=== PATIENT | male | born 1935 | race Caucasian/White ===

== ENCOUNTER 2017-03-24 07:06 | Day surgery (SDC) | payer MEDICARE, SELFPAY ==
--- NOTE | 2017-03-24 | IMM_PTH ---
PATIENT: ESAU NAJERA LOC: EN U#:[id number] AGE/SX: 81/M ROOM: RE03/24/[address]: Dr. Tal Rosario MD : 1935 BED: DIS: 03/24/2017 SPEC #: [id number] RECD: 03/25/17 13:37 STATUS: DESTINEE MARISEL #: [id number] EPI: 03/24/17 00:[address]: Tal Rosario DEPT: IMMUNOHISTOCHEMISTRY RECD BY: Anita Liao ENTERED: 03/25/17 13:37 SP TYPE: IMMUNO OTHR DR: Dr. Kiko Mojica MD Tissues: B - Stomach, NOS Procedures: H Pylori (initial) PHYSICIAN & INSTITUTION [place] [id number] SPECIMEN INFORMATION: Tissue Source: B ? Antral biopsy Clinical Info: Dysphagia, constipation Specimen Number: [id number] CPT code: 49667 METHODOLOGY: Deparaffinized sections of prefer/formalin-fixed tissue or PAP/DQ stained slides are incubated with monoclonal/polyclonal antibodies/oligonucleotide probes. Localization is made via biotin free immunoperoxidase method. Appropriate controls are performed and reacted as expected. Results on target cell population are indicated in the following table: RESULTS: ANTIBODY / CLONE RESULT Block B H Pylori (polyclonal) negative These tests were developed and their performance characteristics determined by [facility]. They may not have been cleared or approved by the U.S. Food and Drug Administration. The FDA has determined that such clearance or approval is not necessary. INTERPRETATION: B. Antral biopsy: Negative for Helicobacter pylori organisms. AM:vadim 03/26/17
[2017-03-24 07:29] VITALS: BP 153/95; PULSE 59; RESP 16; TEMP 36.9; O2SAT 100; BMI 20.7
--- NOTE | 2017-03-24 09:25 | EGD_PTH ---
PATIENT: ESAU NAJERA LOC: EN U#:[id number] AGE/SX: 81/M ROOM: RE03/24/[address]: Dr. Tal Rosario MD : 1935 BED: DIS: 03/24/2017 SPEC #: [id number] RECD: 03/24/17 14:29 STATUS: DESTINEE MARISEL #: [id number] EPI: 03/24/17 09:[address]: Tal Rosario DEPT: SURGICAL PATHOLOGY RECD BY: Tristan Avila ENTERED: 03/24/17 14:29 SP TYPE: EGD BIOPSY OT DR: Dr. Kiko Mojica MD Tissues: A - Duodenum, NOS B - Gastric mucous membrane C - Esophageal mucous membrane Sigmoid colon biopsy Procedures: Surgery Specimen Level IV HEADER OPERATION: EGD with balloon dilatation; colonoscopy PRE-OP DIAGNOSIS: Dysphagia, constipation TISSUE SUBMITTED: A ? Duodenum biopsy, B ? Antral biopsy, C ? Distal esophageal biopsy, D ? Mid sigmoid polyp MICROSCOPIC DIAGNOSIS A. Duodenum, biopsy: No significant pathologic change. No evidence of duodenitis. B. Gastric antrum, biopsy: Gastritis. C. Distal esophagus, biopsy: Fragments of benign squamous mucosa. D. Mid sigmoid colon polyp, biopsy: Tubular adenoma. Hyperplastic polyp. AM:vadim 03/25/17 COMMENT B. The results of immunohistochemistry for Helicobacter pylori will be reported separately ([id number]). MICROSCOPIC DESCRIPTION Slides are reviewed. B. Sections show small collections and groups of plasma cells in the mucosa. Active inflammation is not present. These findings are consistent with mild chronic gastritis. GROSS DESCRIPTION A - Received in fixative is one container labeled with the patient's name and designated duodenal biopsy. The specimen consists of one irregular fragment of light banda soft tissue that measures 0.2 x 0.2 x 0.1 cm. The specimen is totally submitted in one cassette. B - Received in fixative is one container labeled with the patient's name and designated antral biopsy. The specimen consists of one irregular fragment of light banda soft tissue that measures 0.3 x 0.3 x 0.1 cm. The specimen is totally submitted in one cassette. C - Received in fixative is one container labeled with the patient's name and designated distal esophagus biopsy. The specimen consists of one irregular fragment of light banda soft tissue that measures 0.2 x 0.1 x <0.1 cm. The specimen is totally submitted in one cassette. D - Received in fixative is one container labeled with the patient's name and designated mid sigmoid polyp. The specimen consists of two irregular fragments of light banda soft tissue that in aggregate measure 0.2 x 0.1 x 0.1 cm. The specimen is totally submitted in one cassette. / AM:vadim 03/24/17 TC:3 CPT: 21781 x4
--- NOTE | 2017-03-24 09:57 | PCM.OPRPT ---
Problem List (1) GERD (gastroesophageal reflux disease) Status: Acute (2) History of esophageal stricture Status: Acute (3) Constipation Status: Acute Qualifiers: Report of Operation Date of Procedure: 03/24/17 Pre-Operative Diagnosis: Intermittent food bolus esophageal obstruction. 3 of esophageal stricture with hydrostatic dilatation 2015. Severe constipation Post-Operative Diagnosis: Moderately large hiatal hernia. Relative distal esophageal narrowing. Sessile polyp of the mid sigmoid colon. Lax elongated colon Surgery/Procedure Performed:: Esophagogastroduodenoscopy with antral and distal esophageal biopsies and hydrostatic 16.5 mm distal esophageal dilatation. Colonoscopy with cold snare mid sigmoid polypectomy Description of Surgical Findings:: Amount and informed consent was obtained. 81-year-old gent was taken to the endoscopy suite. Because of age he underwent monitored anesthesia care. Oropharynx anesthetized with Cetacaine. He was placed in left lateral decubitus position. Flexible gastroscope was inserted in this outlet inlet advanced. Proximal mid distal esophagus not remarkable EG junction was noted to be somewhat snug as the upper scope of 10 mm just the hiatus. There is evidence of a moderately large hiatal hernia. Scope was advanced back down to the antral area and through the pylorus. First and second portion the duodenum were inspected this was not remarkable. Scope was withdrawn back in the stomach and antral biopsy was obtained. Scope was retroflexed and the hiatal hernia was noted. Reasonably sizable. The cardia was otherwise unremarkable. Greater and lesser curvatures were inspected not remarkable. Excess fluid and air was aspirated free. The scope was withdrawn to the distal esophagus. Distal esophageal biopsies obtained. Then because the patient was symptomatic a 16.5 mm hydrostatic balloon was inserted placed at the e.g. junction and balloon dilatation was performed this was up to 4.5 torsten. He tolerated that well. The pressure was held for a minute. The balloon was deflated. There is absolutely no blood. The scope was then further withdrawn without additional abnormality. Patient was kept in left upper skin position. Digital rectal exam. Lax anal tone. 2+ smooth prostate. Flexible, scope inserted the rectum advanced with quite lax tortuous left colon and transverse colon. The patient was placed supine and with transabdominal pressure the scope was advanced to the cecum. Bowel prep though not perfect I felt was adequate. There was still some liquidy stool mostly on the right side of the colon. I felt that I had good visualization the mucosa though. The cecum ileocecal valve was nicely achieved. The scope was carefully withdrawn from the ascending transverse and descending colon. In the mid sigmoid colon there was a sessile 7 mm polyp. A cold snare was used to resected and retrieved. Hemostasis was intact. There had been some minimal diverticulosis of the sigmoid. No evidence of acute inflammation. The procedure was completed with patient tolerating it well. The scope was retroflexed within the rectum and mild hemorrhoidal changes noted but no active bleeding. Impression Moderately large hiatal hernia. Relative distal esophageal narrowing. Antral and distal esophageal biopsies pending. Successful 60.5 mm distal esophageal dilatation. This was performed in an attempt to improve the patient's symptoms. If patient does not improve then consideration for barium swallow and esophageal manometry will be pursued. Sessile polyp in the mid sigmoid colon likely benign. Final pathology pending. Likely at age 81 will not need an additional colonoscopy as he required a 3 day bowel prep for this 1. Possibly consider a follow-up colonoscopy at 5 years pending medical status at that time. No focal mechanical means for his severe constipation identified. Will refer back to Dr. Mojica for ongoing medical management of constipation. Cc: Dr. Mojica and Dr. Rodriguez The cecum was reached at 0942. The colonoscopy was completed at 0951. Tal Rosario M.D., F.A.C.S. Type of Anesthesia:: MAC
[2017-03-24 09:59] VITALS: BP 128/66; BP 153/95; PULSE 61; RESP 15; TEMP 36; O2SAT 100
[2017-03-24 10:05] VITALS: BP 120/63; BP 153/95; PULSE 58; RESP 18; O2SAT 96
[2017-03-24 10:10] VITALS: BP 113/81; BP 153/95; PULSE 60; RESP 18; O2SAT 96
[2017-03-24 10:17] VITALS: BP 104/91; BP 153/95; PULSE 56; RESP 18; TEMP 35.9; O2SAT 100
[2017-03-24 10:49] VITALS: BP 153/95
== END 2017-03-24 10:50 | disposition home or self-care (01) ==
LOC: EN 07:06 → AC 07:07
PROVIDERS: Family Provider Family Medicine Geriatric Medicine; PCP Family Medicine Geriatric Medicine; Visit Provider Surgery
PROC: 0DJD8ZZ Inspection of Lower Intestinal Tract, Via Natural or Artificial Opening Endoscopic (ICD-10-PCS; CPT 45378; principal; 2017-03-24 08:25)
DX: K22.2 Esophageal obstruction (principal); K44.9 Diaphragmatic hernia without obstruction or gangrene; K29.70 Gastritis, unspecified, without bleeding; K63.5 Polyp of colon; D12.5 Benign neoplasm of sigmoid colon; Q43.8 Other specified congenital malformations of intestine; K57.30 Diverticulosis of large intestine without perforation or abscess without bleeding; K64.9 Unspecified hemorrhoids; K59.00 Constipation, unspecified; K21.9 Gastro-esophageal reflux disease without esophagitis; I25.2 Old myocardial infarction; M19.90 Unspecified osteoarthritis, unspecified site; I25.10 Atherosclerotic heart disease of native coronary artery without angina pectoris; I10 Essential (primary) hypertension; E78.00 Pure hypercholesterolemia, unspecified; Z95.1 Presence of aortocoronary bypass graft; Z87.891 Personal history of nicotine dependence; Z79.82 Long term (current) use of aspirin; Z79.899 Other long term (current) drug therapy
CPT/HCPCS: 43239; 43249; 45385; 88305; 88342; J7120; A4216

== ENCOUNTER → 2017-04-09 15:57 | Outpatient (CLI) | payer MEDICARE, SELFPAY ==
--- NOTE | 2017-04-09 16:00 | VDUE_ITS ---
Reason For Study: Edema Right Proximal Left Proximal Right jugular vein is spontaneous, widely Left jugular vein is spontaneous, widely patent, phasic, with no intraluminal patent, phasic, with no intraluminal echogenicity noted. echogenicity noted. Right subclavian vein is spontaneous, widely Left subclavian vein is spontaneous, widely patent, phasic, with no intraluminal patent, phasic, with no intraluminal echogenicity noted. echogenicity noted. Right Lower Arm Left Arm Right radial vein is compressible. Left axillary vein is spontaneous, patent, Right ulnar vein is compressible. phasic, competent, compressible and Right Arm demonstrates augmentation. Right axillary vein is spontaneous, patent, Left brachial vein is compressible. phasic, competent, compressible and Left cephalic vein is compressible. demonstrates augmentation. Left basilic vein is compressible. Right brachial vein is compressible. Left Lower Arm Right cephalic vein is compressible. Left radial vein is compressible. Right basilic vein is compressible. Left ulnar vein is compressible. < Interpretation Summary Deep veins of the upper extremities are bilaterally patent and compressible segmentally. There is no evidence of deep vein thrombosis on either side. The superficial veins of the upper extremities, the basilic and cephalic veins, are patent and compressible bilaterally. There is no evidence of upper extremity superficial thrombophlebitis on either side involving the veins imaged. Ordering Physician: Kiko Mojica Referring Physician: Kiko Mojica Chi Performed By: Heena Espinal RVT
--- NOTE | 2017-04-09 16:03 | VDLE_ITS ---
Reason For Study: LEG SWELLING RIGHT LEFT CFV is compressible, spontaneous, phasic, GSV is normal. competent and demonstrates normal CFV is compressible, spontaneous, phasic, augmentation. competent, and demonstrates normal FV is compressible, spontaneous, phasic, augmentation. competent and demonstrates normal FV is compressible, spontaneous, phasic, augmentation. competent and demonstrates normal POP V is compressible, spontaneous, phasic, augmentation. competent and demonstrates normal POP V is compressible, spontaneous, phasic, augmentation. competent and demonstrates normal T/P Trunk is compressible. augmentation. PTV is compressible. T/P Trunk is compressible. RT PerV is compressible. PTV is compressible. GSV harvested. LT PerV is compressible. Interpretation Summary Deep veins of the lower extremities are bilaterally patent and compressible segmentally. There is no evidence of deep vein thrombosis on either side. Valvular competence appears intact within the proximal deep venous systems bilaterally. The right greater saphenous vein is absent, having been previously harvested. The left greater saphenous vein appears patent and compressible segmentally. Ordering Physician: Kiko Mojica Referring Physician: Kiko Mojica Chi Performed By: Heena Espinal RVT
[2017-04-09 17:19] LABS: Absolute Lymphocyte Count 2.29 X10^3/ul (0.83-4.51); Absolute Neutrophil Count 2.4 X10^3/uL (2.0-7.7); Basophil# 0.03 X10^3/uL; Basophil% 0.5 % (0-1); Eosinophil# 0.27 X10^3/uL; Eosinophils% 4.7 % (0-5); Hematocrit 42.3 % (40-54); Hemoglobin 13.7 g/dl (13.0-16.5); Lymphocyte # 2.29 X10^3/ul (4.0); Lymphocyte % 40.2 % (19-41); Mean Corp Hgb Conc 32.4 g/gl (32-36); Mean Corpuscular Hgb 31.2 pg (27.0-32.0); Mean Corpuscular Volume 96.4 fL (80-94); Monocyte# 0.69 X10^3/uL; Monocyte% 12.1 % (0-10); Neutrophil # 2.42 X10^3/uL (2.7-7.7); Neutrophil % 42.5 % (47-70); Platelet Count 222 K/mm3 (150-450); RBC Distribution Width CV 14.6 % (11.6-14.6); RBC Distribution Width SD 51.9 fl (35.1-43.9); Red Blood Count 4.39 M/mm3 (4.6-6.2); White Blood Count 5.7 K/mm3 (4.4-11.0)
[2017-04-09 17:21] LABS: POSITIVE COUNT NO; POSITIVE DIFFERENTIAL NO; POSITIVE MORPHOLOGY NO
[2017-04-09 17:33] LABS: Erythrocyte Sedimentation Rate 9 mm/hr (0-20)
[2017-04-09 17:52] LABS: Anion Gap 4 (5-15); BUN 12 mg/dL (7-18); CRP, High Sensitivity Cardiac 0.39 mg/L; Calcium,Total 8.5 mg/dL (8.5-10.1); Chloride 105 mmol/L (98-107); Creatinine, Serum 1.09 mg/dL (0.70-1.30); EST Glomerular Filtration Rate 69 mL/min (>60); Est Glom Filt Rate - Afr Amer 83 mL/min (>60); Glucose 82 mg/dL (74-106); Potassium 3.9 mmol/L (3.5-5.1); Sodium Level 140 mmol/L (136-145); Uric Acid 4.6 mg/dL (3.5-7.2)
== END ==
PROVIDERS: Family Provider Family Medicine Geriatric Medicine; PCP Family Medicine Geriatric Medicine; Visit Provider Family Medicine Geriatric Medicine
DX: R60.0 Localized edema (principal); M10.9 Gout, unspecified
CPT/HCPCS: 36415; 80048; 84550; 85025; 85652; 86141; 93970

== ENCOUNTER 2017-08-16 12:26 | Emergency (ER) | payer MEDICARE, SELFPAY ==
[2017-08-16 12:27] VITALS: BP 131/76; PULSE 66; RESP 12; TEMP 36.6; BMI 21.7
--- NOTE | 2017-08-16 12:47 | ED.DCSUM_ITS ---
- ER Visit Summary Date of Service: 08/16/17 Chief Complaint: Laceration History of Present Illness: The patient is a 82 M presents to the emergency department scalp laceration. Patient was riding his lawnmower. He ended up going under a low tree. He struck his head against a branch. He suffered a large laceration. He did not lose consciousness. He denies any dizziness, lightheadedness, neck pain, other symptoms. Patient does not think he is on anticoagulants. He has had tetanus shot within the past 5 years. He states that he applied pressure and presented here for further evaluation. Physical Examination: Exam is relatively unremarkable. The patient does have a 4 cm full-thickness scalp laceration that is V-shaped. There is minimal active bleeding. GCS is 15. Head is otherwise normocephalic. Neck is nontender. Pupils are equal round reactive to light. There is no hemotympanum. Heart regular. Lungs clear. Abdomen soft. Neuro exam this was no focal lateralizing deficit. Test Results: [] Emergency Department Course and Treatment: The patient's wound was anesthetized with lidocaine with epinephrine. It was irrigated with 250 cc of normal saline. There was some slight debris that was removed. There was no evidence of galeal disruption. The laceration was repaired with 14 taras. The patient tolerated this without issue. Dressing was placed. He was counseled on wound care. He will follow-up in 10 days for staple removal. Treatment Plan: [] Disposition: Discharge Impression: 1. 4 Centimeter scalp laceration with staple closure This note was generated with [employer] dictation software. It may contain incorrect words, spelling, and punctuation that were not noted in review of the chart prior to signing ED Disposition - Plan for ED Patient: Chief Complaint: Laceration Instructions: ED Laceration Scalp Stitch Or Stap Referrals: Kiko Mojica Chi, MD [Primary Care Provider] - 10 Day for suture removal
== END 2017-08-16 13:24 | disposition home or self-care (01) ==
PROVIDERS: Emergency Provider Emergency Medicine; Family Provider Family Medicine Geriatric Medicine; PCP Family Medicine Geriatric Medicine
DX: S01.02XA Laceration with foreign body of scalp, initial encounter (principal); W22.8XXA Striking against or struck by other objects, initial encounter; Y93.H9 Activity, other involving exterior property and land maintenance, building and construction; Y92.9 Unspecified place or not applicable
CPT/HCPCS: 12002; 99282

== ENCOUNTER → 2017-09-02 14:44 | Outpatient (CLI) | payer MEDICARE, SELFPAY ==
[2017-09-02 16:10] LABS: Absolute Lymphocyte Count 1.85 X10^3/ul (0.83-4.51); Absolute Neutrophil Count 2.6 X10^3/uL (2.0-7.7); Basophil# 0.04 X10^3/uL; Basophil% 0.7 % (0-1); Eosinophil# 0.28 X10^3/uL; Eosinophils% 5.1 % (0-5); Hematocrit 42.5 % (40-54); Hemoglobin 14.4 g/dl (13.0-16.5); Lymphocyte # 1.85 X10^3/ul (4.0); Lymphocyte % 33.7 % (19-41); Mean Corp Hgb Conc 33.9 g/gl (32-36); Mean Corpuscular Volume 94.4 fL (80-94); Mean Platelet Vol. 9.9 fl (6.2-12.0); Monocyte% 12.8 % (0-10); Neutrophil # 2.61 X10^3/uL (2.7-7.7); Neutrophil % 47.5 % (47-70); Platelet Count 238 K/mm3 (150-450); RBC Distribution Width CV 13.6 % (11.6-14.6); RBC Distribution Width SD 45.3 fl (35.1-43.9); White Blood Count 5.5 K/mm3 (4.4-11.0)
[2017-09-02 16:13] LABS: POSITIVE COUNT NO; POSITIVE DIFFERENTIAL NO; POSITIVE MORPHOLOGY NO
[2017-09-02 17:31] LABS: ALB/GLOB Ratio 0.9 RATIO (0.9-2.4); AST(SGOT) 17 U/L (15-37); Alanine Aminotransfer ALT/SGPT 20 U/L (16-61); Albumin, Serum 3.7 g/dL (3.2-5.0); Alkaline Phosphatase 81 U/L (45-117); Anion Gap 9 (5-15); BUN 11 mg/dL (7-18); BUN/Creat Ratio 9.2 RATIO (10-20); Calcium,Total 8.7 mg/dL (8.5-10.1); Chloride 105 mmol/L (98-107); Creatinine, Serum 1.19 mg/dL (0.70-1.30); EST Glomerular Filtration Rate 62 mL/min (>60); Est Glom Filt Rate - Afr Amer 75 mL/min (>60); Globulin 4.1 g/dL (2.2-4.2); Glucose 89 mg/dL (74-106); Potassium 4.2 mmol/L (3.5-5.1); Protein, Total 7.8 g/dL (6.4-8.2); Sodium Level 141 mmol/L (136-145); Thyroid Stim Hormone (TSH) 1.43 uIU/mL (0.358-3.74)
== END ==
PROVIDERS: Family Provider Family Medicine Geriatric Medicine; PCP Family Medicine Geriatric Medicine; Visit Provider Family Medicine Geriatric Medicine
DX: E55.9 Vitamin D deficiency, unspecified (principal); R53.83 Other fatigue
CPT/HCPCS: 80053; 82306; 84443; 85025

== ENCOUNTER → 2017-09-02 15:47 | Outpatient (CLI) | payer MEDICARE, SELFPAY ==
--- NOTE | 2017-09-02 15:55 | CT_ITS ---
STUDY: CT ABDOMEN AND PELVIS WITH CONTRAST REASON FOR EXAM: Male, 82 years old. Diffuse abdominal pain. RADIATION DOSAGE (If Supplied By Facility): CTDIvol = ( 5.27 ) mGy, DLP = ( 454.05 ) mGycm TECHNIQUE: Transaxial images were obtained from the dome of the diaphragm to the symphysis pubis without oral contrast. 100ML ml of Isovue 300 contrast was administered. Sagittal and coronal images were reconstructed. Individualized dose optimization techniques were used for this CT. COMPARISON: November 14, 2016 FINDINGS: The visualized lung bases are unremarkable. The visualized portions of the heart are within normal limits. There is decreased attenuation of the liver consistent with steatosis. Normal gallbladder and extrahepatic biliary system. Normal spleen. Normal pancreas. Normal bilateral adrenal glands. There is a right renal cysts. Normal left kidney. There is a small hiatal hernia. Normal small intestine. There is mild circumferential wall thickening of the colon associated with air-fluid levels. There is non-visualization of the appendix. 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 There is a stable bifurcated stent in place. There are atherosclerotic calcifications of the abdominal aorta and the common iliac arteries and its branches. Normal inferior vena cava. Normal retroperitoneum. Normal urinary bladder. There is enlargement of the prostate gland. Normal abdominal wall. There are diffuse degenerative changes of the visualized lumbar spine. There are scattered stable sclerotic foci throughout the bones. CT/Abdomen/Pelvis WITH Contrast IMPRESSION: Mild circumferential wall thickening of the colon which may be partially secondary to its incompletely distended state however cannot exclude underlying colitis. Stable infrarenal abdominal aortic aneurysm. Hiatal hernia. Electronically Signed: Yanet Hernandez MD at 18:40 EDT Tel , Service support ,
== END ==
PROVIDERS: Family Provider Family Medicine Geriatric Medicine; PCP Family Medicine Geriatric Medicine; Visit Provider Family Medicine Geriatric Medicine
DX: R10.9 Unspecified abdominal pain (principal); E55.9 Vitamin D deficiency, unspecified; R53.83 Other fatigue
CPT/HCPCS: 74177; 80053; 82306; 84443; 85025; Q9967

== ENCOUNTER 2017-10-09 15:43 | Emergency (ER) | payer MEDICARE, SELFPAY ==
[2017-10-09 15:45] VITALS: BP 109/74; PULSE 76; RESP 18; TEMP 37.1; O2SAT 94; BMI 21.9
--- NOTE | 2017-10-09 16:31 | ED.VISSUMM ---
- ER Visit Summary Date of Service: 10/09/17 Chief Complaint: Dog bite History of Present Illness: The patient is a 82 M presenting with dog bite to left lower extremity. This occurred around 11 AM. He states two family pets were in a fight and he got in the middle of it. He has a dog bite to the left lower extremity. He states he tried to apply direct pressure and it continued to ooze throughout the day. He is currently on Bactrim for previous right lower leg infection. His tetanus is up-to-date. No other complaints. Physical Examination: Vitals are stable. Patient is afebrile. Alert no acute distress. HEENT exam is unremarkable. Neck is supple. Lungs are clear and equal bilaterally. Heart is regular rate and rhythm. Extremities 1.0 cm laceration to anterior left lower extremity, puncture to lateral left lower extremity. Normal distal pulses Skin is warm and dry. No focal neurologic deficit. Remainder of exam is unremarkable. Emergency Department Course and Treatment: Laceration was copiously irrigated. Anesthetized with lidocaine. 2, 5-0 simple sutures were placed. The puncture wound was irrigated. He is given prescription for clindamycin. Advised wound care instructions. Advised to follow with primary care physician. Advised to return to ED for worsening complaints. Disposition: Discharged home Impression: Dog bite left lower extremity, laceration repair This note was generated with [employer] dictation software. It may contain incorrect words, spelling, and punctuation that were not noted in review of the chart prior to signing ED Disposition - Plan for ED Patient: Chief Complaint: Laceration Referrals: Kiko Mojica Chi, MD [Primary Care Provider] -
--- NOTE | 2017-10-09 16:35 | ED.DEP ---
ED Disposition - Plan for ED Patient: Chief Complaint: Laceration Instructions: ED Laceration All Prescriptions: Clindamycin [Cleocin] 300 mg PO 4X/DAY #80 capsule Referrals: Kiko Mojica Chi, MD [Primary Care Provider] -
[2017-10-09] MEDS: Clindamycin HCl 150 MG Capsule 300 MG PO (16:55)
== END 2017-10-09 16:58 | disposition home or self-care (01) ==
LOC: ED 16:39
PROVIDERS: Emergency Provider Emergency Medicine; Family Provider Family Medicine Geriatric Medicine; PCP Family Medicine Geriatric Medicine
DX: S80.872A Other superficial bite, left lower leg, initial encounter (principal); W54.0XXA Bitten by dog, initial encounter; Y93.9 Activity, unspecified; Y92.9 Unspecified place or not applicable; I10 Essential (primary) hypertension; E78.00 Pure hypercholesterolemia, unspecified; Z79.82 Long term (current) use of aspirin; Z79.899 Other long term (current) drug therapy
CPT/HCPCS: 12001; 99283

== ENCOUNTER → 2018-03-09 15:05 | Outpatient (CLI) | payer MEDICARE, SELFPAY ==
[2018-03-09] MEDS: 0.9% Normal Saline 1,000 ML 999 ML IV (15:25)
[2018-03-09 15:40] VITALS: BP 131/68; PULSE 66; RESP 16; TEMP 36.8; O2SAT 98; BMI 21.9
[2018-03-09 16:59] LABS: Absolute Lymphocyte Count 1.74 X10^3/ul (0.83-4.51); Absolute Neutrophil Count 2.2 X10^3/uL (2.0-7.7); Basophil# 0.04 X10^3/uL; Basophil% 0.8 % (0-1); Eosinophil# 0.33 X10^3/uL; Hematocrit 47.6 % (40-54); Hemoglobin 15.4 g/dl (13.0-16.5); Lymphocyte # 1.74 X10^3/ul (4.0); Lymphocyte % 36.9 % (19-41); Mean Corp Hgb Conc 32.4 g/gl (32-36); Mean Corpuscular Hgb 31.4 pg (27.0-32.0); Mean Corpuscular Volume 97.1 fL (80-94); Mean Platelet Vol. 10.3 fl (6.2-12.0); Monocyte# 0.39 X10^3/uL; Monocyte% 8.3 % (0-10); Neutrophil % 46.8 % (47-70); POSITIVE COUNT NO; POSITIVE DIFFERENTIAL NO; POSITIVE MORPHOLOGY NO; Platelet Count 218 K/mm3 (150-450); RBC Distribution Width CV 13.6 % (11.6-14.6); RBC Distribution Width SD 48.4 fl (35.1-43.9); White Blood Count 4.7 K/mm3 (4.4-11.0)
[2018-03-09 17:14] LABS: Vitamin D,25 Hydroxy 10.6 ng/mL (29.95-100.01)
[2018-03-09 17:16] LABS: ALB/GLOB Ratio 0.9 RATIO (0.9-2.4); AST(SGOT) 15 U/L (15-37); Alanine Aminotransfer ALT/SGPT 24 U/L (16-61); Albumin, Serum 3.9 g/dL (3.2-5.0); Alkaline Phosphatase 79 U/L (45-117); Anion Gap 10 (5-15); BUN 11 mg/dL (7-18); BUN/Creat Ratio 10.3 RATIO (10-20); Calcium,Total 9.1 mg/dL (8.5-10.1); Chloride 109 mmol/L (98-107); Creatinine, Serum 1.07 mg/dL (0.70-1.30); EST Glomerular Filtration Rate 70 mL/min (>60); Est Glom Filt Rate - Afr Amer 85 mL/min (>60); Globulin 4.3 g/dL (2.2-4.2); Glucose 77 mg/dL (74-106); Potassium 4.1 mmol/L (3.5-5.1); Protein, Total 8.2 g/dL (6.4-8.2); Sodium Level 146 mmol/L (136-145); Thyroid Stim Hormone (TSH) 1.39 uIU/mL (0.358-3.74)
== END ==
PROVIDERS: Family Provider Family Medicine Geriatric Medicine; PCP Family Medicine Geriatric Medicine; Visit Provider Family Medicine Geriatric Medicine
DX: R42 Dizziness and giddiness (principal); E55.9 Vitamin D deficiency, unspecified; R53.83 Other fatigue
CPT/HCPCS: 96360; 36415; 80053; 82306; 84443; 85025; J7030; A4216

== ENCOUNTER → 2018-06-03 | Outpatient (CLI) | payer MEDICARE, SELFPAY ==
[2018-03-09 15:40] VITALS: BMI 21.9
--- NOTE | 2018-06-03 14:30 | MRI_ITS ---
STUDY: MRI CERVICAL SPINE WITHOUT CONTRAST REASON FOR EXAM: Male, 82 years old. Neck pain, shoulder and arm pain x 1 year TECHNIQUE: Standardized fat and water weighted pulse sequences were obtained in the sagittal and axial planes. COMPARISON: None FINDINGS: Normal foramen magnum and brainstem-cervical cord junction. Normal craniovertebral junction. Normal anterior atlantoaxial articulation. Normal odontoid process. Normal cervical lordosis. C2-3: There is severe disc space narrowing and endplates spondylosis. There is no significant central canal stenosis. There is uncovertebral facet arthropathy with minimal right and moderate left foraminal stenosis. There is minimal grade 1 anterolisthesis. C3-4: There is severe disc space narrowing and endplates spondylosis. There is retrolisthesis with dorsal ligament with buckling resulting in severe central canal stenosis and impingement of the spinal cord without increased cord signal. Uncovertebral and facet arthropathy with severe right and severe left foraminal stenosis. C4-5: There is mild disc space narrowing and endplates spondylosis. Mild disc osteophyte complex with mild central canal stenosis. Uncovertebral facet neuropathy with severe right and moderate left foraminal stenosis. C5-6: There is severe disc space narrowing and endplates spondylosis. There is a moderate disc osteophyte complex with moderate central stenosis. Uncovertebral and facet arthropathy severe right and moderate left foraminal stress. C6-7: There is moderate disc space narrowing and endplates spondylosis. Mild disc osteophyte complex with mild central canal stenosis. Uncovertebral facet arthropathy with mild right and mild left foraminal stenosis. C7-T1: There is minimal disc space narrowing and endplate spondylosis. There is no significant disc herniation, central canal or foraminal stenosis. Normal visualized soft tissue structures. There are 1 cm T1 hyperintense lesions at C7 and T2, likely bone islands. 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 Electronically Signed: Elina Ratliff MD at 15:21 EDT Tel , Service support ,
== END | disposition home or self-care (01) ==
LOC: MRI 13:56
PROVIDERS: Family Provider Family Medicine Geriatric Medicine; PCP Family Medicine Geriatric Medicine; Referring Provider Family Medicine Geriatric Medicine; Visit Provider Family Medicine Geriatric Medicine
DX: M48.02 Spinal stenosis, cervical region (principal)
CPT/HCPCS: 72141

== ENCOUNTER → 2018-07-06 | Outpatient (CLI) | payer MEDICARE, SELFPAY ==
[2018-03-09 15:40] VITALS: BMI 21.9
[2018-07-06 12:54] LABS: Absolute Lymphocyte Count 1.69 X10^3/ul (0.83-4.51); Absolute Neutrophil Count 3.9 X10^3/uL (2.0-7.7); Basophil# 0.02 X10^3/uL; Basophil% 0.3 % (0-1); Eosinophil# 0.14 X10^3/uL; Eosinophils% 2.2 % (0-5); Hematocrit 45.6 % (40-54); Hemoglobin 15.4 g/dl (13.0-16.5); Lymphocyte # 1.69 X10^3/ul (4.0); Lymphocyte % 26.6 % (19-41); Mean Corp Hgb Conc 33.8 g/gl (32-36); Mean Corpuscular Hgb 32.4 pg (27.0-32.0); Mean Corpuscular Volume 95.8 fL (80-94); Mean Platelet Vol. 9.4 fl (6.2-12.0); Monocyte# 0.63 X10^3/uL; Monocyte% 9.9 % (0-10); Neutrophil # 3.86 X10^3/uL (2.7-7.7); Neutrophil % 60.8 % (47-70); Platelet Count 200 K/mm3 (150-450); RBC Distribution Width CV 13.7 % (11.6-14.6); RBC Distribution Width SD 47.5 fl (35.1-43.9); Red Blood Count 4.76 M/mm3 (4.6-6.2); White Blood Count 6.4 K/mm3 (4.4-11.0)
[2018-07-06 13:00] LABS: POSITIVE COUNT NO; POSITIVE DIFFERENTIAL NO; POSITIVE MORPHOLOGY NO
[2018-07-06 13:20] LABS: ALB/GLOB Ratio 0.9 RATIO (0.9-2.4); AST(SGOT) 16 U/L (15-37); Alanine Aminotransfer ALT/SGPT 20 U/L (16-61); Albumin, Serum 3.7 g/dL (3.2-5.0); Alkaline Phosphatase 68 U/L (45-117); Anion Gap 8 (5-15); BUN 14 mg/dL (7-18); BUN/Creat Ratio 12.6 RATIO (10-20); Calcium,Total 8.9 mg/dL (8.5-10.1); Chloride 105 mmol/L (98-107); Creatinine, Serum 1.11 mg/dL (0.70-1.30); EST Glomerular Filtration Rate 67 mL/min (>60); Est Glom Filt Rate - Afr Amer 81 mL/min (>60); Glucose 84 mg/dL (74-106); Potassium 4.2 mmol/L (3.5-5.1); Protein, Total 7.7 g/dL (6.4-8.2); Sodium Level 139 mmol/L (136-145); Thyroid Stim Hormone (TSH) 1.35 uIU/mL (0.358-3.74)
--- NOTE | 2018-07-06 13:54 | RAD_ITS ---
STUDY: X-RAY - ABDOMEN/PELVIS REASON FOR EXAM: Male, 82 years old. Abdominal pain TECHNIQUE: Single AP view of the abdomen / pelvis. COMPARISON: 01/21/2017. FINDINGS: Normal visualized lung bases. There is an unremarkable bowel gas pattern. There is no demonstrated free abdominal air. The visualized liver, spleen and kidneys are grossly normal in size and morphology. Stable appearance of aortic and iliac stent grafts. Normal soft tissue structures. Normal visualized osseous structures. RAD/Abdomen Single View IMPRESSION: No acute abnormality. Electronically Signed: Ryland España MD at 14:31 EDT , Service support ,
--- NOTE | 2018-07-06 14:01 | RAD_ITS ---
STUDY: X-RAY CHEST REASON FOR EXAM: Male, 82 years old. Chest pain TECHNIQUE: Frontal and lateral views of the chest. COMPARISON: 11/14/2016. FINDINGS: There is hyperinflation of the lungs consistent with chronic obstructive lung disease (COPD). No infiltrates. No effusions. There is no demonstrated pleural abnormality. Normal size heart. Previous CABG. Normal mediastinum and tammi. Normal visualized pulmonary arteries. There is atherosclerotic calcification of the aortic arch with tortuosity. There are diffuse degenerative changes of the visualized thoracic spine. Normal visualized ribs, clavicles, and shoulders. There is no demonstrated abnormality of the visualized soft tissue structures of the upper abdomen. RAD/Chest PA and Lateral IMPRESSION: There are findings consistent with COPD. There is no evidence of acute chest disease. Electronically Signed: Ryland España MD at 14:34 EDT , Service support ,
[2018-07-07 15:51] LABS: Myoglobin, Serum 52 ng/mL (28-72)
== END | disposition home or self-care (01) ==
LOC: POLAB3 12:17 → RAD 13:51
PROVIDERS: Family Provider Family Medicine Geriatric Medicine; PCP Family Medicine Geriatric Medicine; Referring Provider Family Medicine Geriatric Medicine; Visit Provider Family Medicine Geriatric Medicine
DX: R07.9 Chest pain, unspecified (principal); R10.9 Unspecified abdominal pain; F05 Delirium due to known physiological condition
CPT/HCPCS: 36415; 71046; 74018; 80053; 83874; 84443; 84484; 85025; 87040

== ENCOUNTER → 2018-07-07 | Outpatient (CLI) | payer MEDICARE, SELFPAY ==
[2018-03-09 15:40] VITALS: BMI 21.9
[2018-07-07 13:13] LABS: CPK Total, Creatine Kinase 64 U/L (39-308)
[2018-07-08 16:54] LABS: Myoglobin, Serum 40 ng/mL (28-72)
== END | disposition home or self-care (01) ==
LOC: POLAB3 11:43
PROVIDERS: Family Provider Family Medicine Geriatric Medicine; PCP Family Medicine Geriatric Medicine; Visit Provider Family Medicine Geriatric Medicine
DX: R07.9 Chest pain, unspecified (principal)
CPT/HCPCS: 36415; 82550; 83874; 84484

== ENCOUNTER → 2018-08-17 | Outpatient (CLI) | payer MEDICARE, SELFPAY ==
[2018-08-17 12:39] VITALS: BMI 21.9
--- NOTE | 2018-08-17 12:46 | RAD_ITS ---
STUDY: X-RAY - CERVICAL SPINE REASON FOR EXAM: Male, 83 years old. Neck pain TECHNIQUE: 4 view(s) of the cervical spine were obtained. With flexion and extension views COMPARISON: None FINDINGS: Normal anterior atlantoaxial articulation. Normal odontoid process. Normal cervical lordosis. There is multi-level endplate spondylosis. There is multi-level degenerative disc disease with multilevel disc space narrowing. There is no abnormal translation with flexion or extension The soft tissue structures are unremarkable. There is no demonstrated fracture of the cervical spine. RAD/Cerv Spine 4 or 5 Views IMPRESSION: Degenerative changes without acute findings Electronically Signed: Demarcus Holbrook DO at 13:15 EDT Tel , Service support ,
== END | disposition home or self-care (01) ==
LOC: HPRAD 12:46
PROVIDERS: Family Provider Family Medicine Geriatric Medicine; PCP Family Medicine Geriatric Medicine; Referring Provider Orthopaedic Surgery; Visit Provider Orthopaedic Surgery
DX: M54.2 Cervicalgia (principal)
CPT/HCPCS: 72050

== ENCOUNTER → 2018-09-06 | Outpatient (CLI) | payer MEDICARE, SELFPAY ==
[2018-08-17 13:17] VITALS: BMI 21.9
[2018-09-06 15:25] LABS: Absolute Lymphocyte Count 2.09 X10^3/uL (0.83-4.51); Absolute Neutrophil Count 5.2 X10^3/uL (2.0-7.7); Basophil# 0.05 X10^3/uL; Basophil% 0.6 % (0-1); Eosinophils% 1.2 % (0-5); Hematocrit 46.4 % (40-54); Hemoglobin 15.4 g/dL (13.0-16.5); Lymphocyte # 2.09 X10^3/ul (4.0); Lymphocyte % 24.8 % (19-41); Mean Corp Hgb Conc 33.2 g/dL (32-36); Mean Corpuscular Hgb 32.3 pg (27.0-32.0); Mean Corpuscular Volume 97.3 fL (80-94); Mean Platelet Vol. 9.8 fl (6.2-12.0); Monocyte% 11.8 % (0-10); NRBC Flagged by Analyzer 0 % (0-5); Neutrophil # 5.17 X10^3/uL (2.7-7.7); Neutrophil % 61.2 % (47-70); Platelet Count 245 K/mm3 (150-450); RBC Distribution Width CV 13.4 % (11.6-14.6); RBC Distribution Width SD 48.4 fl (35.1-43.9); Red Blood Count 4.77 M/mm3 (4.6-6.2); White Blood Count 8.4 K/mm3 (4.4-11.0)
[2018-09-06 15:53] LABS: AST(SGOT) 11 U/L (15-37); Alanine Aminotransfer ALT/SGPT 20 U/L (16-61); Albumin, Serum 3.7 g/dL (3.2-5.0); Alkaline Phosphatase 63 U/L (45-117); Anion Gap 4 (5-15); BUN 20 mg/dL (7-18); BUN/Creat Ratio 17.9 RATIO (10-20); Chloride 103 mmol/L (98-107); Creatinine, Serum 1.12 mg/dL (0.70-1.30); EST Glomerular Filtration Rate 66 mL/min (>60); Est Glom Filt Rate - Afr Amer 80 mL/min (>60); Globulin 3.8 g/dL (2.2-4.2); Glucose 82 mg/dL (74-106); Potassium 4.5 mmol/L (3.5-5.1); Protein, Total 7.5 g/dL (6.4-8.2); Sodium Level 136 mmol/L (136-145); Thyroid Stim Hormone (TSH) 1.33 uIU/mL (0.358-3.74)
[2018-09-06 22:03] LABS: Vitamin D,25 Hydroxy 23.6 ng/mL (29.95-100.01)
== END | disposition home or self-care (01) ==
LOC: POLAB3 09:46
PROVIDERS: Family Provider Family Medicine Geriatric Medicine; PCP Family Medicine Geriatric Medicine; Visit Provider Family Medicine Geriatric Medicine
DX: E55.9 Vitamin D deficiency, unspecified (principal); R53.83 Other fatigue
CPT/HCPCS: 36415; 80053; 82306; 84443; 85025

== ENCOUNTER → 2019-03-07 13:27 | Outpatient (CLI) | payer MEDICARE, SELFPAY ==
[2019-01-04 13:15] VITALS: BMI 21.9
[2019-03-07 17:29] LABS: Absolute Lymphocyte Count 1.78 X10^3/uL (0.83-4.51); Absolute Neutrophil Count 2.6 X10^3/uL (2.0-7.7); Basophil# 0.05 X10^3/uL; Basophil% 0.9 % (0-1); Eosinophil# 0.33 X10^3/uL; Hematocrit 46.1 % (40-54); Hemoglobin 14.7 g/dL (13.0-16.5); Lymphocyte # 1.78 X10^3/ul (4.0); Lymphocyte % 32.4 % (19-41); Mean Corp Hgb Conc 31.9 g/dL (32-36); Mean Corpuscular Hgb 31.3 pg (27.0-32.0); Mean Corpuscular Volume 98.3 fL (80-94); Mean Platelet Vol. 10.3 fl (6.2-12.0); Monocyte# 0.77 X10^3/uL; NRBC Flagged by Analyzer 0 % (0-5); Neutrophil # 2.55 X10^3/uL (2.7-7.7); Neutrophil % 46.3 % (47-70); Platelet Count 222 K/mm3 (150-450); RBC Distribution Width CV 13.4 % (11.6-14.6); RBC Distribution Width SD 48.1 fl (35.1-43.9); Red Blood Count 4.69 M/mm3 (4.6-6.2); White Blood Count 5.5 K/mm3 (4.4-11.0)
[2019-03-07 17:54] LABS: Vitamin D,25 Hydroxy 18.4 ng/mL (29.95-100.01)
[2019-03-07 17:58] LABS: ALB/GLOB Ratio 0.9 RATIO (0.9-2.4); AST(SGOT) 14 U/L (15-37); Alanine Aminotransfer ALT/SGPT 19 U/L (16-61); Albumin, Serum 3.6 g/dL (3.2-5.0); Alkaline Phosphatase 63 U/L (45-117); Anion Gap 3 (5-15); BUN 16 mg/dL (7-18); Chloride 106 mmol/L (98-107); Creatinine, Serum 1.07 mg/dL (0.70-1.30); EST Glomerular Filtration Rate 70 mL/min (>60); Est Glom Filt Rate - Afr Amer 85 mL/min (>60); Globulin 3.9 g/dL (2.2-4.2); Glucose 86 mg/dL (74-106); Protein, Total 7.5 g/dL (6.4-8.2); Sodium Level 139 mmol/L (136-145); Thyroid Stim Hormone (TSH) 1.63 uIU/mL (0.358-3.74)
== END ==
PROVIDERS: PCP Family Medicine Geriatric Medicine; Visit Provider Family Medicine Geriatric Medicine
DX: E55.9 Vitamin D deficiency, unspecified (principal); R53.83 Other fatigue
CPT/HCPCS: 36415; 80053; 82306; 84443; 85025

== ENCOUNTER → 2019-03-16 15:24 | Outpatient (CLI) | payer MEDICARE, SELFPAY ==
[2019-01-04 13:15] VITALS: BMI 21.9
--- NOTE | 2019-03-16 15:30 | RAD_ITS ---
STUDY: X-RAY - ABDOMEN/PELVIS REASON FOR EXAM: Male, 83 years old. fecal impaction, patient states he has had issues with constipation off and on for a long time, left sided abdomen pain TECHNIQUE: AP supine and upright views of the abdomen and pelvis. COMPARISON: 07/06/2018 FINDINGS: Operative changes at the base of the chest. Aortobiiliac stent graft noted. No dilated loops of small bowel. There is fecal residue of the right and proximal left colon. There is no demonstrated free abdominal air. The visualized liver, spleen and kidneys are grossly normal in size and morphology. Calcification projected in the left lower abdomen is stable. Normal soft tissue structures. There are diffuse degenerative changes of the visualized lumbar spine. RAD/Abd Inc Decub and/or Erect IMPRESSION: 1. Nonobstructive bowel gas pattern. Mild colonic fecal residue. Electronically Signed: Carlos Richter MD ([place]) at 12:14 EST , Service support ,
== END ==
PROVIDERS: PCP Family Medicine Geriatric Medicine; Referring Provider Family Medicine Geriatric Medicine; Visit Provider Family Medicine Geriatric Medicine
DX: K56.41 Fecal impaction (principal)
CPT/HCPCS: 74019

== ENCOUNTER → 2019-04-29 07:04 | Outpatient (CLI) | payer MEDICARE, SELFPAY ==
[2019-04-19 13:56] VITALS: BMI 21.5
--- NOTE | 2019-04-29 08:14 | ECHOD_ITS ---
Reason For Study: S/P CABG Procedure This was a 2D Doppler, Color Flow transthoracic echocardiogram. Exam performed in department. Left Ventricle Normal LV size. Left ventricular systolic function is normal. The estimated ejection fraction is 55 %. No regional wall motion abnormalities noted. Right Ventricle Normal RV size. Normal systolic function. Atria Normal left atrium. Normal right atrium. Mitral Valve Normal mitral valve. Tricuspid Valve Normal tricuspid valve. Mild (1+) tricuspid valve insufficiency. Pulmonary artery systolic pressure is 40 mmHg. Aortic Valve Normal aortic valve. Trisinus/trileaflet aortic valve. Trivial aortic valve insufficiency. Pulmonic Valve Normal pulmonic valve. Mild (1+) pulmonic valve insufficiency. Great Vessels Normal aortic root. The pulmonary artery is normal size. Normal inferior vena cava. Pericardium/Pleural No pericardial effusion. MMode/2D Measurements & Calculations LVIDd: 4.7 cm IVSd: 0.84 cm Ao root diam: 3.5 cm LVIDs: 3.3 cm LVPWd: 0.91 cm RVDd: 3.6 cm FS: 30.2 % LAV(MOD-bp): 56.1 ml LVAd ap4: 29.1 cm2 SV(MOD-sp4): 52.7 ml LAV(MOD-bp) Indexed: 31.1 ml/m2 EDV(MOD-sp4): 91.1 ml LAV(MOD-sp2): 59.2 ml EDV(sp4-el): 95.5 ml LAV(MOD-sp4): 48.5 ml LVAs ap4: 17.5 cm2 ESV(MOD-sp4): 38.3 ml ESV(sp4-el): 39.9 ml EF(MOD-sp4): 57.9 % EF(sp4-el): 58.2 % SV(sp4-el): 55.5 ml LA A4 area: 17.8 cm2 LA dimension(2D): 3.8 cm RA A4 area: 17.6 cm2 Time Measurements MV dec time: 0.21 sec Doppler Measurements & Calculations MV E max dieudonne: 62.2 cm/sec Ao V2 max: 121.8 cm/sec AI max dieudonne: 426.3 cm/sec MV A max dieudonne: 71.8 cm/sec Ao max P.9 mmHg AI max P.7 mmHg MV E/A: 0.87 AI dec slope: 264.0 cm/sec2 AI P1/2t: 473.0 msec LV V1 max: 104.7 cm/sec PA V2 max: 101.5 cm/sec PI end-d dieudonne: 108.2 cm/sec LV V1 max P.4 mmHg TR max dieudonne: 303.2 cm/sec TR max P.8 mmHg Interpretation Summary Normal LV size. Left ventricular systolic function is normal. The estimated ejection fraction is 55 %. Mild (1+) tricuspid valve insufficiency. Trivial aortic valve insufficiency. Pulmonary artery systolic pressure is 40 mmHg. Ordering Physician: Tristen Marshall Referring Physician: YOMI MARTINEZ Performed By: Morenita Lance RDCS
--- NOTE | 2019-04-29 12:45 | STRESSREP ---
Stress Test Report Pharmacologic myocardial perfusion stress test. 83-year-old male with a history of coronary disease. Stress protocol: Resting KG demonstrates normal sinus rhythm with a rate of 60 bpm normal intervals are noted resting blood pressure is 128/72 mmHg. 0.4 mg of regadenoson was infused per usual protocol followed by rapid venous saline flush injection continuous EKG monitoring was performed. The maximum heart rate attained was 84 bpm which was 62% of maximum predicted heart rate the maximum workload was 1 metabolic equivalent. At rest there were no ST or T wave changes noted to suggest abnormal flow reserve at peak infusion nonspecific ST-T wave changes were noted to suggest abnormal flow reserve. The resting blood pressure was 120/72 with a final blood pressure 120/74. Myocardial perfusion protocol. 12.0 mCi of technetium 99m sestamibi was injected at rest. 0.4 mg of regadenoson was infused per usual protocol. At peak infusion 36.0 mCi of technetium 99m sestamibi was injected stress images were obtained stress and rest images were reconstructed and compared in the short axis vertical and horizontal long axis. Gated images were also obtained per Perfusion SPECT analysis: Review of the stress images demonstrate normal uptake of tracer noted in all areas of the myocardium the resting images demonstrate a similar pattern. No reversibility is noted to suggest ischemia no previous infarct is noted. Gated SPECT analysis: The gated ejection fraction is 63%. Conclusion: Normal pharmacologic myocardial perfusion stress test. Preserved ejection fraction.
== END ==
PROVIDERS: PCP Family Medicine Geriatric Medicine; Referring Provider Internal Medicine Cardiovascular Disease; Visit Provider Internal Medicine Cardiovascular Disease
DX: I25.2 Old myocardial infarction (principal); Z95.1 Presence of aortocoronary bypass graft
CPT/HCPCS: 78452; 93017; 93306; A9500; A4216; J2785

== ENCOUNTER → 2019-08-11 16:46 | Outpatient (CLI) | payer MEDICARE, SELFPAY ==
[2019-04-19 13:56] VITALS: BMI 21.5
--- NOTE | 2019-08-11 16:55 | RAD_ITS ---
STUDY: X-RAY - ABDOMEN/PELVIS REASON FOR EXAM: Male, 84 years old. FECAL IMPACTION TECHNIQUE: Multiple views of the abdomen COMPARISON: March 16, 2019 FINDINGS: Normal visualized lung bases. There is an unremarkable bowel gas pattern. There is no demonstrated free abdominal air. The visualized liver, spleen and kidneys are grossly normal in size and morphology. Normal soft tissue structures. Normal visualized osseous structures. There is aortobiiliac stent endograft. Sternotomy wires are present. RAD/Abd Inc Decub and/or Erect IMPRESSION: No intestinal obstruction. Electronically Signed: Sameer Isaacs, at 21:01 EDT Tel , Service support ,
--- NOTE | 2019-08-11 17:00 | RAD_ITS ---
STUDY: X-RAY - LUMBAR SPINE REASON FOR EXAM: Male, 84 years old. LOW BACK PAIN TECHNIQUE: 3 view(s) of the lumbar spine were obtained. COMPARISON: Abdominal imaging September 02, 2017 FINDINGS: Lumbar spine is intact and aligned with appropriate age-related changes. SI joints are normal. Paraspinous soft tissue shadows are unremarkable. There is aortic biiliac stent endograft and sternotomy wires. Appearance is similar to prior abdominal imaging. RAD/Lumbar Spine 2 or 3 Views IMPRESSION: Unremarkable age-appropriate lumbar spine. Electronically Signed: Sameer Isaacs, at 20:57 EDT Tel , Service support ,
[2019-08-11 17:12] LABS: Absolute Lymphocyte Count 1.68 X10^3/uL (0.83-4.51); Absolute Neutrophil Count 2.4 X10^3/uL (2.0-7.7); Basophil# 0.04 X10^3/uL; Basophil% 0.8 % (0-1); Eosinophil# 0.13 X10^3/uL; Eosinophils% 2.7 % (0-5); Hemoglobin 14.3 g/dL (13.0-16.5); Lymphocyte # 1.68 X10^3/ul (4.0); Lymphocyte % 34.6 % (19-41); Mean Corp Hgb Conc 32.5 g/dL (32-36); Mean Corpuscular Hgb 32.7 pg (27.0-32.0); Mean Corpuscular Volume 100.7 fL (80-94); Mean Platelet Vol. 9.6 fl (6.2-12.0); Monocyte# 0.61 X10^3/uL; Monocyte% 12.6 % (0-10); NRBC Flagged by Analyzer 0 % (0-5); Neutrophil # 2.39 X10^3/uL (2.7-7.7); Neutrophil % 49.1 % (47-70); Platelet Count 221 K/mm3 (150-450); RBC Distribution Width SD 48.7 fl (35.1-43.9); Red Blood Count 4.37 M/mm3 (4.6-6.2); White Blood Count 4.9 K/mm3 (4.4-11.0)
[2019-08-11 18:36] LABS: Anion Gap 5 (5-15); BUN 15 mg/dL (7-18); BUN/Creat Ratio 14.2 RATIO (10-20); CRP < 2.90 mg/L (0.0-3.0); Calcium,Total 8.6 mg/dL (8.5-10.1); Chloride 106 mmol/L (98-107); Creatinine, Serum 1.06 mg/dL (0.70-1.30); EST Glomerular Filtration Rate 71 mL/min (>60); Est Glom Filt Rate - Afr Amer 85 mL/min (>60); Glucose 89 mg/dL (74-106); Potassium 4.3 mmol/L (3.5-5.1); Sodium Level 140 mmol/L (136-145); Thyroid Stim Hormone (TSH) 1.33 uIU/mL (0.358-3.74)
[2019-08-11 18:51] LABS: Erythrocyte Sedimentation Rate 4 mm/hr (0-20)
== END ==
PROVIDERS: PCP Family Medicine Geriatric Medicine; Referring Provider Family Medicine Geriatric Medicine; Visit Provider Family Medicine Geriatric Medicine
DX: M54.5 Low back pain (principal); K56.41 Fecal impaction; R53.83 Other fatigue; N39.0 Urinary tract infection, site not specified
CPT/HCPCS: 36415; 72100; 74019; 80048; 81002; 84443; 85025; 85652; 86140

== ENCOUNTER → 2019-08-11 | Outpatient (CLI) | payer MEDICARE, SELFPAY ==
[2019-04-19 13:56] VITALS: BMI 21.5
[2019-08-11 19:12] LABS: Color, Urine Yellow (Yellow); Glucose, Dipstick Normal (Normal); Ketone-Dipstick 5 mg/dl (Negative); Leukocyte Esterase-Dipstick Negative /ul (Negative); Nitrite-Dipstick Negative (Negative); Occult Blood-Urine 10 /ul (Negative); Protein-Dipstick Negative (Negative); Specific Gravity, Urine 1.025 (1.002-1.030); Urine Bilirubin Dipstick Negative (Negative); Urine Clarity Sl. Cloudy (Clear); Urine Urobilinogen 1 mg/dl (Normal)
== END | disposition home or self-care (01) ==
LOC: LABSPEC 08-15 07:17
PROVIDERS: PCP Family Medicine Geriatric Medicine; Referring Provider Family Medicine Geriatric Medicine; Visit Provider Family Medicine Geriatric Medicine
DX: N39.0 Urinary tract infection, site not specified (principal)
CPT/HCPCS: 81002

== ENCOUNTER → 2019-09-19 13:10 | Outpatient (CLI) | payer MEDICARE, SELFPAY ==
[2019-04-19 13:56] VITALS: BMI 21.5
[2019-09-19 16:04] LABS: Absolute Lymphocyte Count 1.63 X10^3/uL (0.83-4.51); Absolute Neutrophil Count 3.1 X10^3/uL (2.0-7.7); Basophil# 0.04 X10^3/uL; Basophil% 0.7 % (0-1); Eosinophil# 0.16 X10^3/uL; Eosinophils% 2.8 % (0-5); Hematocrit 42.5 % (40-54); Lymphocyte # 1.63 X10^3/ul (4.0); Mean Corp Hgb Conc 32.9 g/dL (32-36); Mean Corpuscular Hgb 32.1 pg (27.0-32.0); Mean Corpuscular Volume 97.5 fL (80-94); Mean Platelet Vol. 9.9 fl (6.2-12.0); Monocyte# 0.72 X10^3/uL; Monocyte% 12.8 % (0-10); NRBC Flagged by Analyzer 0 % (0-5); Neutrophil # 3.06 X10^3/uL (2.7-7.7); Neutrophil % 54.3 % (47-70); Platelet Count 227 K/mm3 (150-450); RBC Distribution Width CV 12.9 % (11.6-14.6); RBC Distribution Width SD 46.4 fl (35.1-43.9); Red Blood Count 4.36 M/mm3 (4.6-6.2); White Blood Count 5.6 K/mm3 (4.4-11.0)
[2019-09-19 16:19] LABS: Vitamin D,25 Hydroxy 32.1 ng/mL
[2019-09-19 16:29] LABS: AST(SGOT) 13 U/L (15-37); Alanine Aminotransfer ALT/SGPT 19 U/L (16-61); Albumin, Serum 3.6 g/dL (3.2-5.0); Alkaline Phosphatase 60 U/L (45-117); Anion Gap 4 (5-15); BUN 14 mg/dL (7-18); BUN/Creat Ratio 12.7 RATIO (10-20); Calcium,Total 8.5 mg/dL (8.5-10.1); Chloride 107 mmol/L (98-107); EST Glomerular Filtration Rate 68 mL/min (>60); Est Glom Filt Rate - Afr Amer 82 mL/min (>60); Globulin 3.5 g/dL (2.2-4.2); Glucose 75 mg/dL (74-106); Potassium 3.9 mmol/L (3.5-5.1); Protein, Total 7.1 g/dL (6.4-8.2); Sodium Level 140 mmol/L (136-145); Thyroid Stim Hormone (TSH) 1.08 uIU/mL (0.358-3.74)
== END ==
PROVIDERS: PCP Family Medicine Geriatric Medicine; Visit Provider Family Medicine Geriatric Medicine
DX: R53.83 Other fatigue (principal); E55.9 Vitamin D deficiency, unspecified
CPT/HCPCS: 36415; 80053; 82306; 84443; 85025

== ENCOUNTER 2019-11-06 11:07 | Emergency (ER) | payer MEDICARE, SELFPAY ==
[2019-10-18 12:58] VITALS: BMI 21.5
[2019-11-06 11:09] VITALS: BP 149/81; PULSE 52; RESP 16; TEMP 36.4; O2SAT 99; BMI 21.3
--- NOTE | 2019-11-06 12:04 | ED.DCSUM_ITS ---
History of Present Illness Informant: Patient, Family Location: Right Eye Onset: Yesterday Context: Gradual Onset Timing: Continuous Current Severity: Mild Maximum Severity: Mild Worsened by: Nothing Relieved by: Nothing Visual Changes: right: Floaters History of injury: No Visual correction: Glasses Narrative: 84-year-old male with a history of spinal stenosis presents to the emergency department complains of a floater in his right eye. He has a history of floaters. However he is concerned today because the floaters in the middle of his vision of his right eye. He noticed it about 2 days ago got worse yesterday and has been constant since then. He states that he has no symptoms in his left eye. He is not having any eye pain. He has not lost any other areas of vision. He does not have a headache. He does not have any difficulties with speech or ambulation facial droop weakness or paresthesias. He was brought in today by his daughter because he is also having right shoulder pain. He has a history of spinal stenosis. She is concerned that the 2 may be related meaning his right shoulder pain and his floater in his eye. He denies trauma but he has been told that he has a chronic rotator cuff tear in the shoulder. He is not having any neck pain. He has no weakness of his right upper extremity. He has no chest pain or shortness of breath. The rest of his review of systems are negative Prior similar symptoms: Yes Recent Illness/Hospitalization: No <Darryl Carlson - Last Filed: 11/06/19 12:04> <Marc Coffey - Last Filed: 11/06/19 12:24> Chief Complaint: Eye Problem Past Medical History Prior records reviewed: Yes Past Medical History: - - Cervical spinal stenosis hypertension hyperlipidemia coronary artery disease Surgical History: angioplasty Lives: With Family Smoking Status: Never smoker Alcohol: None Drugs: None <Darryl Carlson - Last Filed: 11/06/19 12:04> <Marc Coffey - Last Filed: 11/06/19 12:24> - Allergies and Home Meds Allergies/Adverse Reactions: Allergies No Known Allergies Allergy (Verified 11/06/19 11:12) Primary Care Physician: Adolfo Rizzo MD [STAFF PHYSICIAN] - Alvin Miranda MD [STAFF PHYSICIAN] - As soon as possible Kiko Mojica Chi, MD [Primary Care Provider] - Review of Systems All systems negative except as indicated General: Denies: Chills, Fever, Sweats Eyes: Reports: - - Floater right eye visual field. Denies: Visual changes - bilaterally, Diplopia ENT: Denies: Rhinorrhea, Sore throat Cardiovascular: Denies: Chest pain, Palpitations Respiratory: Denies: Dyspnea, Cough, Dyspnea on exertion Gastrointestinal: Denies: Abdominal pain, Nausea, Vomiting, Diarrhea, Melena, Hematochezia Genitourinary: Denies: Dysuria, Hematuria, Frequency Musculoskeletal: Reports: Extremity Pain. Denies: Myalgias, Arthralgias, Neck pain, Back pain, Swelling Skin: Denies: Rash, Wounds Neurological: Denies: Headache, Weakness, Numbness <Darryl Carlson - Last Filed: 11/06/19 12:04> Physical Exam Visual Acuity: bilateral: 20/20 Visual Acuity: Corrected Eyelid: Normal inspection Right Conjunctiva/Sclera: Normal inspection, No erythema Left Conjunctiva/Sclera: Normal inspection, No erythema Right Cornea: Normal inspection Left Cornea: Normal inspection Extraocular Motion: Normal exam, No pain, No palsy, No nystagmus Pupils: Normal accomodation, PERRL Anterior chamber: Normal exam, Deep and quiet Posterior Segment: Normal fundoscopic exam, Exam limited by miosis Vital Signs/Narrative: Vital Signs Temp Pulse Resp BP Pulse Ox 11/06/19 11:09 97.5 F L 52 L 16 149/81 H 99 Inital Vital Signs reviewed: Yes General: Well nourished, Well developed Head: Normocephalic, Atraumatic ENT: Moist mucous membranes, No rhinorrhea Neck: Supple, Nontender, - - Neck is nontender with normal active range of motion Cardiovascular: Regular rate, Regular rhythm, No murmurs Respiratory: No distress, CTA bilaterally, Chest nontender Abdomen: Soft, Nontender, Nondistended, Normal bowel sounds Back: Nontender, Normal Inspection Extremities: No edema, Tenderness - Patient has tenderness over his deltoid area. He has pain with internal and external rotation as well as abduction. He has pain with supraspinatus testing. There is no weakness he has 5 out of 5 strength testing at his right shoulder elbow hand and wrist. His radial pulse is normal. He has normal sensation throughout his right upper extremity. He has normal inspection of his right upper extremity without swelling signs of trauma there is no deformity. Skin: Normal color, No rash Neurological: Alert, Oriented x3, Cranial nerves II-XII grossly intact, Normal Strength, Normal Sensation, Normal Gait, - - Patient has no visual field deficits either eye Psychological: Normal affect, Normal Mood <Darryl Carlson - Last Filed: 11/06/19 12:04> Vital Signs/Narrative: Vital Signs Temp Pulse Resp BP Pulse Ox 11/06/19 11:09 97.5 F L 52 L 16 149/81 H 99 <Marc Coffey - Last Filed: 11/06/19 12:24> Diagnostic/Tx/Re-eval - Medical Decision Making Patient has a floater in his vision. He has no loss of vision. At this time we do not feel his symptoms are consistent with a stroke. He is neuro exam is normal. His NIH stroke scale is 0. He is having no weakness of his upper extremities we do not feel this is related to his cervical spinal stenosis which is what his daughter was concerned about today. He does have symptoms that could be consistent with his previously diagnosed chronic rotator cuff tear of his right shoulder. He was advised to follow-up with his doctor regarding that. He will also follow-up with his bagger and stock handler helper. He does not have any signs of an infection in his eye or any other deficits that would require emergent work- up in the emergency department. <Darryl Carlson - Last Filed: 11/06/19 12:04> - Medical Decision Making Patient was seen with me. I did a [id number] examination with the patient. Patient presents with blurred vision out of his right eye. Patient states that it is over the lower visual field. Patient has had similar episodes in the past and was diagnosed with floaters. Patient also complains of neck and right shoulder pain. Patient is unsure if his visual changes are related to a stroke which is also causing the shoulder and neck pain. Vital signs are stable. Patient is afebrile. Patient is in no acute distress. Pupils are equal, round, and reactive to light bilaterally. Extraocular muscles are intact. Funduscopic examination was benign. Cranial nerves II through XII are intact. Strength is 5/5 bilateral in the upper and lower extremities. There are no sensory deficits noted. Musculoskeletal exam reveals tenderness over the right cervical paraspinal muscles, right shoulder, and right arm. There is no bony crepitance or step-off. Range of motion was limited in all motions of the right shoulder and cervical spine secondary to pain. There is no deformity. There is some pain with resistive abduction of the shoulder. At this time, I do not feel this is from a stroke. His visual changes are most likely from a floater. His shoulder and neck pain are most likely from arthritis. They could also be from a rotator cuff tear or muscle strain. Patient was advised to follow-up with his primary care physician in 5 to 7 days. Patient was also instructed to follow-up with his bagger and stock handler helper. Patient and family understood and was agreeable with the plan. All questions were answered. <Marc Coffey - Last Filed: 11/06/19 12:24> ED Disposition <Darryl Carlson - Last Filed: 11/06/19 12:04> <Marc Coffey - Last Filed: 11/06/19 12:24> - Plan for ED Patient: Disposition: Home or Assisted Living Diagnosis: Floaters in visual field, chronic rotator cuff tear right, Cervical stenosis of spine Instructions: ED BURSITIS Rotator Cuff, ED Vision Problems Ch Referrals: Kiko Mojica Chi, MD [Primary Care Provider] - Adolfo Rizzo MD [STAFF PHYSICIAN] - Alvin Miranda MD [STAFF PHYSICIAN] - As soon as possible
== END 2019-11-06 12:23 | disposition home or self-care (01) ==
PROVIDERS: Emergency Provider Physician Assistant Medical; PCP Family Medicine Geriatric Medicine
DX: H43.391 Other vitreous opacities, right eye (principal); M75.101 Unspecified rotator cuff tear or rupture of right shoulder, not specified as traumatic; M48.02 Spinal stenosis, cervical region; I10 Essential (primary) hypertension; E78.5 Hyperlipidemia, unspecified; I25.10 Atherosclerotic heart disease of native coronary artery without angina pectoris; Z79.82 Long term (current) use of aspirin; Z79.899 Other long term (current) drug therapy
CPT/HCPCS: 99283

== ENCOUNTER → 2019-11-08 16:48 | Outpatient (CLI) | payer MEDICARE, SELFPAY ==
[2019-11-06 11:09] VITALS: BMI 21.3
[2019-11-08 17:22] LABS: Absolute Lymphocyte Count 2.06 X10^3/uL (0.83-4.51); Absolute Neutrophil Count 4.2 X10^3/uL (2.0-7.7); Basophil# 0.04 X10^3/uL; Basophil% 0.5 % (0-1); Eosinophil# 0.36 X10^3/uL; Eosinophils% 4.8 % (0-5); Hematocrit 46.3 % (40-54); Hemoglobin 14.9 g/dL (13.0-16.5); Lymphocyte # 2.06 X10^3/ul (4.0); Lymphocyte % 27.6 % (19-41); Mean Corp Hgb Conc 32.2 g/dL (32-36); Mean Corpuscular Hgb 31.6 pg (27.0-32.0); Mean Corpuscular Volume 98.3 fL (80-94); Mean Platelet Vol. 9.6 fl (6.2-12.0); Monocyte# 0.77 X10^3/uL; Monocyte% 10.3 % (0-10); NRBC Flagged by Analyzer 0 % (0-5); Neutrophil # 4.22 X10^3/uL (2.7-7.7); Neutrophil % 56.7 % (47-70); Platelet Count 249 K/mm3 (150-450); RBC Distribution Width CV 13.2 % (11.6-14.6); RBC Distribution Width SD 48.5 fl (35.1-43.9); Red Blood Count 4.71 M/mm3 (4.6-6.2); White Blood Count 7.5 K/mm3 (4.4-11.0)
[2019-11-08 17:56] LABS: Erythrocyte Sedimentation Rate 5 mm/hr (0-20)
[2019-11-08 18:00] LABS: CRP < 2.90 mg/L (0.0-3.0)
== END ==
PROVIDERS: PCP Family Medicine Geriatric Medicine; Referring Provider Ophthalmology; Visit Provider Ophthalmology
DX: H34.231 Retinal artery branch occlusion, right eye (principal)
CPT/HCPCS: 36415; 85025; 85652; 86140

== ENCOUNTER → 2019-11-14 13:28 | Outpatient (CLI) | payer MEDICARE, SELFPAY ==
[2019-11-06 11:09] VITALS: BMI 21.3
--- NOTE | 2019-11-14 13:33 | CDU_ITS ---
Reason For Study: Retinal occlusion Rt. Velocities/BP Lt. Velocities/BP Prox CCA 70.8/12.1 cm/sec. Prox CCA 98.6/11.4 cm/sec. Mid CCA 89.1/18.6 cm/sec. Mid CCA 92.5/12.6 cm/sec. Dist CCA 79.9/14.7 cm/sec. Dist CCA 71.6/11.4 cm/sec. Prox ICA 66.9/13.4 cm/sec. Prox ICA 77.7/17.6 cm/sec. Mid ICA 82.6/14.7 cm/sec. Mid ICA 56.4/12.4 cm/sec. Dist ICA 77.3/14.7 cm/sec. Dist ICA 71.7/21.2 cm/sec. Rt. ICA/CCA = 1.0. Lt. ICA/CCA = 0.8. Prox ECA 72.1/8.2 cm/sec. Prox ECA 61.8/10.2 cm/sec. Rt. Vert. 38.1/6.9 cm/sec. Lt. Vert. 39.5/9 cm/sec. Right Extracranial There is homogeneous, smooth atherosclerotic plaque noted in the right common carotid artery. There is intimal thickening but no significant atherosclerotic plaque noted in the right internal carotid artery. There is intimal thickening but no significant atherosclerotic plaque noted in the right external carotid artery. Antegrade flow is noted in the right vertebral artery. Left Extracranial There is homogeneous, smooth atherosclerotic plaque noted in the left common carotid artery. There is intimal thickening but no significant atherosclerotic plaque noted in the left internal carotid artery. There is intimal thickening but no significant atherosclerotic plaque noted in the left external carotid artery. Antegrade flow is noted in the left vertebral artery. Procedure Carotid Duplex 12727. This is a Carotid Duplex examination using B-mode, color flow and specral Doppler. Exam performed in department. Interpretation Summary No significant atherosclerotic plaque or stenosis noted in the internal carotid arteries bilaterally. Flow within the vertebral arteries is antegrade bilaterally. Ordering Physician: Teagan Haley Referring Physician: Kiko Mojica Chi Performed By: Rolanda Capone RVT
== END ==
PROVIDERS: PCP Family Medicine Geriatric Medicine; Referring Provider Ophthalmology; Visit Provider Ophthalmology
DX: H34.231 Retinal artery branch occlusion, right eye (principal)
CPT/HCPCS: 93880

== ENCOUNTER → 2019-11-15 15:12 | Outpatient (CLI) | payer MEDICARE, SELFPAY ==
[2019-11-06 11:09] VITALS: BMI 21.3
--- NOTE | 2019-11-15 15:21 | MRI_ITS ---
HISTORY: RIGHT shoulder bursitis and pain x 6-8 months, NKI EXAMINATION: MR Shoulder W/O Contrast TECHNIQUE: Multiplanar and multisequence MR images of the right shoulder. IV Contrast dosage and agent: None. COMPARISON: October 28, 2016. 151 images. FINDINGS: BONE: Trace subcortical cystic degenerative change is present on the posterior lateral aspect of the humeral head adjacent to the greater tuberosity. Some red marrow changes present within the scapula. ACROMIOCLAVICULAR JOINT: Arthritic degenerative disease with subcortical cystic change within both the acromion and the lateral aspect of the clavicle SUBACROMIAL-SUBDELTOID SPACE: Small crescentic rim of bursal fluid under the acromioclavicular joint superficial to the rotator cuff GLENOHUMERAL JOINT: The articular cartilage within the glenohumeral joint is mildly thinned but to a uniform degree without denuding . A small shoulder effusion is present. Rotator interval edema is present ROTATOR CUFF: A rim rent tear is present at the insertion of the supraspinatus. The rim rent tear extends into a peripheral full-thickness tear extending for 13 mm, along the long axis of the supraspinatus. It is not a complete tear as there is some of the thinned tendon remaining intact. An undersurface incomplete thickness rim rent tear is present at the insertion of the infraspinatus with some tendinosis extending back into the infraspinatus.. Tendinosis is also present to the subscapularis as it courses across the anterior aspect of the humeral head. The tendon is thickened and edematous. There is tearing to the subscapularis as it crosses over the bicipital groove Atrophy is present to the supraspinatus and the superior aspect of the subscapularis. LABRUM: The glenoid labrum as best as can be discerned on this non-arthrographic study is intact BICEPS TENDON: Long head of the biceps tendon is edematous and thinned within its articular portion. It is subluxed anteriorly somewhat in the beginning to the bicipital groove perhaps out of the bicipital groove due to tearing of the subscapularis across the bicipital groove. There may be a longitudinal split tear of the long head of the biceps tendon as it extends into the origin of the isopropyl groove. The intra-articular biceps tendon is normal. OTHER SOFT TISSUES: No adenopathy. MRI/Upper Ext Joint Only(Routine) IMPRESSION: Full-thickness 13 mm peripheral tear of the supraspinatus with atrophy and tendinosis. Rim rent insertional tear to the infraspinatus. Full-thickness tear to the subscapularis is crosses over the bicipital groove with subluxation of long head of the biceps tendon out of the bicipital groove with fairly severe tendinosis to the long head of the biceps tendon at its intra-articular portion with a short segment longitudinal split tear in the origin of the bicipital groove to the long head biceps tendon. at 0614 Reported and signed by: Ric Wang MD Electronically Signed: Ric Wang MD at 6:13 EDT Tel , Service support ,
== END ==
PROVIDERS: PCP Family Medicine Geriatric Medicine; Referring Provider Family Medicine Geriatric Medicine; Visit Provider Family Medicine Geriatric Medicine
DX: M75.51 Bursitis of right shoulder (principal)
CPT/HCPCS: 73221

== ENCOUNTER → 2019-12-22 12:53 | Outpatient (CLI) | payer MEDICARE, SELFPAY ==
[2019-12-14 08:40] VITALS: BMI 21.1
== END ==
PROVIDERS: PCP Family Medicine Geriatric Medicine; Referring Provider Nurse Practitioner Family; Visit Provider Nurse Practitioner Family
DX: R00.2 Palpitations (principal); H53.9 Unspecified visual disturbance
CPT/HCPCS: 93225; 93226

== ENCOUNTER → 2020-03-19 13:38 | Outpatient (CLI) | payer MEDICARE, SELFPAY ==
[2019-12-14 08:40] VITALS: BMI 21.1
[2020-03-19 16:48] LABS: Absolute Lymphocyte Count 1.37 X10^3/uL (0.83-4.51); Absolute Neutrophil Count 3.1 X10^3/uL (2.0-7.7); Basophil# 0.05 X10^3/uL; Basophil% 0.9 % (0-1); Eosinophil# 0.29 X10^3/uL; Eosinophils% 5.2 % (0-5); Hematocrit 43.6 % (40-54); Hemoglobin 14.3 g/dL (13.0-16.5); Lymphocyte # 1.37 X10^3/ul (4.0); Lymphocyte % 24.6 % (19-41); Mean Corp Hgb Conc 32.8 g/dL (32-36); Mean Corpuscular Hgb 32.1 pg (27.0-32.0); Mean Platelet Vol. 9.8 fl (6.2-12.0); Monocyte# 0.69 X10^3/uL; Monocyte% 12.4 % (0-10); NRBC Flagged by Analyzer 0 % (0-5); Neutrophil # 3.14 X10^3/uL (2.7-7.7); Neutrophil % 56.5 % (47-70); Platelet Count 275 K/mm3 (150-450); RBC Distribution Width CV 13.1 % (11.6-14.6); RBC Distribution Width SD 47.2 fl (35.1-43.9); Red Blood Count 4.45 M/mm3 (4.6-6.2); White Blood Count 5.6 K/mm3 (4.4-11.0)
[2020-03-19 17:07] LABS: Vitamin D,25 Hydroxy 18.5 ng/mL
[2020-03-19 17:14] LABS: AST(SGOT) 14 U/L (15-37); Alanine Aminotransfer ALT/SGPT 19 U/L (16-61); Albumin, Serum 3.6 g/dL (3.2-5.0); Alkaline Phosphatase 68 U/L (45-117); Anion Gap 6 (5-15); BUN 18 mg/dL (7-18); BUN/Creat Ratio 17.5 RATIO (10-20); Calcium,Total 8.9 mg/dL (8.5-10.1); Chloride 106 mmol/L (98-107); Creatinine, Serum 1.03 mg/dL (0.70-1.30); EST Glomerular Filtration Rate 73 mL/min (>60); Est Glom Filt Rate - Afr Amer 88 mL/min (>60); Globulin 3.6 g/dL (2.2-4.2); Glucose 83 mg/dL (74-106); Protein, Total 7.2 g/dL (6.4-8.2); Sodium Level 140 mmol/L (136-145); Thyroid Stim Hormone (TSH) 1.47 uIU/mL (0.358-3.74)
== END ==
PROVIDERS: PCP Family Medicine Geriatric Medicine; Visit Provider Family Medicine Geriatric Medicine
DX: R53.83 Other fatigue (principal); E55.9 Vitamin D deficiency, unspecified
CPT/HCPCS: 36415; 80053; 82306; 84443; 85025

== ENCOUNTER → 2020-08-14 14:58 | Outpatient (CLI) | payer MEDICARE, SELFPAY ==
[2020-07-24 12:29] VITALS: BMI 21.5
[2020-08-14 16:32] LABS: Anion Gap 6 (5-15); BUN 13 mg/dL (7-18); BUN/Creat Ratio 12.3 RATIO (10-20); Chloride 102 mmol/L (98-107); Creatinine, Serum 1.06 mg/dL (0.70-1.30); EST Glomerular Filtration Rate 70 mL/min (>60); Est Glom Filt Rate - Afr Amer 85 mL/min (>60); Glucose 85 mg/dL (74-106); Sodium Level 138 mmol/L (136-145)
== END ==
PROVIDERS: PCP Family Medicine Geriatric Medicine; Visit Provider Family Medicine Geriatric Medicine
DX: R60.9 Edema, unspecified (principal)
CPT/HCPCS: 36415; 80048

== ENCOUNTER → 2020-09-26 15:30 | Outpatient (CLI) | payer MEDICARE, SELFPAY ==
[2020-09-26 17:16] LABS: Absolute Lymphocyte Count 1.38 X10^3/uL (0.83-4.51); Absolute Neutrophil Count 1.3 X10^3/uL (2.0-7.7); Basophil# 0.03 X10^3/uL; Basophil% 0.8 % (0-1); Eosinophil# 0.28 X10^3/uL; Eosinophils% 7.7 % (0-5); Hematocrit 42.6 % (40-54); Hemoglobin 14.1 g/dL (13.0-16.5); Lymphocyte # 1.38 X10^3/ul (0.83-4.51); Lymphocyte % 37.9 % (19-41); Mean Corp Hgb Conc 33.1 g/dL (32-36); Mean Corpuscular Hgb 31.7 pg (27.0-32.0); Mean Corpuscular Volume 95.7 fL (80-94); Mean Platelet Vol. 10.1 fl (6.2-12.0); Monocyte% 16.5 % (0-10); NRBC Flagged by Analyzer 0 % (0-5); Neutrophil # 1.34 X10^3/uL (2.7-7.7); Neutrophil % 36.8 % (47-70); Platelet Count 200 K/mm3 (150-450); RBC Distribution Width CV 13.1 % (11.6-14.6); RBC Distribution Width SD 46.6 fl (35.1-43.9); Red Blood Count 4.45 M/mm3 (4.6-6.2); White Blood Count 3.6 K/mm3 (4.4-11.0)
[2020-09-26 17:31] LABS: AST(SGOT) 14 U/L (15-37); Alanine Aminotransfer ALT/SGPT 19 U/L (16-61); Albumin, Serum 3.6 g/dL (3.2-5.0); Alkaline Phosphatase 64 U/L (45-117); Anion Gap 5 (5-15); BUN 13 mg/dL (7-18); BUN/Creat Ratio 13.8 RATIO (10-20); Calcium,Total 8.6 mg/dL (8.5-10.1); Chloride 103 mmol/L (98-107); Creatinine, Serum 0.94 mg/dL (0.70-1.30); EST Glomerular Filtration Rate 80 mL/min (>60); Est Glom Filt Rate - Afr Amer 97 mL/min (>60); Globulin 3.7 g/dL (2.2-4.2); Glucose 75 mg/dL (74-106); Potassium 3.5 mmol/L (3.5-5.1); Protein, Total 7.3 g/dL (6.4-8.2); Sodium Level 138 mmol/L (136-145); Thyroid Stim Hormone (TSH) 1.55 uIU/mL (0.358-3.74); Vitamin D,25 Hydroxy 42.4 ng/mL
== END ==
PROVIDERS: PCP Family Medicine Geriatric Medicine; Visit Provider Family Medicine Geriatric Medicine
DX: E55.9 Vitamin D deficiency, unspecified (principal); R53.83 Other fatigue
CPT/HCPCS: 36415; 80053; 82306; 84443; 85025

== ENCOUNTER → 2020-10-17 07:40 | Outpatient (CLI) | payer MEDICARE, SELFPAY ==
--- NOTE | 2020-10-17 07:42 | MRI_ITS ---
STUDY: MRI CERVICAL SPINE WITHOUT CONTRAST REASON FOR EXAM: Male, 85 years old. pain, shoulder pain left more than right TECHNIQUE: Standardized fat and water weighted pulse sequences were obtained in the sagittal and axial planes. COMPARISON: 06/03/2018 FINDINGS: Normal foramen magnum and brainstem-cervical cord junction. Normal craniovertebral junction. Normal anterior atlantoaxial articulation. Normal odontoid process. Normal cervical lordosis. Normal vertebral bodies and posterior osseous elements. C2-3: Normal endplates. Normal disc height, signal and morphology. Normal central canal and intervertebral neural foramina. C3-4: There is an increase in the retrolisthesis of C3 on C4 from 2 mm to 5 mm with worsening severe spinal stenosis with cord compression and mild myelomalacia. C4-5: No change in a 2 mm retrolisthesis of C4 on C5 with a mild bilobed disc osteophyte complex which produces moderate spinal stenosis with abutment of the central spinal cord and moderate bilateral neural foraminal stenosis. C5-6: No change in the 2 mm of anterolisthesis of C5 on C6 with a mild broad disc osteophyte complex which produces moderate spinal stenosis with abutment of the central spinal cord and moderate bilateral neural foraminal stenosis. C6-7: No change in the moderate broad disc osteophyte complex which produces moderate spinal stenosis with abutment of the central spinal cord and mild bilateral neural foraminal stenosis. C7-T1: Normal endplates. Normal disc height, signal and morphology. Normal central canal and intervertebral neural foramina. Normal cervical cord. Normal visualized soft tissue structures. MRI/Spine Cervical (Routine) IMPRESSION: Worsening degenerative disc disease particularly at C3/C4 with an increase in the retrolisthesis of C3 on C4 with severe spinal stenosis with cord compression and mild myelomalacia. Electronically Signed: Siva Pro MD at 18:02 EDT Tel , Service support ,
== END ==
PROVIDERS: PCP Family Medicine Geriatric Medicine; Referring Provider Orthopaedic Surgery; Visit Provider Orthopaedic Surgery
DX: M47.22 Other spondylosis with radiculopathy, cervical region (principal); M54.2 Cervicalgia
CPT/HCPCS: 72141

== ENCOUNTER → 2020-11-01 08:37 | Outpatient (CLI) | payer MEDICARE, SELFPAY ==
--- NOTE | 2020-11-01 08:50 | RAD_ITS ---
STUDY: X-RAY - ESOPHAGUS (BARIUM SWALLOW) WITH FLUOROSCOPY REASON FOR EXAM: Male, 85 years old. DYSPHAGIA,GERD TECHNIQUE: 20 view(s) of the esophagus were obtained following swallowing of barium. FLUOROSCOPY TIME (if supplied): (40 seconds) minutes/seconds COMPARISON: Comparison is made with prior study dated 09/21/2015. FINDINGS: There is no demonstrated esophageal foreign body. There is no demonstrated stricture or mucosal abnormality. Moderate sized hiatal hernia with gastroesophageal reflux. The patient ingested a 12 mm tablet at bedtime. The tablet was trapped at the gastroesophageal junction. There is atherosclerotic calcification of the aortic arch with tortuosity of the descending aorta. Normal visualized pulmonary parenchyma. There are diffuse degenerative changes of the visualized thoracic spine. RAD/Esophagus Dual Contrast IMPRESSION: Moderate sized hiatal hernia with gastroesophageal reflux. The 12 mm tablet of barium is trapped at the gastroesophageal junction. Electronically Signed: Sukhdev Larson MD at 12:25 EDT , Service support ,
== END ==
PROVIDERS: PCP Family Medicine Geriatric Medicine; Referring Provider Otolaryngology; Visit Provider Otolaryngology
DX: R13.10 Dysphagia, unspecified (principal); K21.9 Gastro-esophageal reflux disease without esophagitis
CPT/HCPCS: 74221

== ENCOUNTER → 2020-11-27 16:52 | Outpatient (CLI) | payer MEDICARE, SELFPAY ==
[2020-11-27 17:48] LABS: Absolute Lymphocyte Count 1.49 X10^3/uL (0.83-4.51); Absolute Neutrophil Count 2.5 X10^3/uL (2.0-7.7); Basophil# 0.05 X10^3/uL; Basophil% 0.9 % (0-1); Eosinophil# 0.51 X10^3/uL; Eosinophils% 9.6 % (0-5); Hematocrit 42.8 % (40-54); Hemoglobin 14.2 g/dL (13.0-16.5); Lymphocyte # 1.49 X10^3/ul (0.83-4.51); Lymphocyte % 28.1 % (19-41); Mean Corp Hgb Conc 33.2 g/dL (32-36); Mean Corpuscular Hgb 31.9 pg (27.0-32.0); Mean Corpuscular Volume 96.2 fL (80-94); Monocyte# 0.73 X10^3/uL; Monocyte% 13.7 % (0-10); NRBC Flagged by Analyzer 0 % (0-5); Neutrophil # 2.52 X10^3/uL (2.7-7.7); Neutrophil % 47.5 % (47-70); Platelet Count 250 K/mm3 (150-450); RBC Distribution Width CV 12.9 % (11.6-14.6); RBC Distribution Width SD 45.9 fl (35.1-43.9); Red Blood Count 4.45 M/mm3 (4.6-6.2); White Blood Count 5.3 K/mm3 (4.4-11.0)
[2020-11-27 18:03] LABS: International Normalized Ratio 1.1; Prothrombin Time (Protime)PT. 13.2 SECONDS (11.7-14.9)
[2020-11-27 18:27] LABS: Anion Gap 6 (5-15); BUN 17 mg/dL (7-18); BUN/Creat Ratio 13.9 RATIO (10-20); Calcium,Total 9.5 mg/dL (8.5-10.1); Chloride 102 mmol/L (98-107); Creatinine, Serum 1.22 mg/dL (0.70-1.30); EST Glomerular Filtration Rate 60 mL/min (>60); Est Glom Filt Rate - Afr Amer 72 mL/min (>60); Glucose 89 mg/dL (74-106); Potassium 4.1 mmol/L (3.5-5.1); Sodium Level 138 mmol/L (136-145)
== END ==
PROVIDERS: PCP Family Medicine Geriatric Medicine; Visit Provider Family Medicine Geriatric Medicine
DX: Z01.818 Encounter for other preprocedural examination (principal)
CPT/HCPCS: 36415; 80048; 85025; 85610

== ENCOUNTER → 2021-02-05 16:36 | Outpatient (CLI) | payer MEDICARE, SELFPAY ==
[2021-02-05 17:00] LABS: Absolute Lymphocyte Count 1.46 X10^3/uL (0.83-4.51); Absolute Neutrophil Count 3.3 X10^3/uL (2.0-7.7); Basophil# 0.03 X10^3/uL; Basophil% 0.5 % (0-1); Eosinophil# 0.21 X10^3/uL; Eosinophils% 3.6 % (0-5); Hematocrit 43.5 % (40-54); Hemoglobin 14.7 g/dL (13.0-16.5); Lymphocyte # 1.46 X10^3/ul (0.83-4.51); Lymphocyte % 25.3 % (19-41); Mean Corp Hgb Conc 33.8 g/dL (32-36); Mean Corpuscular Hgb 32.2 pg (27.0-32.0); Mean Corpuscular Volume 95.4 fL (80-94); Mean Platelet Vol. 9.4 fl (6.2-12.0); Monocyte# 0.71 X10^3/uL; Monocyte% 12.3 % (0-10); NRBC Flagged by Analyzer 0 % (0-5); Neutrophil # 3.33 X10^3/uL (2.7-7.7); Platelet Count 250 K/mm3 (150-450); RBC Distribution Width CV 13.1 % (11.6-14.6); RBC Distribution Width SD 46.3 fl (35.1-43.9); Red Blood Count 4.56 M/mm3 (4.6-6.2); White Blood Count 5.8 K/mm3 (4.4-11.0)
[2021-02-05 17:03] LABS: International Normalized Ratio 1.1; Prothrombin Time (Protime)PT. 13.3 SECONDS (11.7-14.9)
[2021-02-05 17:24] LABS: Anion Gap 7 (5-15); BUN 17 mg/dL (7-18); BUN/Creat Ratio 15.6 RATIO (10-20); Calcium,Total 9.3 mg/dL (8.5-10.1); Chloride 102 mmol/L (98-107); Creatinine, Serum 1.09 mg/dL (0.70-1.30); EST Glomerular Filtration Rate 68 mL/min (>60); Est Glom Filt Rate - Afr Amer 82 mL/min (>60); Glucose 96 mg/dL (74-106); Potassium 3.9 mmol/L (3.5-5.1); Sodium Level 140 mmol/L (136-145)
== END ==
PROVIDERS: PCP Family Medicine Geriatric Medicine; Visit Provider Family Medicine Geriatric Medicine
DX: Z01.818 Encounter for other preprocedural examination (principal)
CPT/HCPCS: 36415; 80048; 85025; 85610

== ENCOUNTER 2021-03-04 09:06 | Observation (INO) | payer MEDICARE, SELFPAY ==
[2021-03-04] VITALS (17 sets, daily range): BP systolic 103–126; BP diastolic 51–83; PULSE 108–129; RESP 15–29; TEMP 36.6–37; O2SAT 88–97; BMI 21.4; BMI 20.2
--- NOTE | 2021-03-04 10:06 | RAD_ITS ---
STUDY: X-RAY CHEST REASON FOR EXAM: Male, 85 years old. Cough TECHNIQUE: Single AP portable view of the chest. COMPARISON: Comparison is made with prior examination dated 08/11/2019. FINDINGS: EKG electrodes are seen. Hyperinflation. Stable mild increased markings at the right lung base suggestive of scarring. There is no demonstrated pleural abnormality. Sternal cerclage wires and vascular clips are present from a prior sternotomy and coronary artery bypass graft procedure (CABG). Normal mediastinum and tammi. Normal visualized pulmonary arteries. There is atherosclerotic calcification of the aortic arch with tortuosity. There are diffuse degenerative changes of the visualized thoracic spine. There is degenerative osteoarthritis of the bilateral shoulders. There is no demonstrated abnormality of the visualized soft tissue structures of the upper abdomen. RAD/Chest 1 View (Portable) IMPRESSION: Hyperinflation. Stable increased markings at the right lung base suggestive of scarring. Electronically Signed: Sukhdev Larson MD at 11:12 EST , Service support ,
--- NOTE | 2021-03-04 10:07 | EKG12_ITS ---
Test Reason : Blood Pressure : / mmHG Vent. Rate : 096 BPM Atrial Rate : 096 BPM P-R Int : 176 ms QRS Dur : 078 ms QT Int : 342 ms P-R-T Axes : 090 -24 045 degrees QTc Int : 432 ms Normal sinus rhythm Inferior infarct , age undetermined Abnormal ECG Confirmed by GIANNA LYLES, MARCOS ([id number]), script editor KIM PANG ([id number]) on 03/05/2021 9:57:13 AM Referred By: DAVIAN Confirmed By:MARCOS KATZ MD
--- NOTE | 2021-03-04 10:07 | EX.ED.DYSGE1 ---
HPI History of Present Illness Chief Complaint: General Illness Informant: patient Narrative Narrative: Patient presents with about 2 to 3 days of cough, myalgias, poor sleep, and loss of appetite. He does not have nausea vomiting diarrhea or abdominal pain. He has no chest pain. He has no sputum production. He has minimal if any dyspnea. He does have diffuse myalgias. He did have Covid vaccines and booster. However, he was in the hospital 3 weeks ago to have surgery on his neck. He is concerned that the coughing is going to bother his neck although he is not having problems with that now. He does not know if he was exposed to Covid. Patient does live alone. However, his daughter has been staying with him recently. She thought he was getting better after his surgery. At the last 3 or 4 days he is really gone downhill. He states he is very weak. He is having trouble getting around. He is not eating or drinking. He seems more short of breath. She is very concerned about him. [facility] Medical History Abdominal aortic aneurysm (AAA) Abdominal pain Arthritis Atherosclerosis of coronary artery of [place] heart without angina pectoris Branch retinal artery occlusion of right eye (11/25/19) Central retinal vein occlusion of right eye (11/25/19) Cervical myelopathy Colon polyp Constipation COPD (chronic obstructive pulmonary disease) Depression Esophageal dilatation GERD (gastroesophageal reflux disease) History of esophageal stricture History of ST elevation myocardial infarction (STEMI) (05/08/06) Hyperlipidemia Insomnia Irritable bowel syndrome with constipation Paroxysmal atrial fibrillation Postoperative atrial fibrillation (05/2006) Right temporomandibular joint disorder, unspecified Rotator cuff tear Tear of biceps tendon Home Medications aspirin 81 mg PO DAILY@0800 11/25/15 [History Last Taken 03/18/17] metoprolol tartrate 25 mg tablet 12.5 mg PO BID tab 04/07/19 [History Last Taken Unknown] bisacodyl 5 mg tablet,delayed release 5 mg PO BID PRN tab 12/14/19 [History Last Taken Unknown] hydrochlorothiazide 12.5 mg tablet 12.5 mg PO DAILY #90 tab 07/24/20 [Rx Last Taken Unknown] lactulose 10 gram/15 mL oral solution 15 ml PO DAILY PRN PRN ml 07/24/20 [History Last Taken Unknown] tramadol 50 mg tablet 50 mg PO DAILY PRN 09/17/20 [History Last Taken Unknown] meclizine 25 mg tablet 25 mg PO DAILY PRN 01/24/21 [History Last Taken Unknown] sennosides 8.6 mg-docusate sodium 50 mg tablet 1 tab-cap PO BID PRN tab 01/24/21 [History Last Taken Unknown] Allergy/AdvReac Type Severity Reaction Status Date / Time apixaban [From Eliquis] AdvReac Intermediate GI upset Verified 03/04/21 09:07 rivaroxaban [From Xarelto] AdvReac generally Verified 03/04/21 09:07 did not feel well Family History Mother Colon cancer CVA (cerebral vascular accident) Father Cancer leukemia Surgical History 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) History of appendectomy History of cataract surgery History of endovascular stent graft for abdominal aortic aneurysm (AAA) History of esophageal dilatation (~12/2020) History of esophagogastroduodenoscopy (EGD) History of herniorrhaphy History of sinus surgery Social History Smoking Status: Former smoker second hand exposure: No alcohol intake: never substance use type: does not use caffeine: Yes seatbelt use: always ROS ROS ED Constitutional Constitutional ED: Reports subjective Eyes Eyes: Denies blurry vision ENT ENT ED: Reports rhinorrhea; Denies sore throat Cardiovascular Cardiovascular: Denies chest pain or palpitations Respiratory/Chest Respiratory/Chest: Reports cough and dyspnea; Denies sputum Gastrointestinal Gastrointestinal: Denies abdominal pain, diarrhea, nausea or vomiting Genitourinary Genitourinary ED: Denies dysuria or hematuria Musculoskeletal Musculoskeletal: Reports myalgias Neurologic Neurologic: Denies headache(s) Psychiatric Psychiatric: Denies depression Endocrine Endocrinology: Denies polydipsia or polyuria Allergic/Immunologic Allergic/Immunologic ED: Denies mouth swelling or urticaria EXAM Physical Exam Const Vital Signs: 03/04/21 09:07 03/04/21 09:30 03/04/21 10:15 Temperature 98.6 F Temperature Source Oral Pulse Rate 129 H 108 H Respiratory Rate 18 21 H Respiratory Effort Normal Non-Labored Respiratory Pattern Tachypnea Blood Pressure 122/78 H Blood Pressure Mean 92 Pulse Ox 97 Oxygen Delivery Method Room Air Oxygen Flow Rate (L/min) 03/04/21 11:14 03/04/21 11:20 03/04/21 12:40 Temperature Temperature Source Pulse Rate 116 H 125 H 128 H Respiratory Rate 27 H 21 H 29 H Respiratory Effort Respiratory Pattern Blood Pressure 113/75 126/73 H Blood Pressure Mean 87 90 Pulse Ox 88 96 91 Oxygen Delivery Method Room Air Nasal Cannula Room Air Oxygen Flow Rate (L/min) 2 03/04/21 12:48 03/04/21 12:49 03/04/21 14:06 Temperature Temperature Source Pulse Rate 110 H Respiratory Rate 15 Respiratory Effort Respiratory Pattern Blood Pressure 112/83 H Blood Pressure Mean 92 Pulse Ox 91 93 Oxygen Delivery Method Room Air Nasal Cannula Oxygen Flow Rate (L/min) 2 Positive well nourished and well developed General Appearance ED: well developed and NAD; Negative for cyanotic or diaphoretic HEENT Reports moist mucous membranes Eyes General Eye ED: Negative for pale conjunctiva or scleral icterus Neck no JVD Chest Wall inspection of chest normal Resp normal respiratory effort Resp Narrative: Patient has no pain with deep breath. He does have some mild rhonchi and slight wheezes. Patient denies a history of COPD but he was a heavy smoker and does have COPD on his diagnostic list. Effort and Inspection: Negative for pain with movement Auscultation: rhonchi and wheezes; Negative for rales Cardio regular rate and regular rhythm GI normal to inspection, nondistended, normoactive bowel sounds and non-tender Palpation: soft Back/Spine Back/Spine Narrative: Cervical incision is healing quite well. There is no tenderness or erythema in the area. Cervical Spine: Negative for cervical spine tenderness Extremity normal to inspection General Extremety ED: Negative for edema or tenderness General Extremity: Negative for edema Neuro oriented x3 Sensorium / Orientation: alert Psych mental status grossly normal Skin no rashes or lesions noted Skin Narrative: Well-healing surgical wound. MDM MDM MDM Narrative Medical decision making narrative: Patient's white count is elevated slightly 11.5. Hemoglobin is okay. Electrolytes are overall unremarkable. Troponin is negative. Chest x-ray showed some changes more likely with scarring. I went back to check the patient. I found out that he is now on oxygen and he had a low oxygen level. I did not see this on the vitals on the computer. Yet due to the busy day the had not yet been placed. At this point we did pursue more comprehensive work-up. Since he has had recent surgery I did do a CT scan of his chest. Happily, this did not show pulmonary embolus but did show some changes at the base that could be scarring but also could be bronchiectasis. Since the patient has had subjective chills, slight white count, cough with some sputum, weakness and has a negative Covid test I will treat as though this is early pneumonia. There is a report on his chart of prior COPD although he and his daughter are not familiar with this ever being diagnosed and he has not been on inhalers. He quit smoking about 15 years ago. He did have a hint of an expiratory wheeze at the very end. He still has some coarse breath sounds now. I will get him another breathing treatment. I will start him on antibiotics. We tried walking him but he was very weak and his oxygen level went 88%. Even then he did not walk far. I do not think this patient is good for going home. His daughter is also very concerned about how he is done recently. Lab Data Attestation: I reviewed the patient's lab results. Labs: Laboratory Results - last 24 hr 03/04/21 03/04/21 10:26 10:26 WBC 11.5 H RBC 4.45 L Hgb 14.3 Hct 41.9 MCV 94.2 H MCH 32.1 H MCHC 34.1 RDW Std Deviation 45.2 H RDW Coeff of Sandip 13.1 Plt Count 228 MPV 9.4 Immature Gran % (Auto) 0.600 Neut % (Auto) 83.7 H Lymph % (Auto) 7.3 L [place] % (Auto) 8.1 Eos % (Auto) 0.0 Baso % (Auto) 0.3 Absolute Neuts (auto) 9.7 H Absolute Lymphs (auto) 0.84 Nucleated RBC % 0 Sodium 136 Potassium 3.9 Chloride 100 Carbon Dioxide 27.0 Anion Gap 9 BUN 17 Creatinine 1.11 Estim Creat Clear Calc 44.44 Est GFR (MDRD) Af Amer 81 Est GFR (MDRD) Non-Af 67 BUN/Creatinine Ratio 15.3 Glucose 89 Calcium 9.1 Troponin I High Sens 14 Radiography Diagnostic Testing: Clinical Impression(s) from Imaging Studies Chest X-Ray 03/04/21 10:06 IMPRESSION: Hyperinflation. Stable increased markings at the right lung base suggestive of scarring. Electronically Signed: Sukhdev Larson MD at 11:12 EST , Service support , Chest CTA 03/04/21 13:12 IMPRESSION: No evidence of pneumothorax. Findings suggestive of scarring at the lung bases with evidence of the bronchiectasis and subpleural blebs. Electronically Signed: Sukhdev Larson MD at 13:59 EST , Service support , Discharge Plan Dx/Rx/DC Orders Clinical Impression: Hypoxia, Bronchiectasis, Generalized weakness Disposition Disposition: Acute Care Hospital [facility]
[2021-03-04] MEDS: Ipratropium/Albuterol Sulfate 3 ML AMPUL.NEB INHALATION ×3 (10:15→18:58)
[2021-03-04 10:41] LABS: Absolute Lymphocyte Count 0.84 X10^3/uL (0.83-4.51); Absolute Neutrophil Count 9.7 X10^3/uL (2.0-7.7); Basophil# 0.03 X10^3/uL; Basophil% 0.3 % (0-1); Hematocrit 41.9 % (40-54); Hemoglobin 14.3 g/dL (13.0-16.5); Lymphocyte # 0.84 X10^3/ul (0.83-4.51); Lymphocyte % 7.3 % (19-41); Mean Corp Hgb Conc 34.1 g/dL (32-36); Mean Corpuscular Hgb 32.1 pg (27.0-32.0); Mean Corpuscular Volume 94.2 fL (80-94); Mean Platelet Vol. 9.4 fl (6.2-12.0); Monocyte# 0.93 X10^3/uL; Monocyte% 8.1 % (0-10); NRBC Flagged by Analyzer 0 % (0-5); Neutrophil # 9.67 X10^3/uL (2.7-7.7); Neutrophil % 83.7 % (47-70); Platelet Count 228 K/mm3 (150-450); RBC Distribution Width CV 13.1 % (11.6-14.6); RBC Distribution Width SD 45.2 fl (35.1-43.9); Red Blood Count 4.45 M/mm3 (4.6-6.2); White Blood Count 11.5 K/mm3 (4.4-11.0)
[2021-03-04 10:57] LABS: Anion Gap 9 (5-15); BUN 17 mg/dL (7-18); BUN/Creat Ratio 15.3 RATIO (10-20); Calcium,Total 9.1 mg/dL (8.5-10.1); Chloride 100 mmol/L (98-107); Creatinine, Serum 1.11 mg/dL (0.70-1.30); EST Glomerular Filtration Rate 67 mL/min (>60); Est Glom Filt Rate - Afr Amer 81 mL/min (>60); Estimated Creatinine Clearance 44.44 ml/min; Glucose 89 mg/dL (74-106); Potassium 3.9 mmol/L (3.5-5.1); Sodium Level 136 mmol/L (136-145); Troponin-I HS 14 pg/mL (3.0-78.0)
--- NOTE | 2021-03-04 13:12 | CT_ITS ---
STUDY: CTA CHEST REASON FOR EXAM: Male, 85 years old. Shortness of breath. Chest pain. Possible pulmonary embolism. RADIATION DOSAGE (If Supplied By Facility): CTDIvol = ( 6.62 ) mGy, DLP = ( 214.93 ) mGycm TECHNIQUE: The examination was performed with the intravenous administration of IV 100mL [id number]-[id number]. Post-processing of the angiographic images was performed, with multiplanar reformation and 3D reconstruction. Individualized dose optimization techniques were used for this CT. COMPARISON: Comparison is made with prior chest radiograph done earlier today. FINDINGS: Normal enhancement of the main pulmonary artery and right and left pulmonary arteries. Normal enhancement of the bilateral peripheral pulmonary arteries. There is no demonstrated pulmonary embolism. Normal thoracic aorta and visualized great vessels. There is no demonstrated aortic dissection. There are calcifications of the coronary arteries. Sternal cerclage wires and vascular clips are present from a prior sternotomy and coronary artery bypass graft procedure (CABG). There are visualized mediastinal lymph nodes, which are within normal size limits, and with normal morphology. Normal hilar regions. Normal visualized trachea and bronchi. Hyperinflation. Mild degree of emphysematous changes. There is evidence of a mild degree of increased interstitial markings at the lung bases with bronchiectasis and subpleural scarring with subpleural blebs (chronic scarring. A calcified granuloma is seen in the posterior lateral aspect of the right middle lobe. Normal pleura. Normal chest wall structures. There are degenerative changes of thoracic spine. Endoluminal stent graft is seen in the proximal abdominal aorta. CT/CTA Chest W/WO Contrast IMPRESSION: No evidence of pneumothorax. Findings suggestive of scarring at the lung bases with evidence of the bronchiectasis and subpleural blebs. Electronically Signed: Sukhdev Larson MD at 13:59 EST , Service support ,
--- NOTE | 2021-03-04 14:22 | NURSING ---
DR ASA HERNANDEZ
--- NOTE | 2021-03-04 14:29 | NURSING ---
MED SURG ASA COPD, PNEUMONIA, HYPOXIA
[2021-03-04] MEDS: Metoprolol Tartrate 25 MG Tablet 12.5 MG PO ×2 (14:47→22:04)
--- NOTE | 2021-03-04 15:21 | HP.PCM.HOS_ITS ---
[facility] - General General Date of Admission: 03/04/21 Date of Service: 03/04/21 Chief Complaint: Shortness of breath HPI Narrative ESAU NAJERA, is a 85 M who presented to the emergency department which [facility] on 03/04/2021 with a chief complaint of shortness of breath. The patient indicates that he had surgery on his cervical spine with a posterior fusion approximately 3 weeks ago at [facility] and had been doing quite well after his postoperative pain had resolved up until approximately 2 to 3 days ago when he developed cough, myalgias, poor sleep, and loss of appetite along with generalized weakness. He denied nausea, vomiting, constipation or diarrhea, abdominal pain, fever, chills, chest pain or any significant sputum production. He has been vaccinated for Covid and has had his booster as well. He indicates he had approximately a 3 to 4-day hospital stay after his cervical fusion. He lives alone at baseline however his daughter has been staying with him recently since his surgery. His daughter indicates that he is extremely weak and was having trouble getting around where is after surgery he had been doing quite well. Per her his oral intake has been poor and she indicates that he has been extremely short of breath with exertion. In the emergency department he was afebrile but was mildly tachycardic with a heart rate from 108-130. This appeared to be MAT both on his defect cutter and his EKG. He does have a known history of paroxysmal atrial fibrillation as well. His blood pressure was stable and he was normotensive he was tachypneic with respiratory rates anywhere from 15-29 at its highest. His oxygen saturation was 88% on room air and improved to 93 to 96% on 2 L nasal cannula. His CBC shows a mild leukocytosis with a white count of 11.5 and a left shift. His BMP is overall unimpressive with no significant abnormalities. High- sensitivity troponin was obtained and was 14. Given his recent surgery and shortness of breath a CTA of his chest was performed to rule out pulmonary embolism. The CTA was negative for PE or pneumothorax and showed findings suggestive of scarring at the lung bases with evidence of bronchiectasis and subpleural blebs/emphysematous changes. In the emergency department he was given a dose of metoprolol oral 12.5 mg and vancomycin and Zosyn were ordered. [facility] Medical History (Updated 03/04/21 @ 15:[address] Shona Kemp, DO) Abdominal aortic aneurysm (AAA) Abdominal pain Arthritis Atherosclerosis of coronary artery of [place] heart without angina pectoris Branch retinal artery occlusion of right eye (11/25/19) Central retinal vein occlusion of right eye (11/25/19) Cervical myelopathy Colon polyp Constipation COPD (chronic obstructive pulmonary disease) Depression Esophageal dilatation GERD (gastroesophageal reflux disease) History of esophageal stricture History of ST elevation myocardial infarction (STEMI) (05/08/06) Hyperlipidemia Insomnia Irritable bowel syndrome with constipation Paroxysmal atrial fibrillation Postoperative atrial fibrillation (05/2006) Right temporomandibular joint disorder, unspecified Rotator cuff tear Tear of biceps tendon Home Medications aspirin 81 mg PO DAILY@0800 11/25/15 [History Last Taken 03/03/21] metoprolol tartrate 25 mg tablet 12.5 mg PO BID tab 04/07/19 [History Last T aken 03/03/21] bisacodyl 5 mg tablet,delayed release 5 mg PO BID PRN tab 12/14/19 [History Last Taken 03/03/21] hydrochlorothiazide 12.5 mg tablet 12.5 mg PO DAILY #90 tab 07/24/20 [Rx Last Taken 03/03/21] lactulose 10 gram/15 mL oral solution 15 ml PO DAILY PRN PRN ml 07/24/20 [History Last Taken Unknown] tramadol 50 mg tablet 50 mg PO DAILY PRN 09/17/20 [History Last Taken Unknown] meclizine 25 mg tablet 25 mg PO DAILY PRN 01/24/21 [History Last Taken Unknown] sennosides 8.6 mg-docusate sodium 50 mg tablet 1 tab-cap PO BID PRN tab 01/24/21 [History Last Taken 03/03/21] omeprazole 40 mg PO DAILY 03/04/21 [History Last Taken 03/03/21] plecanatide [Trulance] 3 mg PO DAILY 03/04/21 [History Last Taken 03/03/21] Allergy/AdvReac Type Severity Reaction Status Date / Time apixaban [From Eliquis] AdvReac Intermediate GI upset Verified 03/04/21 09:07 rivaroxaban [From Xarelto] AdvReac generally Verified 03/04/21 09:07 did not feel well Family History Mother Colon cancer CVA (cerebral vascular accident) Father Cancer leukemia Surgical History (Updated 03/04/21 @ 15:[address] Shona Kemp DO) 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) History of appendectomy History of cataract surgery History of endovascular stent graft for abdominal aortic aneurysm (AAA) History of esophageal dilatation (~12/2020) History of esophagogastroduodenoscopy (EGD) History of herniorrhaphy History of sinus surgery S/P cervical spinal fusion Social History Smoking Status: Former smoker second hand exposure: No alcohol intake: never substance use type: does not use caffeine: Yes seatbelt use: always ROS Constitutional Constitutional: Reports anorexia, chills, fatigue, malaise and weakness; Denies change in weight, fever(s), night sweats or other Eyes Eyes: Denies blurry vision, change in eye color, change in vision, discharge from eye(s), double vision, erythema, eye pain, loss of vision or other ENT HEENT: Reports abnormal hearing; Denies dysphagia, ear pain, epistaxis, headache(s), hearing loss, nasal congestion, nasal discharge, post nasal drip, sinus pressure, sore throat or other Cardiovascular Cardiovascular: Reports dyspnea on exertion; Denies chest pain, claudication, edema, lightheadedness, orthopnea, palpitations, paroxysmal nocturnal dyspnea, rapid heart rate, syncope or other Respiratory/Chest Respiratory/Chest: Reports cough, dyspnea and shortness of breath with exertion; Denies excessive phlegm production, hemoptysis, productive cough, shortness of breath at rest, wheezing or other Gastrointestinal Gastrointestinal: Denies abdominal pain, coffee ground emesis, constipation, diarrhea, dyspepsia, hematemesis, hematochezia, loose stools, melena, nausea, vomiting or other Genitourinary Genitourinary: Reports nocturia and urinary hesitancy; Denies burning urination, difficulty urinating, dysuria, hematuria, urinary frequency, urinary incontinence, urinary urgency or other Musculoskeletal Musculoskeletal: Reports joint pain and neck pain; Denies arthralgias, back pain, joint stiffness, joint swelling, myalgias or other Neurologic Neurologic: Denies abnormal gait, abnormal speech, confusion, disequilibrium, dizziness, focal weakness, headache(s), numbness, paresthesias, seizure-like activity, seizures, syncope, tingling, tremor(s) or other Psychiatric Psychiatric: Denies anxiety, depression, homicidal ideation, suicidal ideation or other Endocrine Endocrinology: Denies change in body appearance, cold intolerance, excessive sweating, heat intolerance, polydipsia, polyuria or other Hematologic/Lymphatic Hematologic/Lymphatic: Denies anemia, easy bleeding, easy bruising, lymphadenopathy or other Allergic/Immunologic Allergic/Immunologic: Denies rhinitis, hives, eczemia, asthma or other Vital Signs Vital Signs Vital Signs: 03/04/21 09:07 03/04/21 09:30 03/04/21 10:15 Temperature 98.6 F Temperature Source Oral Pulse Rate 129 H 108 H Respiratory Rate 18 21 H Respiratory Effort Normal Non-Labored Respiratory Pattern Tachypnea Blood Pressure 122/78 H Blood Pressure Mean 92 Pulse Ox 97 Oxygen Delivery Method Room Air Oxygen Flow Rate (L/min) 03/04/21 11:14 03/04/21 11:20 03/04/21 12:40 Temperature Temperature Source Pulse Rate 116 H 125 H 128 H Respiratory Rate 27 H 21 H 29 H Respiratory Effort Respiratory Pattern Blood Pressure 113/75 126/73 H Blood Pressure Mean 87 90 Pulse Ox 88 96 91 Oxygen Delivery Method Room Air Nasal Cannula Room Air Oxygen Flow Rate (L/min) 2 03/04/21 12:48 03/04/21 12:49 03/04/21 14:06 Temperature Temperature Source Pulse Rate 110 H Respiratory Rate 15 Respiratory Effort Respiratory Pattern Blood Pressure 112/83 H Blood Pressure Mean 92 Pulse Ox 91 93 Oxygen Delivery Method Room Air Nasal Cannula Oxygen Flow Rate (L/min) 2 03/04/21 14:22 03/04/21 14:43 Temperature 98 F Temperature Source Temporal Pulse Rate 118 H 114 H Respiratory Rate 20 H 24 H Respiratory Effort Respiratory Pattern Tachypnea Blood Pressure 104/73 Blood Pressure Mean 83 Pulse Ox 92 Oxygen Delivery Method Nasal Cannula Oxygen Flow Rate (L/min) Weight Weight: 65.771 kg Body Mass Index (BMI) 21.4 Physical Exam Const alert and oriented x3 Constitutional Narrative: Elderly white male sitting up in bed, daughter bedside, patient appears ill but nontoxic, no acute distress, no signs of respiratory extremitas on 2 L nasal cannula General Appearance: cooperative HEENT normocephalic, head/scalp atraumatic and moist oral mucous membranes HEENT Narrative: Poor dentition, Mallampati 2, no thrush Eyes PERRL, EOMs intact bilaterally and conjunctivae normal Eyes Narrative: No scleral icterus Neck no lymphadenopathy, supple, no JVD and no carotid bruits Neck Narrative: Trachea midline, no thyroid enlarged Resp normal respiratory effort, no retractions, no use of accessory muscles and No clear to auscultation bilaterally Resp Narrative: Few scattered crackles and rhonchi right lung field from apex to base, left lung field is clear Auscultation: crackles and rhonchi; Negative for rales or wheezes Cardio S1 normal heart sound, S2 normal heart sound, no murmurs, no rub, no gallops, no clicks and no JVD Cardio Narrative: Mild tachycardia with an irregularly irregular rhythm GI normal to inspection, nondistended, normoactive bowel sounds, soft to palpation, non-tender and non-distended Extremity no clubbing, cyanosis or edema Peripheral Pulses: Yes pulses 2+ throughout Skin no rashes or lesions noted, no wounds, skin turgor normal, no jaundice, no petechiae and no mottling Skin Narrative: Postoperative cervical fusion incision is well-healed without any drainage or erythema Neuro oriented x3, CN's II-XII intact bilaterally, moves all extremities and no focal motor deficits Neuro Narrative: Marked generalized weakness Sensorium / Orientation: awake and alert Speech: speech normal Psych affect normal Psych Narrative: Very pleasant Results Lab / Micro Data Result Diagrams: 03/04/21 10:26 03/04/21 10:26 Labs: Laboratory Results - last 24 hr 03/04/21 10:26: WBC 11.5 H, RBC 4.45 L, Hgb 14.3, Hct 41.9, MCV 94.2 H, MCH 32.1 H, MCHC 34.1, RDW Std Deviation 45.2 H, RDW Coeff of Sandip 13.1, Plt Count 228, MPV 9.4, Immature Gran % (Auto) 0.600, Neut % (Auto) 83.7 H, Lymph % (Auto) 7.3 L, Taylor % (Auto) 8.1, Eos % (Auto) 0.0, Baso % (Auto) 0.3, Absolute Neuts (auto) 9.7 H, Absolute Lymphs (auto) 0.84, Nucleated RBC % 0 03/04/21 10:26: Sodium 136, Potassium 3.9, Chloride 100, Carbon Dioxide 27.0, Anion Gap 9, BUN 17, Creatinine 1.11, Estim Creat Clear Calc 44.44, Est GFR (MDRD) Af Amer 81, Est GFR (MDRD) Non-Af 67, BUN/Creatinine Ratio 15.3, Glucose 89, Calcium 9.1, Troponin I High Sens 14 Micro: Microbiology 03/04/21 10:26 Nasal Secretion SARS-CoV-2 Antigen (Rapid) - Final Radiology Impression Chest X-Ray 03/04/21 10:06 IMPRESSION: Hyperinflation. Stable increased markings at the right lung base suggestive of scarring. Electronically Signed: Sukhdev Larson MD at 11:12 EST , Service support , Chest CTA 03/04/21 13:12 IMPRESSION: No evidence of pneumothorax. Findings suggestive of scarring at the lung bases with evidence of the bronchiectasis and subpleural blebs. Electronically Signed: Sukhdev Larson MD at 13:59 EST , Service support , Assessment & Plan Assessment/Plan (1) Hypoxia: (2) Generalized weakness: (3) Bronchiectasis: (4) Multifocal atrial tachycardia: (5) Leukocytosis: PLAN: Hypoxia due to suspected HCAP -No focal pneumonia noted on CT of chest however right lung field auscultation abnormal and patient has cough and white count elevation -With recent hospitalization and 3 to 4-day stay will initiate Vanco and Zosyn -Check Covid PCR -Rapid Covid is negative -Check influenza/RSV PCR -Check sputum culture if able to produce -Scheduled and as needed nebulizers -With bronchiectasis patient is at risk for mucous plugging will encourage incentive spirometer and Pep therapy with Acapella has been ordered -Mucinex -Would recommend outpatient follow-up with pulmonary medicine for PFTs once he is clinically improved -We will cycle cardiac enzymes Bronchiectasis -Noted on CT of chest done 03/04/2021 -Aggressive pulmonary toilet -I-S and Pep therapy -Mucinex Leukocytosis -Suspect related to acute infection -Antibiotics as above -Cultures are pending--> blood and sputum -Lactic acid is pending Tachycardia -Patient does have history of paroxysmal atrial fibrillation however this appea rs to be multifocal atrial tachycardia -Continue home metoprolol -Monitor on telemetry -As needed metoprolol ordered for heart rate greater than 110 with hold parameters -Check TSH -Suspect will improve once his respiratory status improves Generalized weakness -Suspect due to acute infection -Consult PT/OT -Patient may need placement prior to discharge home for further rehab depending on progress -This was discussed with patient and daughter at bedside prior to admission History of PAF -Patient is on chronic metoprolol -Continue baby aspirin aspirin -Patient has had intolerances to oral anticoagulation Recent cervical fusion due to severe cervical stenosis -Patient seems to be progressing well -Incision is well-healed with no signs of infection -Monitor clinically -PT/OT -Continue Ultram for pain IBS -Hold Trulance until discharged home -Continue as needed medication for constipation -Patient's IBS as symptoms seem to be more consistent with constipation than diarrhea CAD/HTN/HPL -Patient has history of CABG x2 in 2006 -Continue baby aspirin -Continue HCTZ 12.5 mg daily -Continue metoprolol 12.5 mg daily GERD -Continue omeprazole DVT prophylaxis -Lovenox 40 mg daily -SCDs CODE STATUS -Full code as per discussion of the emergency department with the patient and the daughter Charges/Coding Visit Charges Inpatient E&M: 54146 Init Hosp L3
--- NOTE | 2021-03-04 15:26 | CASEMGMT ---
RN CM Assessment Introduced role of RN CM to patient and patient dtr Ava at bedside. Patient is alert, oriented and able to participate in RN CM Assessment. Care providers, pharmacy, and demographics verified. Admit Dx: Hypoxia with HCAP Re-Admit: No Barriers/Issues: Just had Neck surgery x3 weeks ago- Needs to be careful with his Neck but per dtr has no precautions. Just to be careful not to fall or injure neck. PCP: Kiko Mojica Specialists: Cardio- Joanna, Spine Surgeon- Crow Preferred [facility]acy: [facility] Insurance: Uriah Mane Rx Benefit: Yes LNOK: Dtr Ava Black LW/HPOA: None. Declined any information or services at this time. Aware [employer] can complete AD on this admission and to notify staff he chooses to complete at a later time. Living Arrangements: Lives alone in a 2SH, living set up on ground fl. No steps to enter through back of home. ADL?s: Independent with ambulation and ADLs/IADLs. Transportation: Patient drives, dtr Ava to transport upon DC. DME: None HHC: Past SNF: None Goal: Home and does not think will have any needs, issues or concerns at this time. Aware RNCM will continue to follow should any needs arise. DC PLAN: Home with possible Home O2. In Network DME list provided. Preference [facility]. CHASE Guardado
--- NOTE | 2021-03-04 16:44 | PCS.PANDOC ---
PANDEMIC DOCUMENTATION INITIATED: Date: 09/24/2020 Time: 190
[2021-03-04 17:22] LABS: Troponin-I HS 20 pg/mL (3.0-78.0)
[2021-03-04 17:24] LABS: Lactic Acid 3.6 mmol/L (0.4-1.9)
--- NOTE | 2021-03-04 18:39 | PCM.RX.CS ---
Consult Pharmacy has been consulted to manage selected antiobiotic: Vancomycin Type of Consult: New start Suspected Infection: Pneumonia Labs: Sodium 136 mmol/L (136-145) 03/04/21 10:26 Potassium 3.9 mmol/L (3.5-5.1) 03/04/21 10:26 Chloride 100 mmol/L (98-107) 03/04/21 10:26 Carbon Dioxide 27.0 mmol/L (21.0-32.0) 03/04/21 10:26 Anion Gap 9 (5-15) 03/04/21 10:26 BUN 17 mg/dL (7-18) 03/04/21 10:26 Creatinine 1.11 mg/dL (0.70-1.30) 03/04/21 10:26 Est GFR (MDRD) Af Amer 81 mL/min (>60) 03/04/21 10:26 Est GFR (MDRD) Non-Af 67 mL/min (>60) 03/04/21 10:26 BUN/Creatinine Ratio 15.3 RATIO (10-20) 03/04/21 10:26 Glucose 89 mg/dL (74-106) 03/04/21 10:26 Microbiology: Microbiology 03/04/21 10:26 Nasal Secretion SARS-CoV-2 Antigen (Rapid) - Final Goal Trough: 15-20 mcg/mL Pharmacy Plan for Drug Dosing: NEW START IV VANCOMYCIN Consulting Physician: Dr. Aaron Kemp Indication: Pneumonia Goal Trough: 15-20 SrCr: 1.11 CrCl: 44.44 mls/min Comments: pt was to receive a 1000mg x1 dose in the ER on 03/04/21, but it was dc'd and not administered Vancomcyin Dose: based on pts weight and renal function, pt to receive an initial dose of 1000mg x1 on 03/04/21 at 1900, then 500mg q12h starting 03/05/21 at 0700. trough before the 4th total dose. Pending Level: 03/06/21 at 0630 Pharmacy Service will continue to monitor and adjust dosing as required. Follow-Up Labs: Trough Vancomycin - 03/06/21 at 0630
[2021-03-04 18:46] LABS: M R Staph aureus DNA By PCR Negative (Negative); Probe Check PASS; Specimen Processing Control PASS
[2021-03-04 19:02] LABS: Troponin-I HS 24 pg/mL (3.0-78.0)
[2021-03-04] MEDS: Vancomycin IV 1,000 MG/200 ML BAG 200 MG IV (19:59)
[2021-03-04 20:46] LABS: Reflex Lactate? Y
[2021-03-04] MEDS: guaiFENesin 1,200 MG Tablet 1200 MG PO (22:04)
[2021-03-04 22:48] LABS: Lactic Acid 1.7 mmol/L (0.4-1.9); Troponin-I HS 27 pg/mL (3.0-78.0)
[2021-03-05] VITALS (21 sets, daily range): BP systolic 94–124; BP diastolic 58–74; PULSE 71–116; RESP 16–26; TEMP 36.1–37.3; O2SAT 93–96
[2021-03-05] MEDS: Ipratropium/Albuterol Sulfate 3 ML AMPUL.NEB INHALATION ×4 (00:13→18:59)
[2021-03-05 05:33] LABS: Absolute Lymphocyte Count 1.11 X10^3/uL (0.83-4.51); Absolute Neutrophil Count 7.8 X10^3/uL (2.0-7.7); Basophil# 0.03 X10^3/uL; Basophil% 0.3 % (0-1); Eosinophil# 0.01 X10^3/uL; Eosinophils% 0.1 % (0-5); Hematocrit 36.4 % (40-54); Hemoglobin 12.2 g/dL (13.0-16.5); Lymphocyte # 1.11 X10^3/ul (0.83-4.51); Mean Corp Hgb Conc 33.5 g/dL (32-36); Mean Corpuscular Hgb 31.4 pg (27.0-32.0); Mean Corpuscular Volume 93.6 fL (80-94); Mean Platelet Vol. 10.1 fl (6.2-12.0); Monocyte# 1.03 X10^3/uL; Monocyte% 10.2 % (0-10); NRBC Flagged by Analyzer 0 % (0-5); Neutrophil # 7.84 X10^3/uL (2.7-7.7); Neutrophil % 77.8 % (47-70); Platelet Count 185 K/mm3 (150-450); RBC Distribution Width CV 12.7 % (11.6-14.6); RBC Distribution Width SD 43.4 fl (35.1-43.9); Red Blood Count 3.89 M/mm3 (4.6-6.2); White Blood Count 10.1 K/mm3 (4.4-11.0)
[2021-03-05 06:02] LABS: ALB/GLOB Ratio 0.6 RATIO (0.9-2.4); AST(SGOT) 12 U/L (15-37); Alanine Aminotransfer ALT/SGPT 14 U/L (16-61); Albumin, Serum 2.5 g/dL (3.2-5.0); Alkaline Phosphatase 66 U/L (45-117); Anion Gap 7 (5-15); BUN 17 mg/dL (7-18); BUN/Creat Ratio 14.2 RATIO (10-20); Calcium,Total 8.3 mg/dL (8.5-10.1); Chloride 97 mmol/L (98-107); EST Glomerular Filtration Rate 61 mL/min (>60); Est Glom Filt Rate - Afr Amer 74 mL/min (>60); Estimated Creatinine Clearance 39.25 ml/min; Globulin 4.2 g/dL (2.2-4.2); Glucose 101 mg/dL (74-106); Magnesium 1.9 mg/dL (1.6-2.6); Phosphorus 2.4 mg/dL (2.5-4.9); Potassium 3.6 mmol/L (3.5-5.1); Protein, Total 6.7 g/dL (6.4-8.2); Sodium Level 132 mmol/L (136-145); Thyroid Stim Hormone (TSH) 0.94 uIU/mL (0.358-3.74)
[2021-03-05] MEDS: 0.9% Saline Lock 10 ML Syringe IV (06:17)
[2021-03-05] MEDS: Vancomycin IV 500 MG/100 ML BAG 100 MG IV ×2 (06:19→18:33)
[2021-03-05] MEDS: Metoprolol Tartrate 25 MG Tablet 12.5 MG PO ×2 (08:13→21:48)
[2021-03-05] MEDS: hydroCHLOROthiazide 6.25mg TAB 12.5 MG PO (08:13)
[2021-03-05] MEDS: Enoxaparin 40 MG/0.4 ML Syringe SC (08:13)
[2021-03-05] MEDS: Aspirin 81 MG TAB.CHEW PO (08:14)
[2021-03-05] MEDS: guaiFENesin 1,200 MG Tablet 1200 MG PO ×2 (08:14→21:49)
--- NOTE | 2021-03-05 11:18 | PN.HOSP_ITS ---
Documented by User: Jeramie MOHAN 03/05/21 11:30 Subjective Subjective Patient is an 85-year-old male comfortably resting in bed, alert and orient x3. Patient reports significant improvement in his shortness of breath although still is requiring 5 L of oxygen via nasal cannula. Patient does not use home oxygen at baseline. Denies development of any new symptoms overnight. Does not appear in acute distress. Objective Data Objective Data Vital Signs: Vital Signs Temp Pulse Resp BP Pulse Ox 96.9 F L 116 H 18 124/74 H 95 03/05/21 08:10 03/05/21 08:13 03/05/21 08:10 03/05/21 08:13 03/05/21 08:10 Oxygen Flow Rate (L/min) 5 Oxygen Delivery Method Nasal Cannula Weight: 138 lb 7.205 oz Body Mass Index (BMI) 20.2 Intake & Output: Intake and Output for Last 24 Hours 03/03/21 03/04/21 03/05/21 23:59 23:59 23:59 Intake Total 560 / 860 750 / 750 Output Total 300 / 800 750 / 750 Balance 260 / 60 0 / 0 Medical Nutrition Assessment Dietitian: Malnutrition Criteria Met Start: 03/04/21 16:46 Freq: Status: Active Protocol: Document 03/04/21 16:47 RMA (Rec: 03/04/21 16:47 RMA [id number]) Nutrition Malnutrition Evidence of Malnutrition Exists Yes Malnutrition (severe): Acute Illness/Injury Evidenced By Suboptimal Energy Intake ( Severe),Weight Loss (Severe) Clinical Problem Acute Disease or Injury Related Malnutrition Etiology Severe protein-calorie malnutrition in the context of acute illness related to inadequate oral intake/ debility/weakness Signs/Symptoms as evidenced by ~5% wt loss x less than 1 month and PO meeting less than 50% estimated nutrition needs. Status Active Problem Recommendation Dietitian Recommendations/Changes In view of signs/symptoms of malnutrition, will liberalize diet to regular and add ensure compact TID w/ meals. Adjust ONS as needed to prevent further wt loss and help optimize oral intake at meals. Lab / Micro Data Result Diagrams: 03/05/21 04:16 03/05/21 04:16 Labs: Laboratory Results - last 24 hr 03/04/21 16:00: COVID-19 (NICOLE) Not Detected 03/04/21 16:22: Lactic Acid 3.6 H* 03/04/21 16:22: Troponin I High Sens 20 03/04/21 17:00: MRSA (PCR) Negative 03/04/21 18:09: Troponin I High Sens 24 03/04/21 21:52: Troponin I High Sens 27 03/04/21 21:52: Lactic Acid 1.7 03/05/21 04:16: WBC 10.1, RBC 3.89 L, Hgb 12.2 L, Hct 36.4 L, MCV 93.6, MCH 31.4, MCHC 33.5, RDW Std Deviation 43.4, RDW Coeff of Sandip 12.7, Plt Count 185, MPV 10.1, Immature Gran % (Auto) 0.600, Neut % (Auto) 77.8 H, Lymph % (Auto) 11.0 L, Price % (Auto) 10.2 H, Eos % (Auto) 0.1, Baso % (Auto) 0.3, Absolute Neuts (auto) 7.8 H, Absolute Lymphs (auto) 1.11, Nucleated RBC % 0 03/05/21 04:16: Sodium 132 L, Potassium 3.6, Chloride 97 L, Carbon Dioxide 28.0, Anion Gap 7, BUN 17, Creatinine 1.20, Estim Creat Clear Calc 39.25, Est GFR (MDRD) Af Amer 74, Est GFR (MDRD) Non-Af 61, BUN/Creatinine Ratio 14.2, Glucose 101, Calcium 8.3 L, Phosphorus 2.4 L, Magnesium 1.9, Total Bilirubin 0.90, AST 12 L, ALT 14 L, Alkaline Phosphatase 66, Total Protein 6.7, Albumin 2.5 L, Globulin 4.2, Albumin/Globulin Ratio 0.6 L, TSH 0.94 Micro: Microbiology 03/04/21 17:30 Mucosa - Nasopharyngeal Rapid RSV (DFA) - Final RSV Antigen 03/04/21 17:30 Mucosa - Nasopharyngeal Influenza Types A,B Direct FA (PIERCE) - Final 03/04/21 16:15 Urine, Clean Catch Legionella Antigen - Final 03/04/21 16:15 Urine, Clean Catch Streptococcus pneumoniae Antigen (M - Final 03/04/21 10:26 Nasal Secretion SARS-CoV-2 Antigen (Rapid) - Final Radiography Diagnostic Testing: Radiology Impression Chest CTA 03/04/21 13:12 IMPRESSION: No evidence of pneumothorax. Findings suggestive of scarring at the lung bases with evidence of the bronchiectasis and subpleural blebs. Electronically Signed: Sukhdev Larson MD at 13:59 EST , Service support , Physical Exam Const alert, oriented x3 and no apparent distress HEENT head/scalp atraumatic and moist oral mucous membranes Head and Scalp: normocephalic Eyes PERRL, EOMs intact bilaterally and conjunctivae normal Neck no lymphadenopathy, supple and no JVD Resp Effort and Inspection: tachypneic and labored Auscultation: diminished lung sounds Cardio no murmurs and no JVD Rate: tachycardic Rhythm: regular rhythm GI normal to inspection, nondistended, normoactive bowel sounds, soft to palpation and non-tender Extremity normal to inspection, full ROM and no clubbing, cyanosis or edema Skin no rashes or lesions noted, no wounds and skin turgor normal Neuro CN's II-XII intact bilaterally Psych affect normal Assessment & Plan Assessment/Plan (1) Leukocytosis: (2) Multifocal atrial tachycardia: (3) Hypoxia: (4) Generalized weakness: (5) Viral pneumonia: PLAN: Day 1 Discharge planning: Current plan is for patient to discharge home when medically ready. 1) acute hypoxia secondary to viral pneumonia RSV and influenza B antigen are positive. White count and shortness of breath have improved from admission. Blood cultures ordered/pending, Legionella and strep pneumo urinary antigens are negative. Rapid Covid and PCR are negative. Sputum culture ordered. Will initiate Tamiflu for seasonal influenza and continue to administer vancomycin and Zosyn to cover for possible HCAP due to recent hospital admission at [facility]. 2) leukocytosis Likely reactive in the #1, improved from yesterday currently WBCs are 10.1. 3) tachycardia Currently in normal sinus rhythm on cardiac monitoring, still with periods of intermittent tachycardia. TSH within normal limits. Likely related to #1, suspect will improve as days go on. Patient does have a history of PAF, currently on metoprolol 12.5. 4) bronchiectasis Noted on CT on 03/04/2021. Will order pulmonary toileting, incentive spirometry and Pep therapy, Mucinex ordered. 5) history of paroxysmal atrial fibrillation Patient is rate controlled on metoprolol, not currently on oral anticoagulation as has had previous intolerances, however is on aspirin. Continue aspirin and metoprolol. 6) history of irritable bowel syndrome Stable, continue to hold Trulance, as needed medications ordered for constipation. Continue all chronic medications for CAD, HLD, HTN and GERD. DVT prophylaxis - Lovenox Patient seen by Jeramie Packer PA-C, under the supervision of Dr. Olivarez. Documented by User: Dr. Rudy Olivarez MD 03/05/21 12:56 Objective Data Lab / Micro Data Result Diagrams: 03/05/21 04:16 03/05/21 04:16 Assessment & Plan Addt'l Comments This patient was seen in conjunction with Jeramie Packer PA-C. I have independently interviewed and examined the patient and reviewed pertinent historical, laboratory, and other data. Please refer to Jeramie Packer PA-C's note for details of this patient's presentation, findings, and recommendations. I have reviewed Jeramie Packer PA-C's note and concur with documented findings. In brief, patient is an 85-year-old male with multiple comorbidities admitted with shortness of breath and generalized aches. CT of the chest obtained demons trated scarring at the lung bases with evidence of bronchiectasis and subpleural blebs. Admitted to a monitored bed placed on supplemental oxygen. Subsequent evaluation with a viral panel revealed presence of influenza B as well as RSV Physical Examination: GENERAL: cooperative but appears ill looking HEENT: Atraumatic; EYES; Anicteric, Normal Conjunctiva NECK; supple, normal thyroid, RESPIRATORY: Diminished to auscultation CARDIOVASCULAR: Regular S1 S2, GI: soft, normoactive bowel sounds, : No Renal angle tenderness; EXTREMITIES: No edema, no clubbing, MUSCULOSKELETAL: no muscle waisting NEURO: Awake; no lateralizing signs. SKIN: No Rash PSYCH; Flat affect Assessment: 1. Acute hypoxic respiratory failure 2. Acute viral pneumonia with influenza B and RSV 3. Bronchiectasis 4. History of AAA 5. Paroxysmal A. fib 6. GERD 7. Coronary artery disease with previous history of STEMI 8. GERD 9. History of esophageal stricture 10. Essential hypertension 11. Irritable bowel syndrome 12. DVT prophylaxis Recommendations: 1. I have discussed the results of my overview and impressions with the patient 2. Options for management were reviewed Total time spent by myself and the advanced practice practitioner evaluating patient, reviewing labs, subsequent management decisions, discussion with patient as well as other providers 40 minutes ( 25 of which was spent by myself) Charges/Coding Visit Charges Inpatient E&M: 33743 [facility] Hosp L3
[2021-03-05] MEDS: Oseltamivir Phosphate 30 MG Capsule PO ×2 (13:46→21:49)
[2021-03-06] VITALS (8 sets, daily range): BP systolic 111–119; BP diastolic 64–73; PULSE 57–149; RESP 16–20; TEMP 36.5–36.6; O2SAT 93–96
[2021-03-06] MEDS: Ipratropium/Albuterol Sulfate 3 ML AMPUL.NEB INHALATION ×2 (01:05→06:55)
[2021-03-06] MEDS: Acetaminophen 325 MG Tablet 650 MG PO (01:40)
[2021-03-06] MEDS: Benzonatate 100 MG Capsule PO (04:04)
[2021-03-06 05:59] LABS: Absolute Lymphocyte Count 1.12 X10^3/uL (0.83-4.51); Absolute Neutrophil Count 4.8 X10^3/uL (2.0-7.7); Basophil# 0.02 X10^3/uL; Basophil% 0.3 % (0-1); Eosinophil# 0.03 X10^3/uL; Eosinophils% 0.4 % (0-5); Hematocrit 33.6 % (40-54); Hemoglobin 11.3 g/dL (13.0-16.5); Lymphocyte # 1.12 X10^3/ul (0.83-4.51); Lymphocyte % 16.7 % (19-41); Mean Corp Hgb Conc 33.6 g/dL (32-36); Mean Corpuscular Hgb 31.4 pg (27.0-32.0); Mean Corpuscular Volume 93.3 fL (80-94); Mean Platelet Vol. 9.7 fl (6.2-12.0); Monocyte% 10.4 % (0-10); NRBC Flagged by Analyzer 0 % (0-5); Neutrophil # 4.82 X10^3/uL (2.7-7.7); Neutrophil % 71.8 % (47-70); Platelet Count 186 K/mm3 (150-450); RBC Distribution Width CV 12.7 % (11.6-14.6); RBC Distribution Width SD 43.8 fl (35.1-43.9); White Blood Count 6.7 K/mm3 (4.4-11.0)
[2021-03-06] MEDS: Vancomycin IV 500 MG/100 ML BAG 100 MG IV (06:40)
[2021-03-06] MEDS: 0.9% Saline Lock 10 ML Syringe IV (06:41)
[2021-03-06 07:44] LABS: Anion Gap 6 (5-15); BUN 15 mg/dL (7-18); BUN/Creat Ratio 15.6 RATIO (10-20); Calcium,Total 8.3 mg/dL (8.5-10.1); Chloride 98 mmol/L (98-107); Creatinine, Serum 0.96 mg/dL (0.70-1.30); EST Glomerular Filtration Rate 78 mL/min (>60); Est Glom Filt Rate - Afr Amer 95 mL/min (>60); Glucose 97 mg/dL (74-106); Potassium 3.1 mmol/L (3.5-5.1); Sodium Level 133 mmol/L (136-145)
[2021-03-06 07:52] LABS: Vancomycin, Trough Level 6.9 ug/mL (5.0-15.0)
--- NOTE | 2021-03-06 09:29 | PCM.DC ---
Discharge Instructions Diet Discharge Diet: No restrictions Activity Discharge Activity: Return to Normal Activity Weight Bearing Status: Weight bearing as tolerated Dressing / Incision Call your doctor if you observe: Fever of 101 or Higher, Numbness or Tingling, Shortness of breath, Dizziness, Chest pain, Increased palpitations (irregular heartbeat) and Calf discomfort Follow Up Care Please Follow Up With: Primary care provider When: Within the next two weeks. Test Results: Test results from this visit will be discussed in further detail at your follow-up appointment, if applicable. Discharge Plan Admission Admit Date/Time: 03/04/21 14:23 Primary Reason for Your Visit: Shortness of breath Attending Provider: Rudy Olivarez Primary Care Provider: Kiko Mojica Chi Discharge Orders/Prescriptions Prescriptions: New oseltamivir [Tamiflu] 75 mg capsule 75 mg PO BID 4 Days Qty: 8 RF: 0 Continued lactulose 10 gram/15 mL solution 15 ml PO DAILY PRN PRN (Reason: high potassium) RF: 0 hydrochlorothiazide 12.5 mg tablet 12.5 mg PO DAILY Qty: 90 RF: 3 meclizine 25 mg tablet 25 mg PO DAILY PRN (Reason: Dizziness) RF: 0 sennosides-docusate sodium 8.6-50 mg tablet 1 tab-cap PO BID PRN (Reason: Constipation) RF: 0 tramadol 50 mg tablet 50 mg PO DAILY PRN (Reason: Pain) RF: 0 aspirin 81 MG tablet,chewable 81 mg PO DAILY@0800 RF: 0 metoprolol tartrate 25 mg tablet 12.5 mg PO BID RF: 0 bisacodyl 5 mg tablet,delayed release (DR/EC) 5 mg PO BID PRN (Reason: Constipation) RF: 0 omeprazole 40 mg capsule,delayed release(DR/EC) 40 mg PO DAILY RF: 0 Trulance 3 mg tablet 3 mg PO DAILY RF: 0 Referrals / Follow Up: Kiko Mojica Chi, MD [Primary Care Provider] - Within 2 Weeks Disposition Disposition (needs filled in before D/C Order can be placed): Home, Self Care
[2021-03-06] MEDS: guaiFENesin 1,200 MG Tablet 1200 MG PO (09:40)
[2021-03-06] MEDS: hydroCHLOROthiazide 6.25mg TAB 12.5 MG PO (09:40)
[2021-03-06] MEDS: Enoxaparin 40 MG/0.4 ML Syringe SC (09:40)
[2021-03-06] MEDS: Aspirin 81 MG TAB.CHEW PO (09:40)
[2021-03-06] MEDS: Metoprolol Tartrate 25 MG Tablet 12.5 MG PO (09:41)
[2021-03-06] MEDS: Oseltamivir Phosphate 30 MG Capsule PO (09:41)
--- NOTE | 2021-03-06 10:11 | CASEMGMT ---
Per Sharmila RN, pt does not qualify for home oxygen at discharge. This RN CM to room and pt declines need for any further therapy at discharge. Pt voices no further questions/concerns/needs. SStrufino RN CM
--- NOTE | 2021-03-06 12:42 | DS.PCM_ITS ---
Documented by User: Jeramie MOHAN 03/06/21 12:47 Providers Date of Admission: 03/04/21 Primary Care Physician: Dr. Kiko Mojica MD Reason For Visit: HYPOXIA WITH HCAP Diagnosis Discharge Diagnosis (1) Leukocytosis: Status: Acute Code(s): D72.829 - Elevated white blood cell count, unspecified (2) Multifocal atrial tachycardia: Status: Acute Code(s): I47.1 - Supraventricular tachycardia (3) Hypoxia: Status: Acute Code(s): R09.02 - Hypoxemia (4) Generalized weakness: Status: Acute Code(s): R53.1 - Weakness (5) Viral pneumonia: Status: Acute Code(s): J12.9 - Viral pneumonia, unspecified Medications at Discharge Home Medications aspirin 81 mg PO DAILY@0800 11/25/15 metoprolol tartrate 25 mg tablet 12.5 mg PO BID tab 04/07/19 bisacodyl 5 mg tablet,delayed release 5 mg PO BID PRN tab 12/14/19 hydrochlorothiazide 12.5 mg tablet 12.5 mg PO DAILY #90 tab 07/24/20 lactulose 10 gram/15 mL oral solution 15 ml PO DAILY PRN PRN ml 07/24/20 tramadol 50 mg tablet 50 mg PO DAILY PRN 09/17/20 meclizine 25 mg tablet 25 mg PO DAILY PRN 01/24/21 sennosides 8.6 mg-docusate sodium 50 mg tablet 1 tab-cap PO BID PRN tab 01/24/21 Trulance 3 mg PO DAILY 03/04/21 omeprazole 40 mg PO DAILY 03/04/21 oseltamivir [Tamiflu] 75 mg PO BID 4 Days #8 cap 03/06/21 Hospital Course Summary of Care Provided Minutes Spent on Discharge: 20 Hospital Course: Patient is a 85-year-old male who was admitted to the hospital on 03/04/2021 for evaluation and management of acute hypoxia secondary to viral pneumonia. Course and management as below. 1) acute hypoxia secondary to viral pneumonia RSV and influenza B antigen are positive. White count and shortness of breath have improved from admission. Blood cultures show no growth after 48 hours, Legionella and strep pneumo urinary antigens are negative. Rapid Covid and PCR are negative. Sputum culture unable to be collected. Patient was given vancomycin and Zosyn throughout admission given concern for possible HCAP due to patient's recent admission at [facility]. Antibiotics were discontinued on discharge and patient was continued on Tamiflu for 4 days to c omplete 5-day course. Patient to follow-up with primary care provider in the next 2 weeks. 2) leukocytosis Resolved, currently 6.1. Likely reactionary on admission. 3) tachycardia Resolved, likely reactionary on admission. TSH within normal limits. 4) bronchiectasis Noted on CT on 03/04/2021. 5) history of paroxysmal atrial fibrillation Patient is rate controlled on metoprolol, not currently on oral anticoagulation as has had previous intolerances, however is on aspirin. Continue aspirin and metoprolol. 6) history of irritable bowel syndrome Stable, continue Trulance on discharge. Continue all chronic medications for CAD, HLD, HTN and GERD. Patient seen by Jeramie Packer PA-C, under the supervision of Dr. Olivarez. Physical Exam Narrative Patient is an 85-year-old male comfortably resting in bed, alert and orient x3. Patient reports significant improvement in his shortness of breath from admission. Denies development of any new symptoms overnight. Does not appear in acute distress. Const alert, oriented x3 and no apparent distress HEENT normocephalic, head/scalp atraumatic and hearing grossly normal bilaterally Eyes PERRL, EOMs intact bilaterally and conjunctivae normal Neck no lymphadenopathy, supple and no JVD Resp normal respiratory effort, no retractions and no use of accessory muscles Auscultation: diminished lung sounds Cardio regular rate, regular rhythm, no murmurs and no JVD GI normal to inspection, nondistended, normoactive bowel sounds, soft to palpation and non-tender Extremity normal to inspection, full ROM and no clubbing, cyanosis or edema Skin no rashes or lesions noted, no wounds and skin turgor normal Neuro CN's II-XII intact bilaterally Psych affect normal Weight / BMI Weight Weight: 136 lb 0.403 oz Body Mass Index (BMI) 20.2 ABG / Lab / Microbiology Data Result Diagrams: 03/06/21 05:32 03/06/21 05:32 Laboratory: Laboratory Results - last 24 hr 03/06/21 05:32: WBC 6.7, RBC 3.60 L, Hgb 11.3 L, Hct 33.6 L, MCV 93.3, MCH 31.4, MCHC 33.6, RDW Std Deviation 43.8, RDW Coeff of Sandip 12.7, Plt Count 186, MPV 9.7, Immature Gran % (Auto) 0.400, Neut % (Auto) 71.8 H, Lymph % (Auto) 16.7 L, [place] % (Auto) 10.4 H, Eos % (Auto) 0.4, Baso % (Auto) 0.3, Absolute Neuts (auto) 4.8, Absolute Lymphs (auto) 1.12, Nucleated RBC % 0 03/06/21 05:32: Sodium 133 L, Potassium 3.1 L, Chloride 98, Carbon Dioxide 29.0, Anion Gap 6, BUN 15, Creatinine 0.96, Estim Creat Clear Calc 48.20, Est GFR (MDRD) Af Amer 95, Est GFR (MDRD) Non-Af 78, BUN/Creatinine Ratio 15.6, Glucose 97, Calcium 8.3 L 03/06/21 06:33: Vancomycin Trough 6.9 Microbiology: Microbiology 03/04/21 17:30 Mucosa - Nasopharyngeal Rapid RSV (DFA) - Final RSV Antigen 03/04/21 17:30 Mucosa - Nasopharyngeal Influenza Types A,B Direct FA (PIERCE) - Final 03/04/21 16:15 Urine, Clean Catch Legionella Antigen - Final 03/04/21 16:15 Urine, Clean Catch Streptococcus pneumoniae Antigen (M - Final 03/04/21 10:26 Nasal Secretion SARS-CoV-2 Antigen (Rapid) - Final D/C Instructions Discharge Diet: No restrictions Weight Bearing Status: Weight bearing as tolerated Call your doctor if you observe: Fever of 101 or Higher, Numbness or Tingling, Shortness of breath, Dizziness, Chest pain, Increased palpitations (irregular heartbeat) and Calf discomfort Please Follow Up With: Primary care provider When: Within the next two weeks. Meaningful Use Info Meaningful Use Diagnoses (Choose all that apply): None applicable Discharge Plan Admission Admit Date/Time: 03/04/21 14:23 Primary Reason for Your Visit: Shortness of breath Attending Provider: Rudy Olivarez Primary Care Provider: Kiko Mojica Chi Discharge Orders/Prescriptions Prescriptions: New oseltamivir [Tamiflu] 75 mg capsule 75 mg PO BID 4 Days Qty: 8 RF: 0 Continued lactulose 10 gram/15 mL solution 15 ml PO DAILY PRN PRN (Reason: high potassium) RF: 0 hydrochlorothiazide 12.5 mg tablet 12.5 mg PO DAILY Qty: 90 RF: 3 meclizine 25 mg tablet 25 mg PO DAILY PRN (Reason: Dizziness) RF: 0 sennosides-docusate sodium 8.6-50 mg tablet 1 tab-cap PO BID PRN (Reason: Constipation) RF: 0 tramadol 50 mg tablet 50 mg PO DAILY PRN (Reason: Pain) RF: 0 aspirin 81 MG tablet,chewable 81 mg PO DAILY@0800 RF: 0 metoprolol tartrate 25 mg tablet 12.5 mg PO BID RF: 0 bisacodyl 5 mg tablet,delayed release (DR/EC) 5 mg PO BID PRN (Reason: Constipation) RF: 0 omeprazole 40 mg capsule,delayed release(DR/EC) 40 mg PO DAILY RF: 0 Trulance 3 mg tablet 3 mg PO DAILY RF: 0 Referrals / Follow Up: Kiko Mojica Chi, MD [Primary Care Provider] - Within 2 Weeks (Please call to setup an appointment. ) Disposition Disposition (needs filled in before D/C Order can be placed): Home, Self Care Documented by User: Dr. Rudy Olivarez MD 03/06/21 13:11 Providers Date of Admission: 03/04/21 Reason For Visit: HYPOXIA WITH HCAP Medications at Discharge Home Medications aspirin 81 mg PO DAILY@0800 11/25/15 metoprolol tartrate 25 mg tablet 12.5 mg PO BID tab 04/07/19 bisacodyl 5 mg tablet,delayed release 5 mg PO BID PRN tab 12/14/19 hydrochlorothiazide 12.5 mg tablet 12.5 mg PO DAILY #90 tab 07/24/20 lactulose 10 gram/15 mL oral solution 15 ml PO DAILY PRN PRN ml 07/24/20 tramadol 50 mg tablet 50 mg PO DAILY PRN 08/09/21 meclizine 25 mg tablet 25 mg PO DAILY PRN 01/24/21 sennosides 8.6 mg-docusate sodium 50 mg tablet 1 tab-cap PO BID PRN tab 01/24/21 Trulance 3 mg PO DAILY 03/04/21 omeprazole 40 mg PO DAILY 03/04/21 oseltamivir [Tamiflu] 75 mg PO BID 4 Days #8 cap 03/06/21 Hospital Course Summary of Care Provided Minutes Spent on Discharge: 40 Hospital Course: This patient was seen in conjunction with Jeramie Packer PA-C. I have independently interviewed and examined the patient and reviewed pertinent historical, laboratory, and other data. Please refer to Jeramie Packer PA-C's note for details of this patient's presentation, findings, and recommendations. I have reviewed Jeramie Packer PA-C's note and concur with documented findings. In brief, patient is an 85-year-old male with multiple comorbidities admitted with shortness of breath and generalized aches. CT of the chest obtained demonstrated scarring at the lung bases with evidence of bronchiectasis and subpleural blebs. Admitted to a monitored bed placed on supplemental oxygen. Subsequent evaluation with a viral panel revealed presence of influenza B as well as RSV -Antibiotics discontinued after patient cultures came back negative. Patient was discharged back to [facility] Physical Examination: GENERAL: cooperative but appears ill looking HEENT: Atraumatic; EYES; Anicteric, Normal Conjunctiva NECK; supple, normal thyroid, RESPIRATORY: Diminished to auscultation CARDIOVASCULAR: Regular S1 S2, GI: soft, normoactive bowel sounds, : No Renal angle tenderness; EXTREMITIES: No edema, no clubbing, MUSCULOSKELETAL: no muscle waisting NEURO: Awake; no lateralizing signs. SKIN: No Rash PSYCH; Flat affect Assessment: 1. Acute hypoxic respiratory failure 2. Acute viral pneumonia with influenza B and RSV 3. Bronchiectasis 4. History of AAA 5. Paroxysmal A. fib 6. GERD 7. Coronary artery disease with previous history of STEMI 8. GERD 9. History of esophageal stricture 10. Essential hypertension 11. Irritable bowel syndrome 12. DVT prophylaxis Hospital course; as documented above Total time spent by myself and the advanced practice practitioner evaluating patient, reviewing labs, subsequent management decisions, discussion with patient as well as other providers 40 minutes ( 25 of which was spent by myself) ABG / Lab / Microbiology Data Result Diagrams: 03/06/21 05:32 03/06/21 05:32 Discharge Plan Admission Admit Date/Time: 03/04/21 14:23 Primary Reason for Your Visit: Shortness of breath Attending Provider: Rudy Olivarez Primary Care Provider: Kiko Mojica Chi Discharge Orders/Prescriptions Prescriptions: New oseltamivir [Tamiflu] 75 mg capsule 75 mg PO BID 4 Days Qty: 8 RF: 0 Continued lactulose 10 gram/15 mL solution 15 ml PO DAILY PRN PRN (Reason: high potassium) RF: 0 hydrochlorothiazide 12.5 mg tablet 12.5 mg PO DAILY Qty: 90 RF: 3 meclizine 25 mg tablet 25 mg PO DAILY PRN (Reason: Dizziness) RF: 0 sennosides-docusate sodium 8.6-50 mg tablet 1 tab-cap PO BID PRN (Reason: Constipation) RF: 0 tramadol 50 mg tablet 50 mg PO DAILY PRN (Reason: Pain) RF: 0 aspirin 81 MG tablet,chewable 81 mg PO DAILY@0800 RF: 0 metoprolol tartrate 25 mg tablet 12.5 mg PO BID RF: 0 bisacodyl 5 mg tablet,delayed release (DR/EC) 5 mg PO BID PRN (Reason: Constipation) RF: 0 omeprazole 40 mg capsule,delayed release(DR/EC) 40 mg PO DAILY RF: 0 Trulance 3 mg tablet 3 mg PO DAILY RF: 0 Referrals / Follow Up: Kiko Mojica Chi, MD [Primary Care Provider] - Within 2 Weeks (Please call to setup an appointment. ) Disposition Disposition (needs filled in before D/C Order can be placed): Home, Self Care Charges/Coding Visit Charges Inpatient E&M: 59776 [facility] Hosp
== END 2021-03-06 11:11 | disposition home or self-care (01) | DRG 193 ==
LOC: ED 14:16 → PCU 03-05 07:17
PROVIDERS: Physician Assistant; Admitting Provider Internal Medicine; Emergency Provider Emergency Medicine; PCP Family Medicine Geriatric Medicine; Visit Provider Internal Medicine
DX: J10.08 Influenza due to other identified influenza virus with other specified pneumonia (principal); E43 Unspecified severe protein-calorie malnutrition; J96.01 Acute respiratory failure with hypoxia; I47.1 Supraventricular tachycardia; I48.0 Paroxysmal atrial fibrillation; J47.0 Bronchiectasis with acute lower respiratory infection; B97.4 Respiratory syncytial virus as the cause of diseases classified elsewhere; J12.9 Viral pneumonia, unspecified; I25.10 Atherosclerotic heart disease of native coronary artery without angina pectoris; K58.9 Irritable bowel syndrome, unspecified; M79.10 Myalgia, unspecified site; I10 Essential (primary) hypertension; M48.02 Spinal stenosis, cervical region; E78.5 Hyperlipidemia, unspecified; K21.9 Gastro-esophageal reflux disease without esophagitis; D72.829 Elevated white blood cell count, unspecified; I25.2 Old myocardial infarction; Z79.82 Long term (current) use of aspirin; Z79.01 Long term (current) use of anticoagulants; Z80.0 Family history of malignant neoplasm of digestive organs; Z87.891 Personal history of nicotine dependence; Z98.1 Arthrodesis status; Z68.20 Body mass index [BMI] 20.0-20.9, adult; Y95 Nosocomial condition; Z20.822 Contact with and (suspected) exposure to COVID-19; Z79.899 Other long term (current) drug therapy
CPT/HCPCS: 36415; 71045; 71275; 80048; 80053; 80202; 83605; 83735; 84100; 84443; 84484; 85025; 87040; 87426; 87449; 87635; 87641; 87804; 87807; 93005; 94640; 94667; 94668; 96365; 96366; 96367; 96372; 97110; 97116; 97162; 97166; 97802; 99218; 99251; 99284; Q9967; A4216; G0378; G0463; U0003; U0005

== ENCOUNTER 2021-03-25 16:03 | Outpatient (CLI) | payer MEDICARE, SELFPAY ==
[2021-03-25 17:27] LABS: Absolute Lymphocyte Count 1.82 X10^3/uL (0.83-4.51); Absolute Neutrophil Count 3.5 X10^3/uL (2.0-7.7); Basophil# 0.05 X10^3/uL; Basophil% 0.8 % (0-1); Eosinophils% 3.2 % (0-5); Hematocrit 41.7 % (40-54); Hemoglobin 13.8 g/dL (13.0-16.5); Lymphocyte # 1.82 X10^3/ul (0.83-4.51); Lymphocyte % 29.1 % (19-41); Mean Corp Hgb Conc 33.1 g/dL (32-36); Mean Corpuscular Hgb 31.7 pg (27.0-32.0); Mean Corpuscular Volume 95.9 fL (80-94); Mean Platelet Vol. 9.4 fl (6.2-12.0); Monocyte# 0.72 X10^3/uL; Monocyte% 11.5 % (0-10); NRBC Flagged by Analyzer 0 % (0-5); Neutrophil # 3.45 X10^3/uL (2.7-7.7); Neutrophil % 55.1 % (47-70); Platelet Count 275 K/mm3 (150-450); RBC Distribution Width CV 13.7 % (11.6-14.6); Red Blood Count 4.35 M/mm3 (4.6-6.2); White Blood Count 6.3 K/mm3 (4.4-11.0)
[2021-03-25 17:42] LABS: Vitamin D,25 Hydroxy 21.5 ng/mL
[2021-03-25 17:49] LABS: ALB/GLOB Ratio 0.8 RATIO (0.9-2.4); AST(SGOT) 14 U/L (15-37); Alanine Aminotransfer ALT/SGPT 18 U/L (16-61); Albumin, Serum 3.2 g/dL (3.2-5.0); Alkaline Phosphatase 89 U/L (45-117); Anion Gap 3 (5-15); BUN 14 mg/dL (7-18); Calcium,Total 8.6 mg/dL (8.5-10.1); Chloride 106 mmol/L (98-107); Creatinine, Serum 1.17 mg/dL (0.70-1.30); EST Glomerular Filtration Rate 63 mL/min (>60); Est Glom Filt Rate - Afr Amer 76 mL/min (>60); Glucose 91 mg/dL (74-106); Potassium 3.8 mmol/L (3.5-5.1); Protein, Total 7.2 g/dL (6.4-8.2); Sodium Level 139 mmol/L (136-145); Thyroid Stim Hormone (TSH) 1.63 uIU/mL (0.358-3.74)
== END 2021-03-25 23:59 | disposition home or self-care (01) ==
LOC: POLAB3 16:08
PROVIDERS: PCP Family Medicine Geriatric Medicine; Visit Provider Family Medicine Geriatric Medicine
DX: E55.9 Vitamin D deficiency, unspecified (principal); R53.83 Other fatigue
CPT/HCPCS: 36415; 80053; 82306; 84443; 85025

== ENCOUNTER 2021-07-13 18:46 | Observation (INO) | payer MEDICARE, SELFPAY ==
[2021-07-13] VITALS (9 sets, daily range): BP systolic 100–118; BP diastolic 58–92; PULSE 70–112; RESP 18–27; TEMP 36.9–39.2; O2SAT 92–97; BMI 20.7
--- NOTE | 2021-07-13 18:58 | EKG12_ITS ---
Test Reason : WEAKNESS Blood Pressure : / mmHG Vent. Rate : 130 BPM Atrial Rate : 122 BPM P-R Int : 000 ms QRS Dur : 076 ms QT Int : 370 ms P-R-T Axes : 000 -40 012 degrees QTc Int : 544 ms Atrial fibrillation with premature ventricular or aberrantly conducted complexes Left axis deviation Septal infarct , age undetermined Inferior infarct , age undetermined Abnormal ECG Confirmed by GIANNA LYLES, MARCOS ([id number]), editor & co founder KIM PANG ([id number]) on 07/15/2021 12:44:28 PM Referred By: KESHAWN Confirmed By:MARCOS KATZ MD
--- NOTE | 2021-07-13 19:00 | EX.ED.DYSGE1 ---
HPI History of Present Illness Chief Complaint: Weakness Detail of Chief Complaint: Fever, body aches, cough Informant: patient and family Onset/Context/Timing Onset: Days Context: Gradual Onset Current Severity: Moderate Maximum Severity: Moderate Narrative Narrative: Patient presents secondary to generalized weakness along with fever, body aches, cough. He states he has not felt well for the past 5 to 7 days but really got worse today. Today is the first time his daughter had noticed a fever. He has not had Tylenol since this morning. He denies chest pain. He has had cough and is bringing up clear sputum. He has had very poor appetite but denies nausea, vomiting, or diarrhea. He does have urinary frequency but no dysuria. Patient was admitted to the hospital in February with mild hypoxia and similar presentation and was found to have RSV and influenza B. 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 Paroxysmal atrial fibrillation Postoperative atrial fibrillation (05/2006) Right temporomandibular joint disorder, unspecified Rotator cuff tear Tear of biceps tendon Home Medications aspirin 81 mg PO DAILY@0800 11/25/15 [History Last Taken 03/03/21] metoprolol tartrate 25 mg tablet 12.5 mg PO BID tab 04/07/19 [History Last Taken 03/03/21] bisacodyl 5 mg tablet,delayed release 5 mg PO BID PRN tab 12/14/19 [History Last Taken 03/03/21] hydrochlorothiazide 12.5 mg tablet 12.5 mg PO DAILY #90 tab 07/24/20 [Rx Last Taken 03/03/21] lactulose 10 gram/15 mL oral solution 15 ml PO DAILY PRN PRN ml 07/24/20 [History Last Taken Unknown] tramadol 50 mg tablet 50 mg PO DAILY PRN 09/17/20 [History Last Taken Unknown] meclizine 25 mg tablet 25 mg PO DAILY PRN 01/24/21 [History Last Taken Unknown] sennosides 8.6 mg-docusate sodium 50 mg tablet 1 tab-cap PO BID PRN tab 01/24/21 [History Last Taken 03/03/21] Trulance 3 mg PO DAILY 03/04/21 [History Last Taken 03/03/21] omeprazole 40 mg PO DAILY 03/04/21 [History Last Taken 03/03/21] oseltamivir [Tamiflu] 75 mg PO BID 4 Days #8 cap 03/06/21 [Rx Last Taken Unknown] Allergy/AdvReac Type Severity Reaction Status Date / Time apixaban [From Eliquis] AdvReac Intermediate GI upset Verified 07/13/21 18:48 rivaroxaban [From Xarelto] AdvReac generally Verified 07/13/21 18:48 did not feel well Family History Mother Colon cancer CVA (cerebral vascular accident) Father Cancer leukemia Surgical History 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) History of appendectomy History of cataract surgery History of endovascular stent graft for abdominal aortic aneurysm (AAA) History of esophageal dilatation (~12/2020) History of esophagogastroduodenoscopy (EGD) History of herniorrhaphy History of sinus surgery S/P cervical spinal fusion Social History Smoking Status: Former smoker second hand exposure: No alcohol intake: never substance use type: does not use caffeine: Yes seatbelt use: always ROS ROS ED Constitutional Constitutional ED: Reports fever(s) Eyes Eyes: Denies blurry vision or change in vision ENT ENT ED: Denies sore throat Cardiovascular Cardiovascular: Denies chest pain or palpitations Respiratory/Chest Respiratory/Chest: Reports cough, dyspnea and sputum Gastrointestinal Gastrointestinal: Denies abdominal pain, diarrhea, nausea or vomiting Musculoskeletal Musculoskeletal: Reports myalgias Integumentary Denies rash Neurologic Neurologic: Reports weakness Psychiatric Psychiatric: Denies anxiety or depression Endocrine Endocrinology: Denies polydipsia or polyuria Allergic/Immunologic Allergic/Immunologic ED: Denies urticaria EXAM Physical Exam Const Vital Signs: 07/13/21 18:47 07/13/21 19:20 07/13/21 19:22 Temperature 102.6 F H 98.4 F Temperature Source Temporal Oral Pulse Rate 90 109 H Respiratory Rate 20 H 22 H Respiratory Effort Normal Respiratory Pattern Normal Blood Pressure 116/66 101/58 L Blood Pressure Mean 82 72 Pulse Ox 92 92 Oxygen Delivery Method Room Air Room Air 07/13/21 20:00 Temperature 98.4 F Temperature Source Oral Pulse Rate 112 H Respiratory Rate 27 H Respiratory Effort Respiratory Pattern Blood Pressure 118/92 H Blood Pressure Mean 100 Pulse Ox 93 Oxygen Delivery Method Room Air Positive well nourished and well developed General Appearance ED: well developed HEENT Reports moist mucous membranes Eyes PERRL and EOMs intact bilaterally Neck supple Chest Wall inspection of chest normal and palpation of chest normal Resp normal respiratory effort and clear to auscultation bilaterally Cardio regular rate and regular rhythm GI non-tender Auscultation: hypoactive bowel sounds Palpation: soft Extremity normal to inspection Neuro oriented x3 and no sensory deficits noted Sensorium / Orientation: alert Motor Exam: general weakness Psych mental status grossly normal Skin no rashes or lesions noted MDM MDM MDM Narrative Medical decision making narrative: Patient placed on cardiac rehab nurse. Tylenol and IV fluids ordered. EKG, chest x-ray, lab work, urinalysis obtained. Blood and urine cultures ordered. Swabs for COVID and influenza obtained. Lab Data Attestation: I reviewed the patient's lab results. Labs: Laboratory Results - last 24 hr 07/13/21 07/13/21 07/13/21 19:10 19:10 19:10 WBC 14.4 H RBC 4.39 L Hgb 13.9 Hct 41.0 MCV 93.4 MCH 31.7 MCHC 33.9 RDW Std Deviation 45.0 H RDW Coeff of Sandip 13.2 Plt Count 194 MPV 9.1 Immature Gran % (Auto) 0.500 Neut % (Auto) 87.3 H Lymph % (Auto) 5.4 L [place] % (Auto) 6.3 Eos % (Auto) 0.2 Baso % (Auto) 0.3 Absolute Neuts (auto) 12.6 H Absolute Lymphs (auto) 0.77 L Nucleated RBC % 0 PT 13.8 INR 1.1 APTT 30.3 Sodium 136 Potassium 3.4 L Chloride 103 Carbon Dioxide 28.0 Anion Gap 5 BUN 17 Creatinine 1.10 Estim Creat Clear Calc 42.50 Est GFR (MDRD) Af Amer 81 Est GFR (MDRD) Non-Af 67 BUN/Creatinine Ratio 15.5 Glucose 100 Lactic Acid Calcium 8.5 Total Bilirubin 0.50 AST 15 ALT 23 Alkaline Phosphatase 69 Total Protein 7.2 Albumin 3.3 Globulin 3.9 Albumin/Globulin Ratio 0.8 L Urine Color Urine Clarity Urine pH Ur Specific [place] Urine Protein Urine Glucose (UA) Urine Ketones Urine Occult Blood Urine Nitrite Urine Bilirubin Urine Urobilinogen Ur Leukocyte Esterase Urine RBC Urine WBC Ur Squamous Epith Cells Urine Bacteria Urine Mucus 07/13/21 07/13/21 19:10 19:29 WBC RBC Hgb Hct MCV MCH MCHC RDW Std Deviation RDW Coeff of Sandip Plt Count MPV Immature Gran % (Auto) Neut % (Auto) Lymph % (Auto) [place] % (Auto) Eos % (Auto) Baso % (Auto) Absolute Neuts (auto) Absolute Lymphs (auto) Nucleated RBC % PT INR APTT Sodium Potassium Chloride Carbon Dioxide Anion Gap BUN Creatinine Estim Creat Clear Calc Est GFR (MDRD) Af Amer Est GFR (MDRD) Non-Af BUN/Creatinine Ratio Glucose Lactic Acid 1.3 Calcium Total Bilirubin AST ALT Alkaline Phosphatase Total Protein Albumin Globulin Albumin/Globulin Ratio Urine Color Yellow Urine Clarity Clear Urine pH 6.0 Ur Specific [place] 1.015 Urine Protein 15 H Urine Glucose (UA) Normal Urine Ketones Negative Urine Occult Blood Negative Urine Nitrite Negative Urine Bilirubin Negative Urine Urobilinogen 1 H Ur Leukocyte Esterase Negative Urine RBC 0 SEEN Urine WBC 0 SEEN Ur Squamous Epith Cells 0 SEEN Urine Bacteria 0 SEEN Urine Mucus 0 SEEN Radiography Chest X-Ray - ED: 1 View, Read by ED Physician, Chronic Changes and No Infiltrates EKG Initial EKG: Attestation: I personally reviewed and interpreted this EKG as follows: Interpretation: Atrial Fibrillation (A. fib RVR at 130. No significant ST change appreciated.) Treatment and Re-Evaluation Narrative: Lab work is reviewed. White count is elevated at 14.4 with a left shift. Chemistry studies significant for mildly low potassium at 3.4. LFTs normal. Lactic acid normal. Urinalysis reveals no acute infection. Swabs for COVID and influenza are negative. Chest x-ray per my interpretation reveals no focal infiltrate. Respiratory viral panel has been ordered. I do feel patient will require observation for monitoring of symptoms and further treatment. I will speak with the hospitalist. Discharge Plan Triage Chief Complaint: Weakness ED Provider: Susan Franco Dx/Rx/DC Orders Clinical Impression: Fever, Bronchitis, Weakness generalized Prescriptions: No Action lactulose 10 gram/15 mL solution 15 ml PO DAILY PRN PRN (Reason: high potassium) RF: 0 hydrochlorothiazide 12.5 mg tablet 12.5 mg PO DAILY Qty: 90 RF: 3 meclizine 25 mg tablet 25 mg PO DAILY PRN (Reason: Dizziness) RF: 0 sennosides-docusate sodium 8.6-50 mg tablet 1 tab-cap PO BID PRN (Reason: Constipation) RF: 0 tramadol 50 mg tablet 50 mg PO DAILY PRN (Reason: Pain) RF: 0 aspirin 81 MG tablet,chewable 81 mg PO DAILY@0800 RF: 0 metoprolol tartrate 25 mg tablet 12.5 mg PO BID RF: 0 bisacodyl 5 mg tablet,delayed release (DR/EC) 5 mg PO BID PRN (Reason: Constipation) RF: 0 omeprazole 40 mg capsule,delayed release(DR/EC) 40 mg PO DAILY RF: 0 Trulance 3 mg tablet 3 mg PO DAILY RF: 0 oseltamivir [Tamiflu] 75 mg capsule 75 mg PO BID 4 Days Qty: 8 RF: 0 Primary Care Provider: Kiko Mojica Chi Referrals: Kiko Mojica Chi, MD [Primary Care Provider] - Disposition Disposition: Acute Care Hospital [facility]
[2021-07-13] MEDS: Acetaminophen 500 MG Tablet 1000 MG PO (19:18)
[2021-07-13] MEDS: 0.9% Normal Saline 1,000 ML 150 ML IV (19:18)
--- NOTE | 2021-07-13 19:32 | RAD_ITS ---
STUDY: X-RAY CHEST REASON FOR EXAM: Male, 86 years old. fever, cough TECHNIQUE: Single AP portable view of the chest. COMPARISON: March 04, 2021 FINDINGS: Chronic hyperinflation/cystic emphysematous changes. There are interstitial fibrotic changes of the lungs. Tiny calcified granuloma in the lateral inferior aspect of the right upper lobe. No visualized pneumonic infiltrates. There is no demonstrated pleural abnormality. Normal heart size. Sternal cerclage wires and vascular clips are present from a prior sternotomy and coronary artery bypass graft procedure (CABG). Normal mediastinum and tammi. Normal visualized pulmonary arteries. There is atherosclerotic calcification of the aortic arch with tortuosity. Normal visualized thoracic spine. Normal visualized ribs, clavicles, and shoulders. There is no demonstrated abnormality of the visualized soft tissue structures of the upper abdomen. Surgical clips reidentified in the left upper quadrant. RAD/Chest 1 View (Portable) IMPRESSION: Degenerative changes, as described above. No demonstrated acute cardiopulmonary process. Electronically Signed: Kael Hall MD at 20:22 EDT ,
[2021-07-13 19:34] LABS: Absolute Lymphocyte Count 0.77 X10^3/uL (0.83-4.51); Absolute Neutrophil Count 12.6 X10^3/uL (2.0-7.7); Basophil# 0.04 X10^3/uL; Basophil% 0.3 % (0-1); Eosinophil# 0.03 X10^3/uL; Eosinophils% 0.2 % (0-5); Hemoglobin 13.9 g/dL (13.0-16.5); Lymphocyte # 0.77 X10^3/ul (0.83-4.51); Lymphocyte % 5.4 % (19-41); Mean Corp Hgb Conc 33.9 g/dL (32-36); Mean Corpuscular Hgb 31.7 pg (27.0-32.0); Mean Corpuscular Volume 93.4 fL (80-94); Mean Platelet Vol. 9.1 fl (6.2-12.0); Monocyte% 6.3 % (0-10); NRBC Flagged by Analyzer 0 % (0-5); Neutrophil # 12.58 X10^3/uL (2.7-7.7); Neutrophil % 87.3 % (47-70); Platelet Count 194 K/mm3 (150-450); RBC Distribution Width CV 13.2 % (11.6-14.6); Red Blood Count 4.39 M/mm3 (4.6-6.2); White Blood Count 14.4 K/mm3 (4.4-11.0)
[2021-07-13 19:37] LABS: Bacteria 0 SEEN /hpf (None Seen); Mucous, Urine 0 SEEN /hpf (<or=2+); Red Blood Cells-Urine 0 SEEN /hpf (0-5); Squamous Epithelial Cells - UA 0 SEEN /hpf (0-5); White Blood Cells 0 SEEN /hpf (0-5)
[2021-07-13 19:39] LABS: Glucose, Dipstick Normal (Normal); Ketone-Dipstick Negative (Negative); Leukocyte Esterase-Dipstick Negative /ul (Negative); Nitrite-Dipstick Negative (Negative); Occult Blood-Urine Negative /ul (Negative); Protein-Dipstick 15 mg/dl (Negative); Specific Gravity, Urine 1.015 (1.002-1.030); Urine Bilirubin Dipstick Negative (Negative); Urine Urobilinogen 1 mg/dl (Normal)
[2021-07-13 19:49] LABS: Color, Urine Yellow (Yellow); Urine Clarity Clear (Clear)
[2021-07-13 19:49] LABS: International Normalized Ratio 1.1; Prothrombin Time (Protime)PT. 13.8 SECONDS (11.7-14.9)
[2021-07-13 19:50] LABS: ALB/GLOB Ratio 0.8 RATIO (0.9-2.4); AST(SGOT) 15 U/L (15-37); Alanine Aminotransfer ALT/SGPT 23 U/L (16-61); Albumin, Serum 3.3 g/dL (3.2-5.0); Alkaline Phosphatase 69 U/L (45-117); Anion Gap 5 (5-15); BUN 17 mg/dL (7-18); BUN/Creat Ratio 15.5 RATIO (10-20); Calcium,Total 8.5 mg/dL (8.5-10.1); Chloride 103 mmol/L (98-107); EST Glomerular Filtration Rate 67 mL/min (>60); Est Glom Filt Rate - Afr Amer 81 mL/min (>60); Globulin 3.9 g/dL (2.2-4.2); Glucose 100 mg/dL (74-106); Partial Thromboplast Time 30.3 Seconds (24.1-36.2); Potassium 3.4 mmol/L (3.5-5.1); Protein, Total 7.2 g/dL (6.4-8.2); Sodium Level 136 mmol/L (136-145)
[2021-07-13 20:05] LABS: Lactic Acid 1.3 mmol/L (0.4-1.9)
--- NOTE | 2021-07-13 20:29 | PCM.HP.STD ---
HPI - General General Date of Admission: 07/13/21 Date of Service: 07/13/21 Chief Complaint: URI type symptoms, weakness. HPI Narrative The patient is an 86 y/o M w/ PMHx: Chronic back pain, AAA s/p endovascular stenting, CAD s/p CABG, COPD w/ Former tobacco use, HTN, HLD, PAF, GERD, Hx esophageal strictures requiring dilation, IBS w/ predominant Chronic constipation who presents to the [facility] ED on 07/13/21 with history of 5 to 7 days of increased fatigue, malaise, weakness with significantly worsened status on day of presentation with fevers, cough, headache, sore throat and body aches as well as poor appetite with last Tylenol noted to be in the a.m. with cough only notable for clear sputum production with decreased appetite with no nausea, emesis or diarrhea with frequent urination although no specific dysuria associated prompting family to bring patient in for ED evaluation. Patient has been vaccinated against COVID-19 and notes having all available boosters also. Per records patient was admitted in February with mild hypoxia at that time was noted to have RSV and influenza B. Work-up in the ED included T102.6 with repeat temperature following Tylenol 98.4, heart rate 90, BP 116/66, respiratory rate 20, 92% on room air, blood culture x2 pending per ED, urine culture pending per ED, CBC with WC 14.4, hemoglobin 13.9, platelet 194 with left shift and lymphopenia, unremarkable coags, CMP unremarkable aside potassium 3.4, urinalysis with no evidence of UTI, specific gravity mildly elevated 1.015, lactic acid 1.3, CXR with no acute cardiopulmonary findings, rapid COVID antigen and influenza antigens negative however full respiratory panel and COVID PCR is pending. In the ED patient ministered normal saline as well as Tylenol. [facility] Medical History Abdominal aortic aneurysm (AAA) Abdominal pain Arthritis Atherosclerosis of coronary artery of [place] heart without angina pectoris Branch retinal artery occlusion of right eye (11/25/19) Central retinal vein occlusion of right eye (11/25/19) Cervical myelopathy Colon polyp Constipation COPD (chronic obstructive pulmonary disease) Depression Esophageal dilatation GERD (gastroesophageal reflux disease) History of esophageal stricture History of ST elevation myocardial infarction (STEMI) (05/08/06) Hyperlipidemia Insomnia Irritable bowel syndrome with constipation Multifocal atrial tachycardia Paroxysmal atrial fibrillation Postoperative atrial fibrillation (05/2006) Right temporomandibular joint disorder, unspecified Rotator cuff tear Tear of biceps tendon Home Medications aspirin 81 mg PO DAILY@0800 11/25/15 [History Last Taken 03/03/21] metoprolol tartrate 25 mg tablet 12.5 mg PO BID tab 04/07/19 [History Last Taken 03/03/21] bisacodyl 5 mg tablet,delayed release 5 mg PO BID PRN tab 12/14/19 [History Last Taken 03/03/21] hydrochlorothiazide 12.5 mg tablet 12.5 mg PO DAILY #90 tab 07/24/20 [Rx Last Taken 03/03/21] lactulose 10 gram/15 mL oral solution 15 ml PO DAILY PRN PRN ml 07/24/20 [History Last Taken Unknown] meclizine 25 mg tablet 25 mg PO DAILY PRN 01/24/21 [History Last Taken Unknown] omeprazole 40 mg PO DAILY 03/04/21 [History Last Taken 03/03/21] plecanatide [Trulance] 3 mg PO PRN PRN 07/13/21 [History Last Taken Unknown] Allergy/AdvReac Type Severity Reaction Status Date / Time apixaban [From Eliquis] AdvReac Intermediate GI upset Verified 07/13/21 18:48 rivaroxaban [From Xarelto] AdvReac generally Verified 07/13/21 18:48 did not feel well Family History Mother Colon cancer CVA (cerebral vascular accident) Father Cancer leukemia Surgical History 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) History of appendectomy History of cataract surgery History of endovascular stent graft for abdominal aortic aneurysm (AAA) History of esophageal dilatation (~12/2020) History of esophagogastroduodenoscopy (EGD) History of herniorrhaphy History of sinus surgery S/P cervical spinal fusion Social History (Updated 07/13/21 @ 21:[address] Mervat Stoner MD) household members: none Smoking Status: Former smoker second hand exposure: No alcohol intake: never substance use type: does not use caffeine: Yes seatbelt use: always ROS ROS Narrative Admission Review of Systems: CONSTITUTIONAL: No weight loss, + fever, chills, weakness or fatigue. HEENT: + Headache, sore throat, congestion. Eyes: No visual loss, blurred vision, double vision or yellow sclerae. Ears, Nose, Throat: No hearing loss, sneezing, alteration to sense of taste or smell. SKIN: No rash or itching, lesions, wounds. CARDIOVASCULAR: No chest pain, chest pressure or chest discomfort, palpitations, edema, orthopnea, syncopal events. RESPIRATORY: + shortness of breath, cough without marked sputum, No wheezing, hemoptysis. GASTROINTESTINAL: No anorexia, nausea, vomiting or diarrhea, abdominal pain, melena, BRBPR. GENITOURINARY: No dysuria, frequency, urgency or retention. NEUROLOGICAL: No headache, dizziness, syncope, paralysis, ataxia, numbness or tingling in the extremities, focal weakness, change in bowel or bladder control, seizure. MUSCULOSKELETAL: + muscle, back pain, joint pain or stiffness. HEMATOLOGIC: + anemia, bleeding or bruising. LYMPHATICS: No enlarged nodes. No history of splenectomy. PSYCHIATRIC: No history of depression or anxiety. ENDOCRINOLOGIC: No reports of sweating, cold or heat intolerance. No polyuria or polydipsia. ALLERGIES: No history of asthma, hives, eczema or rhinitis. Vital Signs Vital Signs Vital Signs: 07/13/21 18:47 07/13/21 19:20 07/13/21 19:22 Temperature 102.6 F H 98.4 F Temperature Source Temporal Oral Pulse Rate 90 109 H Respiratory Rate 20 H 22 H Respiratory Effort Normal Respiratory Pattern Normal Blood Pressure 116/66 101/58 L Blood Pressure Mean 82 72 Pulse Ox 92 92 Oxygen Delivery Method Room Air Room Air 07/13/21 20:00 Temperature 98.4 F Temperature Source Oral Pulse Rate 112 H Respiratory Rate 27 H Respiratory Effort Respiratory Pattern Blood Pressure 118/92 H Blood Pressure Mean 100 Pulse Ox 93 Oxygen Delivery Method Room Air Weight Weight: 140 lb Body Mass Index (BMI) 20.7 Physical Exam Narrative Physical Examination: General: Awake, alert, oriented x 3 and cooperative, seated upright in the ED bed, fatigued and ill-appearing, mildly increased respiratory rate. Skin: Normal color, normal turgor, no icterus, no cyanosis. HEENT: AT/NC, EOMI, PERRLA, moderately dry MM, no carotid bruits or JVD noted. Lungs: Diffusely diminished, greater bases, mildly increased respiratory rate, no rales, ronchi or wheezing. Heart: Mildly tachycardic with irregular rhythm; no gallop, rub audible. Abdomen: Soft, no obvious TTP, ND, distant hyperactive bowel sounds, no obvious HSM Extremities: No cyanosis, clubbing, or edema. Neurological: Patient awake, alert, oriented as noted, cognitive function appears intact although patient is fatigued as noted; pupils equally reactive to light and accommodation, cranial nerves II-XII grossly normal, moving all 4 extremities, no focal deficits, strength severely global decrease secondary to acute presentation. Psychiatric: Affect appears fatigued, ill-appearing, no evidence of any respiratory distress, no acute evidence of depressive or anxiety feelings. Results Lab / Micro Data Result Diagrams: 07/13/21 19:10 07/13/21 19:10 Labs: Laboratory Results - last 24 hr 07/13/21 19:10: WBC 14.4 H, RBC 4.39 L, Hgb 13.9, Hct 41.0, MCV 93.4, MCH 31.7, MCHC 33.9, RDW Std Deviation 45.0 H, RDW Coeff of Sandip 13.2, Plt Count 194, MPV 9.1, Immature Gran % (Auto) 0.500, Neut % (Auto) 87.3 H, Lymph % (Auto) 5.4 L, [place] % (Auto) 6.3, Eos % (Auto) 0.2, Baso % (Auto) 0.3, Absolute Neuts (auto) 12.6 H, Absolute Lymphs (auto) 0.77 L, Nucleated RBC % 0 07/13/21 19:10: PT 13.8, INR 1.1, APTT 30.3 07/13/21 19:10: Sodium 136, Potassium 3.4 L, Chloride 103, Carbon Dioxide 28.0, Anion Gap 5, BUN 17, Creatinine 1.10, Estim Creat Clear Calc 42.50, Est GFR (MDRD) Af Amer 81, Est GFR (MDRD) Non-Af 67, BUN/Creatinine Ratio 15.5, Glucose 100, Calcium 8.5, Total Bilirubin 0.50, AST 15, ALT 23, Alkaline Phosphatase 69, Total Protein 7.2, Albumin 3.3, Globulin 3.9, Albumin/Globulin Ratio 0.8 L 07/13/21 19:10: Lactic Acid 1.3 07/13/21 19:29: Urine Color Yellow, Urine Clarity Clear, Urine pH 6.0, Ur Specific [place] 1.015, Urine Protein 15 H, Urine Glucose (UA) Normal, Urine Ketones Negative, Urine Occult Blood Negative, Urine Nitrite Negative, Urine Bilirubin Negative, Urine Urobilinogen 1 H, Ur Leukocyte Esterase Negative, Urine RBC 0 SEEN, Urine WBC 0 SEEN, Ur Squamous Epith Cells 0 SEEN, Urine Bacteria 0 SEEN, Urine Mucus 0 SEEN Micro: Microbiology 07/13/21 19:15 Nasal Secretion SARS-CoV-2 & FLU Antigen (Rapid) - Final Radiology Impression Chest X-Ray 07/13/21 19:32 IMPRESSION: Degenerative changes, as described above. No demonstrated acute cardiopulmonary process. Electronically Signed: Kael Hall MD at 20:22 EDT Reading Location ID and State: [address] [place] [address] , Service support , Assessment & Plan Assessment/Plan (1) Acute viral syndrome: (2) Hypoxia: (3) FTT (failure to thrive) in adult: PLAN: The patient is an 86 y/o M w/ PMHx: Chronic back pain, AAA s/p endovascular stenting, CAD s/p CABG, COPD w/ Former tobacco use, HTN, HLD, PAF, GERD, Hx esophageal strictures requiring dilation, IBS w/ predominant Chronic constipation who presents to the [facility] ED on 07/13/21 with history of 5 to 7 days of increased fatigue, malaise, weakness with significantly worsened status on day of presentation with fevers, cough and body aches with last Tylenol noted to be in the a.m. with cough only notable for clear sputum production with decreased appetite with no nausea, emesis or diarrhea with frequent urination although no specific dysuria associated prompting family to bring patient in for ED evaluation. #1. Acute Hypoxia, Fatigue, Malaise, FTT Adult secondary to Posible Acute Viral Syndrome, COVID-19 versus Alternate Acute Viral Syndrome: Will admit to the [facility] telemetry, maintain on COVID precautions pending COVID PCR as antigen negative; however, his symptoms are 5-7 out thus PCR better modality, will maintain on oxygen with wean as tolerated to room air, PRN albuterol, HOB, IS parameters w/ pending sputum cultures, respiratory viral panel pending per ED, obtain urine antigens, will obtain D-dimer, procalcitonin, CRP, CPK, Ferritin, LDH, trop and BNP, continue supportive care including q 2 hour turning including prone given no prone bed availability and judicious hydration, closely monitor for worsening status for ARDS and multiorgan failure, will initiate and continue IV decadron x 10 doses given oxygenation < 94% however if PCR negative will de-escalate off, also given patient high risk status IF COVID PCR positive would plan to initiate IV remdesivir but defer to discretion of Infectious disease. If respiratory status worsens and patient requires airvo or BIPAP transition will request Pulmonary and ID involvement. Additionally, given history of bronchiectasis we will encourage aggressive pulmonary toileting, I-S and Pep therapy in addition to Mucinex. Will obtain repeat AM CXR following overnight hydration. PT/OT/CM consultations for discharge planning. #2. Hypokalemia: Admission K+ 3.4, magnesium level requested, supplementation given, repeat level in AM. #3. CAD: Status post prior CABG x2, will continue aspirin, metoprolol, not on statin therapy likely secondary to age, not on FOSTER inhibitor/ARB, defer to outpatient. #4. AAA: Status post endovascular stenting, 03/04/2021 CTPA with no acute findings with evidence of prior sternotomy, vascular clips and CABG, continued on aspirin, hypertensive regimen, not on statin likely secondary to age. #5. Chronic COPD with former tobacco use: Not on any routine inhalers, encourage head of bed, I-S, as needed albuterol, encourage continued tobacco cessation. #6. Hypertension: Continue home regimen including metoprolol, hydrochlorothiazide with hold parameters as needed, PRN hydralazine. #7. Hyperlipidemia: On statin therapy, defer given age. #8. PAF: We will continue patient home metoprolol regimen, not anticoagulated potentially related with falls given advanced age and records note intolerance of both Eliquis and Xarelto secondary to GI upset/general malaise in addition to the fact that records note likely postop, continue aspirin therapy. #9. IBS with constipation: We will hold patient Trulance until discharge, as noted continue as needed lactulose for constipation. #10. Chronic back pain: Status post prior posterior cervical spine fusion in February at [facility], encourage frequent positional changes, therapies and case management consulted as noted. #11. GERD with history of esophageal stricture: We will continue patient home PPI, status post prior esophageal dilation. #12. DVT prophylaxis: SCDs, Lovenox. #13. CODE status: Patient does not have healthcare power of regulatory attorney set up but notes that his daughter would be the decision maker in his stead, no living will is set up either. Daughter is present for these discussions. Following discussions about the differences in these status, requested DNR-CCA, no intubation status. If COVID positive amenable to antiviral treatments, airvo and BIPAP if needed. Advanced Care Planning Face to Face Time: 16 minutes. Charges/Coding Visit Charges OBSV E&M: 38404 Initial observation care L3 Procedures Hospitalists Procedures: 96328 Advncd Care Plan 30 Min
[2021-07-13 21:15] LABS: Ferritin 88 ng/mL (26-388); LDH 205 U/L (87-241); Magnesium 1.8 mg/dL (1.6-2.6); Troponin-I HS 11 pg/mL (3.0-78.0)
[2021-07-13 21:16] LABS: BNP,B-Type NATRIURETIC PEPTIDE 68.6 pg/mL (0-100)
[2021-07-13 21:25] LABS: Procalcitonin 0.15 ng/mL (0.00-0.09)
[2021-07-13 21:34] LABS: D-Dimer Quantitative (DVT/PE) 1.95 FEU/ug/m (0.27-0.49)
--- NOTE | 2021-07-13 22:09 | CT_ITS ---
STUDY: CTA CHEST REASON FOR EXAM: Male, 86 years old. elevated d-dimer suspect PE RADIATION DOSAGE (If Supplied By Facility): CTDIvol = ( 5.82 ) mGy, DLP = ( 192.20 ) mGycm TECHNIQUE: The examination was performed with the intravenous administration of IV 100mL Isovue-370. Post-processing of the angiographic images was performed, with multiplanar reformation and 3D reconstruction. Individualized dose optimization techniques were used for this CT. COMPARISON: CTA chest dated 03/04/2021 FINDINGS: Normal enhancement of the main pulmonary artery and right and left pulmonary arteries. Normal enhancement of the bilateral peripheral pulmonary arteries. There is no demonstrated pulmonary embolism. Normal thoracic aorta and visualized great vessels. There is no demonstrated aortic dissection. There is cardiomegaly. Normal mediastinum. Normal hilar regions. Normal visualized trachea and bronchi. The lungs are well expanded. Stable bibasilar airspace disease. Likely atelectasis and less likely infection. Normal pleura. Normal chest wall structures. Normal osseous structures. Normal visualized upper abdomen. CT/CTA Chest W/WO Contrast IMPRESSION: Normal CTA chest examination, without a demonstrated pulmonary embolism or arterial dissection. Adequately inflated lungs with suspected bibasilar atelectasis, stable from prior exam. Electronically Signed: Demarcus Holbrook DO at 0:33 EDT ,
[2021-07-13] MEDS: dexAMETHasone 4 MG/ML Vial 6 MG IV (22:34)
[2021-07-13] MEDS: guaiFENesin 600 MG Tablet PO (22:34)
[2021-07-13] MEDS: 0.9% Saline Lock 10 ML Syringe IV (22:34)
[2021-07-13] MEDS: Pantoprazole Sodium 40 MG Tablet PO (22:34)
[2021-07-13] MEDS: Potassium Chloride Oral Tablet 20 MEQ 40 MEQ PO (22:34)
[2021-07-13] MEDS: Metoprolol Tartrate 25 MG Tablet 12.5 MG PO (22:35)
[2021-07-13] MEDS: 0.9% Normal Saline 1,000 ML 100 ML IV (22:35)
[2021-07-13] MEDS: Ondansetron 4 MG/2 ML Vial IV (22:48)
[2021-07-14 02:01] VITALS: BP 109/68; PULSE 61; RESP 16; TEMP 36.3; O2SAT 97
[2021-07-14 05:40] VITALS: PULSE 66
[2021-07-14 07:01] LABS: Absolute Lymphocyte Count 0.58 X10^3/uL (0.83-4.51); Absolute Neutrophil Count 15.9 X10^3/uL (2.0-7.7); Basophil# 0.02 X10^3/uL; Basophil% 0.1 % (0-1); Hemoglobin 13.2 g/dL (13.0-16.5); Lymphocyte # 0.58 X10^3/ul (0.83-4.51); Lymphocyte % 3.4 % (19-41); Mean Corpuscular Hgb 31.5 pg (27.0-32.0); Mean Corpuscular Volume 95.5 fL (80-94); Mean Platelet Vol. 9.7 fl (6.2-12.0); Monocyte# 0.44 X10^3/uL; Monocyte% 2.6 % (0-10); NRBC Flagged by Analyzer 0 % (0-5); Neutrophil # 15.88 X10^3/uL (2.7-7.7); Neutrophil % 93.3 % (47-70); POSITIVE DIFFERENTIAL YES; Platelet Count 179 K/mm3 (150-450); RBC Distribution Width CV 13.3 % (11.6-14.6); RBC Distribution Width SD 46.7 fl (35.1-43.9); Red Blood Count 4.19 M/mm3 (4.6-6.2)
[2021-07-14 07:17] LABS: Differential Indicated SCAN CRITERIA MET
[2021-07-14 07:23] LABS: Differential Comment SCANNED
[2021-07-14 07:31] VITALS: BP 110/70; PULSE 64; RESP 16; TEMP 36.5; O2SAT 96
--- NOTE | 2021-07-14 07:37 | PN.HOSP_ITS ---
Objective Data Objective Data Vital Signs: Vital Signs Temp Pulse Resp BP Pulse Ox 97.7 F L 64 16 110/70 96 07/14/21 07:31 07/14/21 07:31 07/14/21 07:31 07/14/21 07:31 07/14/21 07:31 Oxygen Flow Rate (L/min) 2 Oxygen Delivery Method Nasal Cannula Weight: 135 lb Body Mass Index (BMI) 20.0 Intake & Output: Intake and Output for Last 24 Hours 07/12/21 07/13/21 07/14/21 23:59 23:59 23:59 Intake Total 944.17 / 944.17 Output Total 600 / 600 Balance 944.17 / 944.17 -600 / -600 Lab / Micro Data Result Diagrams: 07/14/21 05:50 07/13/21 19:10 Labs: Laboratory Results - last 24 hr 07/13/21 19:10: WBC 14.4 H, RBC 4.39 L, Hgb 13.9, Hct 41.0, MCV 93.4, MCH 31.7, MCHC 33.9, RDW Std Deviation 45.0 H, RDW Coeff of Sandip 13.2, Plt Count 194, MPV 9.1, Immature Gran % (Auto) 0.500, Neut % (Auto) 87.3 H, Lymph % (Auto) 5.4 L, [place] % (Auto) 6.3, Eos % (Auto) 0.2, Baso % (Auto) 0.3, Absolute Neuts (auto) 12.6 H, Absolute Lymphs (auto) 0.77 L, Nucleated RBC % 0 07/13/21 19:10: PT 13.8, INR 1.1, APTT 30.3 07/13/21 19:10: Sodium 136, Potassium 3.4 L, Chloride 103, Carbon Dioxide 28.0, Anion Gap 5, BUN 17, Creatinine 1.10, Estim Creat Clear Calc 42.50, Est GFR (MDRD) Af Amer 81, Est GFR (MDRD) Non-Af 67, BUN/Creatinine Ratio 15.5, Glucose 100, Calcium 8.5, Total Bilirubin 0.50, AST 15, ALT 23, Alkaline Phosphatase 69, Total Protein 7.2, Albumin 3.3, Globulin 3.9, Albumin/Globulin Ratio 0.8 L 07/13/21 19:10: Lactic Acid 1.3 07/13/21 19:10: D-Dimer Quant (PE/DVT) 1.95 H* 07/13/21 19:10: Magnesium 1.8, Ferritin 88, Lactate Dehydrogenase 205, Troponin I High Sens 11, C-React Prot Ext Range 51.80 H 07/13/21 19:10: B-Natriuretic Peptide 68.6 07/13/21 19:29: Urine Color Yellow, Urine Clarity Clear, Urine pH 6.0, Ur Specific [place] 1.015, Urine Protein 15 H, Urine Glucose (UA) Normal, Urine Ketones Negative, Urine Occult Blood Negative, Urine Nitrite Negative, Urine Bilirubin Negative, Urine Urobilinogen 1 H, Ur Leukocyte Esterase Negative, Urine RBC 0 SEEN, Urine WBC 0 SEEN, Ur Squamous Epith Cells 0 SEEN, Urine Ba cteria 0 SEEN, Urine Mucus 0 SEEN 07/13/21 20:35: COVID-19 (NICOLE) Not Detected 07/13/21 20:47: Procalcitonin 0.15 H 07/14/21 05:50: WBC 17.0 H, RBC 4.19 L, Hgb 13.2, Hct 40.0, MCV 95.5 H, MCH 31.5, MCHC 33.0, RDW Std Deviation 46.7 H, RDW Coeff of Sandip 13.3, Plt Count 179, MPV 9.7, Immature Gran % (Auto) 0.600, Neut % (Auto) 93.3 H, Lymph % (Auto) 3.4 L, [place] % (Auto) 2.6, Eos % (Auto) 0.0, Baso % (Auto) 0.1, Absolute Neuts (auto) 15.9 H, Absolute Lymphs (auto) 0.58 L, Nucleated RBC % 0, Differential Comment SCANNED Micro: Microbiology 07/13/21 20:20 Mucosa - Nose Respiratory Panel (PCR) - Final 07/13/21 19:29 Urine, Clean Catch Legionella Antigen - Final 07/13/21 19:29 Urine, Clean Catch Streptococcus pneumoniae Antigen (M - Final 07/13/21 19:15 Nasal Secretion SARS-CoV-2 & FLU Antigen (Rapid) - Final Radiography Diagnostic Testing: Radiology Impression Chest X-Ray 07/13/21 19:32 IMPRESSION: Degenerative changes, as described above. No demonstrated acute cardiopulmonary process. Electronically Signed: Kael Hall MD at 20:22 EDT , Chest CTA 07/13/21 22:09 IMPRESSION: Normal CTA chest examination, without a demonstrated pulmonary embolism or arterial dissection. Adequately inflated lungs with suspected bibasilar atelectasis, stable from prior exam. Electronically Signed: Demarcus ShaikhdakotaDO at 0:33 EDT , Assessment & Plan Assessment/Plan (1) Acute viral syndrome: (2) Hypoxia: (3) FTT (failure to thrive) in adult: PLAN: The patient is an 86 y/o M with multiple comorbidities admitted with 5 to 7 days symptoms of flulike symptoms including generalized weakness, malaise, body ache, decreased appetite, clear productive cough and fever on the day of admission. No dysuria but increased urinary frequency. Patient was admitted in the hospital in February for mild hypoxia, flulike symptoms found to be RSV and influenza B. 1. Flulike symptoms possible acute viral infection: Patient is being admitted MedSurg floor. COVID-19 rapid antigen and PCR negative. Respiratory panel negative. Flu antigen negative. Inflammatory markers CRP and D-dimer elevated. Troponin and BNP negative. #2. Hypokalemia: Potassium repeat. Magnesium level normal. Monitor hypokalemia #3. CAD: Status post prior CABG x2, continue aspirin, metoprolol, not on FOSTER or statin from home, reason unclear. No active chest pain. Follow to PCP #4. AAA: Status post endovascular stenting, 03/04/2021 CTPA with no acute findings with evidence of prior sternotomy, vascular clips and CABG, continued on aspirin, hypertensive regimen #5. COPD with former tobacco use: Incentive spirometry. Patient not on exacerbation #6. Hypertension: Continue home regimen including metoprolol, hydrochlorothiazide with hold parameters as needed, PRN hydralazine. #7. Hyperlipidemia: On statin therapy, defer given age. #8. PAF: continue patient home metoprolol regimen, not anticoagulated potentially related with falls given advanced age and records note intolerance of both Eliquis and Xarelto secondary to GI upset/general malaise. On BBS #9. IBS with predominant constipation: hold patient Trulance. Patient on laxatives as needed. #10. Chronic back pain: Status post prior posterior cervical spine fusion in February at [facility], encourage frequent positional changes, therapies and case management consulted as noted. #11. GERD with history of esophageal stricture: We will continue patient home PPI, status post prior esophageal dilation. #12. DVT prophylaxis: SCDs, Lovenox. #13. CODE status: DNR CC arrest with no intubation
[2021-07-14 07:52] LABS: ALB/GLOB Ratio 0.8 RATIO (0.9-2.4); AST(SGOT) 14 U/L (15-37); Alanine Aminotransfer ALT/SGPT 19 U/L (16-61); Albumin, Serum 2.7 g/dL (3.2-5.0); Alkaline Phosphatase 55 U/L (45-117); Anion Gap 4 (5-15); BUN 15 mg/dL (7-18); BUN/Creat Ratio 17.5 RATIO (10-20); Calcium,Total 8.1 mg/dL (8.5-10.1); Chloride 108 mmol/L (98-107); Creatinine, Serum 0.86 mg/dL (0.70-1.30); EST Glomerular Filtration Rate 90 mL/min (>60); Est Glom Filt Rate - Afr Amer 109 mL/min (>60); Estimated Creatinine Clearance 52.41 ml/min; Globulin 3.3 g/dL (2.2-4.2); Glucose 125 mg/dL (74-106); Potassium 4.1 mmol/L (3.5-5.1); Sodium Level 139 mmol/L (136-145)
[2021-07-14 08:43] VITALS: PULSE 63
--- NOTE | 2021-07-14 08:55 | PCM.DC ---
Discharge Instructions Diet Discharge Diet: 2000 mg Sodium Diet Activity Discharge Activity: Return to Normal Activity and May Not Drive Dressing / Incision Call your doctor if you observe: Fever of 101 or Higher, Coldness, Increased Pain, Numbness or Tingling, Change in Color, Inability to urinate, Inability to have a bowel movement, Shortness of breath, Dizziness, Fainting spells, Swelling in the ankles, Chest pain, Prolonged hiccupping, Increased palpitations (irregular heartbeat), Calf discomfort and Uncontrolled pain Follow Up Care Test Results: Test results from this visit will be discussed in further detail at your follow-up appointment, if applicable. Discharge Plan Admission Admit Date/Time: 07/13/21 20:24 Primary Reason for Your Visit: Acute viral syndrome Attending Provider: Hugh Chang Primary Care Provider: Kiko Mojica Chi Consulting Providers: Mervat Stoner Instructions Additional Instructions / Restrictions: Advised incentive spirometry chest physiotherapy for 1 week at home Discharge Orders/Prescriptions Prescriptions: New Mucinex DM 30-600 mg Tablet Extended Release 12 Hr 1 tab PO BID Qty: 14 RF: 0 Continued lactulose 10 gram/15 mL solution 15 ml PO DAILY PRN PRN (Reason: Constipation) RF: 0 hydrochlorothiazide 12.5 mg tablet 12.5 mg PO DAILY Qty: 90 RF: 3 meclizine 25 mg tablet 25 mg PO DAILY PRN (Reason: Dizziness) RF: 0 aspirin 81 MG tablet,chewable 81 mg PO DAILY@0800 RF: 0 metoprolol tartrate 25 mg tablet 12.5 mg PO BID RF: 0 bisacodyl 5 mg tablet,delayed release (DR/EC) 5 mg PO BID PRN (Reason: Constipation) RF: 0 omeprazole 40 mg capsule,delayed release(DR/EC) 40 mg PO DAILY RF: 0 Trulance 3 mg Tablet 3 mg PO PRN PRN (Reason: IBS) RF: 0 Referrals / Follow Up: Kiko Mojica Chi, MD [Primary Care Provider] - Disposition Disposition (needs filled in before D/C Order can be placed): Home, Self Care
[2021-07-14] MEDS: Pantoprazole Sodium 40 MG Tablet PO (10:22)
[2021-07-14 10:23] VITALS: PULSE 63
[2021-07-14] MEDS: hydroCHLOROthiazide 12.5mg 12.5 MG PO (10:23)
[2021-07-14] MEDS: Metoprolol Tartrate 25 MG Tablet 12.5 MG PO (10:23)
[2021-07-14] MEDS: Enoxaparin 40 MG/0.4 ML Syringe SC (10:23)
[2021-07-14] MEDS: Aspirin 81 MG TAB.CHEW PO (10:23)
[2021-07-14] MEDS: guaiFENesin/D-Methorphan TAB.SR.12H 1 TABLET PO (10:32)
--- NOTE | 2021-07-14 11:08 | PCM.DC.SUM ---
Providers Date of Admission: 07/13/21 Date of Discharge: 07/14/21 Primary Care Physician: Dr. Kiko Mojica MD Reason For Visit: SUSPECTED COVID / VIRAL SYNDROME Diagnosis Discharge Diagnosis (1) Acute viral syndrome: Status: Acute Code(s): B34.9 - Viral infection, unspecified (2) Hypoxia: Status: Acute Code(s): R09.02 - Hypoxemia (3) FTT (failure to thrive) in adult: Status: Acute Code(s): R62.7 - Adult failure to thrive Medications at Discharge Home Medications aspirin 81 mg PO DAILY@0800 11/25/15 metoprolol tartrate 25 mg tablet 12.5 mg PO BID tab 04/07/19 bisacodyl 5 mg tablet,delayed release 5 mg PO BID PRN tab 12/14/19 hydrochlorothiazide 12.5 mg tablet 12.5 mg PO DAILY #90 tab 07/24/20 lactulose 10 gram/15 mL oral solution 15 ml PO DAILY PRN PRN ml 07/24/20 meclizine 25 mg tablet 25 mg PO DAILY PRN 01/24/21 omeprazole 40 mg PO DAILY 03/04/21 Trulance 3 mg PO PRN PRN 07/13/21 dextromethorphan-guaifenesin [Mucinex DM] 1 tab PO BID #14 tab 07/14/21 Hospital Course Summary of Care Provided Hospital Course: The patient is an 86 y/o M with multiple comorbidities admitted with 5 to 7 days symptoms of flulike symptoms including generalized weakness, malaise, body ache, decreased appetite, clear productive cough and fever on the day of admission. No dysuria but increased urinary frequency. Patient was admitted in the hospital in February for mild hypoxia, flulike symptoms found to be RSV and influenza B. 1. Flulike symptoms possible acute viral infection: Patient is being admitted MedSurg floor. COVID-19 rapid antigen and PCR negative. Respiratory panel negative. Flu antigen negative. Inflammatory markers CRP and D-dimer elevated. Troponin and BNP negative. Patient improved with symptomatic management. Discharged on Mucinex D. Advised incentive spirometry and Pep for 1 week. Follow-up in pulmonary clinic within a month as patient was found bronchiectasis CT chest in February 2021 and recurrent viral bronchitis. #2. Hypokalemia: Potassium replaced magnesium level normal. Potassium corrected 4.1. #3. CAD: Status post prior CABG x2, continue aspirin, metoprolol, not on FOSTER or statin from home, reason unclear. No active chest pain. Follow to PCP #4. AAA: Status post endovascular stenting, 03/04/2021 CTPA with no acute findings with evidence of prior sternotomy, vascular clips and CABG, continued on aspirin, hypertensive regimen #5. COPD/bronchiectasis with former tobacco use: Incentive spirometry. Patient not on exacerbation #6. Hypertension: Continue home regimen including metoprolol, hydrochlorothiazide with hold parameters as needed, PRN hydralazine. #7. Hyperlipidemia: On statin therapy, defer given age. #8. PAF: continue patient home metoprolol regimen, not anticoagulated potentially related with falls given advanced age and records note intolerance of both Eliquis and Xarelto secondary to GI upset/general malaise. On BBS #9. IBS with predominant constipation: Continue home medication Trulance. #10. Chronic back pain: Status post prior posterior cervical spine fusion in February at [facility], encourage frequent positional changes, therapies and case management consulted as noted. #11. GERD with history of esophageal stricture: We will continue patient home PPI, status post prior esophageal dilation. #12. DVT prophylaxis: SCDs, Lovenox. #13. CODE status: DNR CC arrest with no intubation Discharge medication reconciliation done. Discharge follow-up instructions completed. Discharge process discussed with the patient and all questions were answered to patient's satisfaction. Discharge instruction and plan discussed with the patient, hard discs son and daughter present to the Total time spent, exact 35 minutes on discharge meds reconciliation, examination, coordination of care with nurses and ancillary staff, review of imaging and blood test and discussion with the patient on follow-up instructions. Physical Exam Narrative History taken from the patient, patient's son and daughter present in the room. Patient admitted with 5 to 7 days of flulike symptoms including generalized body ache, malaise, headache, clear productive sputum and fever on the day of admission. Patient admitted in the hospital in February for mild hypoxia and flulike symptoms was found to be RSV and influenza B. 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 Physical exam General: Alert, Oriented x3, Cooperative HEENT: Atraumatic, PERRLA, EOMI, Normocephalic Oral: No Gingival or Mucosal Lesions/ Ulcerations Neck: Supple, No JVD, Negative Carotid Bruits Lungs: Air entry diminished in bilateral lung bases. Mild expiratory rhonchi. No hypoxia or tachypnea. Cardiovascular: Regular rate, Regular Rhythm, Normal S1, Normal S2, No murmurs Abdomen: Bowel Sounds Present, Soft, Non Tender, Non-Distended : No renal angle tenderness. No suprapubic tenderness. Extremities: No edema, Capillary Refill Less than 3 Seconds Skin: No rashes, No breakdown Musculoskeletal: No Tenderness to Palpation of Joints or Extremities Neurological: Cranial nerves II-XII grossly intact, DTR 2+/4 and Symmetrical, Neuro grossly intact Psych/Mental Status: Flat affect. Medical Records Data Medical Nutrition Assessment Dietitian: Malnutrition Criteria Met Start: 07/14/21 10:18 Freq: Status: Active Protocol: Document 07/14/21 10:20 [facility] (Rec: 07/14/21 10:20 [facility] [id number]) Nutrition Malnutrition Evidence of Malnutrition Exists Yes Malnutrition (severe): Acute Illness/Injury Evidenced By Suboptimal Energy Intake ( Severe),Weight Loss (Severe), Physical Changes (Mild) Clinical Problem Acute Disease or Injury Related Malnutrition Etiology related to acute illness and inability to consume adequate nutrition to meet estimated nutritional needs Signs/Symptoms as evidenced by <50% po intake x > 5 days, 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 Status Active Problem Recommendation Dietitian Recommendations/Changes Will change ensure enlive to ensure clear w/ medpass per pt preference Will provide fortified foods at meals for increased nutrition if consumed Weight / BMI Weight Weight: 135 lb Body Mass Index (BMI) 20.0 ABG / Lab / Microbiology Data Result Diagrams: 07/14/21 05:50 07/14/21 05:50 Laboratory: Laboratory Results - last 24 hr 07/13/21 19:10: WBC 14.4 H, RBC 4.39 L, Hgb 13.9, Hct 41.0, MCV 93.4, MCH 31.7, MCHC 33.9, RDW Std Deviation 45.0 H, RDW Coeff of Sandip 13.2, Plt Count 194, MPV 9.1, Immature Gran % (Auto) 0.500, Neut % (Auto) 87.3 H, Lymph % (Auto) 5.4 L, [place] % (Auto) 6.3, Eos % (Auto) 0.2, Baso % (Auto) 0.3, Absolute Neuts (auto) 12.6 H, Absolute Lymphs (auto) 0.77 L, Nucleated RBC % 0 07/13/21 19:10: PT 13.8, INR 1.1, APTT 30.3 07/13/21 19:10: Sodium 136, Potassium 3.4 L, Chloride 103, Carbon Dioxide 28.0, Anion Gap 5, BUN 17, Creatinine 1.10, Estim Creat Clear Calc 42.50, Est GFR (MDRD) Af Amer 81, Est GFR (MDRD) Non-Af 67, BUN/Creatinine Ratio 15.5, Glucose 100, Calcium 8.5, Total Bilirubin 0.50, AST 15, ALT 23, Alkaline Phosphatase 69, Total Protein 7.2, Albumin 3.3, Globulin 3.9, Albumin/Globulin Ratio 0.8 L 07/13/21 19:10: Lactic Acid 1.3 07/13/21 19:10: D-Dimer Quant (PE/DVT) 1.95 H* 07/13/21 19:10: Magnesium 1.8, Ferritin 88, Lactate Dehydrogenase 205, Troponin I High Sens 11, C-React Prot Ext Range 51.80 H 07/13/21 19:10: B-Natriuretic Peptide 68.6 07/13/21 19:29: Urine Color Yellow, Urine Clarity Clear, Urine pH 6.0, Ur Specific [place] 1.015, Urine Protein 15 H, Urine Glucose (UA) Normal, Urine Ketones Negative, Urine Occult Blood Negative, Urine Nitrite Negative, Urine Bilirubin Negative, Urine Urobilinogen 1 H, Ur Leukocyte Esterase Negative, Urine RBC 0 SEEN, Urine WBC 0 SEEN, Ur Squamous Epith Cells 0 SEEN, Urine Bacteria 0 SEEN, Urine Mucus 0 SEEN 07/13/21 20:35: COVID-19 (NICOLE) Not Detected 07/13/21 20:47: Procalcitonin 0.15 H 07/14/21 05:50: WBC 17.0 H, RBC 4.19 L, Hgb 13.2, Hct 40.0, MCV 95.5 H, MCH 31.5, MCHC 33.0, RDW Std Deviation 46.7 H, RDW Coeff of Sandip 13.3, Plt Count 179, MPV 9.7, Immature Gran % (Auto) 0.600, Neut % (Auto) 93.3 H, Lymph % (Auto) 3.4 L, [place] % (Auto) 2.6, Eos % (Auto) 0.0, Baso % (Auto) 0.1, Absolute Neuts (auto) 15.9 H, Absolute Lymphs (auto) 0.58 L, Nucleated RBC % 0, Differential Comment SCANNED 07/14/21 05:50: Sodium 139, Potassium 4.1, Chloride 108 H, Carbon Dioxide 27.0, Anion Gap 4 L, BUN 15, Creatinine 0.86, Estim Creat Clear Calc 52.41, Est GFR (MDRD) Af Amer 109, Est GFR (MDRD) Non-Af 90, BUN/Creatinine Ratio 17.5, Glucose 125 H, Calcium 8.1 L, Total Bilirubin 0.60, AST 14 L, ALT 19, Alkaline Phosphatase 55, Total Protein 6.0 L, Albumin 2.7 L, Globulin 3.3, Albumin/Globulin Ratio 0.8 L Microbiology: Microbiology 07/13/21 20:20 Mucosa - Nose Respiratory Panel (PCR) - Final 07/13/21 19:29 Urine, Clean Catch Legionella Antigen - Final 07/13/21 19:29 Urine, Clean Catch Streptococcus pneumoniae Antigen (M - Final 07/13/21 19:15 Nasal Secretion SARS-CoV-2 & FLU Antigen (Rapid) - Final Radiography Diagnostic Testing: Radiology Impression Chest X-Ray 07/13/21 19:32 IMPRESSION: Degenerative changes, as described above. No demonstrated acute cardiopulmonary process. Electronically Signed: Kael Hall MD at 20:22 EDT , Chest CTA 07/13/21 22:09 IMPRESSION: Normal CTA chest examination, without a demonstrated pulmonary embolism or arterial dissection. Adequately inflated lungs with suspected bibasilar atelectasis, stable from prior exam. Electronically Signed: Demarcus Holbrook DO at 0:33 EDT , D/C Instructions Discharge Diet: 2000 mg Sodium Diet Call your doctor if you observe: Fever of 101 or Higher, Coldness, Increased Pain, Numbness or Tingling, Change in Color, Inability to urinate, Inability to have a bowel movement, Shortness of breath, Dizziness, Fainting spells, Swelling in the ankles, Chest pain, Prolonged hiccupping, Increased palpitations (irregular heartbeat), Calf discomfort and Uncontrolled pain Meaningful Use Info Meaningful Use Diagnoses (Choose all that apply): None applicable Discharge Plan Admission Admit Date/Time: 07/13/21 20:24 Primary Reason for Your Visit: Acute viral syndrome Attending Provider: Hugh Chang Primary Care Provider: Kiko Mojica Chi Consulting Providers: Mervat Stoner Instructions Additional Instructions / Restrictions: Advised incentive spirometry chest physiotherapy for 1 week at home Discharge Orders/Prescriptions Prescriptions: New Mucinex DM 30-600 mg Tablet Extended Release 12 Hr 1 tab PO BID Qty: 14 RF: 0 Continued lactulose 10 gram/15 mL solution 15 ml PO DAILY PRN PRN (Reason: Constipation) RF: 0 hydrochlorothiazide 12.5 mg tablet 12.5 mg PO DAILY Qty: 90 RF: 3 meclizine 25 mg tablet 25 mg PO DAILY PRN (Reason: Dizziness) RF: 0 aspirin 81 MG tablet,chewable 81 mg PO DAILY@0800 RF: 0 metoprolol tartrate 25 mg tablet 12.5 mg PO BID RF: 0 bisacodyl 5 mg tablet,delayed release (DR/EC) 5 mg PO BID PRN (Reason: Constipation) RF: 0 omeprazole 40 mg capsule,delayed release(DR/EC) 40 mg PO DAILY RF: 0 Trulance 3 mg Tablet 3 mg PO PRN PRN (Reason: IBS) RF: 0 Referrals / Follow Up: Jose G Nichols DO [STAFF PHYSICIAN] - Within 1 Month (For bronchiectasis noted on CT of chest 03/04/2021. Recurrent viral bronchitis flu and RSV in February 2021 and again admitted to 07/13/21) Kiko Mojica Chi, MD [Primary Care Provider] - Disposition Disposition (needs filled in before D/C Order can be placed): Home, Self Care Charges/Coding Visit Charges OBSV E&M: 81391 Observation care discharge
[2021-07-14 12:45] VITALS: BP 105/65; PULSE 65; RESP 16; TEMP 36.7; O2SAT 94
== END 2021-07-14 12:59 | disposition home or self-care (01) ==
LOC: ED 20:16 → MS3 21:15
PROVIDERS: Admitting Provider Family Medicine; Emergency Provider Emergency Medicine; PCP Family Medicine Geriatric Medicine; Visit Provider Internal Medicine
DX: J06.9 Acute upper respiratory infection, unspecified (principal); I71.4 Abdominal aortic aneurysm, without rupture; I48.0 Paroxysmal atrial fibrillation; J47.9 Bronchiectasis, uncomplicated; Z20.822 Contact with and (suspected) exposure to COVID-19; R35.0 Frequency of micturition; Z87.891 Personal history of nicotine dependence; G89.29 Other chronic pain; R09.02 Hypoxemia; E78.5 Hyperlipidemia, unspecified; M54.9 Dorsalgia, unspecified; K21.9 Gastro-esophageal reflux disease without esophagitis; Z79.82 Long term (current) use of aspirin; R62.7 Adult failure to thrive; E87.6 Hypokalemia; I10 Essential (primary) hypertension; I25.10 Atherosclerotic heart disease of native coronary artery without angina pectoris; K58.9 Irritable bowel syndrome, unspecified; Z79.01 Long term (current) use of anticoagulants; R06.00 Dyspnea, unspecified
CPT/HCPCS: 36415; 71045; 71275; 80053; 81001; 82728; 83605; 83615; 83735; 83880; 84145; 84484; 85025; 85379; 85610; 85730; 86140; 87040; 87077; 87086; 87088; 87186; 87428; 87449; 87633; 87635; 93005; 96361; 96372; 96374; 96375; 97161; 97166; 97802; 99218; 99285; J7030; Q9967; A4216; G0378; J2405; U0003; U0005

== ENCOUNTER 2021-07-23 18:25 | Emergency (ER) | payer MEDICARE, SELFPAY ==
[2021-07-23 18:26] VITALS: BP 137/74; PULSE 88; RESP 14; TEMP 36.6; O2SAT 93; BMI 20.1
--- NOTE | 2021-07-23 19:11 | EDS_ITS ---
HPI History of Present Illness Chief Complaint: Back Narrative Narrative: 86-year-old male presenting with left lumbar paraspinal musculature pain. This started about noon today. He states that it does not radiate. He has no nausea, vomiting. He does complain that he is lightheaded however this is somewhat chronic. He describes as nonvertiginous. No chest pain or shortness of breath. Patient denies any urinary complaints however his family member states that he urinates frequently at night. This is also a chronic issue. He denies any injury. He is taken nothing for pain prior to arrival over the last 7 hours. He is not tried ice or heat. He is not tried stretching. [facility] Medical History Abdominal aortic aneurysm (AAA) Abdominal pain Acute viral syndrome Arthritis Atherosclerosis of coronary artery of [place] heart without angina pectoris Atrial fibrillation Branch retinal artery occlusion of right eye (11/25/19) Central retinal vein occlusion of right eye (11/25/19) Cervical myelopathy Colon polyp Constipation COPD (chronic obstructive pulmonary disease) Depression Esophageal dilatation Former smoker FTT (failure to thrive) in adult GERD (gastroesophageal reflux disease) History of esophageal stricture History of ST elevation myocardial infarction (STEMI) (05/08/06) Hyperlipidemia Hypertension Insomnia Irritable bowel syndrome with constipation Kidney stones Multifocal atrial tachycardia Paroxysmal atrial fibrillation Postoperative atrial fibrillation (05/2006) Right temporomandibular joint disorder, unspecified Rotator cuff tear Tear of biceps tendon Vision loss of right eye Weakness generalized Home Medications aspirin 81 mg PO DAILY@0800 11/25/15 [History Last Taken 03/03/21] metoprolol tartrate 25 mg tablet 12.5 mg PO BID tab 04/07/19 [History Last Taken 03/03/21] bisacodyl 5 mg tablet,delayed release 5 mg PO BID PRN tab 12/14/19 [History Last Taken 03/03/21] hydrochlorothiazide 12.5 mg tablet 12.5 mg PO DAILY #90 tab 07/24/20 [Rx Last Taken 03/03/21] lactulose 10 gram/15 mL oral solution 15 ml PO DAILY PRN PRN ml 07/24/20 [History Last Taken Unknown] meclizine 25 mg tablet 25 mg PO DAILY PRN 01/24/21 [History Last Taken Unknown] omeprazole 40 mg PO DAILY 03/04/21 [History Last Taken 03/03/21] Trulance 3 mg PO PRN PRN 07/13/21 [History Last Taken Unknown] dextromethorphan-guaifenesin [Mucinex DM] 1 tab PO BID #14 tab 07/14/21 [Rx Last Taken Unknown] amoxicillin 500 mg PO 4X/DAY 07/23/21 [History Last Taken Unknown] Allergy/AdvReac Type Severity Reaction Status Date / Time apixaban [From Eliquis] AdvReac Intermediate GI upset Verified 07/23/21 18:26 rivaroxaban [From Xarelto] AdvReac generally Verified 07/23/21 18:26 did not feel well Family History Mother Colon cancer CVA (cerebral vascular accident) Father Cancer leukemia Surgical History 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) History of appendectomy History of cataract surgery History of endovascular stent graft for abdominal aortic aneurysm (AAA) History of esophageal dilatation (~12/2020) History of esophagogastroduodenoscopy (EGD) History of herniorrhaphy History of sinus surgery S/P cervical spinal fusion Social History household members: none Smoking Status: Former smoker second hand exposure: No alcohol intake: never substance use type: does not use caffeine: Yes seatbelt use: always ROS ROS ED Constitutional Constitutional ED: Denies chills or fever(s) Eyes Eyes: Denies blurry vision or diplopia ENT ENT ED: Denies rhinorrhea or sore throat Cardiovascular Cardiovascular: Denies chest pain or palpitations Respiratory/Chest Respiratory/Chest: Denies dyspnea or sputum Gastrointestinal Gastrointestinal: Denies abdominal pain, nausea or vomiting Genitourinary Genitourinary ED: Denies dysuria or hematuria Musculoskeletal Musculoskeletal: Reports back pain Integumentary Denies abscess or rash Neurologic Neurologic: Denies headache(s) or weakness Psychiatric Psychiatric: Denies anxiety or depression EXAM Physical Exam Const Vital Signs: 07/23/21 18:26 07/23/21 19:47 Temperature 98 F Temperature Source Temporal Pulse Rate 88 Pulse Rate [Lying] 68 Pulse Rate [Sitting (for 1 minute prior to obtaining)] 66 Pulse Rate [Standing (for 1 minute prior to obtaining)] 80 Respiratory Rate 14 Blood Pressure 137/74 H Blood Pressure [Lying] 124/69 H Blood Pressure [Sitting (for 1 minute prior to obtaining)] 136/59 H Blood Pressure [Standing (for 1 minute prior to obtaining)] 135/80 H Blood Pressure Mean 95 Blood Pressure Mean [Lying] 87 Blood Pressure Mean [Sitting (for 1 minute prior to obtaining)] 84 Blood Pressure Mean [Standing (for 1 minute prior to obtaining)] 98 Pulse Ox 93 Oxygen Delivery Method Room Air Positive well nourished General Appearance ED: NAD HEENT Reports moist mucous membranes Negative for trauma Eyes PERRL and EOMs intact bilaterally Resp normal respiratory effort and clear to auscultation bilaterally Cardio regular rate and regular rhythm Back/Spine Back/Spine Narrative: Mild tenderness to palpation left lumbar paraspinal musculature tenderness. No midline spinal deformity or step-off along the lumbar spine. No CVA tenderness is noted. Neuro oriented x3 Sensorium / Orientation: alert Psych mental status grossly normal Skin no rashes or lesions noted MDM MDM MDM Narrative Medical decision making narrative: Patient presenting with lumbar back pain. This appears to be musculoskeletal in nature. Patient and family requested x- ray of the lumbar spine. This does show degenerative changes on my interpretation. There are no acute fractures. Patient given Toradol for his pain. He was able to be orthostatic vital signs and these are negative. He requested his urine to be tested because he urinates at night frequently. His urinalysis is negative for infection. No occult blood. Ultimately the patient's work-up is negative. I reevaluated the patient is able to get up out of bed briskly and walk around the room. I feel he will need to alternate Tylenol and ibuprofen, ice, heat, stretching. I counseled him of this. He is to follow-up with his primary care doctor tomorrow. Patient discharged home in stable condition. Impression: 1. Lightheadedness 2. Urinary frequency 3. Lumbar strain Lab Data Attestation: I reviewed the patient's lab results. Labs: Laboratory Results - last 24 hr 07/23/21 19:45 Urine Color Yellow Urine Clarity Clear Urine pH 6.0 Ur Specific [place] 1.020 Urine Protein Negative Urine Glucose (UA) Normal Urine Ketones Negative Urine Occult Blood Negative Urine Nitrite Negative Urine Bilirubin Negative Urine Urobilinogen 8 H Ur Leukocyte Esterase Negative Urine RBC 0 SEEN Urine WBC 0-5 SEEN Ur Squamous Epith Cells 0-5 SEEN Urine Bacteria 1+ Urine Mucus 1+ Radiography Diagnostic Testing: Clinical Impression(s) from Imaging Studies Lumbar Spine X-Ray 07/23/21 19:28 IMPRESSION: Degenerative changes of the spine, as detailed above. Electronically Signed: Choco Stevens MD at 19:47 EDT , Discharge Plan Triage Chief Complaint: Back ED Provider: Taqueria Rodriguez Dx/Rx/DC Orders Instructions: ED Back Sprain/Strain, ED Dizziness, Uncertain Cause Prescriptions: No Action lactulose 10 gram/15 mL solution 15 ml PO DAILY PRN PRN (Reason: Constipation) RF: 0 hydrochlorothiazide 12.5 mg tablet 12.5 mg PO DAILY Qty: 90 RF: 3 meclizine 25 mg tablet 25 mg PO DAILY PRN (Reason: Dizziness) RF: 0 aspirin 81 MG tablet,chewable 81 mg PO DAILY@0800 RF: 0 metoprolol tartrate 25 mg tablet 12.5 mg PO BID RF: 0 bisacodyl 5 mg tablet,delayed release (DR/EC) 5 mg PO BID PRN (Reason: Constipation) RF: 0 omeprazole 40 mg capsule,delayed release(DR/EC) 40 mg PO DAILY RF: 0 Trulance 3 mg Tablet 3 mg PO PRN PRN (Reason: IBS) RF: 0 Mucinex DM 30-600 mg Tablet Extended Release 12 Hr 1 tab PO BID Qty: 14 RF: 0 amoxicillin 500 mg capsule 500 mg PO 4X/DAY RF: 0 Primary Care Provider: Kiko Mojica Chi Referrals: Kiko Mojica Chi, MD [Primary Care Provider] - Disposition Disposition: Home, Self Care
[2021-07-23] MEDS: Ketorolac 15 MG/ML Vial IM (19:15)
[2021-07-23] MEDS: Lidocaine 5% Patch 1 PATCH TOPICAL (19:15)
--- NOTE | 2021-07-23 19:28 | RAD_ITS ---
STUDY: X-RAY - LUMBAR SPINE REASON FOR EXAM: Male, 86 years old. Technologist Notes LOWER BACK PAIN STARTED AROUND NOON. DENIES INJURY. back pain TECHNIQUE: XR Spine Lumbar 2 or 3 Views COMPARISON: None FINDINGS: Normal lumbar lordosis. There is no substantial scoliosis. There is a normal alignment of the vertebrae. There is multilevel endplate spondylosis of the lumbar vertebrae. There is multi-level degenerative disc disease with multi-level disc space narrowing. Aortic stent graft. There is atherosclerotic calcification of the abdominal aorta without a demonstrated aneurysm. RAD/Lumbar Spine 2 or 3 Views IMPRESSION: Degenerative changes of the spine, as detailed above. Electronically Signed: Choco Stevens MD at 19:47 EDT ,
[2021-07-23 19:47] VITALS: BP 124/69; BP 135/80; BP 136/59; PULSE 66; PULSE 68; PULSE 80
[2021-07-23 19:59] LABS: Color, Urine Yellow (Yellow); Glucose, Dipstick Normal (Normal); Ketone-Dipstick Negative (Negative); Leukocyte Esterase-Dipstick Negative /ul (Negative); Nitrite-Dipstick Negative (Negative); Occult Blood-Urine Negative /ul (Negative); Protein-Dipstick Negative (Negative); Urine Bilirubin Dipstick Negative (Negative); Urine Clarity Clear (Clear); Urine Urobilinogen 8 mg/dl (Normal)
[2021-07-23 20:08] LABS: Bacteria 1+ /hpf (None Seen); Red Blood Cells-Urine 0 SEEN /hpf (0-5); Squamous Epithelial Cells - UA 0-5 SEEN /hpf (0-5); White Blood Cells 0-5 SEEN /hpf (0-5)
[2021-07-23 20:09] LABS: Mucous, Urine 1+ /hpf (<or=2+)
== END 2021-07-23 21:15 | disposition home or self-care (01) ==
PROVIDERS: Emergency Provider Student in an Organized Health Care Education/Training Program; PCP Family Medicine Geriatric Medicine; Visit Provider Student in an Organized Health Care Education/Training Program
DX: S39.012A Strain of muscle, fascia and tendon of lower back, initial encounter (principal); J44.9 Chronic obstructive pulmonary disease, unspecified; I71.4 Abdominal aortic aneurysm, without rupture; I48.0 Paroxysmal atrial fibrillation; E78.5 Hyperlipidemia, unspecified; I25.10 Atherosclerotic heart disease of native coronary artery without angina pectoris; Z87.891 Personal history of nicotine dependence; R42 Dizziness and giddiness; I10 Essential (primary) hypertension; F32.A Depression, unspecified; K21.9 Gastro-esophageal reflux disease without esophagitis; I25.2 Old myocardial infarction; K58.1 Irritable bowel syndrome with constipation; Z87.442 Personal history of urinary calculi; M19.90 Unspecified osteoarthritis, unspecified site; H34.8112 Central retinal vein occlusion, right eye, stable; Z79.82 Long term (current) use of aspirin; Z79.899 Other long term (current) drug therapy; R35.0 Frequency of micturition; X58.XXXA Exposure to other specified factors, initial encounter
CPT/HCPCS: 72100; 81001; 96372; 99284

== ENCOUNTER → 2021-08-06 | Outpatient (CLI) | payer MEDICARE, SELFPAY ==
[2021-08-06 11:59] LABS: Absolute Lymphocyte Count 1.01 X10^3/uL (0.83-4.51); Absolute Neutrophil Count 6.1 X10^3/uL (2.0-7.7); Basophil# 0.02 X10^3/uL; Basophil% 0.3 % (0-1); Eosinophil# 0.01 X10^3/uL; Eosinophils% 0.1 % (0-5); Hematocrit 39.1 % (40-54); Hemoglobin 12.8 g/dL (13.0-16.5); Lymphocyte # 1.01 X10^3/ul (0.83-4.51); Mean Corp Hgb Conc 32.7 g/dL (32-36); Mean Corpuscular Hgb 31.8 pg (27.0-32.0); Mean Corpuscular Volume 97.3 fL (80-94); Mean Platelet Vol. 9.5 fl (6.2-12.0); Monocyte# 0.62 X10^3/uL; NRBC Flagged by Analyzer 0 % (0-5); Neutrophil # 6.08 X10^3/uL (2.7-7.7); Neutrophil % 78.1 % (47-70); Platelet Count 207 K/mm3 (150-450); RBC Distribution Width CV 13.8 % (11.6-14.6); RBC Distribution Width SD 49.1 fl (35.1-43.9); Red Blood Count 4.02 M/mm3 (4.6-6.2); White Blood Count 7.8 K/mm3 (4.4-11.0)
[2021-08-06 12:08] LABS: Anion Gap 5 (5-15); BUN 13 mg/dL (7-18); BUN/Creat Ratio 15.9 RATIO (10-20); Calcium,Total 8.2 mg/dL (8.5-10.1); Chloride 106 mmol/L (98-107); Creatinine, Serum 0.82 mg/dL (0.70-1.30); EST Glomerular Filtration Rate 94 mL/min (>60); Est Glom Filt Rate - Afr Amer 114 mL/min (>60); Glucose 97 mg/dL (74-106); Potassium 3.7 mmol/L (3.5-5.1); Sodium Level 140 mmol/L (136-145)
== END | disposition home or self-care (01) ==
PROVIDERS: PCP Family Medicine Geriatric Medicine; Visit Provider Family Medicine Geriatric Medicine
DX: G93.40 Encephalopathy, unspecified (principal)
CPT/HCPCS: 36415; 80048; 85025

== ENCOUNTER → 2021-08-21 | Outpatient (CLI) | payer MEDICARE, SELFPAY ==
--- NOTE | 2021-08-21 16:10 | MRI_ITS ---
EXAM: MR HEAD WITHOUT INTRAVENOUS CONTRAST CLINICAL INDICATION: CEREBRAL INFARCTION TECHNIQUE: Multiplanar and multisequence MR images of the brain were obtained without intravenous contrast. Magnetic field strength 1.5 T. This report was created using [employer] report [employer] technology. COMPARISON: None. FINDINGS: BRAIN AND EXTRA-AXIAL SPACES: Abnormal T2 signal in the deep cerebral white matter is consistent with small vessel ischemic/degenerative changes. The cerebral and cerebellar sulci are prominent consistent with brain atrophy. No intra- or extra-axial hemorrhage. No intracranial mass or mass effect. Basal cisterns are patent. SELLA: Unremarkable. Normal sella turcica, pituitary gland, infundibular stalk, optic chiasm and hypothalamus. AUDITORY SYSTEM: Unremarkable. The internal auditory canals are patent. BONES/JOINTS: Unremarkable. No discrete lytic or blastic abnormalities. SINUSES: Unremarkable as visualized. Clear. MASTOID AIR CELLS: Unremarkable as visualized. Clear. ORBITS: Unremarkable as visualized. Both globes, extraocular muscles, optic nerves and retrobulbar fat appear unremarkable. VASCULATURE: Unremarkable as visualized. Normal flow voids in the major intracranial circulation. MRI/Brain without Contrast IMPRESSION: 1. Small vessel ischemic/degenerative changes. 2. Cerebral and cerebellar atrophy. Electronically Signed: Smeaj Gambino MD at 2:23 EDT ,
--- NOTE | 2021-08-21 16:11 | MRI_ITS ---
EXAM: MR ANGIOGRAPHY HEAD WITHOUT INTRAVENOUS CONTRAST CLINICAL INDICATION: CEREBRAL INFARCTION TECHNIQUE: Routine [place] of [place]/brain 3D time of flight MR angiogram protocol was performed without intravenous contrast. Magnetic field strength 1.5 T. This report was created using [employer] report [employer] technology. COMPARISON: None. FINDINGS: RIGHT INTERNAL CAROTID ARTERY: No acute findings. No significant stenosis at the intracranial/visualized segments. No aneurysm. RIGHT ANTERIOR CEREBRAL ARTERY: Unremarkable. No significant stenosis at the visualized segments. Anterior communicating artery is present. No aneurysm. RIGHT MIDDLE CEREBRAL ARTERY: Unremarkable. No significant stenosis at the visualized segments. No aneurysm. RIGHT POSTERIOR CEREBRAL ARTERY: Unremarkable. No significant stenosis at the visualized segments. No aneurysm. RIGHT VERTEBRAL ARTERY: Unremarkable as visualized. No significant stenosis at the intradural/visualized segments. No aneurysm. LEFT INTERNAL CAROTID ARTERY: No acute findings. No significant stenosis at the intracranial/visualized segments. No aneurysm. LEFT ANTERIOR CEREBRAL ARTERY: Unremarkable. No significant stenosis at the visualized segments. Anterior communicating artery is present. No aneurysm. LEFT MIDDLE CEREBRAL ARTERY: Unremarkable. No significant stenosis at the visualized segments. No aneurysm. LEFT POSTERIOR CEREBRAL ARTERY: Unremarkable. No significant stenosis at the visualized segments. No aneurysm. LEFT VERTEBRAL ARTERY: Unremarkable as visualized. No significant stenosis at the intradural/visualized segments. No aneurysm. BASILAR ARTERY: Unremarkable. No significant stenosis. No aneurysm. OTHER VASCULATURE: No vascular malformation. MRI/MRA Head ONLY without Contrast IMPRESSION: Unremarkable MRA head. Electronically Signed: Semaj Gambino MD at 2:10 EDT ,
--- NOTE | 2021-08-21 16:12 | MRI_ITS ---
STUDY: MRA NECK WITH AND WITHOUT CONTRAST REASON FOR EXAM: Male, 86 years old. CEREBRAL INFARCTION TECHNIQUE: 3-D asas-be-xtsvpi (TOF) imaging was performed in an 1.5 T MRI scanner. dotarem 14ml iv was administered for the contrast enhanced images. COMPARISON: None. FINDINGS: RIGHT CAROTID ARTERIES: Normal right common carotid artery (CCA). Normal right common carotid bulb. Normal origin of the right internal carotid (ICA) artery without a hemodynamically significant stenosis. Normal visualized cervical portion of the right internal carotid artery. Normal origin of the right external carotid artery (ECA). LEFT CAROTID ARTERIES: Normal left common carotid artery (CCA). Normal left common carotid bulb. Normal origin of the left internal carotid (ICA) artery without a hemodynamically significant stenosis. Normal visualized cervical portion of the left internal carotid artery. Normal origin of the left external carotid artery (ECA). VERTEBRAL ARTERIES: Normal antegrade flow within the bilateral vertebral artery. There is mild diffuse narrowing of the distal vertebrals bilaterally. There is also more proximal focal subsegmental narrowing of the mid right vertebral. 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 No significant carotid disease Electronically Signed: Yoandy Shields MD at 19:14 EDT ,
== END | disposition home or self-care (01) ==
PROVIDERS: PCP Family Medicine Geriatric Medicine; Visit Provider Family Medicine Geriatric Medicine
DX: Z86.73 Personal history of transient ischemic attack (TIA), and cerebral infarction without residual deficits (principal)
CPT/HCPCS: 70544; 70549; 70551; A9575; A4216

== ENCOUNTER → 2021-09-18 | Outpatient (CLI) | payer MEDICARE, SELFPAY ==
--- NOTE | 2021-09-18 12:46 | VDLE_ITS ---
Reason For Study: Edema RIGHT LEFT GSV is normal. GSV is normal. CFV is compressible, spontaneous, phasic, CFV is compressible, spontaneous, phasic, competent and demonstrates normal competent, and demonstrates normal augmentation. augmentation. FV is compressible, spontaneous, phasic, FV is compressible, spontaneous, phasic, competent and demonstrates normal competent and demonstrates normal augmentation. augmentation. POP V is compressible, spontaneous, phasic, POP V is compressible, spontaneous, phasic, competent and demonstrates normal competent and demonstrates normal augmentation. augmentation. T/P Trunk is compressible. T/P Trunk is compressible. PTV is compressible. PTV is compressible. RT PerV is compressible. LT PerV is compressible. Nonvascularized structure noted in the right Nonvascularized structure noted in the left popliteal fossa that measures 0.77 x 2.44 x popliteal fossa that measures 0.61 x 1.60 x 3.79 cm. 2.82 cm. Procedure This is a venous duplex using B-mode, color flow and spectral Doppler. Exam performed in department. A preliminary report was called and/or faxed to [facility]. VL/Venous Duplex US - Jhon Extrem Interpretation Summary Deep veins of the lower extremities are bilaterally patent and compressible seg mentally. There is no evidence of deep vein thrombosis on either side. Valvular competence appears in tact within the proximal deep venous systems bilaterally. The great saphenous veins appear bila terally patent and compressible segmentally. A non-vascular, hypoechoic structure is noted in the popliteal space bilaterally, with dimensions as documented above. These probably represent popl iteal cysts. Clinical correlation is advised. Ordering Physician: Kiko Mojica Referring Physician: Kiko Mojica Chi Performed By: Rolanda Capone RVT
[2021-09-18 13:24] LABS: Erythrocyte Sedimentation Rate 3 mm/hr (0-20)
[2021-09-18 13:26] LABS: Absolute Lymphocyte Count 1.13 X10^3/uL (0.83-4.51); Absolute Neutrophil Count 6.9 X10^3/uL (2.0-7.7); Basophil# 0.03 X10^3/uL; Basophil% 0.3 % (0-1); Eosinophil# 0.03 X10^3/uL; Eosinophils% 0.3 % (0-5); Hematocrit 44.6 % (40-54); Hemoglobin 15.3 g/dL (13.0-16.5); Lymphocyte # 1.13 X10^3/ul (0.83-4.51); Lymphocyte % 12.6 % (19-41); Mean Corp Hgb Conc 34.3 g/dL (32-36); Mean Corpuscular Hgb 33.4 pg (27.0-32.0); Mean Corpuscular Volume 97.4 fL (80-94); Mean Platelet Vol. 9.1 fl (6.2-12.0); Monocyte# 0.82 X10^3/uL; Monocyte% 9.1 % (0-10); NRBC Flagged by Analyzer 0 % (0-5); Neutrophil # 6.91 X10^3/uL (2.7-7.7); Platelet Count 249 K/mm3 (150-450); RBC Distribution Width CV 14.6 % (11.6-14.6); RBC Distribution Width SD 52.7 fl (35.1-43.9); Red Blood Count 4.58 M/mm3 (4.6-6.2)
[2021-09-18 13:40] LABS: BNP,B-Type NATRIURETIC PEPTIDE 74.4 pg/mL (0-100)
[2021-09-18 13:55] LABS: ALB/GLOB Ratio 0.9 RATIO (0.9-2.4); AST(SGOT) 16 U/L (15-37); Alanine Aminotransfer ALT/SGPT 27 U/L (16-61); Albumin, Serum 3.3 g/dL (3.2-5.0); Alkaline Phosphatase 61 U/L (45-117); Anion Gap 4 (5-15); BUN 16 mg/dL (7-18); CRP < 2.90 mg/L (0.0-3.0); Calcium,Total 8.5 mg/dL (8.5-10.1); Chloride 104 mmol/L (98-107); EST Glomerular Filtration Rate 75 mL/min (>60); Est Glom Filt Rate - Afr Amer 91 mL/min (>60); Globulin 3.5 g/dL (2.2-4.2); Glucose 84 mg/dL (74-106); Potassium 3.4 mmol/L (3.5-5.1); Protein, Total 6.8 g/dL (6.4-8.2); Sodium Level 138 mmol/L (136-145); Thyroid Stim Hormone (TSH) 0.79 uIU/mL (0.358-3.74)
== END | disposition home or self-care (01) ==
LOC: CVS 12:35
PROVIDERS: PCP Family Medicine Geriatric Medicine; Referring Provider Family Medicine Geriatric Medicine; Visit Provider Family Medicine Geriatric Medicine
DX: M79.604 Pain in right leg (principal); R60.1 Generalized edema; R06.00 Dyspnea, unspecified
CPT/HCPCS: 36415; 80053; 83880; 84443; 85025; 85652; 86140; 93970

== ENCOUNTER → 2021-09-27 | Outpatient (CLI) | payer MEDICARE, SELFPAY ==
[2021-09-27 12:10] LABS: Absolute Lymphocyte Count 2.13 X10^3/uL (0.83-4.51); Absolute Neutrophil Count 5.9 X10^3/uL (2.0-7.7); Basophil# 0.04 X10^3/uL; Basophil% 0.4 % (0-1); Eosinophil# 0.05 X10^3/uL; Eosinophils% 0.5 % (0-5); Hemoglobin 15.4 g/dL (13.0-16.5); Lymphocyte # 2.13 X10^3/ul (0.83-4.51); Lymphocyte % 23.3 % (19-41); Mean Corp Hgb Conc 33.5 g/dL (32-36); Mean Corpuscular Hgb 32.8 pg (27.0-32.0); Mean Corpuscular Volume 98.1 fL (80-94); Mean Platelet Vol. 9.7 fl (6.2-12.0); Monocyte# 0.97 X10^3/uL; Monocyte% 10.6 % (0-10); NRBC Flagged by Analyzer 0 % (0-5); Neutrophil % 64.7 % (47-70); Platelet Count 254 K/mm3 (150-450); RBC Distribution Width CV 14.8 % (11.6-14.6); RBC Distribution Width SD 53.1 fl (35.1-43.9); Red Blood Count 4.69 M/mm3 (4.6-6.2); White Blood Count 9.1 K/mm3 (4.4-11.0)
[2021-09-27 12:23] LABS: ALB/GLOB Ratio 0.9 RATIO (0.9-2.4); AST(SGOT) 13 U/L (15-37); Alanine Aminotransfer ALT/SGPT 32 U/L (16-61); Albumin, Serum 3.5 g/dL (3.2-5.0); Alkaline Phosphatase 66 U/L (45-117); Anion Gap 5 (5-15); BUN 17 mg/dL (7-18); BUN/Creat Ratio 15.3 RATIO (10-20); Calcium,Total 8.9 mg/dL (8.5-10.1); Chloride 100 mmol/L (98-107); Creatinine, Serum 1.11 mg/dL (0.70-1.30); EST Glomerular Filtration Rate 67 mL/min (>60); Est Glom Filt Rate - Afr Amer 81 mL/min (>60); Globulin 3.8 g/dL (2.2-4.2); Glucose 79 mg/dL (74-106); Potassium 3.6 mmol/L (3.5-5.1); Protein, Total 7.3 g/dL (6.4-8.2); Sodium Level 137 mmol/L (136-145); Thyroid Stim Hormone (TSH) 1.26 uIU/mL (0.358-3.74)
== END | disposition home or self-care (01) ==
LOC: POLAB3 08:57
PROVIDERS: PCP Family Medicine Geriatric Medicine; Visit Provider Family Medicine Geriatric Medicine
DX: R53.83 Other fatigue (principal); E55.9 Vitamin D deficiency, unspecified
CPT/HCPCS: 36415; 80053; 82306; 84443; 85025

== ENCOUNTER → 2021-10-02 | Outpatient (CLI) | payer MEDICARE, SELFPAY ==
--- NOTE | 2021-10-02 17:10 | US_ITS ---
STUDY: THYROID ULTRASOUND REASON FOR EXAM: Male, 86 years old. GOITER TECHNIQUE: Ultrasound evaluation of the thyroid was performed with real-time and static rouse-scale imaging. COMPARISON: MRI neck dated 08/21/2021 FINDINGS: RIGHT LOBE: The right lobe of the thyroid gland measures 4.7 x 1.7 x 1.7 cm. There is a homogeneous echotexture. There are no demonstrated solid, cystic or complex lesions. LEFT LOBE: The left lobe of the thyroid gland measures 4.2 x 1.1 x 1.3 cm. There is a homogeneous echotexture. Midpole cystic nodule measuring 7 x 6 x 5 mm. ISTHMUS: The isthmus measures 5 mm. Small lymph node measuring 1.2 x 0.9 x 0.2 cm in the central/midline neck anterior to the thyroid. US/Thyroid IMPRESSION: Small left midpole thyroid cyst. Small lymph node in the subcutaneous tissues as above. Otherwise, unremarkable exam. Electronically Signed: Demarcus Holbrook DO at 6:46 EDT ,
== END | disposition home or self-care (01) ==
PROVIDERS: PCP Family Medicine Geriatric Medicine; Visit Provider Family Medicine Geriatric Medicine
DX: E04.9 Nontoxic goiter, unspecified (principal)
CPT/HCPCS: 76536

== ENCOUNTER → 2021-11-28 | Outpatient (CLI) | payer MEDICARE, SELFPAY ==
[2021-11-28 18:17] LABS: Anion Gap 5 (5-15); BUN 18 mg/dL (7-18); BUN/Creat Ratio 18.3 RATIO (10-20); Calcium,Total 9.2 mg/dL (8.5-10.1); Chloride 110 mmol/L (98-107); Creatinine, Serum 0.98 mg/dL (0.70-1.30); EST Glomerular Filtration Rate 76 mL/min (>60); Est Glom Filt Rate - Afr Amer 92 mL/min (>60); Glucose 104 mg/dL (74-106); Potassium 4.5 mmol/L (3.5-5.1); Sodium Level 142 mmol/L (136-145)
== END | disposition home or self-care (01) ==
LOC: POLAB3 14:49
PROVIDERS: PCP Family Medicine Geriatric Medicine; Visit Provider Family Medicine Geriatric Medicine
DX: R60.9 Edema, unspecified (principal)
CPT/HCPCS: 36415; 80048

== ENCOUNTER → 2021-12-02 | Outpatient (CLI) | payer MEDICARE, SELFPAY ==
--- NOTE | 2021-12-02 16:34 | STRESSREP_ITS ---
Stress Test Report Pharmacologic myocardial perfusion stress test. 86-year-old male with a history of coronary disease for preoperative evaluation. Stress protocol: Resting EKG demonstrates sinus rhythm with a rate of 75 bpm and frequent premature atrial complexes noted. Resting blood pressure is 122/84 mmHg. 0.4 mg of regadenoson was infused per usual protocol followed by rapid intravenous saline flush injection continuous EKG monitoring was performed. The maximum heart rate attained was 98 bpm which was 73% of max impacted heart rate the maximum workload was 1 metabolic equivalent. At rest there were no ST or T wave changes noted to suggest abnormal flow reserve and at peak infusion nonspecific ST changes were noted with did not meet the criteria for ischemia. No clinical angina was noted. The final blood pressure was 132/70 mmHg. Myocardial perfusion protocol. 11.4 mCi of technetium 99m sestamibi was injected at rest. 0.4 mg of regadeno son was infused per usual protocol. At peak infusion 36.0 mCi of technetium 99m sestamibi was injected stress images were obtained stress and rest images were reconstructed and compared in the short axis vertical long and horizontal long axis. Gated images were also obtained to Perfusion SPECT analysis: Review of the stress images demonstrate normal uptake of tracer noted in all areas of the myocardium. The resting images similar demonstrate normal uptake of tracer noted in all areas of the myocardium. No areas of reversibility are noted to suggest ischemia and no previous infarct is noted. Gated SPECT analysis: The gated ejection fraction is noted to be 70%. Conclusion: Normal pharmacologic myocardial perfusion stress test. Preserved ejection fraction.
== END | disposition home or self-care (01) ==
PROVIDERS: PCP Family Medicine Geriatric Medicine; Referring Provider Internal Medicine Cardiovascular Disease; Visit Provider Internal Medicine Cardiovascular Disease
DX: I25.10 Atherosclerotic heart disease of native coronary artery without angina pectoris (principal); Z95.1 Presence of aortocoronary bypass graft
CPT/HCPCS: 78452; 93017; A9500; A4216; J2785

== ENCOUNTER 2022-01-06 14:40 | Outpatient (CLI) | payer MEDICARE, SELFPAY ==
[2022-01-06 16:52] LABS: Absolute Lymphocyte Count 1.97 X10^3/uL (0.83-4.51); Absolute Neutrophil Count 4.1 X10^3/uL (2.0-7.7); Basophil# 0.06 X10^3/uL; Basophil% 0.8 % (0-1); Eosinophils% 2.8 % (0-5); Hemoglobin 14.7 g/dL (13.0-16.5); Lymphocyte # 1.97 X10^3/ul (0.83-4.51); Lymphocyte % 27.2 % (19-41); Mean Corp Hgb Conc 32.7 g/dL (32-36); Mean Corpuscular Hgb 32.3 pg (27.0-32.0); Mean Corpuscular Volume 98.9 fL (80-94); Monocyte# 0.88 X10^3/uL; Monocyte% 12.2 % (0-10); NRBC Flagged by Analyzer 0 % (0-5); Neutrophil # 4.09 X10^3/uL (2.7-7.7); Neutrophil % 56.6 % (47-70); Platelet Count 312 K/mm3 (150-450); RBC Distribution Width CV 12.9 % (11.6-14.6); Red Blood Count 4.55 M/mm3 (4.6-6.2); White Blood Count 7.2 K/mm3 (4.4-11.0)
[2022-01-06 17:16] LABS: Vitamin D,25 Hydroxy 24.2 ng/mL
[2022-01-06 17:22] LABS: AST(SGOT) 14 U/L (15-37); Alanine Aminotransfer ALT/SGPT 19 U/L (16-61); Albumin, Serum 3.8 g/dL (3.2-5.0); Alkaline Phosphatase 85 U/L (45-117); Anion Gap 8 (5-15); BUN 19 mg/dL (7-18); BUN/Creat Ratio 14.3 RATIO (10-20); Calcium,Total 9.1 mg/dL (8.5-10.1); Chloride 101 mmol/L (98-107); Creatinine, Serum 1.33 mg/dL (0.70-1.30); EST Glomerular Filtration Rate 54 mL/min (>60); Est Glom Filt Rate - Afr Amer 65 mL/min (>60); Globulin 3.9 g/dL (2.2-4.2); Glucose 99 mg/dL (74-106); Potassium 3.2 mmol/L (3.5-5.1); Protein, Total 7.7 g/dL (6.4-8.2); Sodium Level 140 mmol/L (136-145); Thyroid Stim Hormone (TSH) 1.38 uIU/mL (0.358-3.74)
== END 2022-01-06 23:59 | disposition home or self-care (01) ==
LOC: POLAB3 14:41
PROVIDERS: PCP Family Medicine Geriatric Medicine; Visit Provider Family Medicine Geriatric Medicine
DX: E55.9 Vitamin D deficiency, unspecified (principal); R53.83 Other fatigue
CPT/HCPCS: 36415; 80053; 82306; 84443; 85025

== ENCOUNTER → 2022-01-16 | Outpatient (CLI) | payer MEDICARE, SELFPAY ==
[2022-01-16 17:53] LABS: Anion Gap 6 (5-15); BUN 18 mg/dL (7-18); BUN/Creat Ratio 16.8 RATIO (10-20); Calcium,Total 9.2 mg/dL (8.5-10.1); Chloride 104 mmol/L (98-107); Creatinine, Serum 1.07 mg/dL (0.70-1.30); EST Glomerular Filtration Rate 69 mL/min (>60); Est Glom Filt Rate - Afr Amer 84 mL/min (>60); Glucose 91 mg/dL (74-106); Potassium 3.5 mmol/L (3.5-5.1); Sodium Level 140 mmol/L (136-145)
== END | disposition home or self-care (01) ==
LOC: LAB.FUTURE 14:53 → POLAB3 14:58
PROVIDERS: PCP Family Medicine Geriatric Medicine; Visit Provider Family Medicine Geriatric Medicine
DX: E87.6 Hypokalemia (principal)
CPT/HCPCS: 36415; 80048

== ENCOUNTER → 2022-04-07 | Outpatient (CLI) | payer MEDICARE, SELFPAY ==
[2022-04-07 17:37] LABS: Absolute Lymphocyte Count 1.62 X10^3/uL (0.83-4.51); Absolute Neutrophil Count 3.2 X10^3/uL (2.0-7.7); Basophil# 0.06 X10^3/uL; Eosinophil# 0.24 X10^3/uL; Eosinophils% 4.1 % (0-5); Hematocrit 42.7 % (40-54); Hemoglobin 14.8 g/dL (13.0-16.5); Lymphocyte # 1.62 X10^3/ul (0.83-4.51); Lymphocyte % 27.7 % (19-41); Mean Corp Hgb Conc 34.7 g/dL (32-36); Mean Corpuscular Hgb 32.7 pg (27.0-32.0); Mean Corpuscular Volume 94.5 fL (80-94); Monocyte# 0.69 X10^3/uL; Monocyte% 11.8 % (0-10); NRBC Flagged by Analyzer 0 % (0-5); Neutrophil # 3.22 X10^3/uL (2.7-7.7); Neutrophil % 55.2 % (47-70); Platelet Count 240 K/mm3 (150-450); RBC Distribution Width CV 13.5 % (11.6-14.6); RBC Distribution Width SD 47.3 fl (35.1-43.9); Red Blood Count 4.52 M/mm3 (4.6-6.2); White Blood Count 5.8 K/mm3 (4.4-11.0)
--- NOTE | 2022-04-07 17:52 | CT_ITS ---
EXAM: CT RIGHT UPPER EXTREMITY WITHOUT INTRAVENOUS CONTRAST CLINICAL INDICATION: OSTEOARTHITIS TECHNIQUE: Helically acquired images were obtained of the right upper extremity without intravenous contrast. 2-D reformats were performed by the technologist. CTDIvol = ( 22.11 ) mGy, DLP = ( 585.44 ) mGycm This CT exam was performed using one or more of the following dose reduction techniques: automated exposure control, adjustment of the mA and/or kV according to patient size, and/or use of iterative reconstruction technique. This report was created using [employer] technology. COMPARISON: None. FINDINGS: BONES/JOINTS: At least moderate hypertrophic degenerative changes of the acromioclavicular joint. Moderate glenohumeral joint degenerative change with anterior subluxation of the humeral head relative to glenoid suggesting glenohumeral instability. Correlate clinically. Degenerative changes of the spine are incompletely imaged. Cervical spine fusion hardware is also incompletely imaged. No acute or healing fracture. No other malalignment. No unusual lytic or sclerotic lesions of bone. No os acromiale. SOFT TISSUES: Unremarkable. No soft tissue swelling or gas. No radiopaque foreign body. No soft tissue masses. LUNGS AND PLEURAL SPACES: Scattered calcified pulmonary nodules are compatible with old granulomas disease. Visualized right lung shows pleural parenchymal scarring at the right apex but no acute pulmonary disease. OTHER FINDINGS: Scattered noncalcified micronodules are likely also due to old granulomatous disease. CT/Extremity Upper without Contra IMPRESSION: At least moderate hypertrophic degenerative changes of the acromioclavicular joint. Moderate glenohumeral joint degenerative change with anterior subluxation of the humeral head relative to glenoid suggesting glenohumeral instability. Correlate clinically. Ancillary findings as above. Electronically Signed: Douglas Squires MD at 23:38 EST ,
[2022-04-07 18:12] LABS: ALB/GLOB Ratio 0.9 RATIO (0.9-2.4); AST(SGOT) 19 U/L (15-37); Alanine Aminotransfer ALT/SGPT 22 U/L (16-61); Albumin, Serum 3.6 g/dL (3.2-5.0); Alkaline Phosphatase 97 U/L (45-117); Anion Gap 7 (5-15); BUN 20 mg/dL (7-18); BUN/Creat Ratio 16.8 RATIO (10-20); Calcium,Total 9.1 mg/dL (8.5-10.1); Chloride 104 mmol/L (98-107); Creatinine, Serum 1.19 mg/dL (0.70-1.30); EST Glomerular Filtration Rate 61 mL/min (>60); Est Glom Filt Rate - Afr Amer 74 mL/min (>60); Globulin 3.9 g/dL (2.2-4.2); Glucose 83 mg/dL (74-106); Potassium 3.5 mmol/L (3.5-5.1); Protein, Total 7.5 g/dL (6.4-8.2); Sodium Level 139 mmol/L (136-145); Thyroid Stim Hormone (TSH) 1.22 uIU/mL (0.358-3.74)
[2022-04-11 10:19] LABS: Magnesium 2.2 mg/dL (1.6-2.6)
== END | disposition home or self-care (01) ==
PROVIDERS: Anesthesiology; PCP Family Medicine Geriatric Medicine; Visit Provider Specialist
DX: Z01.818 Encounter for other preprocedural examination (principal); M19.011 Primary osteoarthritis, right shoulder; E55.9 Vitamin D deficiency, unspecified; R53.83 Other fatigue
CPT/HCPCS: 36415; 73200; 80053; 82306; 83735; 84443; 85025

== ENCOUNTER 2022-04-23 07:36 | Observation (INO) | payer MEDICARE, SELFPAY ==
--- NOTE | 2022-04-09 14:19 | HP.PCM_ITS ---
History and Physical History and Physical? Patient Name: Jeramie Hunter : 1935 From:? [place] RECINOS PA-C? DATE OF SURGERY:? 04/23/2022 SCHEDULED PROCEDURE:? Right reverse total shoulder arthroplasty HISTORY OF PRESENT ILLNESS: Preoperative history and physical exam was performed on April 07, 2022.? This is a 86-year-old male who has been having ongoing pain for several years in his right shoulder.? Pain is located over the lateral and anterior aspect of the shoulder.? He is right-hand dominant.? Patient has difficulty with activities of daily living that require any overhead activity or reaching behind him.? He has difficulty getting dressed due to the pain.? Patient has had previous cervical spine surgery in which she has had decreased function since then from February 2021.? Patient states the pain does awaken him at nighttime.? He has tried formal physical therapy, previous corticosteroid injection with no relief.? He has tried oral steroids without relief.? After failing conservative measures and discussing treatment options with Dr. Stephane Huang, the patient does wish to proceed with a right reverse total shoulder arthroplasty.? Patient has medical history pertinent for hypertension, previous heart attack and bypass in 2006, cervical fusion, gastroesophageal reflux disease, atrial fibrillation, and hypercholesterolemia.? He currently denies any chest pain, shortness of breath, fevers chills or recent infections.? We are obtaining surgical clearance from the primary care physician Dr. Mojica and manual qa tester Dr. Marshall.? Patient is currently on Eliquis due to the atrial fibrillation.? We are asking for perioperative management from the manual qa tester for the Eliquis.? He will resume this postoperatively.? Patient denies past history of DVT or pulmonary embolism. REVIEW OF SYSTEMS: Review Of Systems: Constitutional: Denies change in appetite, fever and weight change. Cardiovasular: Reports irregular heartbeat, but denies chest pain and heart murmur. Respiratory: Denies cough, pneumonia, shortness of breath, tuberculosis and wheezing. Gastrointestinal: Reports constipation, dysphagia and heartburn, but denies diarrhea, nausea, rectal itching, bloody stools and vomiting. Musculoskeletal: Reports limitations of movement, pain and weakness, but denies leg swelling and trouble walking. Skin: Denies Raynaud's, history of shingles and tattoo. Neurological: Reports ambulatory dysfunction and dizziness but denies numbness/tingling and tremor. Psychiatric: Denies anxiety, insomnia and stress. Hematologic/Lymphatic: Reports bleeding/bruising tendency and past transfusion, but denies anemia. Reviewed and updated. 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 MASSEY-WASOLA Heart Bypass (CABG) - (2006) [facility] Aneurysm Cervical Fusion - (02/2021) [facility]? Anesthesia Complications: None Assistive Devices: Glasses Reviewed and updated. SOCIAL HISTORY: Social History: Marital: .Occupation: Retired.Work Status: Retired.Hand Dominance: Right- handed. Personal Habits:? Cigarette Use: Former.Smokeless Tobacco: Never Used Smokeless Tobacco.E-Cigarette Use: Never used.Alcohol: Denies use.Drug Use: Denies Use.Enjoy Exercising: Never Exercises. Reviewed, no changes. VITALS: Ht: 68 Wt: 140lb Wt k.504 BMI: 21.3 BP: 122/70 Pulse: 67 Resp: 12 T: 97.5 T: 36.4C Pain Level: 1 O2SatR: 98 ALLERGIES: No Known Drug Allergy? MEDICATIONS: Hydrochlorothiazide 12.5 mg 1 by mouth every day, Constulose 10 gm/15ml prn, Dulcolax 5 mg prn, Metoprolol Succinate ER 25 mg takes half of 1 tablet in the morning and the other half of the tablet once AT night, Omeprazole 40 mg 1 by mouth every day, Prednisone 5 mg 1po qday, Furosemide 40 mg 1 by mouth every day, Atorvastatin Calcium 40 mg 1 by mouth every day, Eliquis 5 mg 1 by mouth every day, Potassium Chloride ER 20 Meq take 1 tablet by mouth every day PRE-OP EXAM:? General appearance:NORMAL? ? ? Other: Eyes: Conjunctivae and lids: NORMAL? Pupils: ERR Ears, Nose, Mouth, and Throat: NORMAL? Other: Inspection of lips, teeth and gums: NORMAL? ?Other: Neck: Examination of neck: no masses noted. Respiratory: Assessment of respiratory effort: NORMAL? ?Other: ?Auscultation of lungs: clear to auscultation no wheezes, rhonchi or rales. Cardiovascular:? Auscultation of heart: Irregular irregular rhythm consistent with atrial fibrillation PHYSICAL EXAMINATION: On exam of the right shoulder there is no erythema or signs of infection.? He has atrophy of the right shoulder.? Forward elevation actively 40 and passively 140 on the right.? Resisted range of motion: 3/5 supraspinatus on the right.? Full range of motion of elbow with full composite fist and full extension of fingers.? Sensation grossly intact bilateral upper extremity. IMAGING STUDIES: Previous x-rays of the right shoulder reveals significant rotator cuff dysfun ction with superior migration of the humeral head IMPRESSION: 1.? 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 Hypertension 3.? Atrial fibrillation currently on Eliquis 4.? Previous heart attack and heart bypass 2007 5.? Gastroesophageal reflux disease 6.? Hypercholesterolemia 7.? History of cervical spinal fusion PLAN: Dr. Stephane Huang did discuss and review with the patient all treatment options including surgical versus nonsurgical options.? Patient does wish to proceed with the above-stated procedure.? Potential risks, benefits, and complications of the procedure were discussed in detail including but not limited to , infection, nerve and blood vessel damage, persistent pain, numbness, tingling, paresthesias, blood clot, pulmonary embolism, and requirement for possible further surgery.? The patient expressed full understanding and has no further questions for the doctor.? Patient does agree to proceed with the above-stated procedure and has signed the surgery consent form. This dictation was created using voice recognition software. Phonetic and/or grammatical errors may exist. ___? I have re-examined the patient.? There are no clinical changes since date of exam. ___? See progress notes for changes. ___? Dictated on admission Date: ? ? ?Time: Signature:
[2022-04-23] VITALS (15 sets, daily range): BP systolic 90–116; BP diastolic 47–82; PULSE 66–88; RESP 14–18; TEMP 35.8–36.7; O2SAT 93–100; BMI 21.4
[2022-04-23] MEDS: Magnesium 1 GM over 15 mins IV (06:00)
[2022-04-23] MEDS: Lactated Ringers 1,000 ML 999 ML IV ×2 (06:09→10:05)
[2022-04-23] MEDS: Acetaminophen 500 MG Tablet 1000 MG PO ×3 (06:10→21:15)
[2022-04-23] MEDS: Gabapentin 600 MG Tablet PO (06:10)
[2022-04-23] MEDS: Vancomycin IV 1,000 MG/200 ML BAG 200 MG IV (06:20)
[2022-04-23 06:45] LABS: Bedside Glucose 168 mg/dL (74-106)
[2022-04-23] MEDS: Lactated Ringers 1,000 ML 75 ML IV (07:11)
--- NOTE | 2022-04-23 07:11 | PCM.OPRPT ---
Report of Operation Date of Procedure: 04/23/22 Pre-Operative Diagnosis: Right shoulder osteoarthritis, rotator cuff dysfunction Post-Operative Diagnosis: Right shoulder osteoarthritis, rotator cuff dysfunction Surgery/Procedure Performed:: Right reverse total shoulder replacement Description of Surgical Findings:: Stable shoulder Surgeon: Stephane Huang storage management consultant: Karel Messer Type of Anesthesia: General Anesthesiologist: Marc Juan Special Medications: 2 g Ancef, 1 g TXA at incision, 1 g TXA closure, 10 mg Decadron, joint cocktail (5 mg Duramorph, 30 mL of 0.5% Ropivicaine, 1000 units of epinephrine, 30 mg of Toradol) Specimen's removed: Bony cuts Estimated Blood Loss (mL): 200 Fluids Replaced: 1200 mL crystalloid Description of Procedure: Components used 1. Tournier 29 mm +6 mm glenoid baseplate 2. Tournier 39 mm glenosphere 3. Tournier 39 mm, 0 mm humeral liner 4. Tournier performed size 4 humeral stem primary press-fit Brief history/Operative indications: 86 yo m with history of R shoulder pain and cuff tear arthropathy. Patient failed conservative measures as mentioned in the H&P. After discussion of risk and benefits of reverse total shoulder replacement including but not limited to blood loss, DVTs, PEs, nerve vessel damage, infection, general risk of anesthesia including loss of life, instability and stiffness patient demonstrating understanding wish to proceed was able to sign informed consent. Medical clearance was obtained. Procedure: On the date of the procedure, patient's R upper extremity was marked in the preoperative area. Patient was taken back to the operating room where they were placed on the table in the supine position. Anesthesia assumed control of the C-spine and airway, then administered anesthetic. All bony prominences were identified well-padded, the head was secured and the patient was placed in the beachchair position at about 35? inclination. Anesthesia remained in control of the C-spine airway throughout the remainder of the procedure. Patient was then appropriately fastened to the table and the R upper extremity was prepped in a sterile fashion. The surgeons then scrubbed. Upon reentering the room, the R upper extremity was draped in a sterile fashion and the incision was marked out. Timeout was called, everyone agreed upon the side, the site, the procedure to be performed, patient identity and antibiotics given. Incision was taken down through skin and subcutaneous tissue, fat down to fascia. The stripe of the deltopectoral interval and cephalic vein were identified and blunt dissection was used to retract the deltoid. The cephalic vein was retracted laterally. Clavipectoral fascia was then incised and a cobra retractor was placed in the wound. The proximal one third of the pectoralis major insertion was released. Pectoralis tendon insertion was used to tenodesed the biceps tendon which was identified in the bicipital groove. Tenodesis was done with #1 Vicryl. Proximally we followed the biceps tendon after transecting it into the rotator interval. The rotator interval was split and the arm was externally rotated. The split was 1 cm medial to the bicipital groove. Subscapularis tendon was released. We released down the anterior portion of the humeral head and a riddle elevator was used to release the inferior portion of the humeral head. The arm was externally rotated and the shoulder was dislocated. The humeral head was then cut at its natural retroversion. Once his humeral head cut was made humerus was retracted out of the way and the glenoid was exposed. After exposing the glenoid, the labrum and the remaining proximal biceps were debrided. At this time we are able to view the entire outer edge of the glenoid. A central pin was placed we sequentially reamed over this central pin to 39 mm mm. Once this was completed the central screw was measured and found to be. The glenoid baseplate was screwed into place. Wound was closely irrigated out with normal saline we then drilled sequentially for 2 screws. Screws were placed superiorly and inferiorly and tightened down the screws. Once the screws were appropriately tightened into place the glenoid baseplate was compressed against the exposed subchondral bone. A 39 mm glenosphere was impacted into place engaging the Jimenez taper. Attention was then turned towards the humerus. The humerus was again externally rotated exposing the proximal portion of the humerus. Central canal finder was then used to open up the canal. We reamed to a size 4 reamer. We then broached to a size 4 stem. We trialed the 0 mm liner. We obtained an adequate reduction at this time with a nice stable shoulder. Good internal rotation to the gluteus, forward elevation to 140?, external rotation to 20?. Final components were then assembled on the back table, trials were removed and the wound was copiously irrigated with normal saline after dislocating the shoulder. Once the final components were assembled they were impacted into place. Shoulder was then reduced and found to be stable with good range of motion. Subscapularis tendon was not repairable due to insufficient tissue on approach. The wound was with chlorhexidine solution then copiously irrigated out with a 1 L normal saline lavage. The deltopectoral fascia was then closed using #1 Vicryl skin was closed using 2-0 Vicryl interrupted sutures and final skin closure was done with 3-0 Monocryl. Steri-Strips are placed for final skin closure. Sterile dressing was placed patient was then placed in a sling and awakened by anesthesia. Patient was then transferred to the PACU for recovery. Postoperative plan: Patient will be admitted to the hospital overnight. They will get physical therapy starting in 2 weeks with normal postoperative regimen. Patient will resume his Eliquis tomorrow for DVT prophylaxis. The first postoperative appointment will be in 2 weeks for wound check and initiation of phase 1 physical therapy. During the course of the procedure the physician event sales assistant played a vital role. His intimate knowledge of my steps in the procedure aided in safe and expedient completion of the procedure. The PA played a vital rolls in positioning particularly in obtaining the appropriate beach chair position and securing the patient's body and head to the table. The PA was also vital in the retraction of soft tissues during the exposure and especially the glenoid work as this is a vital part of the procedure to prevent neurovascular damage. the PA was also vital and protecting soft tissues during times of bony cuts and reaming. He also played a vital role in closure with my direct supervision. The PA was also important during reduction and dislocation of the joint and trials intraoperatively. Complications No intraoperative complications Admit VTE Documentation VTE Present on Admission: No VTE Mechan Device Prophylaxis: SCD's VTE Pharm Prophylaxis ordered?: Yes
--- NOTE | 2022-04-23 07:30 | SHO_PTH ---
PATIENT: ESAU NAJERA LOC: [facility] U#:[id number] AGE/SX: 86/M ROOM: ME312 RE04/23/[address]: Dr. Stephane Huang MD : 1935 BED: 1 DIS: 04/25/2022 SPEC #: [id number] RECD: 04/23/22 12:59 STATUS: DESTINEE JOINER #: [id number] EPI: 04/23/22 07:[address]: Stephane Huang DEPT: SURGICAL PATHOLOGY RECD BY: Lee Ann Kennedy ENTERED: 04/23/22 13:06 SP TYPE: HUMERUS OTHR DR: MD Dr. Kiko Ventura Chi, MD Tissues: Humerus, NOS Procedures: Decalcification bone/plaque Surgery Specimen Level IV HEADER OPERATION: ERAS, total shoulder replacement, reverse PRE-OP DIAGNOSIS: Right shoulder osteoarthritis, rotator cuff dysfunction TISSUE SUBMITTED: Bone and soft tissue right shoulder MICROSCOPIC DIAGNOSIS Bone and soft tissue right shoulder, total shoulder replacement/resection: Humeral head with mild degenerative osteoarthritic changes. A fragment of dense fibroconnective tissue with reactive changes. MARITZA:vadim 04/28/2022 MICROSCOPIC DESCRIPTION Slides are reviewed. GROSS DESCRIPTION Received is one container labeled with the patient's name and designated bone and tissue right shoulder. The specimen consists of a humeral head measuring 4.5 x 4.5 x 2.3 cm. The articular surface shows areas of erosion and osteophyte formation. Also present in the container are multiple detached pieces of bone measuring in aggregate 4.5 x 2.5 x 0.5 cm. Also present in the container is a detached piece of tendinous tissue measuring 4.5 x 1.0 x 0.5 cm. [employer] sections are submitted in two cassettes as follows: 1 - tendinous tissue, 2 - humeral head after decalcification. / MARITZA:vadim 04/23/2022 TC:5 CPT: 23247, 04007
[2022-04-23] MEDS: Cefazolin 2 GM in 0.9% Normal Saline 100 ML IV ×3 (07:38→23:49)
[2022-04-23] MEDS: dexAMETHasone 10 MG/ML Vial IV (07:44)
--- NOTE | 2022-04-23 10:15 | RAD_ITS ---
STUDY: X-RAY - RIGHT SHOULDER REASON FOR EXAM: Male, 86 years old. Postop from glenohumeral replacement surgery TECHNIQUE: 2 view(s) of the shoulder. COMPARISON: None. FINDINGS: Patient is postop from replacement of the right glenohumeral joint. Alignment is anatomic, no plain film evidence of postoperative complication. Normal postoperative soft tissue swelling and subcutaneous emphysema. Arthritic narrowing of the AC joint. No upper rib fracture or pneumothorax RAD/Shoulder min 2 Views IMPRESSION: No postoperative complications after glenohumeral replacement surgery Electronically Signed: Enrique Davis MD at 10:41 EDT ,
--- NOTE | 2022-04-23 13:01 | PN.HOSP_ITS ---
Reason for Visit Reason for Visit: Diagnoses Encounter for other preprocedural examination (04/23/22) Subjective Subjective Seen postoperatively. Is complaining of feeling of his index finger being larger than the the rest. Objective Data Objective Data Vital Signs: Vital Signs Temp Pulse Resp BP Pulse Ox O2 Del Method O2 Flow Rate 36.6 C 80 18 91/51 L 98 Nasal Cannula 4 04/23/22 11:24 04/23/22 11:32 04/23/22 11:24 04/23/22 11:24 04/23/22 11:43 04/23/22 11:43 04/23/22 11:43 Oxygen Flow Rate (L/min) 4 Oxygen Delivery Method Nasal Cannula Weight: 64 kg Body Mass Index (BMI) 21.4 Intake & Output: Intake and Output for Last 24 Hours 04/21/22 04/22/22 04/23/22 23:59 23:59 23:59 Intake Total 2672 / 2672 Output Total 0 / 0 Balance 2672 / 2672 Lab / Micro Data Labs: Laboratory Results - last 24 hr 04/23/22 06:24: POC Glucose 168 H Micro: Microbiology 04/15/22 16:37 Swab (Method) Nasal Screen MRSA/MSSA - Final Radiography Diagnostic Testing: Radiology Impression Shoulder X-Ray 04/23/22 10:15 IMPRESSION: No postoperative complications after glenohumeral replacement surgery Electronically Signed: Enrique Davis MD at 10:41 EDT Reading Location ID and State: [address] [place] [address] , Service support , Physical Exam Const alert and no apparent distress HEENT head/scalp atraumatic and moist oral mucous membranes Neck no lymphadenopathy Resp normal respiratory effort, no retractions, no use of accessory muscles and clear to auscultation bilaterally Cardio regular rate, regular rhythm, S1 normal heart sound and S2 normal heart sound GI normal to inspection, nondistended, normoactive bowel sounds, soft to palpation, non-tender and non-distended Extremity normal to inspection Extremity Narrative: Right hand visualized and shows chronic arthritic changes. No swelling of the right index finger. Assessment & Plan Assessment/Plan (1) Hypotension: PLAN: Postoperatively Agree with IV fluids and continue to monitor. PLAN: Plan Other chronic medical conditions * Paroxysmal atrial fibrillation: Continue with apixaban and metoprolol tartrate * Coronary artery disease: Currently stable. Status post CABG. * Hyperlipidemia: Continue with statin * Hypertension: We will hold off on the hydrochlorothiazide for now with hold parameters from the metoprolol. Status post right reverse total shoulder replacement: Per orthopedics VTE prophylaxis: Not indicated as patient is already anticoagulated. Thank you the consult. Will follow along while the patient is here. If patient blood pressure improves and barring other acute medical issues, patient would be medically ready for discharge Charges/Coding Visit Charges Office Visits / Consults: 76731 OP Consult L3
[2022-04-23] MEDS: Senna/Docusate Sodium 1 Tablet 2 TABLET PO ×2 (13:18→21:15)
[2022-04-23] MEDS: Ensure Surgery 237 ML LIQUID PO ×2 (13:19→16:25)
--- NOTE | 2022-04-23 14:48 | CHAPLAIN ---
Type of Pastoral Visit _x__ Initial Visit ___ Follow-up Visit ___ On-call Visit ___ General Patient Visit ___ Spiritual Assessment ___ Family Conference ___ Bereavement ___ Rapid Response ___ Code Blue ___ Other (describe below) Pastoral Care Referral From _x__ Patient ___ Family ___ Nurse ___ Physician ___ School Lunch Manager ___ Power Generation Engineer ___ Other (describe below) Sacrament/Intervention _x__ Active listening ___ Anointing ___ Shinto ___ Bereavement ___ Communion ___ Swathi exploration ___ ___ Life review ___ Prayer ___ Reconciliation ___ Sacrament of Sick _x__ Supportive presence ___ Wedding ___ Other (describe below) Pastoral Comments patient is eating lunch with the help of his daughter; pt states that he is doing well but admits that eating and physical activities will be difficult since he had shoulder surgery; pt has large family for assistance; pt says he has no concerns and does not need extra support at this time; prayer however is welcomed by daughter and patient
[2022-04-23] MEDS: 0.9% Saline Lock 10 ML Syringe IV ×2 (16:27→18:04)
[2022-04-23] MEDS: Atorvastatin Calcium 40 MG Tablet PO (21:14)
[2022-04-23] MEDS: Metoprolol Tartrate 25 MG Tablet 6.25 MG PO (21:14)
[2022-04-23] MEDS: predniSONE 5 MG Tablet PO (21:14)
[2022-04-24] VITALS (7 sets, daily range): BP systolic 93–118; BP diastolic 52–68; PULSE 70–75; RESP 16–18; TEMP 36.6–37.2; O2SAT 90–94
[2022-04-24] MEDS: oxyCODONE 5 MG Tablet 2.5 MG PO ×3 (01:08→20:13)
[2022-04-24] MEDS: Acetaminophen 500 MG Tablet 1000 MG PO ×3 (05:54→20:07)
[2022-04-24 07:08] LABS: Hematocrit 34.5 % (40-54); Hemoglobin 11.5 g/dL (13.0-16.5); Mean Corp Hgb Conc 33.3 g/dL (32-36); Mean Corpuscular Hgb 32.4 pg (27.0-32.0); Mean Corpuscular Volume 97.2 fL (80-94); Mean Platelet Vol. 9.7 fl (6.2-12.0); Platelet Count 206 K/mm3 (150-450); RBC Distribution Width CV 13.8 % (11.6-14.6); RBC Distribution Width SD 49.6 fl (35.1-43.9); Red Blood Count 3.55 M/mm3 (4.6-6.2); White Blood Count 9.9 K/mm3 (4.4-11.0)
[2022-04-24 07:49] LABS: Anion Gap 6 (5-15); BUN 15 mg/dL (7-18); BUN/Creat Ratio 16.7 RATIO (10-20); Calcium,Total 8.2 mg/dL (8.5-10.1); Chloride 103 mmol/L (98-107); EST Glomerular Filtration Rate 85 mL/min (>60); Est Glom Filt Rate - Afr Amer 103 mL/min (>60); Estimated Creatinine Clearance 52.35 ml/min; Glucose 105 mg/dL (74-106); Potassium 3.4 mmol/L (3.5-5.1); Sodium Level 140 mmol/L (136-145)
[2022-04-24] MEDS: Potassium Chloride Oral Tablet 20 MEQ PO (08:07)
[2022-04-24] MEDS: APIXABAN 5 MG TABLET PO ×2 (08:07→20:06)
[2022-04-24] MEDS: Senna/Docusate Sodium 1 Tablet 2 TABLET PO ×2 (08:07→20:07)
[2022-04-24] MEDS: Pantoprazole Sodium 40 MG Tablet PO (08:07)
[2022-04-24] MEDS: Famotidine 20 MG Tablet PO (08:08)
--- NOTE | 2022-04-24 09:58 | CASEMGMT ---
RIKI VALENZUELA Assessment: Face to Face with pt for initial transition planning/care coordination assessment. RN BIANCA introduced self and role at [facility], pt voices understanding and consents to assessment. Pt is A/O x4 and answers all questions appropriately at this time. Pt lying in bed, just finished with therapy. Care providers, pharmacy, and demographics verified/updated. Admitting Dx: R total shoulder reverse PCP:Yunior Specialists: Sal, ortho; Joanna, cardio; eye doctor-Chemo Raymundo Preferred Pharmacy: [facility] Insurance: [employer] [facility] [place] Prescription Benefit: yes LNOK: Ava Black, dtjewel Living Arrangements: Pt lives alone in a two story home (pt uses main level only) with no steps to enter. Pt reports he was I in ADL's and his dtr assists him. Pt denies concerns at home. Transportation: Pt drives self and denies concerns with transportation. Dtr will transport until pt is able to drive again. DME/HHC/SNF: Pt has a cane, grab bars in the bathroom and shower chair. Pt has had HHC in the past but is unsure of the name of the agency. Pt denies SNF stays. Therapist leaving room and states SNF is recommended. Pt states he would like to go to [facility] T[facility]. Updated SW. Pt states no further concerns/needs. CM to follow. Advised pt to ask CM if any further question/concerns/needs arise, voices understanding. Pt Goal: SNF Plan: SNF, pt will need precert.
--- NOTE | 2022-04-24 10:19 | PCM.PN.ORT ---
Subjective Subjective The patient was sitting in bedside chair eating breakfast upon examination. Patient's daughter is present today. Patient denies any chest pain, shortness of breath, dizziness, lightheadedness, nausea or vomiting, or calf pain. Pain is controlled on medications. Patient has had postoperative urinary retention. He has required a Llamas. Patient does report having symptoms prior to surgery but has never been treated. Upon discussion he did state the possibility of benign prostatic hyperplasia. Patient has also struggled with occupational therapy and physical therapy and they are recommending possible rehab versus transitional care unit. Objective Data Objective Data Vital Signs: Vital Signs Temp Pulse Resp BP Pulse Ox O2 Del Method O2 Flow Rate 98.9 F 70 16 97/52 L 93 Room Air 2 04/24/22 08:00 04/24/22 08:00 04/24/22 08:00 04/24/22 08:00 04/24/22 08:00 04/24/22 08:00 04/23/22 19:39 Oxygen Flow Rate (L/min) 2 Oxygen Delivery Method Room Air Weight: 64 kg Body Mass Index (BMI) 21.4 Intake & Output: Intake and Output for Last 24 Hours 04/22/22 04/23/22 04/24/22 23:59 23:59 23:59 Intake Total 3782 / 3782 254.75 / 254.75 Output Total 800 / 800 1450 / 1450 Balance 2982 / 2982 -1195.25 / -1195.25 Lab / Micro Data Result Diagrams: 04/24/22 06:43 04/24/22 06:43 Labs: Laboratory Results - last 24 hr 04/24/22 06:43: WBC 9.9, RBC 3.55 L, Hgb 11.5 L, Hct 34.5 L, MCV 97.2 H, MCH 32.4 H, MCHC 33.3, RDW Std Deviation 49.6 H, RDW Coeff of Sandip 13.8, Plt Count 206, MPV 9.7 04/24/22 06:43: Sodium 140, Potassium 3.4 L, Chloride 103, Carbon Dioxide 31.0, Anion Gap 6, BUN 15, Creatinine 0.90, Estim Creat Clear Calc 52.35, Est GFR (MDRD) Af Amer 103, Est GFR (MDRD) Non-Af 85, BUN/Creatinine Ratio 16.7, Glucose 105, Calcium 8.2 L Micro: Microbiology 04/15/22 16:37 Swab (Method) Nasal Screen MRSA/MSSA - Final Radiography Diagnostic Testing: Radiology Impression Shoulder X-Ray 04/23/22 10:15 IMPRESSION: No postoperative complications after glenohumeral replacement surgery Electronically Signed: Enrique Davis MD at 10:41 EDT Reading Location ID and State: [address] [place] [address] , Service support , Physical Exam Narrative Vital signs stable, afebrile Dressing is clean, dry, intact. Patient also had a skin tear over the sternum from surgical dressing with OpSite in place. Ultra-sling fitting appropriately Sensation intact to axillary, radial, median, and ulnar distribution Motor intact to AIN, PIN, and ulnar nerve Const alert, oriented x3 and no apparent distress Assessment & Plan Assessment/Plan (1) Status post reverse total arthroplasty of right shoulder: PLAN: 1. S/P right reverse total shoulder arthroplasty POD #1 2. Continue Pain Medications: Tylenol and oxycodone 3. DVT Prophylaxis: Patient has resumed his Eliquis postoperatively for his atrial fibrillation. This will cover him for DVT prophylaxis. 4. PT/OT: Continue with UltraSling at all times except to come out for range of motion exercises of the elbow and pendulum exercise 3 times daily. No range of motion of the postoperative shoulder until outpatient physical therapy begins. Outpatient physical therapy will begin 2 weeks postoperatively after follow-up with [facility] with x-rays and incision check. Both Occupational Therapy and physical therapy do recommend patient for transitional care unit. 5. H & H: 11.5/34.5, asymptomatic. Postoperative anemia secondary to acute blood loss from surgery without any intra operative complications. 6. Encouraged Incentive Spirometry 7. Continue postoperative medical management per medicine: Case was discussed with medicine and patient will be started on Flomax 0.4 mg daily. 8. Urinary retention: Dr. Stephane Huang did discuss case with Dr. Dobson in which consult will be placed. I do feel patient has underlying benign prostatic hyperplasia which is resulting in the urinary retention. He will be started on Flomax 0.4 mg daily. Appreciate other recommendations from urology. He is currently with a Llamas cath at this time. 9. Disposition: Due to patient's difficulty with balance and recommendations from physical therapy and Occupational Therapy, patient will require possible discharge to transitional care unit. Case management is currently involved for pre-CERT. Urology consult was also placed and we appreciate further recommendations for the urinary retention. Patient will continue with therapy while in the hospital and continue with above medications. I have reviewed the [place] Automated Rx Reporting System (OARRS) report for this patient for refill pattern and other prescriber involvement as part of the appropriate surveillance for the provision of acute and chronic controlled medications. The report was requested and reviewed on the date of this entry and was considered in the prescribing process. This dictation was created using voice recognition software. Phonetic and/or grammatical errors may exist. (2) Urinary retention:
--- NOTE | 2022-04-24 10:24 | CASEMGMT ---
RIKI VALENZUELA in to discuss CLOUD form with patient. RN BIANCA explained CLOUD form, patient voiced understanding. Pt asked dtr to sign form, signed and filed in chart. Pt provided with a copy of signed CLOUD form. Patient had no further questions or concerns at this time.
[2022-04-24] MEDS: Ensure Surgery 237 ML LIQUID PO (11:41)
--- NOTE | 2022-04-24 12:00 | PCM.CONS.U ---
Assessment & Plan Assessment/Plan (1) Urinary retention: PLAN: 86-year-old male with retention of urine and recommend we start him on Flomax 0.4 mg twice a day and he can have the catheter removed between 3 to 5 days if he goes to transitional care unit they can remove the catheter there after 5 days for a voiding trial if he goes home he can call my office for an appointment to have the catheter removed next week. HPI Consult Data Date of Consult: 04/24/22 HPI Narrative Reason for Consultation: Urinary retention HPI Narrative: ESAU NAJERA, is a 86 M who presents to the hospital he had a repair of the shoulder by orthopedic surgery afterwards he was not able to urinate and required a Llamas catheter he does report that he was having difficulty going to the bathroom prior to the surgery. He had never seen a urologist before he does not know if he has prostate cancer denies any other prostate procedures in the past. [facility] Medical History Abdominal aortic aneurysm (AAA) Abdominal pain Arthritis Atherosclerosis of coronary artery of [place] heart without angina pectoris Back pain Cardiology follow-up encounter Central retinal vein occlusion of right eye (11/25/19) Cervical myelopathy Colon polyp Complete edentulism, class III Constipation Esophageal dilatation Essential hypertension Former smoker FTT (failure to thrive) in adult GERD (gastroesophageal reflux disease) History of atrial fibrillation History of echocardiogram History of edema History of esophageal stricture History of hiatal hernia History of pain when walking History of ST elevation myocardial infarction (STEMI) (05/08/06) History of steroid therapy History of stress test Hyperlipidemia Insomnia Irritable bowel syndrome with constipation Leg cramps Multifocal atrial tachycardia Paroxysmal atrial fibrillation Postoperative atrial fibrillation (05/2006) Restless legs Right temporomandibular joint disorder, unspecified Rotator cuff tear Spinal stenosis in cervical region Spondylosis of cervical spine with radiculopathy Stroke/cerebrovascular accident Syncope Tear of biceps tendon Weakness generalized Wears glasses Home Medications bisacodyl 5 mg tablet,delayed release 5 mg PO BID PRN Constipation 12/14/19 [History Last Taken 03/03/21] lactulose 10 gram/15 mL oral solution 15 ml PO DAILY PRN PRN Constipation 07/24/20 [History Last Taken Unknown] meclizine 25 mg tablet 25 mg PO DAILY PRN Dizziness 01/24/21 [History Last Taken Unknown] omeprazole 40 mg capsule,delayed release 40 mg PO DAILY GERD 03/04/21 [History Last Taken 04/23/22] plecanatide 3 mg tablet (Trulance) 3 mg PO PRN PRN IBS 07/13/21 [History Last Taken Unknown] hydrochlorothiazide 12.5 mg tablet 12.5 mg PO DAILY #90 tabs 07/30/21 [Rx Last Taken Unknown] atorvastatin 40 mg tablet 40 mg PO QHS 11/11/21 [History Last Taken Unknown] furosemide 40 mg tablet 40 mg PO DAILY 11/11/21 [History Last Taken Unknown] metoprolol tartrate 25 mg tablet 6.25 mg PO BID blood pressure 11/11/21 [History Last Taken 04/23/22] potassium chloride 20 mEq tablet,extended release 20 meq PO DAILY 11/11/21 [History Last Taken Unknown] prednisone 10 mg tablet 5 mg PO QHS LEG PAIN 04/11/22 [History Last Taken Unknown] apixaban 5 mg tablet (Eliquis) See Rx Instructions .Route .COMPLEX #60 TABLETS 04/14/22 [Rx Last Taken 04/19/22] Allergy/AdvReac Type Severity Reaction Status Date / Time rivaroxaban [From Xarelto] AdvReac generally Verified 04/23/22 06:07 did not feel well Family History Mother Colon cancer CVA (cerebral vascular accident) Father Cancer leukemia Surgical History 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) History of appendectomy History of cataract surgery History of endovascular stent graft for abdominal aortic aneurysm (AAA) History of esophageal dilatation (~12/2020) History of esophagogastroduodenoscopy (EGD) History of herniorrhaphy History of sinus surgery S/P cervical spinal fusion Social History household members: none Smoking Status: Former smoker second hand exposure: No alcohol intake: never substance use type: does not use caffeine: Yes seatbelt use: always ROS ROS Narrative Retention of urine Constitutional Constitutional: Denies chills, fever(s) or malaise Eyes Eyes: Denies blurry vision or change in vision ENT HEENT: Reports none Cardiovascular Cardiovascular: Denies chest pain or palpitations Respiratory/Chest Respiratory/Chest: Denies cough or shortness of breath with exertion Gastrointestinal Gastrointestinal: Denies abdominal pain, constipation or diarrhea Musculoskeletal Musculoskeletal: Denies back pain, joint stiffness or joint swelling Integumentary Integumentary: Denies dry skin, jaundice, lesions or rash Neurologic Neurologic: Denies confusion, syncope or weakness Psychiatric Psychiatric: Reports none; Denies anxiety or depression Endocrine Endocrinology: Denies excessive sweating, fatigue or flushing Hematologic/Lymphatic Hematologic/Lymphatic: Denies anemia, easy bleeding or easy bruising Physical Exam Const alert and oriented x3 General Appearance: cooperative HEENT normocephalic and head/scalp atraumatic Eyes PERRL and EOMs intact bilaterally Neck supple, no JVD and no carotid bruits Resp normal respiratory effort, normal air movement and clear to auscultation bilaterally Cardio regular rate and no murmurs GI normal to inspection, nondistended, normoactive bowel sounds and soft to palpation Extremity normal capillary refill General Extremity: no tenderness to palpation of joints or extremities; Negative for edema Skin no rashes or lesions noted and no wounds General Skin Exam: no breakdown Neuro CN's II-XII intact bilaterally Psych affect normal Appearance: appropriate Medical Records Data Attestation: I reviewed the patient's medical records Lab / Micro Data Result Diagrams: 04/24/22 06:43 04/24/22 06:43 Labs: Laboratory Results - last 24 hr 04/24/22 06:43: WBC 9.9, RBC 3.55 L, Hgb 11.5 L, Hct 34.5 L, MCV 97.2 H, MCH 32.4 H, MCHC 33.3, RDW Std Deviation 49.6 H, RDW Coeff of Sandip 13.8, Plt Count 206, MPV 9.7 04/24/22 06:43: Sodium 140, Potassium 3.4 L, Chloride 103, Carbon Dioxide 31.0, Anion Gap 6, BUN 15, Creatinine 0.90, Estim Creat Clear Calc 52.35, Est GFR (MDRD) Af Amer 103, Est GFR (MDRD) Non-Af 85, BUN/Creatinine Ratio 16.7, Glucose 105, Calcium 8.2 L
--- NOTE | 2022-04-24 12:03 | DCINST_ITS ---
Discharge Instructions Diet Discharge Diet: No restrictions Follow Up Care Please Follow Up With: Louie Dobson MD Test Results: Test results from this visit will be discussed in further detail at your follow- up appointment, if applicable. Discharge Plan Admission Admit Date/Time: 04/23/22 07:36 Attending Provider: Stephane Huang Primary Care Provider: Kiko Mojica Chi Consulting Providers: Gigi Ruffin Juan Miguel Discharge Orders/Prescriptions Prescriptions: No Action lactulose 10 gram/15 mL solution 15 ml PO DAILY PRN PRN (Reason: Constipation) meclizine 25 mg tablet 25 mg PO DAILY PRN (Reason: Dizziness) atorvastatin 40 mg tablet 40 mg PO QHS furosemide 40 mg tablet 40 mg PO DAILY potassium chloride 20 mEq tablet extended release 20 meq PO DAILY Label Comments: TAKE 1 TABLET BY MOUTH ONCE DAILY bisacodyl 5 mg tablet,delayed release (DR/EC) 5 mg PO BID PRN (Reason: Constipation) metoprolol tartrate 25 mg tablet 6.25 mg PO BID omeprazole 40 mg capsule,delayed release(DR/EC) 40 mg PO DAILY Label Comments: Take 1 capsule oral once a day Trulance 3 mg Tablet 3 mg PO PRN PRN (Reason: IBS) prednisone 10 mg Tablet 5 mg PO QHS hydrochlorothiazide 12.5 mg tablet 12.5 mg PO DAILY Qty: 90 3RF Eliquis 5 mg tablet See Rx Instructions .ROUTE .COMPLEX Qty: 60 11RF Dose Instruction: TAKE 1 TABLET BY MOUTH TWICE DAILY Rx Instructions: TAKE 1 TABLET BY MOUTH TWICE DAILY Referrals / Follow Up: Physical,Therapy [Other] - 05/08/22 4:00 pm Kiko Mojica Chi, MD [Primary Care Provider] - Karel Messer PA-C [Med Staff - [facility] Practice Prof] - 05/08/22 2:15 pm
[2022-04-24] MEDS: Tamsulosin HCl 0.4 MG Capsule PO ×2 (12:21→20:07)
--- NOTE | 2022-04-24 13:24 | PN.HOSP_ITS ---
Reason for Visit Reason for Visit: Diagnoses Hypotension, unspecified (04/23/22) Retention of urine, unspecified (04/23/22) Encounter for other preprocedural examination (04/23/22) Presence of right artificial shoulder joint (04/23/22) Subjective Subjective Having urinary retention. Has had issues with urinary retention previous to this hospitalization. Objective Data Objective Data Vital Signs: Vital Signs Temp Pulse Resp BP Pulse Ox O2 Del Method O2 Flow Rate 37.2 C 70 16 97/52 L 90 Room Air 2 04/24/22 08:00 04/24/22 08:00 04/24/22 08:00 04/24/22 08:00 04/24/22 11:30 04/24/22 11:30 04/23/22 19:39 Oxygen Flow Rate (L/min) 2 Oxygen Delivery Method Room Air Weight: 64 kg Body Mass Index (BMI) 21.4 Intake & Output: Intake and Output for Last 24 Hours 04/22/22 04/23/22 04/24/22 23:59 23:59 23:59 Intake Total 3782 / 3782 854.75 / 854.75 Output Total 800 / 800 1650 / 1650 Balance 2982 / 2982 -795.25 / -795.25 Lab / Micro Data Result Diagrams: 04/24/22 06:43 04/24/22 06:43 Labs: Laboratory Results - last 24 hr 04/24/22 06:43: WBC 9.9, RBC 3.55 L, Hgb 11.5 L, Hct 34.5 L, MCV 97.2 H, MCH 3 2.4 H, MCHC 33.3, RDW Std Deviation 49.6 H, RDW Coeff of Sandip 13.8, Plt Count 206, MPV 9.7 04/24/22 06:43: Sodium 140, Potassium 3.4 L, Chloride 103, Carbon Dioxide 31.0, Anion Gap 6, BUN 15, Creatinine 0.90, Estim Creat Clear Calc 52.35, Est GFR (MDRD) Af Amer 103, Est GFR (MDRD) Non-Af 85, BUN/Creatinine Ratio 16.7, Glucose 105, Calcium 8.2 L Micro: Microbiology 04/15/22 16:37 Swab (Method) Nasal Screen MRSA/MSSA - Final Physical Exam HEENT head/scalp atraumatic and moist oral mucous membranes Resp normal respiratory effort and no retractions Cardio regular rate, regular rhythm, S1 normal heart sound and S2 normal heart sound GI normal to inspection, nondistended, normoactive bowel sounds, soft to palpation, non-tender and non-distended Extremity normal to inspection Extremity Narrative: right arm in immobilzer. Non-pitting of fingers. Assessment & Plan Assessment/Plan (1) Hypotension: PLAN: Postoperatively Agree with IV fluids and continue to monitor. Ongoing, continue to hold furosemide and HCTZ. (2) Urinary retention: PLAN: Likely due to previously undiagnosed BPH. Agree with tamsulosin on consult. PLAN: Plan Other chronic medical conditions * Paroxysmal atrial fibrillation: Continue with apixaban and metoprolol tartrate * Coronary artery disease: Currently stable. Status post CABG. * Hyperlipidemia: Continue with statin * Hypertension: We will hold off on the hydrochlorothiazide for now with hold parameters from the metoprolol. Status post right reverse total shoulder replacement: Per orthopedics VTE prophylaxis: Not indicated as patient is already anticoagulated. Charges/Coding Visit Charges Inpatient E&M: 89544 Subs Hosp L2
--- NOTE | 2022-04-24 15:11 | CASEMGMT ---
Social Work SW received referral that pt may be interested in TCU at discharge. SW met with pt and daughter and discussed discharge plan. Pt lives at home alone but dgt states she will be staying with pt until he regains independence. FESTUS spoke to pt about options including returning home and SNF. Pt and dgt stating they are on the fence about what they should do. A list of SNF providers including quality and resource use data and consistent with the patient?s preferred geographic region, medical needs, and insurance network were provided from the [facility] Guide. Pt preferred provider is TCU. FESTUS spoke with Hayley in TCU and a bed is available. A precert will be needed prior to pt admission. Pt to be seen by therapy tomorrow and FESTUS will follow up with pt and family regarding discharge plan. TCU can accept if this is warrented. TIMOTHY White
[2022-04-24] MEDS: PLECANATIDE 3 MG TABLET PO (18:03)
[2022-04-24] MEDS: predniSONE 5 MG Tablet PO (20:07)
[2022-04-24] MEDS: Atorvastatin Calcium 40 MG Tablet PO (20:07)
[2022-04-24] MEDS: Metoprolol Tartrate 25 MG Tablet 6.25 MG PO (20:08)
[2022-04-25] MEDS: oxyCODONE 5 MG Tablet 2.5 MG PO (06:02)
[2022-04-25] MEDS: Acetaminophen 500 MG Tablet 1000 MG PO (06:03)
[2022-04-25 06:09] VITALS: BP 105/54; PULSE 84; RESP 16; TEMP 36.6; O2SAT 96
--- NOTE | 2022-04-25 07:10 | PN.HOSP_ITS ---
Reason for Visit Reason for Visit: Diagnoses Hypotension, unspecified (04/23/22) Retention of urine, unspecified (04/23/22) Encounter for other preprocedural examination (04/23/22) Presence of right artificial shoulder joint (04/23/22) Subjective Subjective Feeling better Objective Data Objective Data Vital Signs: Vital Signs Temp Pulse Resp BP Pulse Ox O2 Del Method O2 Flow Rate 36.6 C 84 16 105/54 L 96 Nasal Cannula 2 04/25/22 06:09 04/25/22 06:09 04/25/22 06:09 04/25/22 06:09 04/25/22 06:09 04/25/22 06:09 04/25/22 06:09 Oxygen Flow Rate (L/min) 2 Oxygen Delivery Method Nasal Cannula Weight: 64 kg Body Mass Index (BMI) 21.4 Intake & Output: Intake and Output for Last 24 Hours 04/23/22 04/24/22 04/25/22 23:59 23:59 23:59 Intake Total 3782 / 3782 1274.75 / 1274.75 Output Total 800 / 800 2350 / 2350 200 / 200 Balance 2982 / 2982 -1075.25 / -1075.25 -200 / -200 Lab / Micro Data Result Diagrams: 04/25/22 10:00 04/24/22 06:43 Labs: Laboratory Results - last 24 hr 04/24/22 06:43: WBC 9.9, RBC 3.55 L, Hgb 11.5 L, Hct 34.5 L, MCV 97.2 H, MCH 32.4 H, MCHC 33.3, RDW Std Deviation 49.6 H, RDW Coeff of Sandip 13.8, Plt Count 206, MPV 9.7 04/24/22 06:43: Sodium 140, Potassium 3.4 L, Chloride 103, Carbon Dioxide 31.0, Anion Gap 6, BUN 15, Creatinine 0.90, Estim Creat Clear Calc 52.35, Est GFR (MDRD) Af Amer 103, Est GFR (MDRD) Non-Af 85, BUN/Creatinine Ratio 16.7, Glucose 105, Calcium 8.2 L Micro: Microbiology 04/15/22 16:37 Swab (Method) Nasal Screen MRSA/MSSA - Final Physical Exam Const alert and no apparent distress HEENT head/scalp atraumatic and moist oral mucous membranes Resp normal respiratory effort, no retractions, no use of accessory muscles and clear to auscultation bilaterally Cardio regular rate, regular rhythm, S1 normal heart sound and S2 normal heart sound GI normal to inspection, nondistended, normoactive bowel sounds and soft to palp ation Extremity Extremity Narrative: Right arm in immobilizer sling Assessment & Plan Assessment/Plan (1) Hypotension: PLAN: Postoperatively Improved Continue furosemide and HCTZ but with hold parameters Anticipate continued improvement with time. (2) Urinary retention: PLAN: Likely due to previously undiagnosed BPH. Agree with tamsulosin on consult. Patient follow-up with urology as outpatient. Patient will be discharged with a catheter and will follow with urology to have the removed PLAN: Plan Other chronic medical conditions * Paroxysmal atrial fibrillation: Continue with apixaban and metoprolol tartrate * Coronary artery disease: Currently stable. Status post CABG. * Hyperlipidemia: Continue with statin * Hypertension: We will hold off on the hydrochlorothiazide for now with hold parameters from the metoprolol. Status post right reverse total shoulder replacement: Per orthopedics VTE prophylaxis: Not indicated as patient is already anticoagulated. Medically stable for discharge. Charges/Coding Visit Charges Inpatient E&M: 08965 Subs Hosp L2
[2022-04-25 07:35] VITALS: BP 105/55; PULSE 92; RESP 18; TEMP 36.6; O2SAT 94
[2022-04-25] MEDS: Potassium Chloride Oral Tablet 20 MEQ PO (07:47)
[2022-04-25] MEDS: Senna/Docusate Sodium 1 Tablet 2 TABLET PO (07:47)
[2022-04-25] MEDS: Ensure Surgery 237 ML LIQUID PO ×2 (07:51→11:43)
[2022-04-25 09:17] VITALS: BP 121/60; PULSE 86; RESP 18; TEMP 36.5; O2SAT 94; O2SAT 99
[2022-04-25 09:21] VITALS: PULSE 86
[2022-04-25] MEDS: APIXABAN 5 MG TABLET PO (09:21)
[2022-04-25] MEDS: Metoprolol Tartrate 25 MG Tablet 6.25 MG PO (09:21)
[2022-04-25] MEDS: Pantoprazole Sodium 40 MG Tablet PO (09:21)
[2022-04-25] MEDS: Tamsulosin HCl 0.4 MG Capsule PO (09:21)
[2022-04-25] MEDS: Famotidine 20 MG Tablet PO (09:23)
[2022-04-25] MEDS: Furosemide 40 MG Tablet PO (09:26)
[2022-04-25] MEDS: hydroCHLOROthiazide 12.5mg 12.5 MG PO (09:26)
[2022-04-25 10:16] LABS: Hematocrit 36.2 % (40-54); Hemoglobin 11.8 g/dL (13.0-16.5); Mean Corp Hgb Conc 32.6 g/dL (32-36); Mean Corpuscular Hgb 31.8 pg (27.0-32.0); Mean Corpuscular Volume 97.6 fL (80-94); Mean Platelet Vol. 9.5 fl (6.2-12.0); Platelet Count 202 K/mm3 (150-450); RBC Distribution Width CV 14.2 % (11.6-14.6); RBC Distribution Width SD 50.5 fl (35.1-43.9); Red Blood Count 3.71 M/mm3 (4.6-6.2); White Blood Count 10.2 K/mm3 (4.4-11.0)
--- NOTE | 2022-04-25 11:21 | PCM.PN.ORT ---
Subjective Subjective The patient was sitting in bed with his daughter present upon examination. I assisted patient putting on gown and UltraSling. Patient denies any chest pain, shortness of breath, dizziness, lightheadedness, nausea or vomiting, or calf pain. Pain is controlled on medications. No adverse overnight events. Patient is doing very well with therapy today. Physical therapy states patient was able to walk with 4-prong cane and also walking without the cane. Therapy does feel patient could go home if medically appropriate. Urology also saw patient and at this time will follow-up outpatient in 5 days for removal of Llamas catheter. He will continue with the Flomax. Patient states he has already had bowel movement. Patient is requesting to go home. He will have help with family members at home. Objective Data Objective Data Vital Signs: Vital Signs Temp Pulse Resp BP Pulse Ox O2 Del Method O2 Flow Rate 97.7 F L 86 18 121/60 H 99 Room Air 2 04/25/22 09:17 04/25/22 09:21 04/25/22 09:17 04/25/22 09:17 04/25/22 09:17 04/25/22 09:17 04/25/22 09:17 Oxygen Flow Rate (L/min) 2 Oxygen Delivery Method Room Air Weight: 64 kg Body Mass Index (BMI) 21.4 Intake & Output: Intake and Output for Last 24 Hours 04/23/22 04/24/22 04/25/22 23:59 23:59 23:59 Intake Total 3782 / 3782 1274.75 / 1274.75 Output Total 800 / 800 2350 / 2350 200 / 200 Balance 2982 / 2982 -1075.25 / -1075.25 -200 / -200 Lab / Micro Data Result Diagrams: 04/25/22 10:00 04/24/22 06:43 Labs: Laboratory Results - last 24 hr 04/25/22 10:00: WBC 10.2, RBC 3.71 L, Hgb 11.8 L, Hct 36.2 L, MCV 97.6 H, MCH 31.8, MCHC 32.6, RDW Std Deviation 50.5 H, RDW Coeff of Sandip 14.2, Plt Count 202, MPV 9.5 Micro: Microbiology 04/15/22 16:37 Swab (Method) Nasal Screen MRSA/MSSA - Final Physical Exam Narrative Vital signs stable, afebrile SCDs and GABRIEL hose are in place bilaterally Patient does have diffuse ecchymosis with the shoulder and chest wall Dressing is clean, dry, intact Ultra-sling fitting appropriately Sensation intact to axillary, radial, median, and ulnar distribution Motor intact to AIN, PIN, and ulnar nerve Const alert, oriented x3 and no apparent distress Assessment & Plan Assessment/Plan (1) Status post reverse total arthroplasty of right shoulder: PLAN: 1. S/P right reverse total shoulder arthroplasty POD #2 2. Continue Pain Medications: Tylenol and oxycodone 3. DVT Prophylaxis: Patient has resumed his Eliquis postoperatively for his atrial fibrillation. This will cover him for DVT prophylaxis. 4. PT/OT: Continue with UltraSling at all times except to come out for range of motion exercises of the elbow and pendulum exercise 3 times daily. No range of motion of the postoperative shoulder until outpatient physical therapy begins. Outpatient physical therapy will begin 2 weeks postoperatively after follow-up with [facility] with x-rays and incision check. Discussed case with physical therapy and they feel it is safe for patient to go home with assistance from family members 5. H & H: 11.8/36.2, asymptomatic. Postoperative anemia secondary to acute blood loss from surgery without any intra operative complications. 6. Encouraged Incentive Spirometry 7. Continue postoperative medical management per medicine: Case was discussed with medicine and patient will be started on Flomax 0.4 mg daily. 8. Urinary retention: Patient was seen by Dr. Dobson and we will continue with his recommendations with tamsulosin twice daily for the urinary retention. Patient will follow-up outpatient with urology in 5 days for removal of the Llamas catheter. Continue recommendations from urology and appreciate consultation. This was discussed with the patient and case management will assist with making appointment. I will send prescription for the Flomax initially but any further prescriptions will need to be addressed by urology. 9. Disposition: Patient is doing very well today and has tolerated physical therapy and his pain is well controlled. There was possible discharge planning for the transitional care unit initially. Patient proceeded to progress very well with therapy and they feel it is safe for patient to go home with assistance from family. Patient also is requesting that he go home. His daughter is also in agreements with discharge planning. We will assist patient in setting up appointment with urology for the removal of the catheter. I will continue recommendations per urology for medications. Patient does have outpatient physical therapy and 2-week postoperative visit already scheduled. He will go home only working on elbow flexion and pendulum exercises over the next 2 weeks. He will continue with the UltraSling. I also recommend that he continue to use the 4-prong cane at all times for ambulatory assistance. Recommend sleeping in the recliner at home. They will contact her office upon discharge with any concerns or questions. Prescriptions will be E scribed to drug [facility] in [facility]. I have reviewed the [place] Automated Rx Reporting System (OARRS) report for this patient for refill pattern and other prescriber involvement as part of the appropriate surveillance for the provision of acute and chronic controlled medications. The report was requested and reviewed on the date of this entry and was considered in the prescribing process. This dictation was created using voice recognition software. Phonetic and/or grammatical errors may exist. (2) Urinary retention:
--- NOTE | 2022-04-25 11:28 | PCM.DC ---
Discharge Instructions Diet Discharge Diet: No restrictions Activity Discharge Activity: May Not Drive (While wearing the UltraSling for 6 weeks postoperatively) May shower in (days): 1 (Dressing must be intact to skin. Turn dressing away from water.) Ice area for (Minutes): 20 (Every 1-2 hours while awake[address] Please place barrier between skin and ice pack.) Weight Bearing Status: No weight bearing (Postoperative upper extremity) Additional Activity Instructions:: Continue with UltraSling at all times. Please come out of UltraSling 3 times daily working on elbow range of motion and pendulum exercises. No range of motion of postoperative shoulder. Will begin outpatient physical therapy after 2-week scheduled follow-up. Dressing / Incision Call your doctor if your incision/area has: Continuous Slow Oozing, Sudden Increased Bleeding, Increased Pain/ Swelling, Increased Redness and Foul Smelling Discharge Call your doctor if you observe: Fever of 101 or Higher, Shortness of breath, Chest pain and Uncontrolled pain Remove Dressing in: 3 days (Okay to remove dressing on April 28, 2022) Additional Dressing/Incision Instructions:: Follow [facility] Post-op Instructions. Once postoperative dressing has been removed only use gentle soap and water over the incision. Do not use any ointments, Neosporin, salves, alcohol pads over the incision for 6 weeks postoperatively. Do not submerge underwater for 6 weeks postoperatively. Do NOT use alcohol with narcotic pain medication. Do NOT make important decisions while taking narcotic medication. If you have problems with taking your medication (rash, itching, nausea, etc.) call the office at once. Follow Up Care Please Follow Up With: Louie Dobson MD Test Results: Test results from this visit will be discussed in further detail at your follow-up appointment, if applicable. Discharge Plan Admission Admit Date/Time: 04/23/22 07:36 Attending Provider: Stephane Huang Primary Care Provider: Kiko Mojica [employer] Providers: Gigi Ruffin Juan Miguel Discharge Orders/Prescriptions Prescriptions: New tamsulosin 0.4 mg capsule 0.4 mg PO BID Qty: 60 0RF acetaminophen 500 mg Tablet 1,000 mg PO TID Qty: 0 0RF Rx Instructions: Do not take more than 3000 mg Tylenol in a 24-hour period. oxycodone 5 mg Tablet 2.5 mg PO Q6H PRN PRN (Reason: Pain Score 4-10) 5 Days Qty: 14 0RF Rx Instructions: Take half tablet 2.5 mg every 6 hours as needed for pain tamsulosin 0.4 mg Capsule 0.4 mg PO BID Qty: 0 0RF Continued lactulose 10 gram/15 mL solution 15 ml PO DAILY PRN PRN (Reason: Constipation) meclizine 25 mg tablet 25 mg PO DAILY PRN (Reason: Dizziness) atorvastatin 40 mg tablet 40 mg PO QHS furosemide 40 mg tablet 40 mg PO DAILY potassium chloride 20 mEq tablet extended release 20 meq PO DAILY Label Comments: TAKE 1 TABLET BY MOUTH ONCE DAILY bisacodyl 5 mg tablet,delayed release (DR/EC) 5 mg PO BID PRN (Reason: Constipation) metoprolol tartrate 25 mg tablet 6.25 mg PO BID omeprazole 40 mg capsule,delayed release(DR/EC) 40 mg PO DAILY Label Comments: Take 1 capsule oral once a day Trulance 3 mg Tablet 3 mg PO PRN PRN (Reason: IBS) prednisone 10 mg Tablet 5 mg PO QHS hydrochlorothiazide 12.5 mg tablet 12.5 mg PO DAILY Qty: 90 3RF Eliquis 5 mg tablet See Rx Instructions .ROUTE .COMPLEX Qty: 60 11RF Dose Instruction: TAKE 1 TABLET BY MOUTH TWICE DAILY Rx Instructions: TAKE 1 TABLET BY MOUTH TWICE DAILY Referrals / Follow Up: Physical,Therapy [Other] - 05/08/22 4:00 pm Louie Dobson MD [Med Staff - Active Staff] - Kiko Mojica Chi, MD [Primary Care Provider] - Karel Messer PA-C [Med Staff - Adv Practice Prof] - 05/08/22 2:15 pm Disposition Disposition (needs filled in before D/C Order can be placed): Home, Self Care
--- NOTE | 2022-04-25 11:36 | CASEMGMT ---
Social Work SW spoke with KIMBERLEE Vinson who states after talking to therapy this morning pt is much improved and can return home. FESTUS met with pt and dgt and both agree that pt is well enough to return home today. Pt dgt will be staying with pt to provide assistance as needed. Pt has outpatient therapy appointments already made. Dgt to provide transportation. Hayley in TCU updated and referral cancelled. Plan: Home with outpatient therapy. Dgt to assist TIMOTHY White
--- NOTE | 2022-04-25 11:46 | CASEMGMT ---
RIKI VALENZUELA into pt room, pt dtr and other family present. Pt dtr states she feels comfortable with the care of the catheter. She is aware that a follow up appt needs to be made with but the office is closed. RIKI VALENZUELA will make the appt Thursday and call pt dtr with the date and time. She and pt verbalized understanding.
[2022-04-25 12:22] VITALS: BP 113/70; PULSE 92; RESP 18; TEMP 36.6; O2SAT 93
--- NOTE | 2022-04-29 08:56 | CASEMGMT ---
TC to 's office, pt has an appt on 05/01 at 8am. TC to pt dtr, she is aware.
== END 2022-04-25 13:00 | disposition home or self-care (01) ==
LOC: SDC 09:38 → MS3 09:38
PROVIDERS: Physician Assistant Surgical; Admitting Provider Specialist; PCP Family Medicine Geriatric Medicine; Referring Provider Specialist; Visit Provider Specialist
PROC: (CPT 23472; principal; 2022-04-23 07:00)
DX: M19.011 Primary osteoarthritis, right shoulder (principal); I48.0 Paroxysmal atrial fibrillation; K21.9 Gastro-esophageal reflux disease without esophagitis; Z79.52 Long term (current) use of systemic steroids; K58.9 Irritable bowel syndrome, unspecified; I10 Essential (primary) hypertension; Z87.891 Personal history of nicotine dependence; I25.10 Atherosclerotic heart disease of native coronary artery without angina pectoris; E78.00 Pure hypercholesterolemia, unspecified; Z79.01 Long term (current) use of anticoagulants; I95.9 Hypotension, unspecified; R33.9 Retention of urine, unspecified; I25.2 Old myocardial infarction; Z95.1 Presence of aortocoronary bypass graft; Z79.899 Other long term (current) drug therapy
CPT/HCPCS: 23472; 01638; 64415; 36415; 73030; 80048; 82962; 85027; 87081; 88305; 88311; 94668; 96365; 96366; 97110; 97162; 97166; 97530; 97535; 99221; 99252; C1776; J7050; J7120; A4216; G0378; G0463; J2405; J3475

== ENCOUNTER 2022-05-22 06:59 | Emergency (ER) | payer OTHER, SELFPAY ==
[2022-05-22 06:59] VITALS: BP 119/73; PULSE 75; RESP 16; TEMP 36.2; O2SAT 96; BMI 21.4
--- NOTE | 2022-05-22 07:24 | RAD_ITS ---
STUDY: X-RAY CHEST REASON FOR EXAM: Male, 86 years old. cough TECHNIQUE: PA and lateral views of the chest. COMPARISON: 07/13/2021 FINDINGS: The lungs are clear and expanded. There is no demonstrated pleural abnormality. Sternal cerclage wires and vascular clips are present from a prior sternotomy and coronary artery bypass graft procedure (CABG). Normal mediastinum and tammi. Normal visualized pulmonary arteries. There is atherosclerotic calcification of the aortic arch with tortuosity. There are diffuse degenerative changes of the visualized thoracic spine. Replaced right glenohumeral joint free of complication There is no demonstrated abnormality of the visualized soft tissue structures of the upper abdomen. RAD/Chest PA and Lateral IMPRESSION: No acute pulmonary process Electronically Signed: Enrique Davis MD at 8:39 EDT ,
--- NOTE | 2022-05-22 07:25 | CT_ITS ---
STUDY: CT ABDOMEN AND PELVIS WITH CONTRAST REASON FOR EXAM: Male, 86 years old. Left sided abd pain RADIATION DOSAGE (If Supplied By Facility): CTDIvol = ( 8.34 ) mGy, DLP = ( 329.34 ) mGy TECHNIQUE: Transaxial images were obtained from the dome of the diaphragm to the symphysis pubis without oral contrast. IV 100mL [id number]-300 was administered. Sagittal and coronal images were reconstructed. Individualized dose optimization techniques were used for this CT. COMPARISON: None. FINDINGS: The visualized lung bases are unremarkable. There is been a remote CABG Normal liver. Normal gallbladder and extrahepatic biliary system. Normal spleen. Normal pancreas. Normal bilateral adrenal glands. No obstructive uropathy, or suspicious solid renal lesion. 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 There are punctate nonobstructing right renal stones. There is a small hiatal hernia. Normal small intestine. Retained stool noted throughout the colon There is non-visualization of the appendix. 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 This aneurysm has been stabilized with placement of an aortic stent graft. Stent graft is patent without evidence of endoleak or exoleak. Normal inferior vena cava. Normal retroperitoneum. Normal urinary bladder. Prostate is mildly enlarged and contains calcification suggesting chronic prostatitis. Normal abdominal wall. There are diffuse degenerative changes of the visualized lumbar spine, and pelvis. CT/Abdomen/Pelvis W IV Cont ONLY IMPRESSION: Aortic stent graft shows patency without evidence of endoleak or exoleak. No suspicious solid organ abnormality, punctate nonobstructing right renal stones. Retained stool noted throughout the colon Degenerative bony changes Electronically Signed: Enrique Davis MD at 8:43 EDT ,
--- NOTE | 2022-05-22 07:27 | ED.VIS.GI ---
HPI HPI - GI History of Present Illness Chief Complaint: Abd Pain Informant: patient Narrative Narrative: Patient had an episode of abdominal pain for several hours this morning in the left lower quadrant. He states it is gone now. Daughter states if he called me it must have been bad. He also states for the past 4 days he has had runny nose, congestion, cough. No fevers or chills. No dyspnea. No orthopnea. He has had trouble sleeping, states that happen before his surgery, he had a right shoulder replacement 05/24/2022 1 month ago, states he did not wake up with the pain because he did not sleep well this morning. He did not have any nausea, vomiting, diarrhea, bleeding from his rectum, or urinary symptoms. He states he urinated this morning and it was fine. States he is feeling pretty good right now. Remote appendectomy no other abdominal surgeries. He is on apixaban. No bleeding from anywhere. [facility] Medical History Abdominal aortic aneurysm (AAA) Abdominal pain Arthritis Atherosclerosis of coronary artery of [place] heart without angina pectoris Back pain Cardiology follow-up encounter Central retinal vein occlusion of right eye (11/25/19) Cervical myelopathy Colon polyp Complete edentulism, class III Constipation Esophageal dilatation Essential hypertension Former smoker FTT (failure to thrive) in adult GERD (gastroesophageal reflux disease) History of atrial fibrillation History of echocardiogram History of edema History of esophageal stricture History of hiatal hernia History of pain when walking History of ST elevation myocardial infarction (STEMI) (05/08/06) History of steroid therapy History of stress test Hyperlipidemia Insomnia Irritable bowel syndrome with constipation Leg cramps Multifocal atrial tachycardia Paroxysmal atrial fibrillation Postoperative atrial fibrillation (05/2006) Restless legs Right temporomandibular joint disorder, unspecified Rotator cuff tear Spinal stenosis in cervical region Spondylosis of cervical spine with radiculopathy Stroke/cerebrovascular accident Syncope Tear of biceps tendon Weakness generalized Wears glasses Home Medications lactulose 10 gram/15 mL oral solution 15 ml PO DAILY PRN PRN Constipation 07/24/20 [History Last Taken Unknown] omeprazole 40 mg capsule,delayed release 40 mg PO DAILY GERD 03/04/21 [History Last Taken 04/23/22] plecanatide 3 mg tablet (Trulance) 3 mg PO PRN PRN IBS 07/13/21 [History Last Taken Unknown] hydrochlorothiazide 12.5 mg tablet 12.5 mg PO DAILY #90 tabs 07/30/21 [Rx Last Taken Unknown] atorvastatin 40 mg tablet 40 mg PO QHS 11/11/21 [History Last Taken Unknown] apixaban 5 mg tablet (Eliquis) See Rx Instructions .Route .COMPLEX #60 TABLETS 04/14/22 [Rx Last Taken 04/19/22] tamsulosin 0.4 mg capsule 0.4 mg PO BID #0 caps 04/25/22 [Rx Last Taken Unknown] furosemide 40 mg tablet 40 mg PO DAILY 05/16/22 [History Last Taken Unknown] metoprolol tartrate 25 mg tablet 25 mg PO BID blood pressure 05/16/22 [History Last Taken Unknown] potassium chloride 20 mEq tablet,extended release 20 meq PO DAILY 05/16/22 [History Last Taken Unknown] prednisone 10 mg tablet 5 mg PO BID LEG PAIN 05/16/22 [History Last Taken Unknown] dicyclomine 10 mg capsule 20 mg PO Q6H PRN PRN abdominal discomfort #16 CAPSULES 05/22/22 [Rx Last Taken Unknown] Allergy/AdvReac Type Severity Reaction Status Date / Time rivaroxaban [From Xarelto] AdvReac generally Verified 05/22/22 07:01 did not feel well Family History Mother Colon cancer CVA (cerebral vascular accident) Father Cancer leukemia Surgical History 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) History of appendectomy History of cataract surgery History of endovascular stent graft for abdominal aortic aneurysm (AAA) History of esophageal dilatation (~12/2020) History of esophagogastroduodenoscopy (EGD) History of herniorrhaphy History of sinus surgery S/P cervical spinal fusion Social History household members: none Smoking Status: Former smoker second hand exposure: No alcohol intake: never substance use type: does not use caffeine: Yes seatbelt use: always ROS ROS ED Constitutional Constitutional ED: Denies chills or fever(s) Eyes Eyes: Denies change in vision or diplopia ENT ENT ED: Reports nasal congestion, rhinorrhea and sore throat; Denies headache(s) Cardiovascular Cardiovascular: Denies chest pain or palpitations Respiratory/Chest Respiratory/Chest: Reports cough; Denies dyspnea or sputum Gastrointestinal Gastrointestinal: Reports abdominal pain and constipation; Denies diarrhea, nausea or vomiting Genitourinary Genitourinary ED: Denies dysuria or hematuria Musculoskeletal Musculoskeletal: Denies back pain or neck pain Integumentary Denies abscess or rash Neurologic Neurologic: Denies headache(s), paresthesias or weakness Psychiatric Psychiatric: Denies anxiety or suicidal thoughts EXAM Physical Exam Const Vital Signs: 05/22/22 06:59 Temperature 97.2 F L Temperature Source Temporal Pulse Rate 75 Respiratory Rate 16 Blood Pressure 119/73 Blood Pressure Mean 88 Pulse Ox 96 Oxygen Delivery Method Room Air Positive well nourished and well developed General Appearance ED: well developed and NAD HEENT Reports moist mucous membranes HEENT Narrative: Posterior oropharynx normal. No trismus. Normal tongue no elevation. No sinus tenderness. No purulent nasal discharge. normocephalic and atraumatic Eyes PERRL and EOMs intact bilaterally Neck full ROM, no lymphadenopathy and supple Resp normal respiratory effort and clear to auscultation bilaterally Cardio regular rate, regular rhythm and no murmurs GI non-distended GI Narrative: Mildly tender left mid abdomen, nontender distal left lower quadrant and left upper quadrant. No CVA tenderness. Rest of his abdomen benign. Auscultation: normoactive bowel sounds Palpation: soft Back/Spine no CVA tenderness General Back: other FROM Extremity normal to inspection Extremity Narrative: Right upper extremity in an orthopedic sling, limited range of motion due to that but neurovascular intact distally. General Extremety ED: Negative for edema, pulses abnormal or tenderness General Extremity: Negative for edema or pulses abnormal Neuro oriented x3, CN's II-XII intact bilaterally and no sensory deficits noted Sensorium / Orientation: awake and alert Motor Exam: strength 5/5 throughout Skin no rashes or lesions noted and no wounds MDM MDM MDM Narrative Medical decision making narrative: Patient has a very benign abdomen, mild tenderness in the left side. CT was obtained, I reviewed the images, I see no signs of inflammatory changes, radiology was in agreement there is nothing acute going on, and I agree with their interpretation. There is a significant amount of colonic stool. Patient and daughter state he has chronic constipation, but usually does not get pain like this. Still could be intestinal etiology of his pain since there is no evidence of a problem with his stented AAA or any other acute abnormalities on the CT and his exam is benign. The rest of his work-up was unremarkable, except for a positive swab for influenza B. His COVID is negative. He has had symptoms for longer than 72 hours, so not a candidate for Tamiflu. Chest x-ray 2 view shows no infiltrates on my interpretation, radiology in agreement. Stable for discharge home, will prescribe him Bentyl as needed for any continued pains. Lab Data Attestation: I reviewed the patient's lab results. Labs: Laboratory Results - last 24 hr 05/22/22 05/22/22 07:32 07:32 WBC 3.2 L RBC 3.89 L Hgb 12.3 L Hct 38.3 L MCV 98.5 H MCH 31.6 MCHC 32.1 RDW Std Deviation 53.9 H RDW Coeff of Sandip 14.8 H Plt Count 162 MPV 9.4 Immature Gran % (Auto) 0.300 Neut % (Auto) 40.9 L Lymph % (Auto) 38.0 [place] % (Auto) 17.7 H Eos % (Auto) 2.5 Baso % (Auto) 0.6 Absolute Neuts (auto) 1.3 L Absolute Lymphs (auto) 1.20 Nucleated RBC % 0 Sodium 136 Potassium 4.1 Chloride 107 Carbon Dioxide 27.0 Anion Gap 2 L BUN 11 Creatinine 0.94 Estim Creat Clear Calc 51.51 Est GFR (MDRD) Af Amer 98 Est GFR (MDRD) Non-Af 81 BUN/Creatinine Ratio 11.7 Glucose 92 Calcium 8.5 Radiography Diagnostic Testing: Clinical Impression(s) from Imaging Studies Chest X-Ray 05/22/22 07:24 IMPRESSION: No acute pulmonary process Electronically Signed: Enrique Davis MD at 8:39 EDT , Abdomen/Pelvis CT 05/22/22 07:25 IMPRESSION: Aortic stent graft shows patency without evidence of endoleak or exoleak. No suspicious solid organ abnormality, punctate nonobstructing right renal stones. Retained stool noted throughout the colon Degenerative bony changes Electronically Signed: Enrique Davis MD at 8:43 EDT , Discharge Plan Triage Chief Complaint: Abd Pain ED Provider: Desmond Domínguez Dx/Rx/DC Orders Clinical Impression: Influenza B, Left sided abdominal pain Instructions: Abdominal Pain, ED Influenza (Adult) Prescriptions: New dicyclomine 10 mg capsule 20 mg PO Q6H PRN PRN (Reason: abdominal discomfort) Qty: 16 0RF No Action lactulose 10 gram/15 mL solution 15 ml PO DAILY PRN PRN (Reason: Constipation) atorvastatin 40 mg tablet 40 mg PO QHS furosemide 40 mg tablet 40 mg PO DAILY Label Comments: 40mg PO BID x 3 days then Lasix 40mg PO Daily 05/16/2022 potassium chloride 20 mEq tablet extended release 20 meq PO DAILY Label Comments: TAKE 1 TABLET BY MOUTH ONCE DAILY; Take 20 mEq PO BID x 3 days and then 20 mEq Daily 05/16/2022 metoprolol tartrate 25 mg tablet 25 mg PO BID omeprazole 40 mg capsule,delayed release(DR/EC) 40 mg PO DAILY Label Comments: Take 1 capsule oral once a day Trulance 3 mg Tablet 3 mg PO PRN PRN (Reason: IBS) tamsulosin 0.4 mg Capsule 0.4 mg PO BID Qty: 0 0RF prednisone 10 mg tablet 5 mg PO BID hydrochlorothiazide 12.5 mg tablet 12.5 mg PO DAILY Qty: 90 3RF Eliquis 5 mg tablet See Rx Instructions .ROUTE .COMPLEX Qty: 60 11RF Dose Instruction: TAKE 1 TABLET BY MOUTH TWICE DAILY Rx Instructions: TAKE 1 TABLET BY MOUTH TWICE DAILY Primary Care Provider: Kiko Mojica Chi Referrals: Kiko Mojica Chi, MD [Primary Care Provider] - 3-5 Days if not improving Activity Restrictions/Additional Instructions: Take the new medication because of abdominal discomfort, hold your potassium for that day. Disposition Disposition: Home, Self Care
[2022-05-22 07:45] LABS: Absolute Neutrophil Count 1.3 X10^3/uL (2.0-7.7); Basophil# 0.02 X10^3/uL; Basophil% 0.6 % (0-1); Eosinophil# 0.08 X10^3/uL; Eosinophils% 2.5 % (0-5); Hematocrit 38.3 % (40-54); Hemoglobin 12.3 g/dL (13.0-16.5); Mean Corp Hgb Conc 32.1 g/dL (32-36); Mean Corpuscular Hgb 31.6 pg (27.0-32.0); Mean Corpuscular Volume 98.5 fL (80-94); Mean Platelet Vol. 9.4 fl (6.2-12.0); Monocyte# 0.56 X10^3/uL; Monocyte% 17.7 % (0-10); NRBC Flagged by Analyzer 0 % (0-5); Neutrophil # 1.29 X10^3/uL (2.7-7.7); Neutrophil % 40.9 % (47-70); POSITIVE MORPHOLOGY YES; Platelet Count 162 K/mm3 (150-450); RBC Distribution Width CV 14.8 % (11.6-14.6); RBC Distribution Width SD 53.9 fl (35.1-43.9); Red Blood Count 3.89 M/mm3 (4.6-6.2); White Blood Count 3.2 K/mm3 (4.4-11.0)
[2022-05-22 07:49] LABS: Differential Indicated SCAN CRITERIA MET
[2022-05-22 08:00] LABS: Anion Gap 2 (5-15); BUN 11 mg/dL (7-18); BUN/Creat Ratio 11.7 RATIO (10-20); Calcium,Total 8.5 mg/dL (8.5-10.1); Chloride 107 mmol/L (98-107); Creatinine, Serum 0.94 mg/dL (0.70-1.30); EST Glomerular Filtration Rate 81 mL/min (>60); Est Glom Filt Rate - Afr Amer 98 mL/min (>60); Estimated Creatinine Clearance 51.51 ml/min; Glucose 92 mg/dL (74-106); Potassium 4.1 mmol/L (3.5-5.1); Sodium Level 136 mmol/L (136-145)
[2022-05-22 09:13] VITALS: BP 117/75; PULSE 72; RESP 16; O2SAT 96
== END 2022-05-22 09:15 | disposition home or self-care (01) ==
PROVIDERS: Emergency Provider Emergency Medicine; PCP Family Medicine Geriatric Medicine; Visit Provider Emergency Medicine
DX: J10.1 Influenza due to other identified influenza virus with other respiratory manifestations (principal); E78.5 Hyperlipidemia, unspecified; I25.10 Atherosclerotic heart disease of native coronary artery without angina pectoris; R10.9 Unspecified abdominal pain; R10.819 Abdominal tenderness, unspecified site; I10 Essential (primary) hypertension; Z87.891 Personal history of nicotine dependence; I25.2 Old myocardial infarction
CPT/HCPCS: 71046; 74177; 80048; 85025; 87428; 96360; 99284; J7040; Q9967; A4216

== ENCOUNTER → 2022-05-28 | Outpatient (CLI) | payer MEDICARE, SELFPAY ==
--- NOTE | 2022-05-28 15:34 | RAD_ITS ---
STUDY: X-RAY - ABDOMEN/PELVIS REASON FOR EXAM: Male, 86 years old. Unspecified abdominal pain predominantly in the left abdomen. Constipation and intermittent nausea. History of multiple abdominal and chest surgeries including hernia repair open heart surgery and appendectomy. TECHNIQUE: AP supine and upright views of the abdomen and pelvis. COMPARISON: CT of the abdomen and pelvis, May 22, 2022. FINDINGS: Normal visualized lung bases. There is an unremarkable bowel gas pattern. There is no demonstrated free abdominal air. The visualized liver, spleen and kidneys are grossly normal in size and morphology. Aorto biiliac stent graft. Stable degenerative changes of the lumbar spine. RAD/Abd Inc Decub and/or Erect IMPRESSION: No evidence of acute intra-abdominal or pelvic process. Stable aortobiiliac stent graft. Electronically Signed: Miguel Domínguez DO at 22:46 EDT ,
--- NOTE | 2022-05-28 15:34 | RAD_ITS ---
STUDY: X-RAY CHEST REASON FOR EXAM: Male, 86 years old. Wheezing. Left-sided abdominal pain. History of open heart surgery. TECHNIQUE: PA and lateral views of the chest. COMPARISON: May 22, 2021. FINDINGS: The lungs are clear and expanded. There is no demonstrated pleural abnormality. 3 the heart is normal in size. Normal mediastinum and tammi. Normal visualized pulmonary arteries. There is atherosclerotic calcification of the aortic arch with tortuosity. No osseous changes. Stable right shoulder replacement. There is no demonstrated abnormality of the visualized soft tissue structures of the upper abdomen. RAD/Chest PA and Lateral IMPRESSION: No acute cardiopulmonary disease or major interval change. Electronically Signed: Miguel Domínguez DO at 22:47 EDT ,
[2022-05-28 17:15] LABS: Absolute Lymphocyte Count 1.37 X10^3/uL (0.83-4.51); Absolute Neutrophil Count 3.5 X10^3/uL (2.0-7.7); Basophil# 0.03 X10^3/uL; Basophil% 0.5 % (0-1); Eosinophil# 0.19 X10^3/uL; Eosinophils% 3.3 % (0-5); Hematocrit 39.3 % (40-54); Hemoglobin 12.7 g/dL (13.0-16.5); Lymphocyte # 1.37 X10^3/ul (0.83-4.51); Lymphocyte % 23.7 % (19-41); Mean Corp Hgb Conc 32.3 g/dL (32-36); Mean Corpuscular Hgb 31.7 pg (27.0-32.0); Mean Platelet Vol. 10.3 fl (6.2-12.0); Monocyte# 0.68 X10^3/uL; Monocyte% 11.8 % (0-10); NRBC Flagged by Analyzer 0 % (0-5); Neutrophil # 3.49 X10^3/uL (2.7-7.7); Neutrophil % 60.4 % (47-70); Platelet Count 212 K/mm3 (150-450); RBC Distribution Width CV 14.2 % (11.6-14.6); RBC Distribution Width SD 51.3 fl (35.1-43.9); Red Blood Count 4.01 M/mm3 (4.6-6.2); White Blood Count 5.8 K/mm3 (4.4-11.0)
[2022-05-28 18:04] LABS: ALB/GLOB Ratio 0.8 RATIO (0.9-2.4); AST(SGOT) 15 U/L (15-37); Alanine Aminotransfer ALT/SGPT 17 U/L (16-61); Alkaline Phosphatase 81 U/L (45-117); Anion Gap 4 (5-15); BUN 14 mg/dL (7-18); BUN/Creat Ratio 16.5 RATIO (10-20); Calcium,Total 8.5 mg/dL (8.5-10.1); Chloride 104 mmol/L (98-107); Creatinine, Serum 0.85 mg/dL (0.70-1.30); EST Glomerular Filtration Rate 91 mL/min (>60); Est Glom Filt Rate - Afr Amer 110 mL/min (>60); Globulin 3.7 g/dL (2.2-4.2); Glucose 85 mg/dL (74-106); Potassium 3.2 mmol/L (3.5-5.1); Protein, Total 6.7 g/dL (6.4-8.2); Sodium Level 136 mmol/L (136-145)
== END | disposition home or self-care (01) ==
PROVIDERS: PCP Family Medicine Geriatric Medicine; Referring Provider Family Medicine Geriatric Medicine; Visit Provider Family Medicine Geriatric Medicine
DX: R53.1 Weakness (principal); R06.2 Wheezing; R10.9 Unspecified abdominal pain
CPT/HCPCS: 36415; 71046; 74019; 80053; 85025

== ENCOUNTER → 2022-05-29 | Outpatient (CLI) | payer MEDICARE, SELFPAY ==
[2022-05-29 14:35] LABS: Probe Check PASS; Specimen Processing Control PASS
== END | disposition home or self-care (01) ==
LOC: PSN 09:18
PROVIDERS: PCP Family Medicine Geriatric Medicine; Referring Provider Family Medicine Geriatric Medicine; Visit Provider Family Medicine Geriatric Medicine
DX: R68.83 Chills (without fever) (principal)
CPT/HCPCS: 87635; 87804; 87807; C9803; U0003; U0005

== ENCOUNTER 2022-06-04 11:28 | Observation (INO) | payer OTHER, SELFPAY ==
[2022-06-04] VITALS (32 sets, daily range): BP systolic 95–121; BP diastolic 61–97; PULSE 68–110; RESP 15–48; TEMP 36.2–36.7; O2SAT 94–98; BMI 19.9; BMI 19.6
--- NOTE | 2022-06-04 11:44 | EX.ED.DYSGE1 ---
HPI History of Present Illness Chief Complaint: Dizziness Informant: patient and family Onset/Context/Timing Onset: Yesterday Context: Sudden Onset Timing: Continuous Quality: Lightheaded Location: Generalized Worsened by: Standing Relieved by: Laying down Narrative Narrative: Presents with dizziness that began yesterday. Patient describes it as a lightheaded feeling. Patient states it is worse with standing and better with lying down. Patient also complains of pain in his left leg. Patient states it is mainly in his lower leg at but occasionally radiates up into his left thigh. Patient denies any trauma or injury. Patient states he has a history of chronic tinnitus but denies any hearing changes. Patient does admit to some rhinorrhea recently. Patient states he was also diagnosed with influenza approximately 2 to 3 weeks ago. Patient admits to a generalized headache. [facility] Medical History Abdominal aortic aneurysm (AAA) Abdominal pain Arthritis Atherosclerosis of coronary artery of [place] without angina pectoris Back pain Cardiology follow-up encounter Central retinal vein occlusion of right eye (11/25/19) Cervical myelopathy Colon polyp Complete edentulism, class III Constipation Esophageal dilatation Essential hypertension Former smoker FTT (failure to thrive) in adult GERD (gastroesophageal reflux disease) History of atrial fibrillation History of echocardiogram History of edema History of esophageal stricture History of hiatal hernia History of pain when walking History of ST elevation myocardial infarction (STEMI) (05/08/06) History of steroid therapy History of stress test Hyperlipidemia Insomnia Irritable bowel syndrome with constipation Leg cramps Multifocal atrial tachycardia Paroxysmal atrial fibrillation Postoperative atrial fibrillation (05/2006) Restless legs Right temporomandibular joint disorder, unspecified Rotator cuff tear Spinal stenosis in cervical region Spondylosis of cervical spine with radiculopathy Stroke/cerebrovascular accident Syncope Tear of biceps tendon Weakness generalized Wears glasses Home Medications lactulose 10 gram/15 mL oral solution 15 ml PO DAILY PRN PRN Constipation 07/24/20 [History Last Taken Unknown] omeprazole 40 mg capsule,delayed release 40 mg PO DAILY GERD 03/04/21 [History Last Taken 04/23/22] plecanatide 3 mg tablet (Trulance) 3 mg PO PRN PRN IBS 07/13/21 [History Last Taken Unknown] hydrochlorothiazide 12.5 mg tablet 12.5 mg PO DAILY #90 tabs 07/30/21 [Rx Last Taken Unknown] atorvastatin 40 mg tablet 40 mg PO QHS 11/11/21 [History Last Taken Unknown] apixaban 5 mg tablet (Eliquis) See Rx Instructions .Route .COMPLEX #60 TABLETS 04/14/22 [Rx Last Taken 04/19/22] tamsulosin 0.4 mg capsule 0.4 mg PO BID #0 caps 04/25/22 [Rx Last Taken Unknown] furosemide 40 mg tablet 40 mg PO DAILY 05/16/22 [History Last Taken Unknown] metoprolol tartrate 25 mg tablet 25 mg PO BID blood pressure 05/16/22 [History Last Taken Unknown] potassium chloride 20 mEq tablet,extended release 20 meq PO DAILY 05/16/22 [History Last Taken Unknown] prednisone 10 mg tablet 5 mg PO BID LEG PAIN 05/16/22 [History Last Taken Unknown] dicyclomine 10 mg capsule 20 mg PO Q6H PRN PRN abdominal discomfort #16 CAPSULES 05/22/22 [Rx Last Taken Unknown] Allergy/AdvReac Type Severity Reaction Status Date / Time rivaroxaban [From Xarelto] AdvReac generally Verified 06/04/22 11:29 did not feel well Family History Mother Colon cancer CVA (cerebral vascular accident) Father Cancer leukemia Surgical History 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) History of appendectomy History of cataract surgery History of endovascular stent graft for abdominal aortic aneurysm (AAA) History of esophageal dilatation (~12/2020) History of esophagogastroduodenoscopy (EGD) History of herniorrhaphy History of sinus surgery S/P cervical spinal fusion Social History household members: none Smoking Status: Former smoker second hand exposure: No alcohol intake: never substance use type: does not use caffeine: Yes seatbelt use: always ROS ROS ED Constitutional Constitutional ED: Denies chills or fever(s) Eyes Eyes: Denies blurry vision or change in vision ENT ENT ED: Reports rhinorrhea; Denies sore throat Cardiovascular Cardiovascular: Denies chest pain or palpitations Respiratory/Chest Respiratory/Chest: Denies cough or dyspnea Gastrointestinal Gastrointestinal: Reports nausea and vomiting Genitourinary Genitourinary ED: Reports dysuria; Denies hematuria Musculoskeletal Musculoskeletal: Denies back pain or neck pain Integumentary Denies abscess or rash Neurologic Neurologic: Reports headache(s); Denies weakness Allergic/Immunologic Allergic/Immunologic ED: Denies mouth swelling or urticaria EXAM Physical Exam Const Vital Signs: 06/04/22 11:29 06/04/22 12:21 06/04/22 11:48 Temperature 97.2 F L Temperature Source Temporal Pulse Rate 81 83 Pulse Rate [Lying] 78 Pulse Rate [Sitting (for 1 minute prior to obtaining)] 76 Pulse Rate [Standing (for 1 minute prior to obtaining)] 80 Respiratory Rate 18 15 Blood Pressure 109/97 H Blood Pressure [Lying] 113/71 Blood Pressure [Sitting (for 1 minute prior to obtaining)] 121/62 H Blood Pressure [Standing (for 1 minute prior to obtaining)] 95/63 Blood Pressure Mean 101 Blood Pressure Mean [Lying] 85 Blood Pressure Mean [Sitting (for 1 minute prior to obtaining)] 81 Blood Pressure Mean [Standing (for 1 minute prior to obtaining)] 73 Pulse Ox 96 96 Oxygen Delivery Method Room Air 06/04/22 11:50 06/04/22 12:00 06/04/22 12:00 Temperature Temperature Source Pulse Rate 87 81 Pulse Rate [Lying] Pulse Rate [Sitting (for 1 minute prior to obtaining)] Pulse Rate [Standing (for 1 minute prior to obtaining)] Respiratory Rate 22 H 19 H Blood Pressure 111/84 H Blood Pressure [Lying] Blood Pressure [Sitting (for 1 minute prior to obtaining)] Blood Pressure [Standing (for 1 minute prior to obtaining)] Blood Pressure Mean 93 Blood Pressure Mean [Lying] Blood Pressure Mean [Sitting (for 1 minute prior to obtaining)] Blood Pressure Mean [Standing (for 1 minute prior to obtaining)] Pulse Ox 97 97 Oxygen Delivery Method 06/04/22 12:10 06/04/22 12:20 06/04/22 12:30 Temperature Temperature Source Pulse Rate 83 77 82 Pulse Rate [Lying] Pulse Rate [Sitting (for 1 minute prior to obtaining)] Pulse Rate [Standing (for 1 minute prior to obtaining)] Respiratory Rate 25 H 20 H 24 H Blood Pressure Blood Pressure [Lying] Blood Pressure [Sitting (for 1 minute prior to obtaining)] Blood Pressure [Standing (for 1 minute prior to obtaining)] Blood Pressure Mean Blood Pressure Mean [Lying] Blood Pressure Mean [Sitting (for 1 minute prior to obtaining)] Blood Pressure Mean [Standing (for 1 minute prior to obtaining)] Pulse Ox 97 96 98 Oxygen Delivery Method 06/04/22 12:40 06/04/22 12:54 06/04/22 13:00 Temperature Temperature Source Pulse Rate 68 86 81 Pulse Rate [Lying] Pulse Rate [Sitting (for 1 minute prior to obtaining)] Pulse Rate [Standing (for 1 minute prior to obtaining)] Respiratory Rate 27 H 36 H 22 H Blood Pressure 106/89 H Blood Pressure [Lying] Blood Pressure [Sitting (for 1 minute prior to obtaining)] Blood Pressure [Standing (for 1 minute prior to obtaining)] Blood Pressure Mean 94 Blood Pressure Mean [Lying] Blood Pressure Mean [Sitting (for 1 minute prior to obtaining)] Blood Pressure Mean [Standing (for 1 minute prior to obtaining)] Pulse Ox 96 96 Oxygen Delivery Method 06/04/22 13:00 06/04/22 13:10 06/04/22 13:11 Temperature Temperature Source Pulse Rate 81 85 Pulse Rate [Lying] Pulse Rate [Sitting (for 1 minute prior to obtaining)] Pulse Rate [Standing (for 1 minute prior to obtaining)] Respiratory Rate 22 H 23 H Blood Pressure 113/71 Blood Pressure [Lying] Blood Pressure [Sitting (for 1 minute prior to obtaining)] Blood Pressure [Standing (for 1 minute prior to obtaining)] Blood Pressure Mean 82 Blood Pressure Mean [Lying] Blood Pressure Mean [Sitting (for 1 minute prior to obtaining)] Blood Pressure Mean [Standing (for 1 minute prior to obtaining)] Pulse Ox 96 94 97 Oxygen Delivery Method 06/04/22 13:13 06/04/22 13:14 06/04/22 13:20 Temperature Temperature Source Pulse Rate 82 92 Pulse Rate [Lying] Pulse Rate [Sitting (for 1 minute prior to obtaining)] Pulse Rate [Standing (for 1 minute prior to obtaining)] Respiratory Rate 48 H 42 H 24 H Blood Pressure 121/62 H 95/63 Blood Pressure [Lying] Blood Pressure [Sitting (for 1 minute prior to obtaining)] Blood Pressure [Standing (for 1 minute prior to obtaining)] Blood Pressure Mean 73 74 Blood Pressure Mean [Lying] Blood Pressure Mean [Sitting (for 1 minute prior to obtaining)] Blood Pressure Mean [Standing (for 1 minute prior to obtaining)] Pulse Ox 97 97 Oxygen Delivery Method 06/04/22 13:30 06/04/22 13:40 06/04/22 13:50 Temperature Temperature Source Pulse Rate 82 92 92 Pulse Rate [Lying] Pulse Rate [Sitting (for 1 minute prior to obtaining)] Pulse Rate [Standing (for 1 minute prior to obtaining)] Respiratory Rate 18 17 22 H Blood Pressure Blood Pressure [Lying] Blood Pressure [Sitting (for 1 minute prior to obtaining)] Blood Pressure [Standing (for 1 minute prior to obtaining)] Blood Pressure Mean Blood Pressure Mean [Lying] Blood Pressure Mean [Sitting (for 1 minute prior to obtaining)] Blood Pressure Mean [Standing (for 1 minute prior to obtaining)] Pulse Ox 95 96 94 Oxygen Delivery Method 06/04/22 14:00 06/04/22 14:00 06/04/22 14:10 Temperature Temperature Source Pulse Rate 78 78 91 Pulse Rate [Lying] Pulse Rate [Sitting (for 1 minute prior to obtaining)] Pulse Rate [Standing (for 1 minute prior to obtaining)] Respiratory Rate 23 H 23 H 23 H Blood Pressure 103/69 Blood Pressure [Lying] Blood Pressure [Sitting (for 1 minute prior to obtaining)] Blood Pressure [Standing (for 1 minute prior to obtaining)] Blood Pressure Mean 81 Blood Pressure Mean [Lying] Blood Pressure Mean [Sitting (for 1 minute prior to obtaining)] Blood Pressure Mean [Standing (for 1 minute prior to obtaining)] Pulse Ox 96 96 97 Oxygen Delivery Method 06/04/22 14:20 Temperature Temperature Source Pulse Rate 90 Pulse Rate [Lying] Pulse Rate [Sitting (for 1 minute prior to obtaining)] Pulse Rate [Standing (for 1 minute prior to obtaining)] Respiratory Rate 28 H Blood Pressure Blood Pressure [Lying] Blood Pressure [Sitting (for 1 minute prior to obtaining)] Blood Pressure [Standing (for 1 minute prior to obtaining)] Blood Pressure Mean Blood Pressure Mean [Lying] Blood Pressure Mean [Sitting (for 1 minute prior to obtaining)] Blood Pressure Mean [Standing (for 1 minute prior to obtaining)] Pulse Ox 96 Oxygen Delivery Method Positive well nourished and well developed General Appearance ED: well developed and NAD HEENT Reports moist mucous membranes Eyes PERRL and EOMs intact bilaterally Eyes Narrative: There is some mild nystagmus with left lateral gaze. This did reproduce the patient's symptoms of dizziness. Neck supple and no JVD Resp normal respiratory effort and clear to auscultation bilaterally Cardio regular rate and regular rhythm GI normal to inspection, nondistended, normoactive bowel sounds and non-tender Palpation: soft Extremity normal to inspection Extremity Narrative: There is mild tenderness of the left lower leg. There is no tenderness over the medial thigh. There is no edema noted. Pedal pulses are equal bilaterally. General Extremety ED: Yes tenderness; Negative for edema General Extremity: Negative for edema Neuro oriented x3, CN's II-XII intact bilaterally and no sensory deficits noted Sensorium / Orientation: alert Motor Exam: strength 5/5 throughout Psych mental status grossly normal Skin no rashes or lesions noted MDM MDM MDM Narrative Medical decision making narrative: Differential diagnosis includes vertigo, labyrinthitis, dehydration, stroke, urinary tract infection, viral illness, cardiac dysrhythmia, cardiac ischemia, and electrolyte abnormality. CBC will be obtained to assess for leukocytosis and anemia. Basic metabolic profile will be obtained to assess for electrolyte abnormality and renal function. CT scan of the brain will be obtained to assess for stroke. Urinalysis will be obtained to assess for urinary tract infection. High-sensitivity troponin will be obtained to assess for cardiac ischemia. History & Record Review Additional record(s) reviewed:: Prior outpatient record, Prior ED visit and Prior labs Lab Data Attestation: I reviewed the patient's lab results. Lab results narrative: CBC was reviewed and was within normal limits. Basic metabolic profile was reviewed and was essentially within normal limits. PT with INR and PTT were reviewed and were essentially within normal limits. Urinalysis was reviewed. There is no evidence of urinary tract infection or hematuria. Labs: Laboratory Results - last 24 hr 06/04/22 06/04/22 06/04/22 12:15 12:15 12:15 WBC 5.7 RBC 4.35 L Hgb 13.7 Hct 41.4 MCV 95.2 H MCH 31.5 MCHC 33.1 RDW Std Deviation 48.7 H RDW Coeff of Sandip 13.9 Plt Count 325 MPV 9.2 Immature Gran % (Auto) 0.300 Neut % (Auto) 66.8 Lymph % (Auto) 19.1 Wilcox % (Auto) 12.1 H Eos % (Auto) 1.2 Baso % (Auto) 0.5 Absolute Neuts (auto) 3.8 Absolute Lymphs (auto) 1.09 Nucleated RBC % 0 PT 14.9 INR 1.2 APTT 28.8 Sodium 136 Potassium 3.4 L Chloride 102 Carbon Dioxide 31.0 Anion Gap 3 L BUN 19 H Creatinine 0.99 Estim Creat Clear Calc 45.43 Est GFR (MDRD) Af Amer 92 Est GFR (MDRD) Non-Af 76 BUN/Creatinine Ratio 19.2 Glucose 116 H Calcium 8.9 Troponin I High Sens 13 Urine Color Urine Clarity Urine pH Ur Specific [place] Urine Protein Urine Glucose (UA) Urine Ketones Urine Occult Blood Urine Nitrite Urine Bilirubin Urine Urobilinogen Ur Leukocyte Esterase Urine RBC Urine WBC Ur Squamous Epith Cells Urine Bacteria Urine Mucus 06/04/22 12:50 WBC RBC Hgb Hct MCV MCH MCHC RDW Std Deviation RDW Coeff of Sandip Plt Count MPV Immature Gran % (Auto) Neut % (Auto) Lymph % (Auto) Wilcox % (Auto) Eos % (Auto) Baso % (Auto) Absolute Neuts (auto) Absolute Lymphs (auto) Nucleated RBC % PT INR APTT Sodium Potassium Chloride Carbon Dioxide Anion Gap BUN Creatinine Estim Creat Clear Calc Est GFR (MDRD) Af Amer Est GFR (MDRD) Non-Af BUN/Creatinine Ratio Glucose Calcium Troponin I High Sens Urine Color Yellow Urine Clarity Clear Urine pH 7.0 Ur Specific [place] 1.010 Urine Protein 15 H Urine Glucose (UA) Normal Urine Ketones Negative Urine Occult Blood Negative Urine Nitrite Negative Urine Bilirubin Negative Urine Urobilinogen 1 H Ur Leukocyte Esterase 25 H Urine RBC 0 SEEN Urine WBC 0 SEEN Ur Squamous Epith Cells 0 SEEN Urine Bacteria 0 SEEN Urine Mucus 0 SEEN Radiography Diagnostic Testing: Clinical Impression(s) from Imaging Studies Brain CT 06/04/22 12:21 IMPRESSION: Normal unenhanced CT scan of the brain. Electronically Signed: Sukhdev Larson MD at 13:28 EDT , CT scan of the brain was obtained. There is no acute intracranial abnormality. This was interpreted by the radiologist and was also independently reviewed by myself. EKG Initial EKG: Attestation: I personally reviewed and interpreted this EKG as follows: Interpretation: Sinus Rhythm (93) and Non-Specific ST Changes Comments: EKG was obtained. On my independent interpretation, it showed a normal sinus rhythm with a rate of 93. MT interval, QRS interval, and QTc intervals were all normal. [place] was normal. There are nonspecific ST-T wave changes. Prior EKG tracings: available for review Prior: Unchanged (12/02/2021) Management Discussion w/another healthcare provider: Hospitalist Treatment and Re-Evaluation :: Patient was given a dose of meclizine initially. Patient had minimal relief of his dizziness with this. Patient was given a dose of Valium. Patient states he felt better subjectively while lying in bed after this. We attempted to ambulate the patient. He was unable to ambulate due to the dizziness. Patient also has been complaining of pain in his left leg, mainly over the anterior aspect of his thigh. There is no swelling or redness consistent with infection or DVT. This may be radicular pain from his low back. Because of his difficulty with ambulation, case was discussed with the hospitalist for admission. Discharge Plan Dx/Rx/DC Orders Clinical Impression: Vertigo, Unable to ambulate Disposition Disposition: Acute Care Hospital [facility]
--- NOTE | 2022-06-04 12:21 | CT_ITS ---
STUDY: CT BRAIN WITHOUT CONTRAST REASON FOR EXAM: Male, 86 years old. Headache. Vertigo and dizziness. RADIATION DOSAGE (If Supplied By Facility): CTDIvol = ( 44.99 ) mGy, DLP = ( 829.85 ) mGycm TECHNIQUE: Transaxial CT imaging of the brain was performed without administration of intravenous contrast material. Individualized dose optimization techniques were used for this CT. COMPARISON: Comparison is made with prior study September 11, 2017. FINDINGS: Normal soft tissue structures. Normal calvarium. There is mild cerebral atrophy with widening of the extra-axial spaces and ventricular dilatation. Normal white matter tracts of the cerebral hemispheres. Normal basal ganglia and thalami. Normal brainstem. Normal cerebellum. There is no intracranial hemorrhage. There are no findings of an acute ischemic infarction. Atherosclerotic plaque formation of the cavernous portions of the internal carotid arteries. Normal visualized paranasal sinuses. CT/Brain/Head without Contrast IMPRESSION: Normal unenhanced CT scan of the brain. Electronically Signed: Sukhdev Larson MD at 13:28 EDT ,
--- NOTE | 2022-06-04 12:21 | EKG12_ITS ---
Test Reason : DIZZINESS Blood Pressure : / mmHG Vent. Rate : 093 BPM Atrial Rate : 093 BPM P-R Int : 000 ms QRS Dur : 080 ms QT Int : 378 ms P-R-T Axes : 069 -03 050 degrees QTc Int : 469 ms Sinus rhythm with occasional Premature ventricular complexes and Premature atrial complexes Nonspecific ST abnormality Abnormal ECG Confirmed by GIANNA LYLES, MARCOS ([id number]), editor continuity and script KIM PANG ([id number]) on 06/05/2022 9:02:08 AM Referred By: TEREZA Confirmed By:MARCOS KATZ MD
[2022-06-04] MEDS: Meclizine HCl 25 MG Tablet PO (12:30)
[2022-06-04] MEDS: 0.9% Normal Saline 1,000 ML 1000 ML IV (12:30)
[2022-06-04] MEDS: Ondansetron 4 MG/2 ML Vial IV (12:31)
[2022-06-04 12:33] LABS: Absolute Lymphocyte Count 1.09 X10^3/uL (0.83-4.51); Absolute Neutrophil Count 3.8 X10^3/uL (2.0-7.7); Basophil# 0.03 X10^3/uL; Basophil% 0.5 % (0-1); Eosinophil# 0.07 X10^3/uL; Eosinophils% 1.2 % (0-5); Hematocrit 41.4 % (40-54); Hemoglobin 13.7 g/dL (13.0-16.5); Lymphocyte # 1.09 X10^3/ul (0.83-4.51); Lymphocyte % 19.1 % (19-41); Mean Corp Hgb Conc 33.1 g/dL (32-36); Mean Corpuscular Hgb 31.5 pg (27.0-32.0); Mean Corpuscular Volume 95.2 fL (80-94); Mean Platelet Vol. 9.2 fl (6.2-12.0); Monocyte# 0.69 X10^3/uL; Monocyte% 12.1 % (0-10); NRBC Flagged by Analyzer 0 % (0-5); Neutrophil # 3.82 X10^3/uL (2.7-7.7); Neutrophil % 66.8 % (47-70); Platelet Count 325 K/mm3 (150-450); RBC Distribution Width CV 13.9 % (11.6-14.6); RBC Distribution Width SD 48.7 fl (35.1-43.9); Red Blood Count 4.35 M/mm3 (4.6-6.2); White Blood Count 5.7 K/mm3 (4.4-11.0)
[2022-06-04 12:52] LABS: Anion Gap 3 (5-15); BUN 19 mg/dL (7-18); BUN/Creat Ratio 19.2 RATIO (10-20); Calcium,Total 8.9 mg/dL (8.5-10.1); Chloride 102 mmol/L (98-107); Creatinine, Serum 0.99 mg/dL (0.70-1.30); EST Glomerular Filtration Rate 76 mL/min (>60); Est Glom Filt Rate - Afr Amer 92 mL/min (>60); Estimated Creatinine Clearance 45.43 ml/min; Glucose 116 mg/dL (74-106); Potassium 3.4 mmol/L (3.5-5.1); Sodium Level 136 mmol/L (136-145); Troponin-I HS 13 pg/mL (3.0-78.0)
[2022-06-04 12:57] LABS: Bacteria 0 SEEN /hpf (None Seen); Mucous, Urine 0 SEEN /hpf (<or=2+); Red Blood Cells-Urine 0 SEEN /hpf (0-5); Squamous Epithelial Cells - UA 0 SEEN /hpf (0-5); White Blood Cells 0 SEEN /hpf (0-5)
[2022-06-04 13:03] LABS: Color, Urine Yellow (Yellow); Glucose, Dipstick Normal (Normal); Ketone-Dipstick Negative (Negative); Leukocyte Esterase-Dipstick 25 /ul (Negative); Nitrite-Dipstick Negative (Negative); Occult Blood-Urine Negative /ul (Negative); Protein-Dipstick 15 mg/dl (Negative); Urine Bilirubin Dipstick Negative (Negative); Urine Clarity Clear (Clear); Urine Urobilinogen 1 mg/dl (Normal)
[2022-06-04 13:28] LABS: International Normalized Ratio 1.2; Prothrombin Time (Protime)PT. 14.9 SECONDS (11.7-14.9)
[2022-06-04 13:29] LABS: Partial Thromboplast Time 28.8 Seconds (24.1-36.2)
[2022-06-04] MEDS: diazePAM 5 MG Tablet 2.5 MG PO (14:09)
--- NOTE | 2022-06-04 15:58 | PCM.HP.STD ---
HPI - General General Date of Admission: 06/04/22 Date of Service: 06/04/22 Chief Complaint: Vertigo/left leg pain HPI Narrative ESAU NAJERA, is a 86 M who presented to the emergency department at [facility] on 06/04/2022 complaining of vertigo and left leg pain both of which started earlier today. Patient states he has had vertigo previously and its gone away by itself. He states this episode is lasted significantly longer than previous. He reports it was there when he went to get out of bed this morning and has been fairly ongoing. He feels like he is spinning. At the time of my evaluation his vertigo had ceased however he had been given a low-dose Valium and meclizine by the emergency department. He did have significant nausea and vomiting associated which has since resolved as well. The emergency department nurse tried to get him out of bed and ambulate him for discharge however the patient was very unsteady and he does live alone. His daughter reports that she does check on him frequently however. He denies any chest pain or shortness of breath. He has had no presyncopal or syncopal type episodes. He denies any tingling or weakness. He does report that his left leg feels weak due to the pain but has been able to hold him up without any difficulty. Vital signs on presentation demonstrated temperature of 97.2, heart rate 81, blood pressure 109/97, respiratory rate was 18 and oxygen saturation was 96% on room air. CBC was overall unremarkable. Coags are normal. Chemistry panel showed only shows mild hypokalemia with a potassium of 3.4 but was otherwise fairly unremarkable. Initial troponin was 13. His UA was unremarkable. CT of the brain was a normal unenhanced CT. Orthostatic vitals were obtained in the emergency department and were positive from a systolic blood pressure standpoint from sitting to standing and he was given 1 L of IV fluids in the emergency department for this. Given his inability to ambulate independently and him living alone, request for admission was made. [facility] Medical History Abdominal aortic aneurysm (AAA) Abdominal pain Arthritis Atherosclerosis of coronary artery of [place] heart without angina pectoris Back pain Cardiology follow-up encounter Central retinal vein occlusion of right eye (11/25/19) Cervical myelopathy Colon polyp Complete edentulism, class III Constipation Esophageal dilatation Essential hypertension Former smoker FTT (failure to thrive) in adult GERD (gastroesophageal reflux disease) History of atrial fibrillation History of echocardiogram History of edema History of esophageal stricture History of hiatal hernia History of pain when walking History of ST elevation myocardial infarction (STEMI) (05/08/06) History of steroid therapy History of stress test Hyperlipidemia Insomnia Irritable bowel syndrome with constipation Leg cramps Multifocal atrial tachycardia Paroxysmal atrial fibrillation Postoperative atrial fibrillation (05/2006) Restless legs Right temporomandibular joint disorder, unspecified Rotator cuff tear Spinal stenosis in cervical region Spondylosis of cervical spine with radiculopathy Stroke/cerebrovascular accident Syncope Tear of biceps tendon Weakness generalized Wears glasses Home Medications lactulose 10 gram/15 mL oral solution 15 ml PO DAILY PRN PRN Constipation 07/24/20 [History Last Taken Unknown] omeprazole 40 mg capsule,delayed release 40 mg PO DAILY GERD 03/04/21 [History Last Taken 04/23/22] plecanatide 3 mg tablet (Trulance) 3 mg PO PRN PRN IBS 07/13/21 [History Last Taken Unknown] hydrochlorothiazide 12.5 mg tablet 12.5 mg PO DAILY #90 tabs 07/30/21 [Rx Last Taken Unknown] atorvastatin 40 mg tablet 40 mg PO QHS cholesterol 11/11/21 [History Last Taken Unknown] apixaban 5 mg tablet (Eliquis) See Rx Instructions .Route .COMPLEX #60 TABLETS 04/14/22 [Rx Last Taken 04/19/22] tamsulosin 0.4 mg capsule 0.4 mg PO BID #0 caps 04/25/22 [Rx Last Taken Unknown] furosemide 40 mg tablet 40 mg PO DAILY water pill 05/16/22 [History Last Taken Unknown] metoprolol tartrate 25 mg tablet 25 mg PO BID blood pressure 05/16/22 [History Last Taken Unknown] potassium chloride 20 mEq tablet,extended release 20 meq PO DAILY supplement 05/16/22 [History Last Taken Unknown] prednisone 10 mg tablet 5 mg PO BID LEG PAIN 05/16/22 [History Last Taken Unknown] Allergy/AdvReac Type Severity Reaction Status Date / Time rivaroxaban [From Xarelto] AdvReac generally Verified 06/04/22 11:29 did not feel well Family History Mother Colon cancer CVA (cerebral vascular accident) Father Cancer leukemia Surgical History 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) History of appendectomy History of cataract surgery History of endovascular stent graft for abdominal aortic aneurysm (AAA) History of esophageal dilatation (~12/2020) History of esophagogastroduodenoscopy (EGD) History of herniorrhaphy History of sinus surgery S/P cervical spinal fusion Social History household members: none Smoking Status: Former smoker second hand exposure: No alcohol intake: never substance use type: does not use caffeine: Yes seatbelt use: always ROS Constitutional Constitutional: Denies anorexia, change in weight, chills, fatigue, fever(s), malaise, night sweats, weakness or other Eyes Eyes: Denies blurry vision, change in eye color, change in vision, discharge from eye(s), double vision, erythema, eye pain, loss of vision or other ENT HEENT: Denies abnormal hearing, dysphagia, ear pain, epistaxis, headache(s), hearing loss, nasal congestion, nasal discharge, post nasal drip, sinus pressure, sore throat or other Cardiovascular Cardiovascular: Denies chest pain, claudication, dyspnea on exertion, edema, lightheadedness, orthopnea, palpitations, paroxysmal nocturnal dyspnea, rapid heart rate, syncope or other Respiratory/Chest Respiratory/Chest: Denies cough, dyspnea, excessive phlegm production, hemoptysis, productive cough, shortness of breath at rest, shortness of breath with exertion, wheezing or other Gastrointestinal Gastrointestinal: Denies abdominal pain, coffee ground emesis, constipation, diarrhea, dyspepsia, hematemesis, hematochezia, loose stools, melena, nausea, vomiting or other Genitourinary Genitourinary: Denies burning urination, difficulty urinating, dysuria, hematuria, nocturia, urinary frequency, urinary hesitancy, urinary incontinence, urinary urgency or other Musculoskeletal Musculoskeletal: Reports other Details: L Leg Pain Neurologic Neurologic: Reports abnormal gait and dizziness Psychiatric Psychiatric: Denies anxiety, depression, homicidal ideation, suicidal ideation or other Endocrine Endocrinology: Denies change in body appearance, cold intolerance, excessive sweating, heat intolerance, polydipsia, polyuria or other Hematologic/Lymphatic Hematologic/Lymphatic: Denies anemia, easy bleeding, easy bruising, lymphadenopathy or other Allergic/Immunologic Allergic/Immunologic: Denies rhinitis, hives, eczemia, asthma or other Vital Signs Vital Signs Vital Signs: 06/04/22 11:29 06/04/22 12:21 06/04/22 11:48 Temperature 97.2 F L Temperature Source Temporal Pulse Rate 81 83 Pulse Rate [Lying] 78 Pulse Rate [Sitting (for 1 minute prior to obtaining)] 76 Pulse Rate [Standing (for 1 minute prior to obtaining)] 80 Respiratory Rate 18 15 Blood Pressure 109/97 H Blood Pressure [Lying] 113/71 Blood Pressure [Sitting (for 1 minute prior to obtaining)] 121/62 H Blood Pressure [Standing (for 1 minute prior to obtaining)] 95/63 Blood Pressure Mean 101 Blood Pressure Mean [Lying] 85 Blood Pressure Mean [Sitting (for 1 minute prior to obtaining)] 81 Blood Pressure Mean [Standing (for 1 minute prior to obtaining)] 73 Pulse Ox 96 96 Oxygen Delivery Method Room Air 06/04/22 11:50 06/04/22 12:00 06/04/22 12:00 Temperature Temperature Source Pulse Rate 87 81 Pulse Rate [Lying] Pulse Rate [Sitting (for 1 minute prior to obtaining)] Pulse Rate [Standing (for 1 minute prior to obtaining)] Respiratory Rate 22 H 19 H Blood Pressure 111/84 H Blood Pressure [Lying] Blood Pressure [Sitting (for 1 minute prior to obtaining)] Blood Pressure [Standing (for 1 minute prior to obtaining)] Blood Pressure Mean 93 Blood Pressure Mean [Lying] Blood Pressure Mean [Sitting (for 1 minute prior to obtaining)] Blood Pressure Mean [Standing (for 1 minute prior to obtaining)] Pulse Ox 97 97 Oxygen Delivery Method 06/04/22 12:10 06/04/22 12:20 06/04/22 12:30 Temperature Temperature Source Pulse Rate 83 77 82 Pulse Rate [Lying] Pulse Rate [Sitting (for 1 minute prior to obtaining)] Pulse Rate [Standing (for 1 minute prior to obtaining)] Respiratory Rate 25 H 20 H 24 H Blood Pressure Blood Pressure [Lying] Blood Pressure [Sitting (for 1 minute prior to obtaining)] Blood Pressure [Standing (for 1 minute prior to obtaining)] Blood Pressure Mean Blood Pressure Mean [Lying] Blood Pressure Mean [Sitting (for 1 minute prior to obtaining)] Blood Pressure Mean [Standing (for 1 minute prior to obtaining)] Pulse Ox 97 96 98 Oxygen Delivery Method 06/04/22 12:40 06/04/22 12:54 06/04/22 13:00 Temperature Temperature Source Pulse Rate 68 86 81 Pulse Rate [Lying] Pulse Rate [Sitting (for 1 minute prior to obtaining)] Pulse Rate [Standing (for 1 minute prior to obtaining)] Respiratory Rate 27 H 36 H 22 H Blood Pressure 106/89 H Blood Pressure [Lying] Blood Pressure [Sitting (for 1 minute prior to obtaining)] Blood Pressure [Standing (for 1 minute prior to obtaining)] Blood Pressure Mean 94 Blood Pressure Mean [Lying] Blood Pressure Mean [Sitting (for 1 minute prior to obtaining)] Blood Pressure Mean [Standing (for 1 minute prior to obtaining)] Pulse Ox 96 96 Oxygen Delivery Method 06/04/22 13:00 06/04/22 13:10 06/04/22 13:11 Temperature Temperature Source Pulse Rate 81 85 Pulse Rate [Lying] Pulse Rate [Sitting (for 1 minute prior to obtaining)] Pulse Rate [Standing (for 1 minute prior to obtaining)] Respiratory Rate 22 H 23 H Blood Pressure 113/71 Blood Pressure [Lying] Blood Pressure [Sitting (for 1 minute prior to obtaining)] Blood Pressure [Standing (for 1 minute prior to obtaining)] Blood Pressure Mean 82 Blood Pressure Mean [Lying] Blood Pressure Mean [Sitting (for 1 minute prior to obtaining)] Blood Pressure Mean [Standing (for 1 minute prior to obtaining)] Pulse Ox 96 94 97 Oxygen Delivery Method 06/04/22 13:13 06/04/22 13:14 06/04/22 13:20 Temperature Temperature Source Pulse Rate 82 92 Pulse Rate [Lying] Pulse Rate [Sitting (for 1 minute prior to obtaining)] Pulse Rate [Standing (for 1 minute prior to obtaining)] Respiratory Rate 48 H 42 H 24 H Blood Pressure 121/62 H 95/63 Blood Pressure [Lying] Blood Pressure [Sitting (for 1 minute prior to obtaining)] Blood Pressure [Standing (for 1 minute prior to obtaining)] Blood Pressure Mean 73 74 Blood Pressure Mean [Lying] Blood Pressure Mean [Sitting (for 1 minute prior to obtaining)] Blood Pressure Mean [Standing (for 1 minute prior to obtaining)] Pulse Ox 97 97 Oxygen Delivery Method 06/04/22 13:30 06/04/22 13:40 06/04/22 13:50 Temperature Temperature Source Pulse Rate 82 92 92 Pulse Rate [Lying] Pulse Rate [Sitting (for 1 minute prior to obtaining)] Pulse Rate [Standing (for 1 minute prior to obtaining)] Respiratory Rate 18 17 22 H Blood Pressure Blood Pressure [Lying] Blood Pressure [Sitting (for 1 minute prior to obtaining)] Blood Pressure [Standing (for 1 minute prior to obtaining)] Blood Pressure Mean Blood Pressure Mean [Lying] Blood Pressure Mean [Sitting (for 1 minute prior to obtaining)] Blood Pressure Mean [Standing (for 1 minute prior to obtaining)] Pulse Ox 95 96 94 Oxygen Delivery Method 06/04/22 14:00 06/04/22 14:00 06/04/22 14:10 Temperature Temperature Source Pulse Rate 78 78 91 Pulse Rate [Lying] Pulse Rate [Sitting (for 1 minute prior to obtaining)] Pulse Rate [Standing (for 1 minute prior to obtaining)] Respiratory Rate 23 H 23 H 23 H Blood Pressure 103/69 Blood Pressure [Lying] Blood Pressure [Sitting (for 1 minute prior to obtaining)] Blood Pressure [Standing (for 1 minute prior to obtaining)] Blood Pressure Mean 81 Blood Pressure Mean [Lying] Blood Pressure Mean [Sitting (for 1 minute prior to obtaining)] Blood Pressure Mean [Standing (for 1 minute prior to obtaining)] Pulse Ox 96 96 97 Oxygen Delivery Method 06/04/22 14:20 Temperature Temperature Source Pulse Rate 90 Pulse Rate [Lying] Pulse Rate [Sitting (for 1 minute prior to obtaining)] Pulse Rate [Standing (for 1 minute prior to obtaining)] Respiratory Rate 28 H Blood Pressure Blood Pressure [Lying] Blood Pressure [Sitting (for 1 minute prior to obtaining)] Blood Pressure [Standing (for 1 minute prior to obtaining)] Blood Pressure Mean Blood Pressure Mean [Lying] Blood Pressure Mean [Sitting (for 1 minute prior to obtaining)] Blood Pressure Mean [Standing (for 1 minute prior to obtaining)] Pulse Ox 96 Oxygen Delivery Method Weight Weight: 61.1 kg Body Mass Index (BMI) 19.9 Physical Exam Const alert, oriented x3 and no apparent distress Constitutional Narrative: Thin, elderly, White male sitting up in bed, daughter at bedside, appears comfortable, nontoxic General Appearance: cooperative HEENT normocephalic, head/scalp atraumatic, hearing grossly normal bilaterally and moist oral mucous membranes HEENT Narrative: poor dentition, Mallampati 2, no thrush Eyes PERRL, EOMs intact bilaterally and conjunctivae normal Eyes Narrative: No icterus Neck no lymphadenopathy, supple, no JVD and no carotid bruits Neck Narrative: Trachea midline, no thyroid enlargement Resp normal respiratory effort, no retractions, no use of accessory muscles and clear to auscultation bilaterally Auscultation: Negative for rales, rhonchi or wheezes Cardio regular rate, regular rhythm, S1 normal heart sound, S2 normal heart sound, no murmurs, no rub, no gallops and no clicks GI normal to inspection, nondistended, normoactive bowel sounds, soft to palpation and non-tender Extremity no clubbing, cyanosis or edema Extremity Narrative: Normal ROM B LE, no pain with hip compression or IR/ER with 90 degrees of flexion, decreased lean mm mass Skin no rashes or lesions noted, no wounds, skin turgor normal and no jaundice Neuro oriented x3, CN's II-XII intact bilaterally, moves all extremities and no focal motor deficits Neuro Narrative: generalized weakness proximal> distal Sensorium / Orientation: awake, alert, oriented to person, oriented to place and oriented to time Speech: speech normal Psych affect normal Psych Narrative: very pleasant and appropriate Results Lab / Micro Data Attestation: I reviewed the patient's lab results. Result Diagrams: 06/04/22 12:15 06/04/22 12:15 Labs: Laboratory Results - last 24 hr 06/04/22 12:15: WBC 5.7, RBC 4.35 L, Hgb 13.7, Hct 41.4, MCV 95.2 H, MCH 31.5, MCHC 33.1, RDW Std Deviation 48.7 H, RDW Coeff of Sandip 13.9, Plt Count 325, MPV 9.2, Immature Gran % (Auto) 0.300, Neut % (Auto) 66.8, Lymph % (Auto) 19.1, [place] % (Auto) 12.1 H, Eos % (Auto) 1.2, Baso % (Auto) 0.5, Absolute Neuts (auto) 3.8, Absolute Lymphs (auto) 1.09, Nucleated RBC % 0 06/04/22 12:15: PT 14.9, INR 1.2, APTT 28.8 06/04/22 12:15: Sodium 136, Potassium 3.4 L, Chloride 102, Carbon Dioxide 31.0, Anion Gap 3 L, BUN 19 H, Creatinine 0.99, Estim Creat Clear Calc 45.43, Est GFR (MDRD) Af Amer 92, Est GFR (MDRD) Non-Af 76, BUN/Creatinine Ratio 19.2, Glucose 116 H, Calcium 8.9, Troponin I High Sens 13 06/04/22 12:50: Urine Color Yellow, Urine Clarity Clear, Urine pH 7.0, Ur Specific [place] 1.010, Urine Protein 15 H, Urine Glucose (UA) Normal, Urine Ketones Negative, Urine Occult Blood Negative, Urine Nitrite Negative, Urine Bilirubin Negative, Urine Urobilinogen 1 H, Ur Leukocyte Esterase 25 H, Urine RBC 0 SEEN, Urine WBC 0 SEEN, Ur Squamous Epith Cells 0 SEEN, Urine Bacteria 0 SEEN, Urine Mucus 0 SEEN Radiology Impression Brain CT 06/04/22 12:21 IMPRESSION: Normal unenhanced CT scan of the brain. Electronically Signed: Sukhdev Larson MD at 13:28 EDT , Assessment & Plan Assessment/Plan (1) Vertigo: (2) Unable to ambulate: (3) Left leg pain: (4) Hypokalemia: PLAN: Plan Vertigo/Gait instablity -Seems like BPPV but need to R/O other etiologies as well including posterior stroke/TIA/NPH -Patient without any vertigo at the time of my evaluation however was very unstable with ambulation per ER nurse -Check MRI -PT/OT -Check TSH -Orthostatic mildly positive in the emergency department and did receive 1 L with repeat orthostatics negative on the medical floor -Patient does live alone -Consult case management/social work for help with resources if needed Left leg pain -Per description sounds like radiculopathy -Check hip and pelvis films -Check lumbar spine x-rays -Schedule Tylenol -As needed oxy -Patient is on as needed prednisone for his leg pain we will continue for now as I do not want him to have any adrenal issues I am unclear how long he has been on this Hypokalemia -Patient was given 20 mill equivalents of p.o. potassium on top of his scheduled 20 mill equivalent dose -Repeat lab in a.m. -Check a.m. magnesium level CAD/HTN/HPL -CABG x 2 LINDO-LAD, SVG-D1 05/08/2006 -Continue statin -Continue Lasix -Continue hydrochlorothiazide-continue with approval -Continue supplemental potassium IBS-constipation predominant -Continue home Trulance -Continue home lactulose GERD/esophageal stricture -Continue home PPI -Has had previous esophageal dilation PAF -Continue metoprolol -Continue apixaban History of tobacco abuse -Remote -Encourage ongoing cessation DVT prophylaxis -Apixaban CODE STATUS -Full code verified on admission Charges/Coding Visit Charges Inpatient E&M: 20173 Init Hosp L3
[2022-06-04] MEDS: predniSONE 5 MG Tablet PO (17:26)
[2022-06-04] MEDS: Potassium Chloride Oral Tablet 20 MEQ PO (17:26)
--- NOTE | 2022-06-04 17:40 | RAD_ITS ---
EXAM: XR LEFT HIP WITH PELVIS WHEN PERFORMED, 2 OR 3 VIEWS CLINICAL INDICATION: Leg pain TECHNIQUE: Two or three views of the left hip with pelvis when performed. This report was created using [employer] report generation technology. COMPARISON: None. FINDINGS: BONES/JOINTS: Unremarkable. No displaced fracture. No destructive or sclerotic lesions. Note that overlapping bowel shadows may however obscure fine detail. Sacroiliac joint is unremarkable. No widening of the pubic symphysis. The articular structures are unremarkable. SOFT TISSUES: Unremarkable. No soft tissue swelling or gas. VASCULATURE: There are atherosclerotic vascular calcifications. RAD/HIP, UNI W/ Pelvis 2-3 Views IMPRESSION: No acute findings in the pelvis or left hip. Electronically Signed: Choco Stevens MD at 18:01 EDT Reading Location ID and State: [facility] / [place] , Service support ,
--- NOTE | 2022-06-04 17:40 | RAD_ITS ---
STUDY: X-RAY - LUMBAR SPINE REASON FOR EXAM: Male, 86 years old. radiculopathy TECHNIQUE: XR Spine Lumbar 2 or 3 Views COMPARISON: July 23, 2021 FINDINGS: Normal lumbar lordosis. There is no substantial scoliosis. There is a normal alignment of the vertebrae. There is multilevel endplate spondylosis of the lumbar vertebrae. There is multi-level degenerative disc disease with multi-level disc space narrowing. There are atherosclerotic vascular calcifications. Aortobiiliac stent graft. Degenerative findings of the hips. Vacuum disc phenomenon. RAD/Lumbar Spine 2 or 3 Views IMPRESSION: Degenerative changes of the spine, as detailed above. Electronically Signed: Choco Stevens MD at 18:01 EDT ,
--- NOTE | 2022-06-04 19:28 | MRI_ITS ---
STUDY: MR Brain W/O Contrast 06/04/2022 8:35 PM REASON FOR EXAM: Male, 86 years old. Vertigo VETIGO AND LEFT LEG PAIN/DIFFICULTY WALKING SINCE THIS MORNING. CT BRAIN ALSO TODAY. MR BRAIN 08/2021 COMPARISON: 06.04.22 ct TECHNIQUE: Standardized multiplanar fat and water weighted pulse sequences were obtained. MR Brain W/O Contrast FINDINGS: There is disproportionate ventricular enlargement with prominence of the anterior horns and temporal tips of the bilateral lateral ventricles. There is confluent periventricular hyperintensity cloaking the lateral ventricles. There is thinning with bowing of the corpus callosum. There is moderate enlargement of the third ventricle. 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 Normal white matter tracts of the supratentorial brain. There is mild prominence of the vermian folia, consistent with atrophy of the vermis. The cerebellar hemispheres are normal. Normal bilateral basal ganglia. Normal thalami. There is no extra-axial fluid accumulation. Normal flow voids within the major intracranial circulation suggesting patency by spin echo criteria. Normal sella turcica, pituitary gland, infundibular stalk, optic chiasm and hypothalamus. Normal tectal plate and pineal gland. Normal midbrain, octavio and medulla. Normal basal cisterns. Normal bilateral temporal bones. Normal bilateral internal auditory canals. No demonstrated orbital abnormality, within the constraints of a routine brain study. Normal visualized paranasal sinuses. Normal calvarium and skull base. Normal visualized soft tissue structures. Normal visualized upper cervical spine. Aspect score 10 MRI/Brain without Contrast IMPRESSION: (NOT LISTED IN ORDER OF SIGNIFICANCE) There is disproportionate ventricular enlargement with prominence of the anterior horns and temporal tips of the bilateral lateral ventricles. There is confluent periventricular hyperintensity cloaking the lateral ventricles. There is thinning with bowing of the corpus callosum. There is moderate enlargement of the third ventricle. 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 Electronically Signed: Choco Stevens MD at 20:38 EDT ,
[2022-06-04] MEDS: Atorvastatin Calcium 40 MG Tablet PO (20:58)
[2022-06-04] MEDS: Acetaminophen 500 MG Tablet 1000 MG PO (20:58)
[2022-06-04] MEDS: Tamsulosin HCl 0.4 MG Capsule PO (20:58)
[2022-06-04] MEDS: APIXABAN 5 MG TABLET PO (20:58)
[2022-06-04] MEDS: Metoprolol Tartrate 25 MG Tablet PO (20:59)
[2022-06-05 03:00] VITALS: BP 101/61; PULSE 62; RESP 18; TEMP 36.9; O2SAT 95
[2022-06-05] MEDS: Acetaminophen 500 MG Tablet 1000 MG PO ×2 (05:47→13:13)
[2022-06-05 06:47] LABS: Anion Gap 1 (5-15); BUN 18 mg/dL (7-18); BUN/Creat Ratio 20.3 RATIO (10-20); Calcium,Total 8.6 mg/dL (8.5-10.1); Chloride 106 mmol/L (98-107); Creatinine, Serum 0.89 mg/dL (0.70-1.30); EST Glomerular Filtration Rate 86 mL/min (>60); Est Glom Filt Rate - Afr Amer 104 mL/min (>60); Estimated Creatinine Clearance 49.96 ml/min; Glucose 86 mg/dL (74-106); Magnesium 2.1 mg/dL (1.6-2.6); Phosphorus 2.3 mg/dL (2.5-4.9); Potassium 4.4 mmol/L (3.5-5.1); Sodium Level 135 mmol/L (136-145)
[2022-06-05] MEDS: predniSONE 5 MG Tablet PO (07:33)
[2022-06-05] MEDS: Potassium Chloride Oral Tablet 20 MEQ PO (07:34)
[2022-06-05] MEDS: oxyCODONE 5 MG Tablet PO (08:41)
[2022-06-05] MEDS: APIXABAN 5 MG TABLET PO (08:41)
[2022-06-05] MEDS: Pantoprazole Sodium 40 MG Tablet PO (08:42)
[2022-06-05 09:00] VITALS: BP 96/54; PULSE 71; RESP 18; TEMP 36.4; O2SAT 96
[2022-06-05] MEDS: Tamsulosin HCl 0.4 MG Capsule PO (09:39)
--- NOTE | 2022-06-05 09:48 | MRI_ITS ---
STUDY: MRI LUMBAR SPINE WITHOUT CONTRAST REASON FOR EXAM: Male, 86 years old. Radicular pain -- TECHNIQUE: Standardized fat and water weighted pulse sequences were obtained in the sagittal and axial planes. COMPARISON: Lumbar spine x-ray dated June 04, 2022 FINDINGS: A large 5.52 cm aneurysm of the distal abdominal aorta is present. There is straightening of the normal lumbar lordosis. There is no substantial scoliosis. Normal conus medullaris that terminates at the T12-L1 level. No fracture or compression deformity is present. Modic endplate degenerative signal is present throughout the lumbar spine. L1-2: Moderate to severe disc space narrowing with a diffuse disc spur complex. Slight retrolisthesis of 2 mm. Superimposed left paracentral and proximal foraminal disc protrusion causing left lateral recess stenosis with nerve root compression. Mild central canal stenosis. Mild right foraminal stenosis. Moderate to severe left foraminal stenosis with nerve root compression. L2-3: Severe disc space narrowing with a diffuse disc osteophyte complex. Retrolisthesis of L2 on L3 of 3 mm. Mild central canal stenosis. Mild facet joint hypertrophy. Mild bilateral foraminal stenosis. L3-4: Mild anterior endplate spurring. Slight retrolisthesis. Diffuse disc desiccation with mild disc space narrowing and minor annular bulging. Normal bilateral facet joints. Normal central canal and bilateral lateral recesses. Normal bilateral intervertebral neural foramina. L4-5: Severe disc space narrowing with a diffuse disc spur complex combined with mild to moderate facet joint hypertrophy causing mild central canal stenosis. Mild to moderate bilateral foraminal stenosis with nerve root impingement. Slight retrolisthesis of L4 and L5 of 2 to 3 mm. L5-S1: Moderate to severe disc space narrowing with a diffuse disc spur complex. Mild to moderate facet joint hypertrophy. Moderate left foraminal stenosis with nerve root compression. Normal right neural foramen. Normal central canal and bilateral lateral recesses. Normal visualized sacral ala. There is moderate paraspinal muscular atrophy. MRI/Spine Lumbar (Routine) IMPRESSION: Multilevel foraminal stenosis with nerve root compression Mild central canal stenosis at L1-L2 and L2-L3 Multilevel degenerative changes, as described above. Electronically Signed: Kael Hall MD at 14:27 EDT ,
[2022-06-05] MEDS: dexAMETHasone 4 MG/ML Vial IV (11:01)
--- NOTE | 2022-06-05 12:49 | CHAPLAIN ---
Type of Pastoral Visit _x__ Initial Visit ___ Follow-up Visit ___ On-call Visit ___ General Patient Visit ___ Spiritual Assessment ___ Family Conference ___ Bereavement ___ Rapid Response ___ Code Blue ___ Other (describe below) Pastoral Care Referral From _x__ Patient ___ Family ___ Nurse ___ Physician ___ Educational Fundraising Director ___ Embryology Professor ___ Other (describe below) Sacrament/Intervention _x__ Active listening ___ Anointing ___ Confucianist ___ Bereavement ___ Communion _x__ Swathi exploration ___ _x__ Life review _x__ Prayer ___ Reconciliation ___ Sacrament of Sick _x__ Supportive presence ___ Wedding ___ Other (describe below) Pastoral Comments patient is welcoming of visit; daughter is in room; pt describes his health and the planned MRI for this afternoon; pt goal is to get answers to his need and have help; pt gives life review from his early days; pt recalls memories of his childhood in christian but does not affiliate with any christian in this time of life; pt does ask for a prayer and states I still believe in all that; pt states he has no other needs at this time but likes the visit
[2022-06-05 14:02] VITALS: O2SAT 89; O2SAT 96
[2022-06-05 14:22] VITALS: BP 102/70; PULSE 80; RESP 16; TEMP 36.5; O2SAT 95
--- NOTE | 2022-06-05 14:53 | CASEMGMT ---
RIKI VALENZUELA in to patient's room to discuss discharge needs. Patient state that is daughter helps him at home. Patient declined [facility], stating he is already active with [facility] for outpatient therapy. Patient states he has walker at home. Patient did well with therapy walking 120ft SBA. Patient declined further needs at this time. RIKI VALENZUELA instructed patient to follow-up with PCP should he have further needs or concerns, patient voiced understanding.
--- NOTE | 2022-06-05 14:59 | DCINST_ITS ---
Discharge Instructions Diet Discharge Diet: No restrictions Activity Discharge Activity: Return to Normal Activity Weight Bearing Status: Full weight bearing (With walker if necessary) Follow Up Care Test Results: Test results from this visit will be discussed in further detail at your follow- up appointment, if applicable. Discharge Plan Admission Admit Date/Time: 06/04/22 15:51 Primary Reason for Your Visit: Vertigo, hypotension, low potassium, dehydration Attending Provider: Hector Garner Primary Care Provider: Kiko Mojica Chi Consulting Providers: Shona Kemp Instructions Additional Instructions / Restrictions: Reduce furosemide to 20 mg (one half 40 mg) daily starting tomorrow Stop your hydrochlorothiazide Increase your lactulose to 2-3 times daily Discharge Orders/Prescriptions Prescriptions: New prednisone 20 mg tablet 40 mg PO DAILY Qty: 20 0RF Rx Instructions: 40 mg daily x5 days, then 20 mg daily x5 days, then 10 mg daily thereafter oxycodone 5 mg tablet 5 mg PO Q6H PRN (Reason: pain) 5 Days Qty: 15 0RF Rx Instructions: 1/2-one every 4-6 hours as needed for pain Continued lactulose 10 gram/15 mL solution 15 ml PO DAILY PRN PRN (Reason: Constipation) atorvastatin 40 mg tablet 40 mg PO QHS potassium chloride 20 mEq tablet extended release 20 meq PO DAILY Label Comments: TAKE 1 TABLET BY MOUTH ONCE DAILY; Take 20 mEq PO BID x 3 days and then 20 mEq Daily 05/16/2022 metoprolol tartrate 25 mg tablet 25 mg PO BID omeprazole 40 mg capsule,delayed release(DR/EC) 40 mg PO DAILY Label Comments: Take 1 capsule oral once a day Trulance 3 mg Tablet 3 mg PO PRN PRN (Reason: IBS) tamsulosin 0.4 mg Capsule 0.4 mg PO BID Qty: 0 0RF Eliquis 5 mg tablet See Rx Instructions .ROUTE .COMPLEX Qty: 60 11RF Dose Instruction: TAKE 1 TABLET BY MOUTH TWICE DAILY Rx Instructions: TAKE 1 TABLET BY MOUTH TWICE DAILY Discontinued furosemide 40 mg tablet 40 mg PO DAILY Label Comments: 40mg PO BID x 3 days then Lasix 40mg PO Daily 05/16/2022 prednisone 10 mg tablet 5 mg PO BID hydrochlorothiazide 12.5 mg tablet 12.5 mg PO DAILY Qty: 90 3RF Referrals / Follow Up: Kiko Mojica Chi, MD [Primary Care Provider] - Within 2 Weeks Disposition Disposition (needs filled in before D/C Order can be placed): Home, Self Care
--- NOTE | 2022-06-05 15:09 | DS.PCM_ITS ---
Providers Date of Admission: 06/04/22 Date of Discharge: 06/05/22 Primary Care Physician: Dr. 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 Code(s): I25.10 - Atherosclerotic heart disease of [place] coronary artery without angina pectoris Qualifiers: Coronary Disease-Associated Artery/Lesion type: [place] artery Qualified Code(s): I25.10 - Atherosclerotic heart disease of [place] coronary artery without angina pectoris (7) Dehydration: Status: Acute Code(s): E86.0 - Dehydration (8) Hypotension: Status: Acute Code(s): I95.9 - Hypotension, unspecified Plan: Due to dehydration Medications at Discharge Home Medications lactulose 10 gram/15 mL oral solution 15 ml PO DAILY PRN PRN Constipation 07/24/20 omeprazole 40 mg capsule,delayed release 40 mg PO DAILY GERD 03/04/21 plecanatide 3 mg tablet (Trulance) 3 mg PO PRN PRN IBS 07/13/21 atorvastatin 40 mg tablet 40 mg PO QHS cholesterol 11/11/21 apixaban 5 mg tablet (Eliquis) See Rx Instructions .Route .COMPLEX #60 TABLETS 04/14/22 tamsulosin 0.4 mg capsule 0.4 mg PO BID #0 caps 04/25/22 metoprolol tartrate 25 mg tablet 25 mg PO BID blood pressure 05/16/22 potassium chloride 20 mEq tablet,extended release 20 meq PO DAILY supplement 05/16/22 oxycodone 5 mg tablet 5 mg PO Q6H PRN pain 5 days #15 tabs 06/05/22 prednisone 20 mg tablet 40 mg PO DAILY #20 tabs 06/05/22 Hospital Course Operations None Procedures None Summary of Care Provided Minutes Spent on Discharge: 32 Hospital Course: This 86-year-old white male was seen in the emergency room at [facility] with complaints of dizziness, he described it as a lightheaded feeling, he stated it was worse with standing and better with lying down. Patient also complained of severe pain radiating from his left buttocks area down his left leg, had been going on for a few days. Patient had a similar history of left leg pain and was placed on prednisone by his PCP as an outpatient. Work-up in the emergency room included labs which showed a normal CBC, chemistry profile revealed a slightly low potassium at 3.4, BUN was elevated at 19, and patient's urinalysis was remarkable for a leukocyte esterase of 25 but no white blood cells or bacteria were seen. Patient had a brain CT performed that was read out as normal, patient was given a dose of Antivert in the emergency room with minimal effect. Patient was also given a dose of Valium, the ER attempted to ambulate the patient but it was unsuccessful and the patient had to be placed in observation status on PCU. Patient underwent an MRI of the brain to rule out stroke, there is noted to be disproportionate ventricular enlargement with prominence of the anterior horns and temporal tips of the bilateral lateral ventricles, there was a moderate enlargement of the third ventricle, these findings were suggestive of normal pressure hydrocephalus although the patient had no marked symptoms of normal pressure hydrocephalus. Patient was seen by PT and OT, it was noted that the patient was hypotensive and he was given IV fluids this improved the patient's overall medical condition and he was able to ambulate with minimal assistance. I felt that the patient had underlying dehydration, he had been on 2 different diuretics at home, I elected at the time of discharge to lower the patient's diuretic dosage and stop his hydrochlorothiazide. Patient underwent an MRI of his lumbar spine due to persistent left leg pain, I have placed him on IV Decadron briefly during his hospitalization and his MRI of his lumbar spine revealed that he had severe degenerative changes of the lumbar spine with nerve root impingement on the left. I feel that this was the reason for the patient's left leg pain. Patient was given an injection of IM Depo-Medrol and it was felt that he was stable for discharge on 06/05/2022: On examination he appeared in good health and spirits. Vital signs as documented. Skin warm and dry and without overt rashes. Neck without JVD, neck was supple, trachea midline, thyroid was normal. Lungs clear bilaterally, normal air movement was noted. Heart exam notable for regular rhythm, normal sounds and absence of murmurs, rubs or gallops. Abdomen unremarka ble and without evidence of organomegaly, masses, or abdominal aortic enlargement. Bowel sounds are present, abdomen is not distended. Extremities nonedematous, no cyanosis was noted, no clubbing was noted. Neuro: Cranial nerves II through XII are grossly intact, no focal motor deficits were noted, sensation to light touch and pinprick intact, motor exam 5/5 throughout. Psych: Patient is alert and oriented x3, he does not appear anxious or depressed, he does not appear agitated. Patient was discharged home in stable condition on 06/05/2022, he was given a prescription for a tapering dose of prednisone, a prescription for oxycodone IR and he was urged to follow-up with his PCP regarding further treatment of his DJD of his lumbar spine and his radicular pain. Weight / BMI Weight Weight: 60.4 kg Body Mass Index (BMI) 19.6 ABG / Lab / Microbiology Data Result Diagrams: 06/04/22 12:15 06/05/22 06:02 Laboratory: Laboratory Results - last 24 hr 06/05/22 06:02: Sodium 135 L, Potassium 4.4, Chloride 106, Carbon Dioxide 28.0, Anion Gap 1 L, BUN 18, Creatinine 0.89, Estim Creat Clear Calc 49.96, Est GFR (MDRD) Af Amer 104, Est GFR (MDRD) Non-Af 86, BUN/Creatinine Ratio 20.3 H, Glucose 86, Calcium 8.6, Phosphorus 2.3 L, Magnesium 2.1 Radiography Diagnostic Testing: Radiology Impression Hip/Pelvis X-Ray 06/04/22 17:40 IMPRESSION: No acute findings in the pelvis or left hip. Electronically Signed: Choco Stevens MD at 18:01 EDT , Lumbar Spine X-Ray 06/04/22 17:40 IMPRESSION: Degenerative changes of the spine, as detailed above. Electronically Signed: Choco Stevens MD at 18:01 EDT , Brain MRI 06/04/22 19:28 IMPRESSION: (NOT LISTED IN ORDER OF SIGNIFICANCE) There is disproportionate ventricular enlargement with prominence of the anterior horns and temporal tips of the bilateral lateral ventricles. There is confluent periventricular hyperintensity cloaking the lateral ventricles. There is thinning with bowing of the corpus callosum. There is moderate enlargement of the third ventricle. 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 Electronically Signed: Choco Stevens MD at 20:38 EDT , Lumbar Spine MRI 06/05/22 09:48 IMPRESSION: Multilevel foraminal stenosis with nerve root compression Mild central canal stenosis at L1-L2 and L2-L3 Multilevel degenerative changes, as described above. Electronically Signed: Kael Hall MD at 14:27 EDT , D/C Instructions Discharge Diet: No restrictions Weight Bearing Status: Full weight bearing (With walker if necessary) Meaningful Use Info Meaningful Use Diagnoses (Choose all that apply): None applicable Discharge Plan Admission Admit Date/Time: 06/04/22 15:51 Primary Reason for Your Visit: Vertigo, hypotension, low potassium, dehydration Attending Provider: Hector Garner Primary Care Provider: Kiko Mojica Chi Consulting Providers: Shona Kemp Instructions Additional Instructions / Restrictions: Reduce furosemide to 20 mg (one half 40 mg) daily starting tomorrow Stop your hydrochlorothiazide Increase your lactulose to 2-3 times daily Discharge Orders/Prescriptions Prescriptions: New prednisone 20 mg tablet 40 mg PO DAILY Qty: 20 0RF Rx Instructions: 40 mg daily x5 days, then 20 mg daily x5 days, then 10 mg daily thereafter oxycodone 5 mg tablet 5 mg PO Q6H PRN (Reason: pain) 5 Days Qty: 15 0RF Rx Instructions: 1/2-one every 4-6 hours as needed for pain Continued lactulose 10 gram/15 mL solution 15 ml PO DAILY PRN PRN (Reason: Constipation) atorvastatin 40 mg tablet 40 mg PO QHS potassium chloride 20 mEq tablet extended release 20 meq PO DAILY Label Comments: TAKE 1 TABLET BY MOUTH ONCE DAILY; Take 20 mEq PO BID x 3 days and then 20 mEq Daily 05/16/2022 metoprolol tartrate 25 mg tablet 25 mg PO BID omeprazole 40 mg capsule,delayed release(DR/EC) 40 mg PO DAILY Label Comments: Take 1 capsule oral once a day Trulance 3 mg Tablet 3 mg PO PRN PRN (Reason: IBS) tamsulosin 0.4 mg Capsule 0.4 mg PO BID Qty: 0 0RF Eliquis 5 mg tablet See Rx Instructions .ROUTE .COMPLEX Qty: 60 11RF Dose Instruction: TAKE 1 TABLET BY MOUTH TWICE DAILY Rx Instructions: TAKE 1 TABLET BY MOUTH TWICE DAILY Discontinued furosemide 40 mg tablet 40 mg PO DAILY Label Comments: 40mg PO BID x 3 days then Lasix 40mg PO Daily 05/16/2022 prednisone 10 mg tablet 5 mg PO BID hydrochlorothiazide 12.5 mg tablet 12.5 mg PO DAILY Qty: 90 3RF Referrals / Follow Up: Kiko Mojica Chi, MD [Primary Care Provider] - Within 2 Weeks Disposition Disposition (needs filled in before D/C Order can be placed): Home, Self Care Charges/Coding Visit Charges Inpatient E&M: 88322 Disch Hosp >30min
[2022-06-05] MEDS: MethylPREDNISolone Acetate 80 MG/ML Vial IM (16:32)
== END 2022-06-05 15:09 | disposition home or self-care (01) ==
LOC: ED 15:45 → PCU 15:50
PROVIDERS: Admitting Provider Internal Medicine; Emergency Provider Emergency Medicine; PCP Family Medicine Geriatric Medicine; Visit Provider Internal Medicine
DX: R42 Dizziness and giddiness (principal); I48.0 Paroxysmal atrial fibrillation; E87.6 Hypokalemia; I25.10 Atherosclerotic heart disease of native coronary artery without angina pectoris; E78.5 Hyperlipidemia, unspecified; M47.26 Other spondylosis with radiculopathy, lumbar region; I10 Essential (primary) hypertension; Z87.891 Personal history of nicotine dependence; R26.2 Difficulty in walking, not elsewhere classified; K58.9 Irritable bowel syndrome, unspecified; Z79.01 Long term (current) use of anticoagulants; Z79.899 Other long term (current) drug therapy; K21.9 Gastro-esophageal reflux disease without esophagitis
CPT/HCPCS: 36415; 70450; 70551; 72100; 72148; 73502; 80048; 81001; 83735; 84100; 84484; 85025; 85610; 85730; 92526; 93005; 96361; 96365; 96366; 96372; 96374; 96375; 97162; 97166; 97802; 99221; 99285; J7030; J7040; A4216; G0378

== ENCOUNTER → 2022-08-26 | Outpatient (CLI) | payer BC, SELFPAY ==
[2022-08-26 17:51] LABS: Anion Gap 8 (5-15); BUN 13 mg/dL (7-18); BUN/Creat Ratio 12.3 RATIO (10-20); Calcium,Total 8.9 mg/dL (8.5-10.1); Chloride 101 mmol/L (98-107); Creatinine, Serum 1.06 mg/dL (0.70-1.30); EST Glomerular Filtration Rate 70 mL/min (>60); Est Glom Filt Rate - Afr Amer 85 mL/min (>60); Glucose 109 mg/dL (74-106); Potassium 2.9 mmol/L (3.5-5.1); Sodium Level 136 mmol/L (136-145)
== END | disposition home or self-care (01) ==
PROVIDERS: PCP Family Medicine Geriatric Medicine; Visit Provider Family Medicine Geriatric Medicine
DX: R60.9 Edema, unspecified (principal)
CPT/HCPCS: 36415; 80048

== ENCOUNTER → 2022-09-05 | Outpatient (CLI) | payer OTHER, BC, SELFPAY ==
[2022-09-05 16:30] LABS: Anion Gap 5 (5-15); BUN 12 mg/dL (7-18); BUN/Creat Ratio 11.4 RATIO (10-20); Calcium,Total 8.3 mg/dL (8.5-10.1); Chloride 109 mmol/L (98-107); Creatinine, Serum 1.05 mg/dL (0.70-1.30); EST Glomerular Filtration Rate 71 mL/min (>60); Est Glom Filt Rate - Afr Amer 86 mL/min (>60); Glucose 96 mg/dL (74-106); Potassium 3.8 mmol/L (3.5-5.1); Sodium Level 141 mmol/L (136-145)
== END | disposition home or self-care (01) ==
LOC: LAB 15:24
PROVIDERS: PCP Family Medicine Geriatric Medicine; Referring Provider Family Medicine Geriatric Medicine; Visit Provider Family Medicine Geriatric Medicine
DX: E87.6 Hypokalemia (principal)
CPT/HCPCS: 36415; 80048

== ENCOUNTER 2022-09-25 07:13 | Emergency (ER) | payer OTHER, SELFPAY ==
[2022-09-25 07:14] VITALS: BP 111/60; PULSE 94; RESP 14; TEMP 36.2; O2SAT 98; BMI 19.9
--- NOTE | 2022-09-25 07:41 | CT_ITS ---
STUDY: CT ABDOMEN AND PELVIS WITH CONTRAST REASON FOR EXAM: Male, 87 years old. Diffuse abdominal pain, unable to eat. RADIATION DOSAGE (If Supplied By Facility): CTDIvol = ( 13.02 ) mGy, DLP = ( 449.00 ) mGycm TECHNIQUE: Transaxial images were obtained from the dome of the diaphragm to the symphysis pubis with oral contrast. Oral and amp; IV Gastrografin and amp; 100mL Isovue-300 was administered. Sagittal and coronal images were reconstructed. Individualized dose optimization techniques were used for this CT. COMPARISON: 05/22/2022 FINDINGS: The visualized lung bases are unremarkable. The visualized portions of the heart are within normal limits. Normal liver. Normal gallbladder and extrahepatic biliary system. Normal spleen. Normal pancreas. Normal bilateral adrenal glands. No obstructive uropathy or suspicious solid renal lesion. 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 There is a small hiatal hernia. Normal small intestine. Retained stool noted throughout the colon. The appendix is visualized and appears normal. Appendix seen on coronal recon images 44 through 51 The [place] abdominal aortic aneurysm has been reduced with a stent graft. Stent graft is patent with a stable small endoleak in the distal aspect of the aneurysm. No evidence of retroperitoneal fluid to suspect exoleak. Normal inferior vena cava. Normal retroperitoneum. Normal urinary bladder. Stable enlargement of the prostate which contains calcifications. Normal abdominal wall. There are diffuse degenerative changes of the visualized lumbar spine, and pelvis. 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 No free intraperitoneal fluid, air, or suspicious adenopathy, normal appendix visualized Retained stool throughout the colon Stable prostate enlargement Electronically Signed: Enrique Davis MD at 11:01 EDT ,
--- NOTE | 2022-09-25 07:42 | EDS_ITS ---
HPI HPI - GI History of Present Illness Chief Complaint: Nausea/Vomiting Informant: patient and family (daughter) Narrative Narrative: Patient has been having supraumbilical abdominal pain and vomiting for the past week. Having trouble keeping down any fluids or food, every time he tries he ends up vomiting. Started a day after he had a COVID-vaccine, surgery review presents saying I have been vomiting since I had my COVID-vaccine. Daughter adds that he has an abdominal hernia near the area where he complains of pain that is scheduled to be fixed on 10/[address] Rosario. [facility] Medical History Abdominal aortic aneurysm (AAA) Abdominal pain Arthritis Atherosclerosis of coronary artery of [place] heart without angina pectoris Back pain Cardiology follow-up encounter Central retinal vein occlusion of right eye (11/25/19) Cervical myelopathy Colon polyp Complete edentulism, class III Constipation Esophageal dilatation Essential hypertension Former smoker FTT (failure to thrive) in adult GERD (gastroesophageal reflux disease) History of atrial fibrillation History of echocardiogram History of edema History of esophageal stricture History of hiatal hernia History of pain when walking History of ST elevation myocardial infarction (STEMI) (05/08/06) History of steroid therapy History of stress test Hyperlipidemia Insomnia Irritable bowel syndrome with constipation Left leg pain Leg cramps Multifocal atrial tachycardia Paroxysmal atrial fibrillation Postoperative atrial fibrillation (05/2006) Restless legs Right temporomandibular joint disorder, unspecified Rotator cuff tear Spinal stenosis in cervical region Spondylosis of cervical spine with radiculopathy Stroke/cerebrovascular accident Syncope Tear of biceps tendon Unable to ambulate Vertigo Weakness generalized Wears glasses Home Medications lactulose 10 gram/15 mL oral solution 15 ml PO DAILY PRN PRN Constipation 07/24/20 [History Last Taken Unknown] omeprazole 40 mg capsule,delayed release 40 mg PO DAILY GERD 03/04/21 [History Last Taken 04/23/22] plecanatide 3 mg tablet (Trulance) 3 mg PO PRN PRN IBS 07/13/21 [History Last Taken Unknown] atorvastatin 40 mg tablet 40 mg PO QHS cholesterol 11/11/21 [History Last Taken Unknown] apixaban 5 mg tablet (Eliquis) See Rx Instructions .Route .COMPLEX #60 TABLETS 04/14/22 [Rx Last Taken 04/19/22] tamsulosin 0.4 mg capsule 0.4 mg PO BID #0 caps 04/25/22 [Rx Last Taken Unknown] potassium chloride 20 mEq tablet,extended release 20 meq PO DAILY supplement 05/16/22 [History Last Taken Unknown] oxycodone 5 mg tablet 5 mg PO Q6H PRN pain 5 days #15 tabs 06/05/22 [Rx Last Taken Unknown] prednisone 20 mg tablet 40 mg (2 x 20 mg) PO DAILY #20 tabs 06/05/22 [Rx Last Taken Unknown] hydrochlorothiazide 12.5 mg capsule 12.5 mg PO DAILY 09/17/22 [History Last Taken Unknown] linaclotide 290 mcg capsule (Linzess) 290 mcg PO DAILY 09/17/22 [History Last Taken Unknown] mirtazapine 7.5 mg tablet 7.5 mg PO DAILY 09/17/22 [History Last Taken Unknown] ondansetron 4 mg disintegrating tablet 8 mg (2 x 4 mg) PO Q8H PRN PRN Nausea #20 tabs 09/25/22 [Rx Last Taken Unknown] Allergy/AdvReac Type Severity Reaction Status Date / Time rivaroxaban [From Xarelto] AdvReac generally Verified 09/25/22 07:15 did not feel well Family History Mother Colon cancer CVA (cerebral vascular accident) Father Cancer leukemia Surgical History 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) History of appendectomy History of cataract surgery History of endovascular stent graft for abdominal aortic aneurysm (AAA) History of esophageal dilatation (~12/2020) History of esophagogastroduodenoscopy (EGD) History of herniorrhaphy History of sinus surgery S/P cervical spinal fusion Social History household members: none Smoking Status: Former smoker second hand exposure: No alcohol intake: never substance use type: does not use caffeine: Yes seatbelt use: always ROS ROS ED Constitutional Constitutional ED: Reports malaise; Denies chills or fever(s) Eyes Eyes: Denies change in vision or diplopia ENT ENT ED: Denies rhinorrhea or sore throat Cardiovascular Cardiovascular: Denies chest pain, palpitations or syncope Respiratory/Chest Respiratory/Chest: Denies cough or dyspnea Gastrointestinal Gastrointestinal: Reports abdominal pain, nausea and vomiting; Denies diarrhea Genitourinary Genitourinary ED: Denies dysuria or hematuria Musculoskeletal Musculoskeletal: Reports other Details: Chronic back and bilateral lower extremity pain unchanged ; Denies neck pain Integumentary Denies abscess or rash Neurologic Neurologic: Denies headache(s), paresthesias or weakness Psychiatric Psychiatric: Denies anxiety or suicidal thoughts EXAM Physical Exam Const Vital Signs: 09/25/22 07:14 09/25/22 09:27 Temperature 97.1 F L Temperature Source Temporal Pulse Rate 94 64 Respiratory Rate 14 14 Blood Pressure 111/60 136/78 H Blood Pressure Mean 77 97 Pulse Ox 98 98 Oxygen Delivery Method Room Air Room Air Positive well nourished and well developed General Appearance ED: well developed and NAD HEENT Reports moist mucous membranes normocephalic and atraumatic Eyes PERRL and EOMs intact bilaterally Neck full ROM and supple Resp normal respiratory effort and clear to auscultation bilaterally Cardio regular rate and regular rhythm GI non-distended GI Narrative: Small palpable and obviously visible midline ventral hernia supraumbilical, there is very mild erythema over this and it is tender but there is no guarding or rebound. With placing gentle gradual pressure on it, it improves but it does not completely reduce, and it is not severely tender in doing this, the patient tolerates well. There is no tenderness in the epigastrium above this or any other areas around it, but he has some mild diffuse lower abdominal tenderness again without guarding or rebound, and there are no other palpable hernias. Auscultation: normoactive bowel sounds Palpation: soft Back/Spine no CVA tenderness General Back: other FROM Extremity normal to inspection General Extremety ED: Negative for edema, pulses abnormal or tenderness General Extremity: Negative for edema or pulses abnormal Neuro oriented x3, CN's II-XII intact bilaterally and no sensory deficits noted Sensorium / Orientation: awake and alert Motor Exam: strength 5/5 throughout Skin no rashes or lesions noted and no wounds MDM MDM MDM Narrative Medical decision making narrative: Obtained oral and IV contrasted CT out of concern for the possibility of an incarcerated hernia. I reviewed the results and the images and I agree with the result, basically negative for anything acute including incarcerated hernia, appears to be more fat-containing hernia. With supportive care and medications here in emergency department his pain resolved, his nausea resolved, he was able to tolerate oral fluids, and is stable for discharge home with a prescription for Zofran and follow-up. Viral etiologies in the differential diagnosis as well as functional intestinal etiologies, as well as transient issues with the hernia but it does not appear to have an indication for emergency surgery or surgical consultation at this time. Lab Data Attestation: I reviewed the patient's lab results. Labs: Laboratory Results - last 24 hr 09/25/22 08:09 WBC 5.8 RBC 4.53 L Hgb 14.2 Hct 43.6 MCV 96.2 H MCH 31.3 MCHC 32.6 RDW Std Deviation 49.5 H RDW Coeff of Sandip 13.9 Plt Count 205 MPV 9.1 Immature Gran % (Auto) 0.200 Neut % (Auto) 60.7 Lymph % (Auto) 21.8 [place] % (Auto) 13.1 H Eos % (Auto) 3.5 Baso % (Auto) 0.7 Absolute Neuts (auto) 3.5 Absolute Lymphs (auto) 1.26 Nucleated RBC % 0 Sodium 140 Potassium 3.6 Chloride 108 H Carbon Dioxide 27.0 Anion Gap 5 BUN 13 Creatinine 0.96 Estim Creat Clear Calc 46.07 Est GFR (MDRD) Af Amer 96 Est GFR (MDRD) Non-Af 79 BUN/Creatinine Ratio 13.6 Glucose 93 Calcium 8.6 Total Bilirubin 0.50 AST 10 L ALT 14 L Alkaline Phosphatase 68 Total Protein 6.5 Albumin 3.0 L Globulin 3.5 Albumin/Globulin Ratio 0.9 Lipase 16 Radiography Diagnostic Testing: Clinical Impression(s) from Imaging Studies Abdomen/Pelvis CT 09/25/22 07:41 IMPRESSION: No obstructive uropathy or suspicious solid renal lesion, stable defect in the lateral aspect of the right kidney consistent with previous infarct Stable appearance of aortic stent graft, stable small endoleak at the bifurcation of the [place] aorta. No free intraperitoneal fluid, air, or suspicious adenopathy, normal appendix visualized Retained stool throughout the colon Stable prostate enlargement Electronically Signed: Enrique Davis MD at 11:01 EDT , ADDENDUM: 09/25/22 1212 IMPRESSION: undefined Discharge Plan Triage Chief Complaint: Nausea/Vomiting ED Provider: Desmond Domínguez Dx/Rx/DC Orders Clinical Impression: Acute upper abdominal pain, Irreducible ventral incisional hernia, Vomiting Instructions: ED Hernia (Adult), ED Vomiting (Adult) Prescriptions: New ondansetron [ondansetron] 4 mg tablet,disintegrating 8 mg PO Q8H PRN PRN (Reason: Nausea) Qty: 20 0RF No Action lactulose 10 gram/15 mL solution 15 ml PO DAILY PRN PRN (Reason: Constipation) atorvastatin 40 mg tablet 40 mg PO QHS potassium chloride 20 mEq tablet extended release 20 meq PO DAILY Patient Comments: TAKE 1 TABLET BY MOUTH ONCE DAILY; Take 20 mEq PO BID x 3 days and then 20 mEq Daily 05/16/2022 hydrochlorothiazide 12.5 mg capsule 12.5 mg PO DAILY mirtazapine 7.5 mg tablet 7.5 mg PO DAILY Linzess 290 mcg capsule 290 mcg PO DAILY omeprazole 40 mg capsule,delayed release(DR/EC) 40 mg PO DAILY Patient Comments: Take 1 capsule oral once a day Trulance 3 mg Tablet 3 mg PO PRN PRN (Reason: IBS) tamsulosin 0.4 mg Capsule 0.4 mg PO BID Qty: 0 0RF prednisone 20 mg tablet 40 mg PO DAILY Qty: 20 0RF Rx Instructions: 40 mg daily x5 days, then 20 mg daily x5 days, then 10 mg daily thereafter oxycodone 5 mg tablet 5 mg PO Q6H PRN (Reason: pain) 5 Days Qty: 15 0RF Rx Instructions: 1/2-one every 4-6 hours as needed for pain Eliquis 5 mg tablet See Rx Instructions .ROUTE .COMPLEX Qty: 60 11RF Dose Instruction: TAKE 1 TABLET BY MOUTH TWICE DAILY Rx Instructions: TAKE 1 TABLET BY MOUTH TWICE DAILY Primary Care Provider: Kiko Mojica Chi Referrals: Tal Rosario MD [Med Staff - Active Staff] - Keep [place] appointment Kiko Mojica Chi, MD [Primary Care Provider] - Disposition Disposition: Home, Self Care
[2022-09-25] MEDS: 0.9% Normal Saline 1,000 ML 1000 ML IV (08:05)
[2022-09-25] MEDS: Morphine 2 MG/ML Syringe IV (08:05)
[2022-09-25] MEDS: Ondansetron 4 MG/2 ML Vial IV (08:05)
[2022-09-25 08:16] LABS: Absolute Lymphocyte Count 1.26 X10^3/uL (0.83-4.51); Absolute Neutrophil Count 3.5 X10^3/uL (2.0-7.7); Basophil# 0.04 X10^3/uL; Basophil% 0.7 % (0-1); Eosinophils% 3.5 % (0-5); Hematocrit 43.6 % (40-54); Hemoglobin 14.2 g/dL (13.0-16.5); Lymphocyte # 1.26 X10^3/ul (0.83-4.51); Lymphocyte % 21.8 % (19-41); Mean Corp Hgb Conc 32.6 g/dL (32-36); Mean Corpuscular Hgb 31.3 pg (27.0-32.0); Mean Corpuscular Volume 96.2 fL (80-94); Mean Platelet Vol. 9.1 fl (6.2-12.0); Monocyte# 0.76 X10^3/uL; Monocyte% 13.1 % (0-10); NRBC Flagged by Analyzer 0 % (0-5); Neutrophil # 3.51 X10^3/uL (2.7-7.7); Neutrophil % 60.7 % (47-70); Platelet Count 205 K/mm3 (150-450); RBC Distribution Width CV 13.9 % (11.6-14.6); RBC Distribution Width SD 49.5 fl (35.1-43.9); Red Blood Count 4.53 M/mm3 (4.6-6.2); White Blood Count 5.8 K/mm3 (4.4-11.0)
[2022-09-25 08:32] LABS: ALB/GLOB Ratio 0.9 RATIO (0.9-2.4); AST(SGOT) 10 U/L (15-37); Alanine Aminotransfer ALT/SGPT 14 U/L (16-61); Alkaline Phosphatase 68 U/L (45-117); Anion Gap 5 (5-15); BUN 13 mg/dL (7-18); BUN/Creat Ratio 13.6 RATIO (10-20); Calcium,Total 8.6 mg/dL (8.5-10.1); Chloride 108 mmol/L (98-107); Creatinine, Serum 0.96 mg/dL (0.70-1.30); EST Glomerular Filtration Rate 79 mL/min (>60); Est Glom Filt Rate - Afr Amer 96 mL/min (>60); Estimated Creatinine Clearance 46.07 ml/min; Globulin 3.5 g/dL (2.2-4.2); Glucose 93 mg/dL (74-106); Lipase 16 U/L (13-75); Potassium 3.6 mmol/L (3.5-5.1); Protein, Total 6.5 g/dL (6.4-8.2); Sodium Level 140 mmol/L (136-145)
[2022-09-25 09:27] VITALS: BP 136/78; PULSE 64; RESP 14; O2SAT 98
[2022-09-25 13:21] VITALS: BP 111/60; PULSE 94; RESP 14; O2SAT 98
== END 2022-09-25 13:44 | disposition home or self-care (01) ==
PROVIDERS: Emergency Provider Emergency Medicine; PCP Family Medicine Geriatric Medicine; Visit Provider Emergency Medicine
DX: R11.2 Nausea with vomiting, unspecified (principal); I48.0 Paroxysmal atrial fibrillation; R10.10 Upper abdominal pain, unspecified; E78.5 Hyperlipidemia, unspecified; I25.10 Atherosclerotic heart disease of native coronary artery without angina pectoris; K43.0 Incisional hernia with obstruction, without gangrene; Z87.891 Personal history of nicotine dependence; I10 Essential (primary) hypertension; I25.2 Old myocardial infarction; Z86.73 Personal history of transient ischemic attack (TIA), and cerebral infarction without residual deficits; K21.9 Gastro-esophageal reflux disease without esophagitis; K58.1 Irritable bowel syndrome with constipation; Z79.01 Long term (current) use of anticoagulants; Z79.899 Other long term (current) drug therapy; Z90.49 Acquired absence of other specified parts of digestive tract
CPT/HCPCS: 74177; 80053; 83690; 85025; 96374; 96375; 99283; J7030; Q9967; A4216; J2405

== ENCOUNTER 2022-09-28 12:18 | Emergency (ER) | payer MEDICARE, SELFPAY ==
[2022-09-28 12:18] VITALS: BP 110/67; PULSE 92; RESP 16; TEMP 36.6; O2SAT 97
--- NOTE | 2022-09-28 12:29 | EX.ED.GENINJ ---
HPI History of Present Illness Chief Complaint: Nausea/Vomiting Narrative Narrative: Patient is a 87-year-old male who is presenting to the ER today with chief complaint of nausea, vomiting. Patient has history of hiatal hernia. Patient has surgery scheduled on Thursday for hiatal hernia. Patient daughter is at bedside. Patient was just in the ER for similar symptoms this past Thursday, approximately 6 days ago. Patient does have Zofran ODT that he used at home, patient does not believe that has helped. Patient has been having increase in belching and passing fluctuance. Patient has no distention of his abdomen. Patient has no significant abdominal cramping or pain. Patient has been having yellowish/greenish bilious emesis yesterday and today. Patient is slightly lightheaded, and no vertigo. No chest pain or shortness of breath. No headache. Patient just received a COVID vaccination this past Thursday. Patient's symptoms started on Thursday. No other sick contacts. Nothing else unusual to eat or drink. No rash. No other acute complaints. [facility] Medical History Abdominal aortic aneurysm (AAA) Abdominal pain Arthritis Atherosclerosis of coronary artery of [place] heart without angina pectoris Back pain Cardiology follow-up encounter Central retinal vein occlusion of right eye (11/25/19) Cervical myelopathy Colon polyp Complete edentulism, class III Constipation Esophageal dilatation Essential hypertension Former smoker FTT (failure to thrive) in adult GERD (gastroesophageal reflux disease) History of atrial fibrillation History of echocardiogram History of edema History of esophageal stricture History of hiatal hernia History of pain when walking History of ST elevation myocardial infarction (STEMI) (05/08/06) History of steroid therapy History of stress test Hyperlipidemia Insomnia Irritable bowel syndrome with constipation Left leg pain Leg cramps Multifocal atrial tachycardia Paroxysmal atrial fibrillation Postoperative atrial fibrillation (05/2006) Restless legs Right temporomandibular joint disorder, unspecified Rotator cuff tear Spinal stenosis in cervical region Spondylosis of cervical spine with radiculopathy Stroke/cerebrovascular accident Syncope Tear of biceps tendon Unable to ambulate Vertigo Weakness generalized Wears glasses Home Medications omeprazole 40 mg capsule,delayed release 40 mg PO DAILY GERD 03/04/21 [History Last Taken 04/23/22] apixaban 5 mg tablet (Eliquis) See Rx Instructions .Route .COMPLEX #60 TABLETS 04/14/22 [Rx Last Taken 04/19/22] tamsulosin 0.4 mg capsule 0.4 mg PO BID #0 caps 04/25/22 [Rx Last Taken Unknown] potassium chloride 20 mEq tablet,extended release 20 meq PO DAILY supplement 05/16/22 [History Last Taken Unknown] hydrochlorothiazide 12.5 mg capsule 12.5 mg PO DAILY 09/17/22 [History Last Taken Unknown] mirtazapine 7.5 mg tablet 7.5 mg PO DAILY 09/17/22 [History Last Taken Unknown] ondansetron 4 mg disintegrating tablet 8 mg (2 x 4 mg) PO Q8H PRN PRN Nausea #20 tabs 09/25/22 [Rx Last Taken Unknown] furosemide 40 mg tablet 40 mg PO DAILY 09/28/22 [History Last Taken Unknown] prednisone 20 mg tablet 10 mg PO DAILY 09/28/22 [History Last Taken Unknown] prochlorperazine 25 mg rectal suppository 25 mg [place] Q8H PRN nausea and vomiting #6 ea 09/28/22 [Rx Last Taken Unknown] Allergy/AdvReac Type Severity Reaction Status Date / Time rivaroxaban [From Xarelto] AdvReac generally Verified 09/28/22 12:18 did not feel well Family History Mother Colon cancer CVA (cerebral vascular accident) Father Cancer leukemia Surgical History 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) History of appendectomy History of cataract surgery History of endovascular stent graft for abdominal aortic aneurysm (AAA) History of esophageal dilatation (~12/2020) History of esophagogastroduodenoscopy (EGD) History of herniorrhaphy History of sinus surgery S/P cervical spinal fusion Social History household members: none Smoking Status: Former smoker second hand exposure: No alcohol intake: never substance use type: does not use caffeine: Yes seatbelt use: always ROS ROS ED ROS Narrative REVIEW OF SYSTEMS: Unless otherwise stated in this report the patient's positive and negative responses for review of systems for constitutional, eyes, ENT, cardiovascular, respiratory, gastrointestinal, neurological, , musculoskeletal, and integument systems and related systems to the presenting problem are either stated in the history of present illness or were not pertinent or were negative for the symptoms and/or complaints related to the presenting medical problem. EXAM Physical Exam Narrative Exam Narrative: Vital signs reviewed and patient is not hypoxic. General: The patient appears well and in no apparent distress. Patient is resting comfortably on cart. Not toxic, lethargic, or listless. Skin: Warm, dry, no pallor noted. There is no rash noted. Head: Normocephalic, atraumatic Eye: Normal conjunctiva, no drainage, EOMI. PERRL. Ears, Nose, Mouth, and Throat: oral mucosa is moist. Nares patent. Cardiovascular: Regular Rate and Rhythm, no murmurs, gallops, or rubs Respiratory: Patient is in no distress, no accessory muscle use, lungs are clear to auscultation, no wheezing, rales or rhonchi Back: non-tender, no CVA tenderness bilaterally to percussion. NO CTLS midline or paraspinal tenderness to palpation. GI: Soft, no distention, no rigidity, no tympany, no flank pain bilateral, no midepigastric tenderness to palpation. Otherwise no tenderness to palpation, no masses appreciated. No rebound, guarding, or rigidity noted. Musculoskeletal: The patient has full range of motion of all extremities and joints with no difficulty. Patient has no motor, no sensory deficits. Neurological: A&O x4, normal speech, no focal neurological deficits. Psychiatric: Cooperative Const Vital Signs: 09/28/22 12:18 09/28/22 13:55 09/28/22 15:06 Temperature 97.8 F 97.8 F Temperature Source Temporal Pulse Rate 92 66 64 Respiratory Rate 16 16 14 Blood Pressure 110/67 107/71 124/78 H Blood Pressure Mean 81 83 Pulse Ox 97 98 100 Oxygen Delivery Method Room Air Room Air MDM MDM MDM Narrative Medical decision making narrative: Patient was given 1 L of IV fluid. Patient was initially given a dose of IV Zofran and Reglan tablet nausea and vomiting. Patient feels much better after 2 antiemetics and IV fluids. Patient's lab work shows no severe changes. Patient's abdominal x-ray does show questionable ileus versus enteritis. Patient's abdomen is benign, he has a nonsurgical abdomen, no peritoneal signs. Education on using Zofran at home was discussed. Patient was also given a prescription for Phenergan suppositories to use. Patient will continue increasing fluids today, soft diet tomorrow as tolerated. Increasing fluids on Thursday and then he will have his have a hernia surgery on Thursday. Patient was referred to the instructions from the surgeon prior to had a hernia surgery. Patient feels much better and feels comfortable going home. Education on ileus and enteritis was done at bedside with patient and daughter. Patient looks well at discharge, hemodynamically stable. Lab Data Attestation: I reviewed the patient's lab results. Labs: Laboratory Results - last 24 hr 09/28/22 12:30 WBC 7.4 RBC 4.70 Hgb 15.5 Hct 44.8 MCV 95.3 H MCH 33.0 H MCHC 34.6 D RDW Std Deviation 48.1 H RDW Coeff of Sandip 13.6 Plt Count 228 MPV 9.2 Immature Gran % (Auto) 0.300 Neut % (Auto) 66.1 Lymph % (Auto) 18.2 L [place] % (Auto) 12.2 H Eos % (Auto) 2.7 Baso % (Auto) 0.5 Absolute Neuts (auto) 4.9 Absolute Lymphs (auto) 1.35 Nucleated RBC % 0 Sodium 135 L Potassium 3.6 Chloride 101 Carbon Dioxide 27.0 Anion Gap 7 BUN 15 Creatinine 1.15 Estim Creat Clear Calc 38.74 Est GFR (MDRD) Af Amer 77 Est GFR (MDRD) Non-Af 64 BUN/Creatinine Ratio 13.0 Glucose 115 H Calcium 9.0 Total Bilirubin 0.80 AST 17 ALT 16 Alkaline Phosphatase 79 Troponin I High Sens 12 Total Protein 7.6 Albumin 3.6 Globulin 4.0 Albumin/Globulin Ratio 0.9 Lipase 15 Radiography Diagnostic Testing: Clinical Impression(s) from Imaging Studies Acute Abdomen Series 09/28/22 12:58 IMPRESSION: Mildly distended loops of bowel suggesting ileus or enteritis. Electronically Signed: Desmond Valdez MD at 14:35 EDT , EKG Initial EKG: Comments: EKG interpretation. Baseline normal sinus rhythm at 98 beats a minute. Left axis deviation. PVC noted. Artifact noted. QTc of 485. No acute changes. Prior EKG tracings: available for review and not available for review Discharge Plan Triage Chief Complaint: Nausea/Vomiting ED Provider: Yoandy Cortes Dx/Rx/DC Orders Clinical Impression: Nausea & vomiting, Dehydration Instructions: ED Dehydration (Adult), ED Gastroenteritis, Viral (Adult), ED Vomiting (Adult) Prescriptions: New prochlorperazine 25 mg suppository 25 mg [place] Q8H PRN (Reason: nausea and vomiting) Qty: 6 0RF No Action potassium chloride 20 mEq tablet extended release 20 meq PO DAILY Patient Comments: TAKE 1 TABLET BY MOUTH ONCE DAILY; Take 20 mEq PO BID x 3 days and then 20 mEq Daily 05/16/2022 hydrochlorothiazide 12.5 mg capsule 12.5 mg PO DAILY mirtazapine 7.5 mg tablet 7.5 mg PO DAILY omeprazole 40 mg capsule,delayed release(DR/EC) 40 mg PO DAILY Patient Comments: Take 1 capsule oral once a day tamsulosin 0.4 mg Capsule 0.4 mg PO BID Qty: 0 0RF ondansetron [ondansetron] 4 mg tablet,disintegrating 8 mg PO Q8H PRN PRN (Reason: Nausea) Qty: 20 0RF furosemide 40 mg tablet 40 mg PO DAILY Patient Comments: TAKE 1 TABLET BY MOUTH ONCE DAILY FOR 90 DAYS prednisone 20 mg tablet 10 mg PO DAILY Rx Instructions: 40 mg daily x5 days, then 20 mg daily x5 days, then 10 mg daily thereafter Eliquis 5 mg tablet See Rx Instructions .ROUTE .COMPLEX Qty: 60 11RF Hold Instructions: suregry 10/01/22 Dose Instruction: TAKE 1 TABLET BY MOUTH TWICE DAILY Rx Instructions: TAKE 1 TABLET BY MOUTH TWICE DAILY Primary Care Provider: Kiko Mojica Chi Referrals: Kiko Mojica Chi, MD [Primary Care Provider] - Activity Restrictions/Additional Instructions: Continue to increase liquids today, Gatorade or Powerade. Soft diet tomorrow, then use Gatorade, Powerade again on Thursday. NPO after midnight on Thursday. Continue to use Zofran ODT 4mg again, you may use 1 or 2 if needed. Use Phenergan suppository if needed as well. Read your instructions for your hiatal hernia surgery so you know what to do on Thursday prior to surgery. Follow-up with your PCP tomorrow as scheduled. Any other acute concerns, contact your surgeon. I am not diagnosing you with gastroenteritis, this information is given to you for educational purposes only. Disposition Disposition: Home, Self Care Discharge Date/Time: 09/28/22 15:26
[2022-09-28] MEDS: 0.9% Normal Saline 1,000 ML 1000 ML IV (12:42)
[2022-09-28] MEDS: Ondansetron 4 MG/2 ML Vial IV (12:42)
[2022-09-28] MEDS: Metoclopramide 10 MG/2 ML Vial IV (12:43)
[2022-09-28 12:50] LABS: Absolute Lymphocyte Count 1.35 X10^3/uL (0.83-4.51); Absolute Neutrophil Count 4.9 X10^3/uL (2.0-7.7); Basophil# 0.04 X10^3/uL; Basophil% 0.5 % (0-1); Eosinophils% 2.7 % (0-5); Hematocrit 44.8 % (40-54); Hemoglobin 15.5 g/dL (13.0-16.5); Lymphocyte # 1.35 X10^3/ul (0.83-4.51); Lymphocyte % 18.2 % (19-41); Mean Corp Hgb Conc 34.6 g/dL (32-36); Mean Corpuscular Volume 95.3 fL (80-94); Mean Platelet Vol. 9.2 fl (6.2-12.0); Monocyte% 12.2 % (0-10); NRBC Flagged by Analyzer 0 % (0-5); Neutrophil # 4.89 X10^3/uL (2.7-7.7); Neutrophil % 66.1 % (47-70); Platelet Count 228 K/mm3 (150-450); RBC Distribution Width CV 13.6 % (11.6-14.6); RBC Distribution Width SD 48.1 fl (35.1-43.9); White Blood Count 7.4 K/mm3 (4.4-11.0)
--- NOTE | 2022-09-28 12:58 | RAD_ITS ---
STUDY: X-RAY - ACUTE ABDOMINAL SERIES REASON FOR EXAM: Male, 87 years old. Pain TECHNIQUE: Single view of the chest. Supine, and erect view(s) of the abdomen were obtained. COMPARISON: None. FINDINGS: There is hyperinflation of the lungs consistent with chronic obstructive lung disease (COPD). There are sternotomy wires. Normal mediastinum and tammi. Normal visualized pulmonary arteries. There is aneurysmal dilatation of the ascending aorta. There are mildly dilated loops of bowel. There is aortoiliac stent graft. There is degenerative change of the spine. RAD/Acute Abdomen Inc Chest IMPRESSION: Mildly distended loops of bowel suggesting ileus or enteritis. Electronically Signed: Desmond Valdez MD at 14:35 EDT ,
[2022-09-28 13:08] LABS: ALB/GLOB Ratio 0.9 RATIO (0.9-2.4); AST(SGOT) 17 U/L (15-37); Alanine Aminotransfer ALT/SGPT 16 U/L (16-61); Albumin, Serum 3.6 g/dL (3.2-5.0); Alkaline Phosphatase 79 U/L (45-117); Anion Gap 7 (5-15); BUN 15 mg/dL (7-18); Chloride 101 mmol/L (98-107); Creatinine, Serum 1.15 mg/dL (0.70-1.30); EST Glomerular Filtration Rate 64 mL/min (>60); Est Glom Filt Rate - Afr Amer 77 mL/min (>60); Estimated Creatinine Clearance 38.74 ml/min; Glucose 115 mg/dL (74-106); Lipase 15 U/L (13-75); Potassium 3.6 mmol/L (3.5-5.1); Protein, Total 7.6 g/dL (6.4-8.2); Sodium Level 135 mmol/L (136-145); Troponin-I HS 12 pg/mL (3.0-78.0)
[2022-09-28 13:55] VITALS: BP 107/71; PULSE 66; RESP 16; O2SAT 98
[2022-09-28 15:06] VITALS: BP 124/78; PULSE 64; RESP 14; TEMP 36.6; O2SAT 100
== END 2022-09-28 15:26 | disposition home or self-care (01) ==
PROVIDERS: Emergency Provider Emergency Medicine; PCP Family Medicine Geriatric Medicine; Visit Provider Emergency Medicine
DX: E86.0 Dehydration (principal); I48.0 Paroxysmal atrial fibrillation; R11.2 Nausea with vomiting, unspecified; E78.5 Hyperlipidemia, unspecified; I25.10 Atherosclerotic heart disease of native coronary artery without angina pectoris; I10 Essential (primary) hypertension; Z87.891 Personal history of nicotine dependence; Z86.73 Personal history of transient ischemic attack (TIA), and cerebral infarction without residual deficits; I25.2 Old myocardial infarction; K21.9 Gastro-esophageal reflux disease without esophagitis; Z79.01 Long term (current) use of anticoagulants; Z90.49 Acquired absence of other specified parts of digestive tract
CPT/HCPCS: 74022; 80053; 83690; 84484; 85025; 93005; 96361; 96374; 96375; 99283; J7030; A4216; J2405

== ENCOUNTER → 2022-09-29 | Outpatient (CLI) | payer MEDICARE, SELFPAY ==
[2022-09-29 15:39] LABS: Absolute Lymphocyte Count 1.69 X10^3/uL (0.83-4.51); Absolute Neutrophil Count 3.5 X10^3/uL (2.0-7.7); Basophil# 0.04 X10^3/uL; Basophil% 0.6 % (0-1); Eosinophil# 0.15 X10^3/uL; Eosinophils% 2.4 % (0-5); Hemoglobin 14.5 g/dL (13.0-16.5); Lymphocyte # 1.69 X10^3/ul (0.83-4.51); Lymphocyte % 27.3 % (19-41); Mean Corpuscular Hgb 31.6 pg (27.0-32.0); Mean Corpuscular Volume 95.9 fL (80-94); Mean Platelet Vol. 9.8 fl (6.2-12.0); Monocyte# 0.76 X10^3/uL; Monocyte% 12.3 % (0-10); NRBC Flagged by Analyzer 0 % (0-5); Neutrophil # 3.52 X10^3/uL (2.7-7.7); Neutrophil % 57.1 % (47-70); Platelet Count 238 K/mm3 (150-450); RBC Distribution Width CV 13.7 % (11.6-14.6); Red Blood Count 4.59 M/mm3 (4.6-6.2); White Blood Count 6.2 K/mm3 (4.4-11.0)
[2022-09-29 16:15] LABS: ALB/GLOB Ratio 0.9 RATIO (0.9-2.4); AST(SGOT) 13 U/L (15-37); Alanine Aminotransfer ALT/SGPT 15 U/L (16-61); Albumin, Serum 3.5 g/dL (3.2-5.0); Alkaline Phosphatase 76 U/L (45-117); Anion Gap 5 (5-15); BUN 14 mg/dL (7-18); BUN/Creat Ratio 10.5 RATIO (10-20); Calcium,Total 9.2 mg/dL (8.5-10.1); Chloride 100 mmol/L (98-107); Creatinine, Serum 1.33 mg/dL (0.70-1.30); EST Glomerular Filtration Rate 54 mL/min (>60); Est Glom Filt Rate - Afr Amer 65 mL/min (>60); Globulin 3.7 g/dL (2.2-4.2); Glucose 100 mg/dL (74-106); Potassium 3.4 mmol/L (3.5-5.1); Protein, Total 7.2 g/dL (6.4-8.2); Sodium Level 135 mmol/L (136-145); Thyroid Stim Hormone (TSH) 1.75 uIU/mL (0.358-3.74)
[2022-09-29 20:49] LABS: Vitamin D,25 Hydroxy 24.8 ng/mL
== END | disposition home or self-care (01) ==
PROVIDERS: PCP Family Medicine Geriatric Medicine; Visit Provider Family Medicine Geriatric Medicine
DX: I10 Essential (primary) hypertension (principal); E55.9 Vitamin D deficiency, unspecified
CPT/HCPCS: 36415; 80053; 82306; 84443; 85025

== ENCOUNTER 2022-10-06 08:24 | Day surgery (SDC) | payer MEDICARE, SELFPAY ==
[2022-10-06] VITALS (7 sets, daily range): BP systolic 106–131; BP diastolic 50–77; PULSE 60–85; RESP 14–18; TEMP 36.2–36.7; O2SAT 92–97; BMI 19.2
--- NOTE | 2022-10-06 08:53 | PCM.HP.BLA ---
History and Physical Date of Admission: 10/06/22 Visit Reasons: INCISIONAL HERNIA Chief Complaint: incisional hernia Is patient in pain?: No Allergies rivaroxaban [From Xarelto] Adverse Reaction (Verified 09/17/22 15:04) generally did not feel well Medications lactulose 10 gram/15 mL oral solution 15 ml PO DAILY PRN PRN Constipation 07/24/20 [History Confirmed 09/17/22] omeprazole 40 mg capsule,delayed release 40 mg PO DAILY GERD 03/04/21 [History Confirmed 09/17/22] plecanatide 3 mg tablet (Trulance) 3 mg PO PRN PRN IBS 07/13/21 [History Confirmed 06/04/22] atorvastatin 40 mg tablet 40 mg PO QHS cholesterol 11/11/21 [History Confirmed 06/04/22] apixaban 5 mg tablet (Eliquis) See Rx Instructions .Route .COMPLEX #60 TABLETS 04/14/22 [Rx Confirmed 09/17/22] tamsulosin 0.4 mg capsule 0.4 mg PO BID #0 caps 04/25/22 [Rx Confirmed 09/17/22] potassium chloride 20 mEq tablet,extended release 20 meq PO DAILY supplement 05/16/22 [History Confirmed 09/17/22] oxycodone 5 mg tablet 5 mg PO Q6H PRN pain 5 days #15 tabs 06/05/22 [Rx] prednisone 20 mg tablet 40 mg (2 x 20 mg) PO DAILY #20 tabs 06/05/22 [Rx] hydrochlorothiazide 12.5 mg capsule 12.5 mg PO DAILY 09/17/22 [History Confirmed 09/17/22] linaclotide 290 mcg capsule (Linzess) 290 mcg PO DAILY 09/17/22 [History Confirmed 09/17/22] mirtazapine 7.5 mg tablet 7.5 mg PO DAILY 09/17/22 [History Confirmed 09/17/22] [facility] Medical History Abdominal aortic aneurysm (AAA) Abdominal pain Arthritis Atherosclerosis of coronary artery of [place]' heart without angina pectoris Back pain Cardiology follow-up encounter Central retinal vein occlusion of right eye (11/25/19) Cervical myelopathy Colon polyp Complete edentulism, class III Constipation Esophageal dilatation Essential hypertension Former smoker FTT (failure to thrive) in adult GERD (gastroesophageal reflux disease) History of atrial fibrillation History of echocardiogram History of edema History of esophageal stricture History of hiatal hernia History of pain when walking History of ST elevation myocardial infarction (STEMI) (05/08/06) History of steroid therapy History of stress test Hyperlipidemia Insomnia Irritable bowel syndrome with constipation Leg cramps Multifocal atrial tachycardia Paroxysmal atrial fibrillation Postoperative atrial fibrillation (05/2006) Restless legs Right temporomandibular joint disorder, unspecified Rotator cuff tear Spinal stenosis in cervical region Spondylosis of cervical spine with radiculopathy Stroke/cerebrovascular accident Syncope Tear of biceps tendon Weakness generalized Wears glasses Surgical History 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) History of appendectomy History of cataract surgery History of endovascular stent graft for abdominal aortic aneurysm (AAA) History of esophageal dilatation (~12/2020) History of esophagogastroduodenoscopy (EGD) History of herniorrhaphy History of sinus surgery S/P cervical spinal fusion Family History Mother Colon cancer CVA (cerebral vascular accident)Father Cancer leukemia Social History household members: none Smoking Status: Former smoker second hand exposure: No alcohol intake: never substance use type: does not use caffeine: Yes seatbelt use: always HPI HPI HPI: 87-year-old gentleman is referred by Dr. Kiko Mojica for surgical consultation regarding an incisional hernia and a written compromise rule out salt and recommendation will be returned to him. When the patient was seen by Dr. Mojica he was noted to have progressive swelling of his feet. He was placed on furosemide. Will get his other medications he is on apixaban and he received a dosing of prednisone June 05, 2022 did I have reviewed a previous CAT scan that he had May 22, 2022 which did not comment about a ventral incisional hernia but in the epigastric area there is 1 that has fibrofatty tissue in it. 2006 the patient had coronary bypass surgery. It appears that this hernia is related to either that midline incision or there is a transverse incision over it suggesting a chest tube. Now it appears to have fibrofatty tissue within it ROS General General: Yes weight change and fatigue; No appetite, colon cancer, breast cancer or weakness HEENT HEENT: Yes difficulty swallowing and eye surgery; No eye injury, swollen glands or hoarseness Endo Endocrine: No thyroid disease, diabetes mellitus, thyroid cancer, Hair loss, heat intolerance or cold intolerance Skin Skin: No rash or changing moles Musc Musculoskeletal: Yes back problems and arthritis; No rheumatoid arthritis, gout or joint pain Cardio Cardiovascular: Yes heart disease, atrial fibrillation and heart attack; No murmur, pacemaker, high blood pressure, heart stent, palpitations, shortness of breat with exertion or chest pain Psych Psychiatric: No depression, anxiety or hearing voices Resp Respiratory: Yes shortness of breath, No sleep apnea, No cough, No COPD, No asthma, No emphysema and No wheezing Gastro Gastrointestinal: Yes abdominal pain, No nausea or vomiting, No diarrhea, Yes constipation, No blood in stool, Yes acid reflux, No hemorrhoids, No ulcers, No gallbladder problem and No black,tarry stools Miguelangel Hematologic: Yes blood thinners, No blood disorders, No bleeding, No anemia and No blood clots Neuro Neurologic: No system reviewed and no additional complaints, except as documented, No as per HPI, No abnormal gait, No abnormal hearing, No abnormal movements, No abnormal speech, No behavioral changes, No burning sensations, No confusion, No convulsions, No disequilibrium, No dizziness, No localized weakness, No frequent falls, No headache(s), No lack of coordination, No loss of vision, No memory loss, No numbness, No other visual disturbances, No radicular pain, No restless legs, No sensory deficit, No syncope, No tingling, No tremor(s), No weakness and No other Exam Const General: cooperative, comfortable and no acute distress Nutritional Appearance: underweight Other: Patient demonstrates significant signs of weight loss with a belt with many additional notches HENMT Head: normal to inspection Eyes General: appearance normal, both eyes and all related structures Neck Neck: normal visual inspection Chest Chest palpation & inspection: normal inspection of the chest Resp Effort & Inspection: normal respiratory effort Auscultation: clear to auscultation bilaterally Cardio Other: Irregular GI Palpation: soft Other: Median sternotomy incision. Transverse epigastric incision. Nonreducible fibrofatty tissue within a incisional hernia Musc Cervical Spine: normal cervical lordosis Skin General: no rashes or lesions noted Neuro General: patient alert and patient awake Extrem Other: 2+ pitting edema bilateral lower extremities Psych Appearance: grossly normal Assessment and Plan Assessment and Plan (1) Irreducible ventral incisional hernia: Status: Acute Plan: The patient is ventral incisional hernia now appears to be nonreducible and he claims that is symptomatically tender. I have offered him a direct approach to the area likely then using a Ventralex mesh. He would need to hold his Eliquis for 3 days. He and his daughter are aware of technique, benefit, risk, alternatives. We would try to minimize the amount of this procedure. As it is now becomes symptomatic I do believe that repair is indicated. Copy: Dr. Kiko Rosario M.D., F.A.C.S The patient has had several emergency room visits and he has been seen by his primary care physician because he has been complaining about intractable nausea and vomiting. CT imaging was obtained. There is only fibrofatty tissue within this hernia no bowel involvement. Dr. Mojica felt that the patient's nausea and vomiting was secondary to a viral illness. We canceled the patient's surgery for a week. By report he has not had symptoms for 3 days. He is very much aware that repairing the hernia is not felt to do anything to improve his nausea and vomiting and is not felt to be a component of his nausea and vomiting. If he has ongoing symptoms he will need ongoing primary care treatment. He is very much interested in proceeding on with his hernia repair due to the local pain. We will proceed as noted. Tal Rosario M.D., F.A.C.S.
--- NOTE | 2022-10-06 08:54 | DCINST_ITS ---
Discharge Instructions Procedure General Surgery Diet Discharge Diet: Light diet - advance as tolerated (if you have questions about your diet instructions, please talk to you doctor.) Activity Discharge Activity: May Not Drive (for 3-5 days or while taking narcotic pain medicine.) May shower in (days): 1 Lifting Restrictions: 10 pounds Dressing / Incision Call your doctor if your incision/area has: Continuous Slow Oozing, Sudden Increased Bleeding, Increased Pain/ Swelling, Increased Redness and Foul Smelling Discharge Call your doctor if you observe: Fever of 101 or Higher Suture Line Care: Avoid Pulling/Pushing and Avoid Pinching/Bending Additional Dressing/Incision Instructions:: Change or remove dressing in 4 days. Leave steri-strips in place for 1 week. Follow Up Care Please Follow Up With: Tal Rosario MD When: Call [phone] to make an appointment to be seen in about 10 days. Test Results: Test results from this visit will be discussed in further detail at your follow- up appointment, if applicable. Discharge Plan Admission Attending Provider: Tal Rosario Primary Care Provider: Kiko Mojica Chi Discharge Orders/Prescriptions Prescriptions: No Action potassium chloride 20 mEq tablet extended release 20 meq PO BID Patient Comments: TAKE 1 TABLET BY MOUTH ONCE DAILY; Take 20 mEq PO BID x 3 days and then 20 mEq Daily 05/16/2022 hydrochlorothiazide 12.5 mg capsule 12.5 mg PO DAILY omeprazole 40 mg capsule,delayed release(DR/EC) 40 mg PO DAILY Patient Comments: Take 1 capsule oral once a day tamsulosin 0.4 mg Capsule 0.4 mg PO BID Qty: 0 0RF furosemide 40 mg tablet 40 mg PO DAILY Patient Comments: TAKE 1 TABLET BY MOUTH ONCE DAILY FOR 90 DAYS prednisone 20 mg tablet 5 mg PO DAILY Rx Instructions: 40 mg daily x5 days, then 20 mg daily x5 days, then 10 mg daily thereafter Linzess 72 mcg capsule 72 mcg PO DAILY Eliquis 5 mg tablet See Rx Instructions .ROUTE .COMPLEX Qty: 60 11RF Hold Instructions: suregry 10/01/22 Dose Instruction: TAKE 1 TABLET BY MOUTH TWICE DAILY Rx Instructions: TAKE 1 TABLET BY MOUTH TWICE DAILY Referrals / Follow Up: Kiko Mojica Chi, MD [Primary Care Provider] - Disposition Disposition (needs filled in before D/C Order can be placed): Home, Self Care
[2022-10-06] MEDS: Lactated Ringers 1,000 ML 15 ML IV ×2 (09:00→12:41)
--- NOTE | 2022-10-06 10:50 | HERN_PTH ---
PATIENT: ESAU NAJERA LOC: [facility] [place] U#:[id number] AGE/SX: 87/M ROOM: RE10/06/[address]: Dr. Tal Rosario MD : [id number] BED: DIS: 10/06/2022 SPEC #: [id number] RECD: 10/06/22 13:52 STATUS: DESTINEE JOINER #: [id number] EPI: 10/06/22 10:[address]: Tal Rosario DEPT: SURGICAL PATHOLOGY RECD BY: Lee Ann Kennedy ENTERED: 10/07/22 07:40 SP TYPE: Hernia OTHR DR: Dr. Kiko Mojica MD Tissues: HERNIA Procedures: Surgery Specimen Level II HEADER OPERATION: Hernia, incarcerated ventral incisional repair with mesh PRE-OP DIAGNOSIS: Irreducible ventral incisional hernia TISSUE SUBMITTED: Hernia sac and contents MICROSCOPIC DIAGNOSIS Hernia sac and contents: Pieces of adipose tissue, consistent with hernia sac and contents. SJ:vadim 10/08/2022 MICROSCOPIC DESCRIPTION Slides are reviewed. GROSS DESCRIPTION Received in fixative is one container labeled with the patient's name and designated hernia sac and contents. The specimen consists of a piece of adipose tissue measuring 5.0 x 3.0 x 2.0 cm. Sections do not reveal any mass lesion. Also present in the container is a piece of adipose tissue consistent with omentum measuring 8.0 x 3.5 x 1.0 cm. [employer] sections are submitted in two cassettes as follows: 1 - adipose tissue, 2 - second piece of tissue consistent with omentum. / MARITZA:vadim 10/07/2022 TC:5 CPT: 23015
[2022-10-06] MEDS: Cefazolin 2 GM in 0.9% Normal Saline 100 ML IV (11:04)
[2022-10-06] MEDS: Bupivacaine Mpf 0.5% 30 ML VIAL (11:19)
--- NOTE | 2022-10-06 11:34 | PCM.OPRPT ---
Report of Operation Date of Procedure: 10/06/22 Pre-Operative Diagnosis: Incarcerated epigastric ventral incisional hernia Post-Operative Diagnosis: Same Surgery/Procedure Performed:: 2 cm diameter incarcerated epigastric ventral incisional herniorrhaphy with [address] hernia patch Lot number [id number], reference [id number], expiry date 04/08/2024 Description of Surgical Findings:: Timeout and informed consent was obtained. 87-year-old gentleman was taken to the operating placed spine table underwent general anesthesia Ancef 2 g were given intravenously the abdomen sterilely prepped and draped he had a transverse incision in the epigastric area related likely to a cardiothoracic chest tube I excised the skin scar inspected it and discarded it. Sharp and blunt dissection identified preperitoneal fatty tissue and omentum incarcerated with the hernia. I used electrocautery to transect where appropriate I resected the portion of omentum and secured that with a sutured ligature of 2-0 Vicryl and then additional tie of 2-0 Vicryl. That was placed back within the abdomen. A few adhesions were lysed. A [address] mesh was inserted the tails were secured with interrupted 0 Nurolon. The fascia was approximated interrupted 0 Nurolon gaining access to the anterior wall of the mesh to his create that as part of the repair. Subdermal tissues approximated running subicular 4 Monocryl. Steri-Strips Telfa OpSite dressings applied. Sponge and instrument and needle counts were reported to surgeon to be correct. Specimen hernia sac and contents. Drains none. Blood loss minimal. The patient was taken the recovery room in satisfied condition without apparent complication Tal Rosario M.D., F.A.C.S. Surgeon: Tal Rosario Type of Anesthesia: General and Local Anesthesiologist: Jaime Canas
[2022-10-06] MEDS: Acetaminophen 325 MG Tablet 650 MG PO (13:05)
== END 2022-10-06 14:45 | disposition home or self-care (01) ==
LOC: SDC 08:28 → AC 08:29
PROVIDERS: PCP Family Medicine Geriatric Medicine; Referring Provider Surgery; Visit Provider Surgery
PROC: (CPT 49592; principal; 2022-10-06 10:35)
DX: K43.0 Incisional hernia with obstruction, without gangrene (principal); I71.40 Abdominal aortic aneurysm, without rupture, unspecified; I48.0 Paroxysmal atrial fibrillation; Z80.0 Family history of malignant neoplasm of digestive organs; Z87.891 Personal history of nicotine dependence; I10 Essential (primary) hypertension; E78.5 Hyperlipidemia, unspecified; I25.10 Atherosclerotic heart disease of native coronary artery without angina pectoris; K58.9 Irritable bowel syndrome, unspecified; Z95.1 Presence of aortocoronary bypass graft; Z86.73 Personal history of transient ischemic attack (TIA), and cerebral infarction without residual deficits
CPT/HCPCS: 49592; 00832; 88302; J7120; C1781; J2405

== ENCOUNTER → 2022-10-16 | Outpatient (CLI) | payer MEDICARE, SELFPAY ==
--- NOTE | 2022-10-16 15:10 | US_ITS ---
STUDY: SUPERFICIAL ULTRASOUND - REASON FOR EXAM: Male, 87 years old. LIPOMA RIGHT LOWER EXTREMITY TECHNIQUE: A superficial ultrasound was performed with real-time and static rouse-scale imaging. COMPARISON: None. FINDINGS: Subcutaneous longitudinal multiloculated cystic mass. It measures 3.3 x 1.2 x 0.6 cm. No internal color flow. US/Ext Non Vasc Limited/Soft Tiss IMPRESSION: Subcutaneous cystic lesion as above [inconsistent with lipoma]. Electronically Signed: Manish Fuller MD at 23:36 EDT ,
== END | disposition home or self-care (01) ==
LOC: US 15:08
PROVIDERS: PCP Family Medicine Geriatric Medicine; Referring Provider Family Medicine Geriatric Medicine; Visit Provider Family Medicine Geriatric Medicine
DX: D17.23 Benign lipomatous neoplasm of skin and subcutaneous tissue of right leg (principal)
CPT/HCPCS: 76882

== ENCOUNTER → 2022-11-27 | Outpatient (CLI) | payer MEDICARE, SELFPAY ==
--- NOTE | 2022-11-27 16:05 | MRI_ITS ---
STUDY: MRI LOWER EXTREMITY RIGHT TIBIA/FIBULA WITH AND WITHOUT CONTRAST REASON FOR EXAM: Male, 87 years old. Mass right lower leg, distal medial lower leg marked with oil bead. TECHNIQUE: Standardized fat and water weighted pulse sequences were obtained in all 3 orthogonal planes, post contrast administration. IV 10 mL Clariscan was administered for the contrast portion of the examination. COMPARISON: Ultrasound right lower extremity dated 10/16/2022. FINDINGS: A skin marker was placed along the medial aspect of the upper right ankle region at the site of clinical concern. Subjacent to the skin marker, there is a bilobed isointense T1 and high T2/STIR structure in the subcutaneous fat just under the skin surface, measuring 1.1 cm in greatest axial diameter and approximately 2.4 cm craniocaudad (axial STIR series 6 imaged 21-22; coronal STIR series 4 image 14; sagittal T2 series 2 image 18). There is no significant enhancement following IV contrast administration. The overall imaging findings are concerning for a sebaceous cyst. There is moderate to severe subcutaneous soft tissue edema around the lower calves bilaterally. Normal tibia and fibula, without a periosteal, cortical or cancellous marrow abnormality. Normal anterior, lateral, and posterior calf compartments, with normal muscles, crural fascia and intermuscular septa. There is no abnormal contrast enhancement. MRI/Lower Ext No Joint W/WO Cont IMPRESSION: Suspected 1.1 x 2.4 cm sebaceous cyst along the medial aspect of the upper right ankle. Moderate to severe subcutaneous soft tissue edema around the lower calves bilaterally. Electronically Signed: Kendell Kemp MD at 12:37 EDT ,
[2022-11-27 16:36] LABS: CREATININE FINGERSTICK < 0.9 mg/dL (0.70-1.30); EGFR FINGERSTICK > 60.0000 mL/min (>60)
== END | disposition home or self-care (01) ==
PROVIDERS: PCP Family Medicine Geriatric Medicine; Visit Provider Family Medicine Geriatric Medicine
DX: R22.41 Localized swelling, mass and lump, right lower limb (principal)
CPT/HCPCS: 73720; A9575

== ENCOUNTER → 2022-12-08 | Outpatient (CLI) | payer MEDICARE, SELFPAY ==
--- NOTE | 2022-12-08 12:56 | ART_ITS ---
Reason For Study: PVD Procedure A bilateral lower extremity continuous wave Doppler with analog waveform analysis,segmental pressures,and ankle brachial indexes without exercise. Left Segmental Pressures Left brachial= 126mmHg. Left posterior tibial artery = 131mmHg. Left dorsalis pedis artery = 142mmHg. Left digit = 52 mmHg. Right Segmental Pressures Right brachial= 115mmHg. Right posterior tibial artery = 137mmHg. Right dorsalis pedis artery = 133mmHg. Right digit = 59 mmHg. Indices The right ankle brachial index by the posterior tibial artery is 1.09. The right ankle brachial index by the dorsalis pedis is 1.06. The right digital-brachial index is 0.47. The left ankle brachial index by the posterior tibial artery is 1.04. The left ankle brachial index by the dorsalis pedis is 1.13. The left digital-brachial index is 0.41. VL/Lower Ext Art Exam w/o Exercis Interpretation Summary Triphasic Doppler waveforms are noted at ankle level bilaterally. Pulse-volume recordings appear diminished at digital level bilaterally. Resting ankle-brachial indices are nor mal bilaterally. Digital-brachial indices are moderately diminished bilaterally. Arterial flow appears normal at ankle level bilaterally. There is evidence of m oderate arterial occlusive disease at digital level bilaterally. Ordering Physician: Celso Caldera Referring Physician: Kiko Mojica Chi Performed By: Brielle Estrada RDCS/RVT
== END | disposition home or self-care (01) ==
LOC: CVS 12:49
PROVIDERS: PCP Family Medicine Geriatric Medicine; Visit Provider Surgery
DX: I73.9 Peripheral vascular disease, unspecified (principal)
CPT/HCPCS: 93923

== ENCOUNTER → 2023-04-16 | Outpatient (CLI) | payer MEDICARE, SELFPAY ==
[2023-04-16 17:14] LABS: Absolute Lymphocyte Count 2.13 X10^3/uL (0.83-4.51); Absolute Neutrophil Count 5.1 X10^3/uL (2.0-7.7); Basophil# 0.07 X10^3/uL; Basophil% 0.8 % (0-1); Eosinophil# 0.26 X10^3/uL; Eosinophils% 3.1 % (0-5); Hematocrit 42.1 % (40-54); Lymphocyte # 2.13 X10^3/ul (0.83-4.51); Lymphocyte % 25.2 % (19-41); Mean Corp Hgb Conc 33.3 g/dL (32-36); Mean Corpuscular Hgb 31.2 pg (27.0-32.0); Mean Corpuscular Volume 93.8 fL (80-94); Mean Platelet Vol. 9.5 fl (6.2-12.0); Monocyte# 0.85 X10^3/uL; Monocyte% 10.1 % (0-10); NRBC Flagged by Analyzer 0 % (0-5); Neutrophil % 60.4 % (47-70); Platelet Count 276 K/mm3 (150-450); RBC Distribution Width CV 13.9 % (11.6-14.6); RBC Distribution Width SD 47.8 fl (35.1-43.9); Red Blood Count 4.49 M/mm3 (4.6-6.2); White Blood Count 8.4 K/mm3 (4.4-11.0)
[2023-04-16 17:24] LABS: Vitamin D,25 Hydroxy 17.2 ng/mL
[2023-04-16 17:35] LABS: ALB/GLOB Ratio 0.9 RATIO (0.9-2.4); AST(SGOT) 15 U/L (15-37); Alanine Aminotransfer ALT/SGPT 17 U/L (16-61); Albumin, Serum 3.3 g/dL (3.2-5.0); Alkaline Phosphatase 84 U/L (45-117); Anion Gap 8 (5-15); BUN 18 mg/dL (7-18); BUN/Creat Ratio 16.2 RATIO (10-20); Calcium,Total 8.7 mg/dL (8.5-10.1); Chloride 101 mmol/L (98-107); Creatinine, Serum 1.11 mg/dL (0.70-1.30); EST Glomerular Filtration Rate 66 mL/min (>60); Est Glom Filt Rate - Afr Amer 80 mL/min (>60); Globulin 3.6 g/dL (2.2-4.2); Glucose 111 mg/dL (74-106); Potassium 3.3 mmol/L (3.5-5.1); Protein, Total 6.9 g/dL (6.4-8.2); Sodium Level 139 mmol/L (136-145); Thyroid Stim Hormone (TSH) 1.72 uIU/mL (0.358-3.74)
--- OUTSIDE RECORDS SUMMARY | 2023-04-16 20:24 | XMS RPT_ITS | CCD ---
Author Name Unknown Address [address] [place] [address] Organization [facility] Care Team Providers Care Stringed Instrument Assembler Name Role Phone VANDANA BAKER Unavailable Unavailable TIM, DENG Unavailable Unavailable KIYA QUIROS Unavailable Unavailable DWAINICOLAAURA Unavailable Unavailable PETTYLUCILA Unavailable Unavailab le MILLER, JEROMY G Unavailable Unavailable PETTYLUCILA Unavailable Unavailab le IMCA Unavailable Unavailable PETTYLUCILA Unavailable Unavailab le IMCA Unavailable Unavailable YUNIOR, KIKO-CHI Unavailable Unavailable Yunior, Kiko Chi Unavailable Unavailable Yunior, Kiko Chi Unavailable Unavailable YUNIOR, KIKO-CHI Unavailable Unavailable YUNIOR, KIKO-CHI Unavailable Unavailable Yunior, Kiko Chi Unavailable Unavailable Yunior, Kiko Chi Unavailable Unavailable No Doctor Assigned, Nodr Unavailable Unavail able Yunior, Kiko Chi Unavailable Unavailable No Doctor Assigned, Nodr Unavailable Unavail able Yunior, Kiko Chi Unavailable Unavailable ARTIE, EUGENE Unavailable Unavailable Unavailable Primary Care Provider Unavailabl e Thomae, Efrain Unavailable Unavailable Yunior, Kiko-Chi Unavailable Unavailable Celso Crowe Primary Care Provider Yunior, Kiko-Chi Unavailable Unavailable Unavailable Celso Crowe MD Primary Care Provider [phone] Yunior, Kiko Chi Primary Care Provider Kiko Mojica MD, Chi Primary Care Provider Yunior, Kiko Chi Primary Care Provider Yunior, Kiko Chi Primary Care Provider Kiko Mojica MD, Chi Primary Care Provider Yunior, Kiko Chi Primary Care Provider [phone] FERNY MARIA Attending Unavailable YUNIOR, KIKO CHI Primary Care Unavailable CROW, FERNY P Referring Unavailable CROW, FERNY P Referring Unavailable YUNIOR, KIKO CHI Primary Care Unavailable FERNY MARIA P Attending Unavailable YUNIOR, KIKO CHI Primary Care Unavailable FEGATELLI, LUCI Referring Unavailable FEGATELLI, LUCI Referring Unavailable YUNIOR, KIKO CHI Primary Care Unavailable CROW FERNY P Referring Unavailable YUNIOR, KIKO CHI Primary Care Unavailable SOREN EISENBERGNA Attending Unavailable CROW, FERNY P Referring Unavailable YUNIOR, KIKO CHI Primary Care Unavailable CROW, FERNY P Referring Unavailable YUNIOR, KIKO CHI Primary Care Unavailable JALYN MARIA Attending Unavailable YUNIOR, KIKO CHI Primary Care Unavailable FERNY MARIA P Attending Unavailable CROW, FERNY P Referring Unavailable YUNIOR, KIKO CHI Primary Care Unavailable CROW, FERNY P Referring Unavailable YUNIOR, KIKO CHI Primary Care Unavailable FERNY MARIA P Attending Unavailable CROW, FERNY P Referring Unavailable YUNIOR, KIKO CHI Primary Care Unavailable Breanne, Dr. Santiago Ayala Admitting Marquis winchester Massey, Dr. Santiago Ayala Attending Marquis Massey, Dr. Santiago Ayala Referring Unavai labcristina Mojica[facility] ESHENAUR, RAY Referring Unavailable YUNIOR, KIKO CHI Primary Care Unavailable KALI DOMINGUEZ Attending Unavailable ESHENAUR, RAY Admitting Unavailable ESHENAUR, RAY Referring Unavailable YUNIOR, KIKO CHI Primary Care Unavailable KALI DOMINGUEZ Attending Unavailable ESHENAUR, RAY Admitting Unavailable JELENA BEDOLLA Attending Unavailable YUNIOR, KIKO CHI Primary Care Unavailable ESHENAUR, RAY Referring Unavailable ESHENAUR, RAY Admitting Unavailable YUNIOR, KIKO CHI Primary Care Unavailable NIA ORR Attending Unavailable ESHENAUR, RAY Referring Unavailable ESHENAUR, RAY Admitting Unavailable YUNIOR, KIKO CHI Primary Care Unavailable ELISA MACIAS Attending Unavailable ESHENAUR, RAY Referring Unavailable ESHENAUR, RAY Admitting Unavailable JELENA BEDOLLA Attending Unavailable YUNIOR, KIKO CHI Primary Care Unavailable ESHENAUR, RAY Referring Unavailable ESHENAUR, RAY Admitting Unavailable ESHENAUR, RAY Admitting Unavailable YUNIOR, KIKO CHI Primary Care Unavailable NIA ORR Attending Unavailable ESHENAUR, RAY Referring Unavailable JELENA BEDOLLA Attending Unavailable YUNIOR, KIKO CHI Primary Care Unavailable ESHENAUR, RAY Referring Unavailable ESHENAUR, RAY Admitting Unavailable ELISA MACIAS Attending Unavailable YUNIOR, KIKO CHI Primary Care Unavailable ESHENAUR, RAY Referring Unavailable ESHENAUR, RAY Admitting Unavailable ESHENAUR, RAY Referring Unavailable JELENA BEDOLLA Attending Unavailable YUNIOR, KIKO CHI Primary Care Unavailable ESHENAUR, RAY Admitting Unavailable Jelena Balderas Unavailable [phone] YUNIOR, KIKO CHI Primary Care Unavailable NICKI MCLAIN Attending Unavailable CHEMO, NICKI Referring Unavailable YUNIOR, KIKO CHI Primary Care Unavailable HIREN UMAR A Attending Unavailable MASSEYSANTIAGO RICHARDSON Attending Unavailable YUNIOR, KIKO CHI Primary Care Unavailable MASSEYSANTIAGO K Referring Unavailable YUNIOR, KIKO CHI Primary Care Unavailable CHEMO, NICKI Attending Unavailable YUAN, NICKI Referring Unavailable YUNIOR, KIKO CHI Primary Care Unavailable CHEMO, NICKI Attending Unavailable YUAN, NICKI Referring Unavailable MASSEYSANTIAGO K Attending Unavailable MASSEY, SANTIAGO K Referring Unavailable YUNIOR, KIKO CHI Primary Care Unavailable SANTIAGO MASSEY Attending Unavailable YUAN, NICKI Referring Unavailable YUNIOR, KIKO CHI Primary Care Unavailable DARIN JADE Attending Unavailable YUNIOR, KIKO CHI Primary Care Unavailable HIREN, UMAR A Referring Unavailable YUNIOR, KIKO CHI Primary Care Unavailable KAREN ARROYO Attending Unavailable DINAKAREN Mancilla Referring Unavailable YUNIOR, KIKO CHI Primary Care Unavailable DINAKAREN DAMICO Admitting Unavailable YUNIOR, KIKO CHI Primary Care Unavailable KAREN ARROYO Attending Unavailable YUNIOR, KIKO CHI Primary Care Unavailable ADI ANGULO JR. Attending Unavailable DINAKAREN Attending Unavailable YUNIOR, KIKO CHI Primary Care Unavailable Allergies Allergy Classification Reported Allergen(s) Allergy Type Date of Onset Reaction(s) Facility (20 sources) apixaban; Translations: [APIXABAN] Drug Allergy 09-17-2020 GI Upset, GI Intolerance [facility] (20 sources) rivaroxaban; Translations: [RIVAROXABAN] Drug Allergy 09-17-2020 GI Upset, GI Intolerance [facility] Medications Current Medications Medication Drug Class(es) Dates Sig (Normalized) Sig (Original) apixaban 5 mg oral tablet (20 sources) Factor Xa Inhibitor Start: 11-11-2021 take 1 tablet by mouth twice daily Eliquis 5 mg Tab Take 1 (one) tablet (5 mg total) by mouth 2 (two) times a day . 0 12/04/2021 Active Completed/Discontinued Medications Medication Drug Class(es) Dates Sig (Normalized) Sig (Original) acetaminophen 325 mg oral tablet (15 sources) Start: 02-13-2021 take 2 tablets by mouth every six hours as needed acetaminophen (TYLENOL) 325 mg tablet Take 2 tablets by mouth every 6 hours as needed for pain. Do Not take while taking percocet. Percocet contains acetaminophen. Do not exceed more than 3000 mg of acetaminophen in 24 hours 0 02/13/2021 Active Problems Active Problems Problem Classification Problem Date Documented Da te Episodic/Chronic Abdominal hernia (4 sources) Hiatal hernia; Translations: [Diaphragmatic hernia without mention of obstruction or gangrene] Episodic Cardiac dysrhythmias (1 source) Unspecified atrial fibrillation; Translations: [Unspecified atrial fibrillation] Onset: 11-14-2021 Chronic Cataract (20 sources) After-cataract with vision obscured following extraction of cataract; Translations: [Other secondary cataract, unspecified eye] Onset: 11-06-2014 11-06-2014 Chronic Disorders of lipid metabolism (1 source) Pure hypercholesterolemi a, unspecified; Translations: [Pure hypercholesterolemi a, unspecified] Onset: 11-14-2021 Chronic Essential hypertension (19 sources) Essential hypertension; Translations: [Essential (primary) hypertension] Onset: 12-17-2019 12-17-2019 Chronic Glaucoma (17 sources) Open-angle glaucoma of right eye; Translations: [Primary open-angle glaucoma, right eye, mild stage] Onset: 11-14-2021 Chronic Nutritional deficiencies (15 sources) Malnutrition (calorie); Translations: [Moderate protein-calorie malnutrition] Onset: 02-04-2017 02-04-2017 Chronic Occlusion or stenosis of precerebral arteries (1 source) Occlusion and stenosis of unspecified carotid artery; Translations: [Occlusion and stenosis of unspecified carotid artery] Onset: 11-14-2021 Chronic Osteoarthritis (4 sources) Arthritis of joint of right shoulder region; Translations: [Primary osteoarthritis, right shoulder] Onset: 05-08-2022 Chronic Other aftercare (2 sources) Aftercare following joint replacement surgery; Translations: [Aftercare following joint replacement surgery] Onset: 05-08-2022 Chronic Other connective tissue disease (9 sources) History of reverse prosthetic total arthroplasty of right shoulder; Translations: [Presence of right artificial shoulder joint] 05-08-2022 Chronic Other connective tissue disease (13 sources) History of operative procedure on shoulder; Translations: [Presence of unspecified artificial shoulder joint] Onset: 05-08-2022 05-08-2022 Chronic Other connective tissue disease (2 sources) Presence of right artificial shoulder joint; Translations: [Presence of right artificial shoulder joint] Onset: 05-08-2022 Chronic Other connective tissue disease (2 sources) Presence of unspecified artificial shoulder joint; Translations: [Presence of unspecified artificial shoulder joint] Onset: 05-08-2022 Chronic Other connective tissue disease (1 source) Mass of lower limb; Translations: [Other specified soft tissue disorders] 01-26-2023 Episodic Other eye disorders (15 sources) Bilateral vitreous floaters; Translations: [Other vitreous opacities, bilateral] Onset: 12-04-2014 05-27-2017 Chronic Other eye disorders (15 sources) Posterior vitreous detachment of left eye; Translations: [Vitreous degeneration, left eye] Onset: 12-17-2019 12-17-2019 Chronic Other eye disorders (16 sources) Optic atrophy; 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] Onset: 12-17-2019 12-17-2019 Chronic Other eye disorders (2 sources) Optic cupping; Translations: [Glaucomatous optic atrophy, 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 Other gastrointestinal disorders (4 sources) Constipation; Translations: [Constipation, unspecified] Episodic Other nervous system disorders (3 sources) Cerebral ventriculomegaly; Translations: [Other specified disorders of brain] Onset: 07-14-2022 Chronic Other nervous system disorders (2 sources) Normal pressure hydrocephalus; Translations: [(Idiopathic) normal pressure hydrocephalus] Chronic Other nervous system disorders (1 source) (Idiopathic) normal pressure hydrocephalus; Translations: [Idiopathic normal pressure hydrocephalus (INPH) (HCC)] Onset: 07-14-2022 Chronic Other non-traumatic joint disorders (2 sources) Pain in right ankle and joints of right foot; Translations: [Pain in right ankle and joints of right foot] Onset: 01-19-2023 Episodic Other skin disorders (3 sources) Callosity; Translations: [Corns and callosities] Episodic Other skin disorders (2 sources) [place] - lesion ; Translations: [Corns and callosities] 10-22-2022 Episodic Peripheral and visceral atherosclerosis (20 sources) Peripheral vascular disease, unspecified; Translations: [Peripheral vascular disease, unspecified] Onset: 04-16-2021 Chronic Retinal detachments; defects; vascular occlusion; and retinopathy (20 sources) Occlusion of central retinal vein of right eye; Translations: [Central retinal vein occlusion, right eye, stable] Onset: 12-17-2019 12-17-2019 Chronic Spondylosis; intervertebral disc disorders; other back problems (6 sources) Cervical spondylosis; Translations: [Other spondylosis with myelopathy, cervical region] Onset: 02-18-2022 Chronic Spondylosis; intervertebral disc disorders; other back problems (1 source) Spinal stenosis in cervical region; Translations: [Cervical stenosis of spine] Episodic Unclassified (1 source) Unknown / UNK(Unknown) Onset: 02-10-2017 Unclassified (2 sources) Nail Care Onset: 01-19-2023 Past or Other Problems Problem Classification Problem Date Documented Da te Episodic/Chronic Coronary atherosclerosis and other heart disease (1 source) Presence of aortocoronary bypass graft; Translations: [Presence of aortocoronary bypass graft] Onset: 11-14-2021 Episodic Mycoses (16 sources) Onychomycosis; Translations: [Tinea unguium] Onset: 07-21-2022 Episodic Neoplasms of unspecified nature or uncertain behavior (15 sources) Lesion of eyelid; Translations: [Neoplasm of unspecified behavior of bone, soft tissue, and skin] Onset: 11-06-2014 05-27-2017 Episodic Other aftercare (1 source) terminal system operator (current) use of aspirin; Translations: [terminal system operator (current) use of aspirin] Onset: 11-14-2021 Episodic Other aftercare (1 source) [facility] (current) use of anticoagulants; Translations: [[facility] (current) use of anticoagulants] Onset: 11-14-2021 Episodic Other connective tissue disease (1 source) Other myositis, right lower leg; Translations: [Other myositis, right lower leg] Onset: 02-27-2017 Episodic Other connective tissue disease (15 sources) Myositis; Translations: [Myositis, unspecified] Onset: 02-03-2017 02-03-2017 Episodic Other connective tissue disease (2 sources) Pain in left toe(s); Translations: [Pain in left toe(s)] Onset: 07-21-2022 Episodic Other connective tissue disease (2 sources) Pain in right toe(s); Translations: [Pain in right toe(s)] Onset: 07-21-2022 Episodic Other eye disorders (15 sources) Tear film insufficiency; Translations: [Dry eye syndrome of bilateral lacrimal glands] Onset: 12-04-2014 05-27-2017 Episodic Other gastrointestinal disorders (1 source) Constipation, unspecified; Translations: [Constipation, unspecified] Onset: 11-14-2021 Episodic Other skin disorders (17 sources) Ingrowing nail; Translations: [Ingrowing nail] Onset: 04-16-2021 Resolved: 04-16-2021 04-16-2021 Episodic Other skin disorders (2 sources) Corns and callosities; Translations: [Corns and callosities] Onset: 04-22-2022 Episodic Skin and subcutaneous tissue infections (15 sources) Abscess of right thigh; Translations: [Cutaneous abscess of right lower limb] Onset: 02-03-2017 02-10-2017 Episodic Sprains and strains (1 source) Strain of other muscles, fascia and tendons at shoulder and upper arm level, right arm, initial encounter; Translations: [Trapezius muscle strain, right, initial encounter] Onset: 04-08-2021 Episodic Unclassified (1 source) Cutaneous abscess of right lower limb Onset: 02-03-2017 Results Test Name Value Interpretation Reference Range Facil ity Vital Signs Date Time Vital Sign Value Performing Clinician Facility 01-19-2023 14:14-0500 Body temperature 97.2 [degF] Karen Dina DPM Work Phone: [facility] 01-19-2023 14:14-0500 Diastolic blood pressure 79 mm[Hg] Karen Remington DPM Work Phone: [facility] 01-19-2023 14:14-0500 Heart rate 86 /min Karen Remington DPM Work Phone: [facility] 01-19-2023 14:14-0500 Systolic blood pressure 126 mm[Hg] Karen Remington DPM Work Phone: [facility] 10-22-2022 14:23-0400 Body temperature 98.2 [degF] Adigabbi Angulo Jr., DPM Work Phone: [facility] 10-22-2022 14:23-0400 Diastolic blood pressure 68 mm[Hg] Adi Dillon Jr., DPM Work Phone: [facility] 10-22-2022 14:23-0400 Heart rate 82 /min Adi Angulo Jr., DPM Work Phone: [facility] 10-22-2022 14:23-0400 Systolic blood pressure 109 mm[Hg] Adi Dillon Jr., DPM Work Phone: [facility] 07-14-2022 09:51-0400 Body height 175.3 cm Darin Jade MD Work Phone: [facility] 07-14-2022 09:51-0400 Body weight 61.24 kg Darin Jade MD Work Phone: [facility] 07-14-2022 09:51-0400 Diastolic blood pressure 63 mm[Hg] Darin Jade MD Work Phone: [facility] 07-14-2022 09:51-0400 Heart rate 65 /min Darin Jade MD Work Phone: [facility] 07-14-2022 09:51-0400 SaO2% (BldA) [Mass fraction] 97 % Darin Jade MD Work Phone: [facility] 07-14-2022 09:51-0400 Systolic blood pressure 131 mm[Hg] Darin Jade MD Work Phone: [facility] 04-22-2022 14:47-0400 Diastolic blood pressure 82 mm[Hg] Karen Remington DPM Work Phone: [facility] 04-22-2022 14:47-0400 Heart rate 78 /min Karen Remington DPM Work Phone: [facility] 04-22-2022 14:47-0400 Systolic blood pressure 134 mm[Hg] Karen Dina DPM Work Phone: [facility] 04-22-2022 14:43-0400 Body temperature 98.4 [degF] Karen Dina DPM Work Phone: [facility] 02-18-2022 15:05-0500 Body height 167.6 cm Ferny Crow DO Work Phone: [facility] 02-18-2022 15:05-0500 Body weight 65.5 kg Ferny Crow DO Work Phone: [facility] 02-18-2022 15:05-0500 Diastolic blood pressure 60 mm[Hg] Ferny Crow DO Work Phone: [facility] 02-18-2022 15:05-0500 Heart rate 60 /min Ferny Crow DO Work Phone: [facility] 02-18-2022 15:05-0500 SaO2% (BldA) [Mass fraction] 96 % Ferny Crow DO Work Phone: [facility] 02-18-2022 15:05-0500 Systolic blood pressure 124 mm[Hg] Ferny Crow DO Work Phone: [facility] 01-28-2022 15:49-0500 Diastolic blood pressure 76 mm[Hg] Karen Dina DPM Work Phone: [facility] 01-28-2022 15:49-0500 Heart rate 73 /min Karen Remington DPM Work Phone: [facility] 01-28-2022 15:49-0500 Systolic blood pressure 122 mm[Hg] Karen Remington DPM Work Phone: [facility] 01-28-2022 15:45-0500 Body temperature 98.2 [degF] Karen Remington DPM Work Phone: [facility] 11-05-2021 16:01-0400 Diastolic blood pressure 72 mm[Hg] Santiago Massey MD Work Phone: [facility] 09-27-2022 16:01-0400 Heart rate 73 /min Santiago Massey MD Work Phone: [facility] 11-05-2021 16:01-0400 Systolic blood pressure 113 mm[Hg] Santiago Massey MD Work Phone: [facility] 10-22-2021 16:44-0400 Body temperature 98.71 [degF] Karen Remington DPM Work Phone: [facility] 10-22-2021 16:44-0400 Diastolic blood pressure 66 mm[Hg] Karen Dina DPM Work Phone: [facility] 10-22-2021 16:44-0400 Heart rate 60 /min Karen Dina DPM Work Phone: [facility] 10-22-2021 16:44-0400 Systolic blood pressure 128 mm[Hg] Karen Dina DPM Work Phone: [facility] 08-20-2021 15:18-0400 Body height 175.3 cm Ferny Crow DO Work Phone: [facility] 08-20-2021 15:18-0400 Body temperature 97.3 [degF] Ferny Crow DO Work Phone: [facility] 08-20-2021 15:18-0400 Body weight 62.8 kg Ferny Crow DO Work Phone: [facility] 08-20-2021 15:18-0400 Diastolic blood pressure 70 mm[Hg] Ferny Crow DO Work Phone: [facility] 08-20-2021 15:18-0400 Heart rate 62 /min Ferny Crow DO Work Phone: [facility] 08-20-2021 15:18-0400 SaO2% (BldA) [Mass fraction] 100 % Ferny Crow DO Work Phone: [facility] 08-20-2021 15:18-0400 Systolic blood pressure 121 mm[Hg] Ferny Crow DO Work Phone: [facility] 07-16-2021 15:53-0400 Body temperature 97.81 [degF] Karen Dina DPM Work Phone: [facility] 07-16-2021 15:53-0400 Diastolic blood pressure 65 mm[Hg] Karen Dina DPM Work Phone: [facility] 07-16-2021 15:53-0400 Heart rate 56 /min Karen Dina DPM Work Phone: [facility] 07-16-2021 15:53-0400 Systolic blood pressure 125 mm[Hg] Karen Remington DPM Work Phone: [facility] 05-21-2021 15:01-0400 Body height 175.3 cm Luci Fegatelli GOVERNMENT SERVICE EXECUTIVE.[employer] Work Phone: [facility] 05-21-2021 15:01-0400 Body weight 65.77 kg Luci Fegatelli GOVERNMENT SERVICE EXECUTIVE.[employer] Work Phone: [facility] 05-21-2021 15:01-0400 Diastolic blood pressure 76 mm[Hg] Luci Fegatelli GOVERNMENT SERVICE EXECUTIVE.[employer] Work Phone: [facility] 05-21-2021 15:01-0400 Heart rate 71 /min Luci Fegatelli GOVERNMENT SERVICE EXECUTIVE.[employer] Work Phone: [facility] 05-21-2021 15:01-0400 SaO2% (BldA) [Mass fraction] 96 % Luci Fegatelli GOVERNMENT SERVICE EXECUTIVE.[employer] Work Phone: [facility] 05-21-2021 15:01-0400 Systolic blood pressure 122 mm[Hg] Luci Fegatelli GOVERNMENT SERVICE EXECUTIVE.[employer] Work Phone: [facility] 08-16-2020 15:05-0400 Body height 171.45 cm Kiko-Chi Yunior Work Phone: [facility] [address] Work Phone: 08-16-2020 15:05-0400 Body mass index (BMI) [Ratio] 22.22 kg/m2 Kiko-Chi Yunior Work Phone: [facility] [address] Work Phone: 08-16-2020 15:05-0400 Body surface area Derived from formula 1.77 m2 Kiko-Chi Yunior Work Phone: [facility] [address] Work Phone: 08-16-2020 15:05-0400 Body temperature 96.9 [degF] Kiko-Chi Yunior Work Phone: [facility] [address] Work Phone: 08-16-2020 15:05-0400 Body weight 65.32 kg Kiko-Chi Yunior Work Phone: [facility] [address] Work Phone: 08-16-2020 15:05-0400 Diastolic blood pressure 70 mm[Hg] Kiko-Chi Yunior Work Phone: [facility] [address] Work Phone: 08-16-2020 15:05-0400 Systolic blood pressure 110 mm[Hg] Kiko-Chi Yunior Work Phone: [facility] [address] Work Phone: 04-14-2019 15:41-0500 BMI (Body Mass Index) 22.22 kg/m2 Efrain Philip [facility] [facility] Work Phone: 04-14-2019 15:41-0500 Body weight 65.32 kg Efrain Philip [facility] [address] Work Phone: 04-14-2019 15:41-0500 BP Diastolic 70 mm[Hg] Efrain Philip [facility] [address] Work Phone: 04-14-2019 15:41-0500 BP Systolic 126 mm[Hg] Efrain Philip [facility] [place] Work Phone: 04-14-2019 15:41-0500 BSA (Body Surface Area) 1.77 m2 Efrain Philip [facility] [place] Work Phone: 04-14-2019 15:41-0500 Height 171.45 cm Efrain Philip [facility] [place] Work Phone: Encounters Encounter Date Encounter Type Care Provider Facility Start: 01-19-2023 End: 01-23-2023 ambulatory KAREN ARROYO [facility] Start: 01-19-2023 End: 01-19-2023 Office outpatient visit 15 minutes Karen Arroyo DPM Work Phone: [facility] Procedures Date Procedure Procedure Detail Performing Clinician Start: 12-08-2022 SCAN OTHER ORDERS Karen Arroyo DP M Work Phone: Start: 11-27-2022 MRI Karen Arroyo DP M Work Phone: Start: 07-14-2022 Computerized ophthalmic imaging retina Santiago Massey MD Work Phone: Start: 07-10-2022 Computerized ophthalmic imaging retina Nicki Mclain MD, PhD Work Phone: Start: 02-27-2022 Computerized ophthalmic imaging retina Nicki Mclain MD, PhD Work Phone: Start: 12-12-2021 Computerized ophthalmic imaging retina Nicki Mclain MD, PhD Work Phone: Start: 11-15-2021 H/O: surgery S/P eye surgery Santiago Massey MD Work Phone: Start: 09-26-2021 Intravitreal njx pharmacologic agt spx Nicki Mclain MD, PhD Work Phone: Start: 09-26-2021 Computerized ophthalmic imaging retina Nicki Mclain MD, PhD Work Phone: Start: 08-28-2021 Computerized ophthalmic imaging optic nerve Santiago Massey MD Work Phone: Start: 08-20-2021 Radex spine cervical 2 or 3 views Luci Eisenberg APRN.[employer] Work Phone: Start: 05-22-2021 Fundus photography w/interpretation & report Santiago Massey MD Work Phone: Start: 05-22-2021 Visual field xm uni/bi w/interp extended exam Santiago Massey MD Work Phone: Start: 06-03-2018 MRI (OUTSIDE) Other Other Coronary artery bypa ss graft Efrain Philip H/O: artificial joint Aftercare following joint replacement surgery, unspecified joint Ray Eshenaur PA-C Work Phone: H/O: artificial joint Aftercare following joint replacement surgery, unspecified joint Ray Eshenaur PA-C Work Phone: Plan of Treatment Date Care Activity Detail Author Start: 02-14-2024 DIABETES SCREEN [facility]EN [facility] [facility] Start: 07-25-2023 End: 01-01-2024 OCT MACULA CIRRUS OU (BOTH EYES) OCT MACULA CIRRUS OU (BOTH EYES) OPHT Imaging Routine Central retinal artery occlusion, right eye Primary open angle glaucoma (POAG) of right eye, mild stage Expected: 07/25/2023, Expires: 01/01/2024 [facility] Work Phone: Payers Date Payer Category Payer Medicare MEDICARE ANTHEM HMO OR PPO MEDICARE ANTHEM HMO OR PPO xxxxxxxxxxxx 2018-Present xxxxxxxxxxxx [id number] 2017 Blue Cross Blue Shield [id number] 2017 Medicare [id number] 2017 Unknown 2017 Medicare 2017 Medicaid [id number] 2017 Medicaid MEDICAID [facility] [id number] 2017-Present [phone] [place] [id number] 1999 Medicare MEDICARE MEDICAR E A AND B xxxxxxxxxx 1999-Present [place] xxxxxxxxxx [id number] 1934 Unknown [id number]. 1069 1934 Unknown [id number] 2.16840.1.011626.3.579.2. 1934 Unknown [id number] 2.16840.1.383036.3.579.2. 1934 Unknown [id number] 2.16840.1.167722.3.579.2. 1934 Unknown [id number] 2.16840.1.245235.3.579.2. 1934 Unknown [id number] 2.16840.1.933601.3.579.2. 1934 Unknown [id number] 2.16840.1.885861.3.579.2. 3 1934 Unknown [id number] 2.16840.1.649846.3.579.2. 1934 Unknown [id number] 2.16840.1.029496.3.579.2. 903 1934 Unknown [id number] 2.16.840.1.136044.3.579.2. 1934 Unknown [id number] 2.16840.1.322840.3.579.2. 3 1934 Unknown [id number] 2.16840.1.504901.3.579.2. 1934 Unknown [id number] 2.16.840.1.840241.3.579.2. 903 1934 Unknown [id number] 2.16.840.1.521049.3.579.2. 903 1934 Unknown [id number] 2.16.840.1.891578.3.579.2. 903 1934 Unknown [id number] 2.16.840.1.094697.3.579.2. 903 Medicare [id number] Social History Date Type Detail Facility Tobacco smoking status SCIS Unknown if ever smoked [facility] Start: 1935 Sex Assigned At Not on file [facility] Start: 11-06-2014 End: 01-19-2023 Former smoker Former smoker [facility] Work Phone: Start: 04-12-2021 End: 04-16-2021 Tobacco smoking status NHIS Ex-smoker [facility] Start: 04-12-2021 End: 01-19-2023 Alcohol intake Lifetime non-drinker (finding) [facility] End: 02-09-2006 History of tobacco use Current smoker [facility] End: 02-09-2006 History of tobacco use Cigarette Smoker [facility] Start: 11-06-2014 End: 04-16-2021 Tobacco use and exposure Smokeless tobacco non-user [facility] Start: 05-21-2021 End: 07-14-2022 Alcohol intake Current non-drinker of alcohol (finding) [facility] Start: 05-11-2021 End: 06-25-2022 Exposure to SARS-CoV-2 (event) Not sure [facility] Start: 04-22-2022 End: 01-19-2023 Tobacco use panel [facility] NEGATED: Highlighted row - - [facility] Work Phone: Medical Equipment Procedure Code Equipment Code Equipment Origin al Text Equipment Identifier Dates Substitute Mastergraft 10cm Bone Graft Strip 12ml Spine - [id number] Start: 02-11-2021 Polyaxial Screw Size 3.5mm X 14mm [id number] Start: 02-11-2021 [place] Contoured Hakn Size 3.5mm X 45mm [id number] Start: 02-11-[address] [facility] [place] Ns Lf - [id number] Start: 02-11-2021 Functional Status Date Assessment Result Facility NEGATED: Highlighted row Functional performance Functional status health issues are not documented Disease -[facility] Work Phone: Mental Status Date Assessment Result Facility NEGATED: Highlighted row Cognitive function [Interpretation] Cognitive status health issues are not documented Disease -[facility] Work Phone: Clinical Notes 02-11-2021 to 01-26-2023 Karen Arroyo DPM - 01/26/2023 11:13 PM Adi Arriaza Jr., DPM - 10/22/2022 2:44 PM Shannon Massey MD - 07/14/2022 4:52 PM Zhao Jade MD - 07/14/2022 10:00 AM EDT Note Date & Type Note Facility 01-26-2023 History of Present illness Narrative Karen Arroyo DPM Patient Name: Esau Hunter. . Date of : 1935, 87 y.o.. Gender: male. Subjective: Patient is a pleasant 87-year-old male who presents to clinic complaining of a painful callus to his right foot. He is also complaining of elongated and thickened toenails that he has difficulty cutting on his own. Patient states that he also has a mass to the right leg that has been bothersome to him. States that it was investigated in the past but the records are not in the system. He is unsure what this mass is about.. Denies fevers, chills, nausea, vomiting, chest pain, shortness of breath, or any other constitutional symptoms. Physical Examination: BP 126/79 (BP Location: Right arm, Patient Position: Sitting, BP Cuff Size: Adult) Pulse 86 Temp 97.2 F (36.2 C) (Infrared) General Appearance: Alert, cooperative, no distress, appears stated age. Podiatric Exam Vascular: DP and PT pulses are nonpalpable 0/4. Capillary refill time is less than 3 seconds to distal digits. Skin temperature is warm to cool from proximal tibial tuberosity to distal digit. Neurological: Gross sensation is intact. Protective sensation is intact. Dermatologic: Palpable mass noted to the medial right leg. No erythema, edema or any acute signs of infection. Nails 1 through 10 are elongated, thickened, dystrophic and mycotic with subungual debris. 1 hyperkeratotic lesion noted subright foot. Interdigital spaces are clean dry and intact. Musculoskeletal: Pain on palpation to all toenails. Ankle joint range of motion is intact. Muscle strength is 5/5 to dorsiflexors, plantar flexors, inverters and everters. Compartments soft and compressible. No calf pain Assessment: 1. Mass of soft tissue of lower leg 2. Onychomycosis 3. Corns 4. Peripheral vascular disease, unspecified (HCC) Imaging: None obtained at this visit. Plan: Patient was seen and evaluated. Discussed all clinical findings. Has a palpable soft tissue mass to the medial aspect of the right leg. X-rays were obtained in the office showing no abnormalities to the underlying osseous structures. Discussed with patient that we will attempt to obtain prior MRI results for evaluation. Patient has onychomycosis of nails x 10 which require mechanical debridement. Consent was obtained prior to debridement of all toenails on the right and left foot using podiatric nail nippers down to appropriate thickness and length. Patient expressed pain relief following the procedure. Patient has one callus to right foot plantarly that require mechanical debridement. Patient qualifies for nail due to at risk foot criteria based on Q8 Modifier secondary to peripheral arterial disease. All questions were answered to patient satisfaction. Patient understands to call with any questions or concerns. documented in this encounter [facility] 12-11-2022 Note HNO ID: [id number] Author: Nicki Mclain MD, PhD Service: ? Author Type: Physician Type: Progress Notes Filed: 12/11/2022 3:42 PM Note Text: Referred by Dr. Massey for Central retinal vein occlusion right eye 1. 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 Secondary glaucoma (neovascular glaucoma) Status Post Canaloplasty / Trabeculectomy using the OMNI Surgical System - Right eye (11/14/2021 Breanne) -says using only systane -cosopt twice a day right eye -folowed by Dr. Massey 4. Normal pressure hydrocephalus -no papilledema on exam -intraocular pressure elevation I don't think is related Plan: No injection today, observe cosopt twice a day right eye (the dorzolamide may help if hydrocephalus is contributing) Return in 6 mo for full exam I have confirmed and edited as necessary the relevant ophthalmic history, ROS, and the neuro exam findings as obtained by others. I have seen and examined this patient. I have discussed the case and the management of this patient's care with the Resident/Fellow, if applicable. I also have reviewed and agree with the assessment and plan as stated above and agree with all of its relevant components. Nicki Mclain MD [facility] 10-22-2022 History of Present illness Narrative Adi Angulo Jr., DPM Patient Name: Esau Hunter. . Date of : 1935, 87 y.o.. Gender: male. Subjective: Patient is a pleasant 87-year-old male who presents to clinic complaining of a painful callus to his right foot. He is also complaining of elongated and thickened toenails that he has difficulty cutting on his own. No other pedal complaints at this time. Denies fevers, chills, nausea, vomiting, chest pain, shortness of breath, or any other constitutional symptoms. Physical Examination: BP 109/68 (BP Location: Right arm, Patient Position: Sitting, BP Cuff Size: Adult) Pulse 82 Temp 98.2 F (36.8 C) (Infrared) General Appearance: Alert, cooperative, no distress, appears stated age. Podiatric Exam Vascular: DP and PT pulses are nonpalpable 0/4. Capillary refill time is less than 3 seconds to distal digits. Skin temperature is warm to cool from proximal tibial tuberosity to distal digit. Neurological: Gross sensation is intact. Protective sensation is intact. Dermatologic: Nails 1 through 10 are elongated, thickened, dystrophic and mycotic with subungual debris. 1 hyperkeratotic lesion noted subright foot. Interdigital spaces are clean dry and intact. Musculoskeletal: Pain on palpation to all toenails. Ankle joint range of motion is intact. Muscle strength is 5/5 to dorsiflexors, plantar flexors, inverters and everters. Compartments soft and compressible. No calf pain Assessment: 1. Onychomycosis 2. Peripheral vascular disease, unspecified (HCC) 3. Corns Imaging: None obtained at this visit. Plan: Patient was seen and evaluated. Discussed all clinical findings. Patient has onychomycosis of nails x 10 which require mechanical debridement. Consent was obtained prior to debridement of all toenails on the right and left foot using podiatric nail nippers down to appropriate thickness and length. Patient expressed pain relief following the procedure. Patient has onecallus to right foot plantarly that require mechanical debridement. Patient qualifies for nail due to at risk foot criteria based on Q8 Modifier secondary to peripheral arterial disease. All questions were answered to patient satisfaction. Patient understands to call with any questions or concerns. Follow-up in 3 months for at risk foot care. documented in this encounter [facility] 10-17-2022 Note HNO ID: [id number] Author: Santiago Massey MD Service: ? Author Type: Physician Type: Progress Notes Filed: 10/17/2022 3:03 PM Note Text: ASSESSMENT/PLAN: 1. Primary open angle glaucoma (POAG) of right eye, mild stage - ICD9: 365.11, 365.71, ICD10: H40.1111 (primary diagnosis) Status Post Canaloplasty with the Omni surgical system Right Eye (11/14/2021) Current Ophthalmic Meds dorzolamide-timolol (COSOPT) 22.3-6.8 mg/mL ophthalmic solution Use 1 Drop in the right eye twice daily. The nature of glaucoma was discussed, with emphasis on the non-reversible damage to the optic nerve. Treatment options and the importance of regular examinations and testing were covered in detail, as well as the consequences of non-compliance. The patient was given the opportunity to ask questions. 2. Optic cupping of both eyes - ICD9: 377.14, ICD10: H47.233 Monitor 3. Central retinal artery occlusion, right eye - ICD9: 362.31, ICD10: H34.11 Neovascularization of the iris at margin Likely early NVG Considerable atrophy on OCT Status Post Panretinal Laser Photocoagulation (PRP) (12/27/2020) and (10/11/2020) Status Post Multiple Avastin, last 09/26/2021 Continue to monitor with Dr. Mclain. 4. Essential hypertension - ICD9: 401.9, ICD10: I10 Continue to monitor with primary care physician. 5. Normal pressure hydrocephalus (HCC) - ICD9: 331.5, ICD10: G91.2 No papilledema Both Eyes. Continue to monitor with primary care physician. Santiago Massey MD I have confirmed and edited as necessary the relevant ophthalmic history, review of systems, surgical history, and ophthalmological examination findings as obtained by the ophthalmic technical staff. I have seen and examined Esau Hunter. I have discussed the examination findings, diagnosis, and treatment options with Esau Hunter and/or his family. I have also reviewed and agree with the assessment and plan as stated above and agree with all its relevant components. I gave the patient the opportunity to ask questions about the findings, diagnosis, and treatment options. [facility] 07-14-2022 Note HNO ID: [id number] Author: Santiago Massey MD Service: ? Author Type: Physician Type: Progress Notes Filed: 07/14/2022 4:58 PM Note Text: ASSESSMENT/PLAN: 1. Central retinal artery occlusion, right eye - ICD9: 362.31, ICD10: H34.11 (primary diagnosis) - OCT MACULA CIRRUS OU (BOTH EYES) - FUNDUS PHOTOS OU (BOTH EYES) Continue to monitor with Dr. Mclain. 2. Primary open angle glaucoma (POAG) of right eye, mild stage - ICD9: 365.11, 365.71, ICD10: H40.1111 - OCT OPTIC NERVE CIRRUS OU (BOTH EYES) Current Ophthalmic Meds dorzolamide-timolol (COSOPT) 22.3-6.8 mg/mL ophthalmic solution Use 1 Drop in the right eye twice daily. The nature of glaucoma was discussed, with emphasis on the non-reversible damage to the optic nerve. Treatment options and the importance of regular examinations and testing were covered in detail, as well as the consequences of non-compliance. The patient was given the opportunity to ask questions. 3. Normal pressure hydrocephalus (HCC) - ICD9: 331.5, ICD10: G91.2 Continue to monitor with primary care physician/Neurology. 4. Essential hypertension - ICD9: 401.9, ICD10: I10 Continue to monitor with primary care physician. Santiago Massey MD I have confirmed and edited as necessary the relevant ophthalmic history, review of systems, surgical history, and ophthalmological examination findings as obtained by the ophthalmic technical staff. I have seen and examined Esau Hunter. I have discussed the examination findings, diagnosis, and treatment options with Esau Hunter and/or his family. I have also reviewed and agree with the assessment and plan as stated above and agree with all its relevant components. I gave the patient the opportunity to ask questions about the findings, diagnosis, and treatment options. [facility] 07-14-2022 History of Present illness Narrative ASSESSMENT/PLAN: 1. Central retinal artery occlusion, right eye - ICD9: 362.31, ICD10: H34.11 (primary diagnosis) - OCT MACULA CIRRUS OU (BOTH EYES) - FUNDUS PHOTOS OU (BOTH EYES) Continue to monitor with Dr. Mclain. 2. Primary open angle glaucoma (POAG) of right eye, mild stage - ICD9: 365.11, 365.71, ICD10: H40.1111 - OCT OPTIC NERVE CIRRUS OU (BOTH EYES) Current Ophthalmic Meds dorzolamide-timolol (COSOPT) 22.3-6.8 mg/mL ophthalmic solution Use 1 Drop in the right eye twice daily. The nature of glaucoma was discussed, with emphasis on the non-reversible damage to the optic nerve. Treatment options and the importance of regular examinations and testing were covered in detail, as well as the consequences of non-compliance. The patient was given the opportunity to ask questions. 3. Normal pressure hydrocephalus (HCC) - ICD9: 331.5, ICD10: G91.2 Continue to monitor with primary care physician/Neurology. 4. Essential hypertension - ICD9: 401.9, ICD10: I10 Continue to monitor with primary care physician. Santiago Massey MD I have confirmed and edited as necessary the relevant ophthalmic history, review of systems, surgical history, and ophthalmological examination findings as obtained by the ophthalmic technical staff. I have seen and examined Esau Hunter. I have discussed the examination findings, diagnosis, and treatment options with Esau Hunter and/or his family. I have also reviewed and agree with the assessment and plan as stated above and agree with all its relevant components. I gave the patient the opportunity to ask questions about the findings, diagnosis, and treatment options. documented in this encounter [facility] 07-14-2022 Note HNO ID: [id number] Author: Darin Jade MD Service: ? Author Type: Physician Type: Progress Notes Filed: 07/14/2022 2:14 PM Note Text: Referred by: Selvin Rueda MD Chief Complaint: Gait issues History of Present Illness: Esau Hunter is a 87 year old right-handed male seen for evaluation of Cerebral Ventriculomegaly. Esau complains of progressive gait instability for the past 6 months. He states he has started to feel imbalanced with shuffling gait. Esau denies the use of a cane or falls. Mr Hunter has noticed mild issues with short term memory and feels he is not as sharp as he once was. His family in the room has not noticed cognitive changes. Esau denies any issues with urinary control History of posterior cervical fusion in 2021 for myelopathy, denies gait issues through out process. Anti-Platelet/Anti-Coagulants: Eliquis PAST MEDICAL HISTORY Diagnosis Date Abdominal aortic aneurysm (HCC) repaired Acute myocardial infarction of lateral wall ([facility] 2007 unsure of location of infarct Arthritis Balance problem mild Central retinal artery occlusion, right eye Central retinal vein occlusion, right eye 12/11/2019 Cervical myelopathy (HCC) Constipation COPD (chronic obstructive pulmonary disease) (HCC) Coronary artery disease Essential hypertension GERD (gastroesophageal reflux disease) Hyperlipemia Paroxysmal atrial fibrillation (HCC) PAST SURGICAL HISTORY Procedure Laterality Date CABG (1) VEIN GRAFT AND ARTERIAL GRAFT 2007 double CANALOPLASTY W/O STENT Right 11/14/2021 360Canaloplasty /180 Trabeculotomy using the OMNI Surgical System ENDOVASC AAA STENT REPAIR unsure of date NECK SURGERY HX 02/11/2021 C3-6 Laminectomy and Fusion PAST SURGICAL HISTORY OF 02/11/2017 infection - right thigh PICC LINE INSERTION (PICC TEAM) ([place]) 02/10/2017 POST-CATARACT LASER SURGERY Right 05/2013 Yag Capsulotomy XCAPSL CTRC RMVL INSJ IO LENS PROSTH W/O ECP Bilateral Cataract Extraction with PC IOL FAMILY HISTORY Problem Relation Age of Onset No Ocular Disease Mother other (cancer from stroke) Mother No Ocular Disease Father Current Outpatient Medications Medication Sig dorzolamide-timolol (COSOPT) 22.3-6.8 mg/mL ophthalmic solution Use 1 Drop in the right eye twice daily. venlafaxine ER (EFFEXOR XR) 37.5 mg 24 hr capsule Take 1 capsule by mouth once daily. Take 1 capsule daily for 1 week then increase to 2 capsules daily for 1 week then increase to 150 mg capsules and continue on that dose venlafaxine ER (EFFEXOR XR) 150 mg 24 hr capsule Take 1 capsule by mouth once daily. Take after completing 37.5 mg capsules (script 2/2) ELIQUIS 5 mg tab(s) Take 5 mg by mouth twice daily. furosemide (LASIX) 40 mg tablet Take by mouth. potassium chloride 20 mEq TbER Take 1 tablet by mouth once daily. atorvastatin (LIPITOR) 40 mg tablet MUCUS DM 30-600 mg per tablet Take 1 tablet by mouth twice daily. predniSONE (DELTASONE) 10 mg tablet Take 10 mg by mouth once daily. aspirin 81 mg chewable tablet Take 1 tablet by mouth once daily. Resume on 02/18/2021 acetaminophen (TYLENOL) 325 mg tablet Take 2 tablets by mouth every 6 hours as needed for pain. Do Not take while taking percocet. Percocet contains acetaminophen. Do not exceed more than 3000 mg of acetaminophen in 24 hours meclizine (ANTIVERT) 25 mg tab Take 25 mg by mouth once daily as needed (dizziness). TRULANCE 3 mg tablet Take 3 mg by mouth once daily as needed (IBS symptoms). hydroCHLOROthiazide (HYDRODIURIL, ESIDRIX) 12.5 mg tablet Take 12.5 mg by mouth once daily. CONSTULOSE 10 gram/15 mL solution Take 10 g by mouth as needed (constipation). bisacodyl EC (DULCOLAX) 5 mg EC tablet Take 5 mg by mouth twice daily as needed for constipation. metoprolol tartrate, short acting, (LOPRESSOR) 25 mg tablet Take 12.5 mg by mouth twice daily. Omeprazole 40 mg capsule Take 40 mg by mouth once daily. No current facility-administered medications for this visit. ALLERGIES Allergen Reactions Apixaban GI Upset Rivaroxaban GI Upset Social History Tobacco Use Smoking status: Former Packs/day: 1.00 Years: 50.00 Pack years: 50.00 Types: Cigarettes Quit date: 02/09/2006 Years since quittin.4 Smokeless tobacco: Never Vaping Use Vaping Use: Never used Substance Use Topics Alcohol use: No Drug use: No Review of Systems - PAIN ASSESSMENT: chronic back pain GENERAL: No weight loss, malaise or fevers HEENT: Negative for frequent or significant headaches, No changes in hearing or vision, no nose bleeds or other nasal problems NECK: Negative for lumps, goiter, pain and significant neck swelling RESPIRATORY: admits COPD CARDIOVASCULAR: history of MA, CAD, AAA, and stent placement GI: No nausea, vomiting, or diarrhea : No history of dysuria, frequency or incontinence MUSCULOSKELETAL: Negative for joint pain or swelling, back pain or muscle pain S (more content not included)... [facility] 07-14-2022 History of Present illness Narrative Referred by: Selvin Rueda MD Chief Complaint: Gait issues History of Present Illness: Esau Hunter is a 87 year old right-handed male seen for evaluation of Cerebral Ventriculomegaly. Esau complains of progressive gait instability for the past 6 months. He states he has started to feel imbalanced with shuffling gait. Esau denies the use of a cane or falls. Mr Hunter has noticed mild issues with short term memory and feels he is not as sharp as he once was. His family in the room has not noticed cognitive changes. Esau denies any issues with urinary control History of posterior cervical fusion in 2021 for myelopathy, denies gait issues through out process. Anti-Platelet/Anti-Coagulants: Eliquis PAST MEDICAL HISTORY Diagnosis Date Abdominal aortic aneurysm (HCC) repaired Acute myocardial infarction of lateral wall (HCC) 2006 unsure of location of infarct Arthritis Balance problem mild Central retinal artery occlusion, right eye Central retinal vein occlusion, right eye 12/11/2019 Cervical myelopathy (HCC) Constipation COPD (chronic obstructive pulmonary disease) (HCC) Coronary artery disease Essential hypertension GERD (gastroesophageal reflux disease) Hyperlipemia Paroxysmal atrial fibrillation (HCC) PAST SURGICAL HISTORY Procedure Laterality Date CABG (1) VEIN GRAFT & ARTERIAL GRAFT 2006 double CANALOPLASTY W/O STENT Right 11/14/2021 360Canaloplasty /180 Trabeculotomy using the OMNI Surgical System ENDOVASC AAA STENT REPAIR unsure of date NECK SURGERY HX 02/11/2021 C3-6 Laminectomy and Fusion PAST SURGICAL HISTORY OF 02/11/2017 infection - right thigh PICC LINE INSERTION (PICC TEAM) ([place]) 02/10/2017 POST-CATARACT LASER SURGERY Right 05/2013 Yag Capsulotomy XCAPSL CTRC RMVL INSJ IO LENS PROSTH W/O ECP Bilateral Cataract Extraction with PC IOL FAMILY HISTORY Problem Relation Age of Onset No Ocular Disease Mother other (cancer from stroke) Mother No Ocular Disease Father Current Outpatient Medications Medication Sig dorzolamide-timolol (COSOPT) 22.3-6.8 mg/mL ophthalmic solution Use 1 Drop in the right eye twice daily. venlafaxine ER (EFFEXOR XR) 37.5 mg 24 hr capsule Take 1 capsule by mouth once daily. Take 1 capsule daily for 1 week then increase to 2 capsules daily for 1 week then increase to 150 mg capsules and continue on that dose venlafaxine ER (EFFEXOR XR) 150 mg 24 hr capsule Take 1 capsule by mouth once daily. Take after completing 37.5 mg capsules (script 2/2) ELIQUIS 5 mg tab(s) Take 5 mg by mouth twice daily. furosemide (LASIX) 40 mg tablet Take by mouth. potassium chloride 20 mEq TbER Take 1 tablet by mouth once daily. atorvastatin (LIPITOR) 40 mg tablet MUCUS DM 30-600 mg per tablet Take 1 tablet by mouth twice daily. predniSONE (DELTASONE) 10 mg tablet Take 10 mg by mouth once daily. aspirin 81 mg chewable tablet Take 1 tablet by mouth once daily. Resume on 02/18/2021 acetaminophen (TYLENOL) 325 mg tablet Take 2 tablets by mouth every 6 hours as needed for pain. Do Not take while taking percocet. Percocet contains acetaminophen. Do not exceed more than 3000 mg of acetaminophen in 24 hours meclizine (ANTIVERT) 25 mg tab Take 25 mg by mouth once daily as needed (dizziness). TRULANCE 3 mg tablet Take 3 mg by mouth once daily as needed (IBS symptoms). hydroCHLOROthiazide (HYDRODIURIL, ESIDRIX) 12.5 mg tablet Take 12.5 mg by mouth once daily. CONSTULOSE 10 gram/15 mL solution Take 10 g by mouth as needed (constipation). bisacodyl EC (DULCOLAX) 5 mg EC tablet Take 5 mg by mouth twice daily as needed for constipation. metoprolol tartrate, short acting, (LOPRESSOR) 25 mg tablet Take 12.5 mg by mouth twice daily. Omeprazole 40 mg capsule Take 40 mg by mouth once daily. No current facility-administered medications for this visit. ALLERGIES Allergen Reactions Apixaban GI Upset Rivaroxaban GI Upset Social History Tobacco Use Smoking status: Former Packs/day: 1.00 Years: 50.00 Pack years: 50.00 Types: Cigarettes Quit date: 02/09/2006 Years since quittin.4 Smokeless tobacco: Never Vaping Use Vaping Use: Never used Substance Use Topics Alcohol use: No Drug use: No Review of Systems - PAIN ASSESSMENT: chronic back pain GENERAL: No weight loss, malaise or fevers HEENT: Negative for frequent or significant headaches, No changes in hearing or vision, no nose bleeds or other nasal problems NECK: Negative for lumps, goiter, pain and significant neck swelling RESPIRATORY: admits COPD CARDIOVASCULAR: history of MA, CAD, AAA, and stent placement GI: No nausea, vomiting, or diarrhea : No history of dysuria, frequency or incontinence MUSCULOSKELETAL: Negative for joint pain or swelling, back pain or muscle pain SKIN: Negative for lesions, rash, and itching PSYCH: Negative for sleep disturbance, mood disorder and recent psychosocial stressors HEMATOLOGY/LYMPHOLOGY: Negative for prolonged bleeding, bruising easily or swollen nodes ENDOCRINE: Negative for cold or heat intolerance, polyuria, polydipsia and goiter NEURO: No history of headaches, syncope, paralysis, seizures or tremors Objective: BP 131/63 (BP Site: Right Arm, BP Position: Sitting, BP Cuff Size: Regular Adult) Pulse 65 Ht 175.3 cm (5' 9 ) Wt 61.2 kg (135 lb) SpO2 97% BMI 19.94 kg/m General Appearance: no apparent distress, well-developed Neurological: Cognitive: Awake and oriented x3. Cranial nerves: PERRL, EOMI, face symmetric Motor: Moves all extremities bilaterally 5/5, normal muscle tone and bulk Sensation: Intact to light touch. Unstable gait I obtained the history and performed the physical exam. I have reviewed the information dictated by River Kenyon PA-C for accuracy. I have edited the note and agree with the final text. Diagnostic testing MRI Brain: Cerebral ventriculomegaly with DESH. Eric's ratio of 0.34 Assessment/Plan: Esau Hunter is a 87 year old right-handed male with cerebral ventriculomegaly and mild gait issues. Given his age and comorbidities, I discussed with Mr. Hunter and his daughter that the risk-benefit assessment likely favors no intervention given the prolonged time he would need to be off anti-coagulation and his mild symptoms. They are considering proceeding with a spinal cord stimulator trial. [facility] STAFF PHYSICIAN NOTE OF PERSONAL INVOLVEMENT IN CARE I have reviewed the Clinic Note obtained and documented by the RN/CORY and I personally participated in the riddle components. I have discussed the case and management of the patient's care. Consult requested for an opinion regarding the evaluation and treatment of cerebral ventriculomegaly. My final impression and recommendations will be communicated back to the requesting physician by way of the shared medical record or letter via US mail. I spent 55 minutes in the visit, with more than 50% of the total [id number] time of the visit in counseling / coordination of care. SIGNATURE: Darin Jade MD DATE of SERVICE: July 14, 2022 documented in this encounter [facility] 07-10-2022 Note HNO ID: [id number] Author: Nicki Mclain MD, PhD Service: ? Author Type: Physician Type: Progress Notes Filed: 07/10/2022 3:11 PM Note Text: Referred by Dr. Massey for Central retinal vein occlusion right eye 1. 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 Secondary glaucoma (neovascular glaucoma) Status Post Canaloplasty / Trabeculectomy using the OMNI Surgical System - Right eye (11/14/2021 Breanne) -says using only systane -intraocular pressure elevated today 34 and patient says vision is more blurry right eye 4. Normal pressure hydrocephalus -no papilledema on exam -intraocular pressure elevation I don't think is related, will get Dr. Massey's opinion also Plan: No injection today, observe Needs to see Dr Massey for glaucoma management Retstart cosopt twice a day right eye (the dorzolamide may help if hydrocephalus is contributing) Return in 4-5 mo for full exam I have confirmed and edited as necessary the relevant ophthalmic history, ROS, and the neuro exam findings as obtained by others. I have seen and examined this patient. I have discussed the case and the management of this patient's care with the Resident/Fellow, if applicable. I also have reviewed and agree with the assessment and plan as stated above and agree with all of its relevant components. Nicki Mclain MD [facility] 07-10-2022 History of Present illness Narrative Referred by Dr. Massey for Central retinal vein occlusion right eye 1. 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 Secondary glaucoma (neovascular glaucoma) Status Post Canaloplasty / Trabeculectomy using the OMNI Surgical System - Right eye (11/14/2021 Breanne) -says using only systane -intraocular pressure elevated today 34 and patient says vision is more blurry right eye 4. Normal pressure hydrocephalus -no papilledema on exam -intraocular pressure elevation I don't think is related, will get Dr. Massey's opinion also Plan: No injection today, observe Needs to see Dr Massey for glaucoma management Retstart cosopt twice a day right eye (the dorzolamide may help if hydrocephalus is contributing) Return in 4-5 mo for full exam I have confirmed and edited as necessary the relevant ophthalmic history, ROS, and the neuro exam findings as obtained by others. I have seen and examined this patient. I have discussed the case and the management of this patient's care with the Resident/Fellow, if applicable. I also have reviewed and agree with the assessment and plan as stated above and agree with all of its relevant components. Nicki Mclain MD documented in this encounter [facility] 06-25-2022 History of Present illness Narrative [facility] DAILY TREATMENT NOTE Today's Date 06/25/2022 Patient Name: Esau Hunter Date of : 1935 Current Visit #: 10 Authorized Visits: 13 Case Name: R reverse TSA History: Pre-Treatment Pain Scale: 1 Symptoms: stabilized Functional Diagnosis: 1. Status post reverse total replacement of right shoulder Clinical Information: Subjective: Pt reports low pain today and that he is ready for DC Objective 1 Pt reports ind with HEP and no questions at this time 2 Pt demos PROM flexion greater than 150 degrees and AROM flexion of 120 4 Pt demos 4-/5 gross RUE MMT 5 FOTO = 63 Treatments: Physical Therapy Exercise Log - 06/25/22 1512 OTHER Precautions/Contraindications R reverse TSA on 04/23/2022, sling for 6 weeks in public, start with AAROM and progress to active motion after 4 weeks Notes [employer]IM insurance Vitals Visit 9 1518- Therapeutic Exercise (09935) Intervention filippo 3 mins 5 at end range Parameters cane ER steated 5 x10, cane flexion and scaption 10 Intervention isometric STATION ENGINEER CHIEF assist 5 x10 (submax resistance) Parameters Seated Scaption to 90 degrees x 20 Intervention Seated Curls 2lb x 10 Parameters Seated Overhead press 1lb med ball x 20, racing driver - x10 1# Intervention Seated rows, ext - x15 L3 Parameters HABD - x10 YTB, SH flex x10 YTB Intervention Supine Chest press, flexion 2x10 Parameters Reverse Codemans - x15 cw, ccw Intervention Supine Scapular punch - x10 Parameters Wall slides - x10 Manual Therapy (06705) Intervention passive motion of shouder flexion, scaption, ER in scapular plane 10 NT Goals: Physical Therapy Ortho Goals: Patient will demonstrate good adherence to HEP recommendations and current restrictions. 6 weeks Patient will demonstrate improved PROM shoulder flexion to at least 150 to prevent stiffness of shoulder and gain mobility. 8 weeks. Patient will demonstrate improved AROM shoulder flexion to at least 130 to reach, self care, dress with ease. 8 weeks. Patient will demonstrate improved shoulder strength 3+/5 (RC and delt strength) for ease of ADLs. 8 weeks Patient will improve FOTO score to at least 63 (predicted) from 45 to show MDC/MCII and expected functional outcome. 8 weeks Patient Education: Verbal HEP with patient verbalized understanding. Post-Treatment Pain Scale: 1 Assessment: Patient had an expected response to treatment. Skilled Intervention demonstrated by modifications of treatment per exercise log including assessment of patient's response and safety interventions per exercise log. Progress towards goals as expected. Plan for Next Visit: Treatment Visit with focus on progressing as tolerated Jelena Bedolla PTA STATE LICENSE, [id number] documented in this encounter [facility] 06-24-2022 Note HNO ID: [id number] Author: Selvin Rueda MD Service: ? Author Type: Physician Type: Progress Notes Filed: 06/26/2022 2:56 PM Note Text: [facility] - NEW PATIENT EVALUATION Primary Care Provider: Kiko Mojica MD [id number] [facility] [address] [facility] [id number] Dear Kiko Mojica MD: I had the pleasure of evaluating Mr. Hunter in our clinic today. As you know he is a 86 year old right-handed male who presents for evaluation of ventriculomegaly since 2022 . He is seen with his daughter. Subjective HISTORY OF PRESENT ILLNESS: Questionnaires: In addition, the following areas that may be affected by abnormal involuntary movements were evaluated: Daily activities Difficulties with eating: Yes (slight) Difficulties in dressing: Yes (slight) Difficulties with hygiene activities: Yes (mild) Difficulties with handwriting: Yes (slight) Difficulties with doing hobbies and other activities: Yes (severe) Difficulties turning in bed: Yes (slight) Difficulties getting out of bed, car or chair: Yes (mild) Tremors/Gait/Balance Shaking or tremors: 0 (none) Walking and balance problems: Yes (severe) Number of falls in the Last Month: 1 Gait freezing: Yes (mild) Autonomic/Pain Lightheadeness on standing: Yes (mild) Urinary problems: 0 (none) Constipation problems: Yes (moderate) Pain and other sensations: Yes (severe) Speech/Swallowing Speech problems: 0 (none) Drooling: Yes (severe) Chewing and swallowing problems: Yes (mild) Sleep/Fatigue Sleep problems: Yes (mild) Daytime sleepiness: 0 (none) Fatigue: Yes (severe) Mood/Behavior Depression: PHQ-9 Score: 16 usually representing moderately severe (15-19) depression. Anxiety: ANNIE-7 Total Score: 16 usually representing severe (>15) anxiety. Finally, the following table shows the patient's overall global physical and mental health using the PROMIS scale: PROMIS-10 Flowsheet Row Office Visit from 06/24/2022 in [facility] Global Physical Health T Score 32.4 Global Mental Health T Score 38.8 0-10 Standard Pain Scale 3 *PROMIS-10 scoring scale: mean = 50, over 50 is above average, under 50 is below average Review of Systems Constitutional: Positive for fatigue. HENT: Negative. Eyes: Negative. Respiratory: Negative. Cardiovascular: Negative. Gastrointestinal: Negative. Genitourinary: Negative. Hematologic/Lymphatic: Negative. Allergic/Immunologic: Negative. Musculoskeletal: Positive for muscle weakness. Skin: Negative. ALLERGIES Allergen Reactions Apixaban GI Upset Rivaroxaban GI Upset Current Outpatient Medications Medication Sig ELIQUIS 5 mg tab(s) Take 5 mg by mouth twice daily. potassium chloride 20 mEq TbER Take 1 tablet by mouth once daily. atorvastatin (LIPITOR) 40 mg tablet predniSONE (DELTASONE) 10 mg tablet Take 10 mg by mouth once daily. TRULANCE 3 mg tablet Take 3 mg by mouth once daily as needed (IBS symptoms). CONSTULOSE 10 gram/15 mL solution Take 10 g by mouth as needed (constipation). bisacodyl EC (DULCOLAX) 5 mg EC tablet Take 5 mg by mouth twice daily as needed for constipation. metoprolol tartrate, short acting, (LOPRESSOR) 25 mg tablet Take 12.5 mg by mouth twice daily. Omeprazole 40 mg capsule Take 40 mg by mouth once daily. furosemide (LASIX) 40 mg tablet Take by mouth. (Patient not taking: Reported on 06/24/2022) MUCUS DM 30-600 mg per tablet Take 1 tablet by mouth twice daily. (Patient not taking: Reported on 06/24/2022) aspirin 81 mg chewable tablet Take 1 tablet by mouth once daily. Resume on 02/18/2021 (Patient not taking: Reported on 06/24/2022) acetaminophen (TYLENOL) 325 mg tablet Take 2 tablets by mouth every 6 hours as needed for pain. Do Not take while taking percocet. Percocet contains acetaminophen. Do not exceed more than 3000 mg of acetaminophen in 24 hours (Patient not taking: Reported on 06/24/2022) meclizine (ANTIVERT) 25 mg tab Take 25 mg by mouth once daily as needed (dizziness). (Patient not taking: Reported on 06/24/2022) hydroCHLOROthiazide (HYDRODIURIL, ESIDRIX) 12.5 mg tablet Take 12.5 mg by mouth once daily. (Patient not taking: Reported on 06/24/2022) No current facility-administered medications for this visit. Past Medical and Surgical History: has a past medical history of Abdominal aortic aneurysm (HCC), Acute myocardial infarction of lateral wall (HCC) (2006), Arthritis, Balance problem, Central retinal artery occlusion, right eye, Central retinal vein occlusion, right eye (12/11/2019), Cervical myelopathy ([facility]), Constipation, COPD (chronic obstructive pulmonary disease) ([facility]), Coronary artery disease, Essential hypertension, GERD (gastroesophageal reflux disease), Hyperlipemia, and Paroxysmal atrial fibrillation ([facility]). has a past surgical history that includes xcapsl ctrc rmvl insj io lens prosth w/o ecp (Bilateral); post-cataract laser surgery (Right, 05/2013); endovasc aaa jason (more content not included)... [facility] 06-20-2022 History of Present illness Narrative [facility] DAILY TREATMENT NOTE Today's Date 06/20/2022 Patient Name: Esau Hunter Date of : 1935 Current Visit #: 9 Authorized Visits: 13 Case Name: R reverse TSA History: Pre-Treatment Pain Scale: 0 Symptoms: gradually improved Functional Diagnosis: 1. Status post reverse total replacement of right shoulder Clinical Information: Subjective: Pt reports shoulder doing well today but stated waiting on doctors to get back to him about his dizziness. Objective Treatments: Physical Therapy Exercise Log - 06/20/22 1508 OTHER Precautions/Contraindications R reverse TSA on 04/23/2022, sling for 6 weeks in public, start with AAROM and progress to active motion after 4 weeks Notes [employer] insurance Vitals Visit 8: 3:08 - 3:40 Therapeutic Exercise (12095) Intervention filippo 3 mins 5 at end range Parameters cane ER steated 5 x10, cane flexion and scaption 10 Intervention isometric STATION ENGINEER CHIEF assist 5 x10 (submax resistance) Parameters Seated Scaption to 90 degrees x 20 Intervention Seated Curls 2lb x 10 Parameters Seated Overhead press 1lb med ball x 20, racing driver - x10 1# Intervention Seated rows, ext - x15 L3 Parameters HABD - x10 YTB, SH flex x10 YTB Intervention Supine Chest press, flexion 2x10 Parameters Reverse Codemans - x15 cw, ccw Intervention Supine Scapular punch - x10 Parameters Wall slides - x10 Manual Therapy (90913) Intervention passive motion of shouder flexion, scaption, ER in scapular plane 10 NT PT Treatment Times Therex Total Time 32 Direct Treatment Time 32 Total Treatment Time 32 Goals: Physical Therapy Ortho Goals: Patient will demonstrate good adherence to HEP recommendations and current restrictions. 6 weeks Patient will demonstrate improved PROM shoulder flexion to at least 150 to prevent stiffness of shoulder and gain mobility. 8 weeks. Patient will demonstrate improved AROM shoulder flexion to at least 130 to reach, self care, dress with ease. 8 weeks. Patient will demonstrate improved shoulder strength 3+/5 (RC and delt strength) for ease of ADLs. 8 weeks Patient will improve FOTO score to at least 63 (predicted) from 45 to show MDC/MCII and expected functional outcome. 8 weeks Patient Education: Quality of movement with patient demonstrated understanding. Post-Treatment Pain Scale: 0 Assessment: Patient had an expected response to treatment. Skilled Intervention demonstrated by modifications of treatment per exercise log including increased load and safety interventions per exercise log. Progress towards goals as expected. Plan for Next Visit: Treatment Visit with focus on strengthening through full range Kali Dominguez PTA STATE LICENSE, [id number] documented in this encounter [facility] 06-18-2022 History of Present illness Narrative [facility] DAILY TREATMENT NOTE Today's Date 06/18/2022 Patient Name: Esau Hunter Date of : 1935 Current Visit #: 8 Authorized Visits: 13 Case Name: R reverse TSA History: Pre-Treatment Pain Scale: 0 Symptoms: gradually improved Functional Diagnosis: 1. Status post reverse total replacement of right shoulder Clinical Information: Subjective: Pt reports shoulder is doing great but has some balance and problems with neck and ears. Gets dizzy Objective Treatments: Physical Therapy Exercise Log - 06/18/22 1519 OTHER Precautions/Contraindications R reverse TSA on 04/23/2022, sling for 6 weeks in public, start with AAROM and progress to active motion after 4 weeks Notes [employer] insurance Vitals Visit 7: 1515 - 3:50 Therapeutic Exercise (71173) Intervention filippo 3 mins 5 at end range Parameters cane ER steated 5 x10, cane flexion and scaption 10 Intervention isometric STATION ENGINEER CHIEF assist 5 x10 (submax resistance) Parameters Seated Scaption to 90 degrees x 20 Intervention Seated Curls 1lb x 20 2lb x 10 Parameters Seated Overhead press 1lb med ball x 20 Intervention Seated rows - x10 L3 Parameters Supine Chest press, flexion 2x10 Intervention elbow flexion 2 x10 L2 table slides 3''x20 Parameters Reverse Codemans - x10 cw, ccw Intervention Supine Scapular punch - x10 Manual Therapy (25043) Intervention passive motion of shouder flexion, scaption, ER in scapular plane 10 NT PT Treatment Times Therex Total Time 35 Direct Treatment Time 35 Total Treatment Time 35 Goals: Physical Therapy Ortho Goals: Patient will demonstrate good adherence to HEP recommendations and current restrictions. 6 weeks Patient will demonstrate improved PROM shoulder flexion to at least 150 to prevent stiffness of shoulder and gain mobility. 8 weeks. Patient will demonstrate improved AROM shoulder flexion to at least 130 to reach, self care, dress with ease. 8 weeks. Patient will demonstrate improved shoulder strength 3+/5 (RC and delt strength) for ease of ADLs. 8 weeks Patient will improve FOTO score to at least 63 (predicted) from 45 to show MDC/MCII and expected functional outcome. 8 weeks Patient Education: Quality of movement with patient demonstrated understanding. Post-Treatment Pain Scale: 0 Assessment: Patient had an expected response to treatment. Skilled Intervention demonstrated by modifications of treatment per exercise log including increased load and safety interventions per exercise log. Progress towards goals as expected. Plan for Next Visit: Treatment Visit with focus on strengthening through full ROM Kali Dominguez PTA STATE LICENSE, [id number] documented in this encounter [facility] 06-13-2022 History of Present illness Narrative [facility] DAILY TREATMENT NOTE Today's Date 06/13/2022 Patient Name: Esau Hunter Date of : 1935 Current Visit #: 7 Authorized Visits: 13 Case Name: R reverse TSA History: Pre-Treatment Pain Scale: 4 Symptoms: stabilized Functional Diagnosis: 1. Status post reverse total replacement of right shoulder Clinical Information: Subjective: Pt reports low pain in his shoulder but he is hardly able to stand d/t leg pain Objective Held standing ex's d/t pain in legs Pt was quick to fatigue with seated AROM progressions Treatments: Physical Therapy Exercise Log - 06/13/22 1516 OTHER Precautions/Contraindications R reverse TSA on 04/23/2022, sling for 6 weeks in public, start with AAROM and progress to active motion after 4 weeks Notes [employer] insurance Vitals [id number] Therapeutic Exercise (19843) Intervention filippo 3 mins 5 at end range Parameters cane ER steated 5 x10, cane flexion and scaption 10 Intervention isometric STATION ENGINEER CHIEF assist 5 x10 (submax resistance) Parameters Seated Scaption to 90 degrees x 20 Intervention Seated Curls 1lb x 20 2lb x 10 Parameters Seated Overhead press 1lb med ball x 20 Intervention -- Parameters Supine Chest press, flexion 2x10 Intervention elbow flexion 2 x10 L2 table slides 3''x20 Manual Therapy (36208) Intervention passive motion of shouder flexion, scaption, ER in scapular plane 10 NT PT Treatment Times Therex Total Time 30 Direct Treatment Time 30 Total Treatment Time 30 Goals: Physical Therapy Ortho Goals: Patient will demonstrate good adherence to HEP recommendations and current restrictions. 6 weeks Patient will demonstrate improved PROM shoulder flexion to at least 150 to prevent stiffness of shoulder and gain mobility. 8 weeks. Patient will demonstrate improved AROM shoulder flexion to at least 130 to reach, self care, dress with ease. 8 weeks. Patient will demonstrate improved shoulder strength 3+/5 (RC and delt strength) for ease of ADLs. 8 weeks Patient will improve FOTO score to at least 63 (predicted) from 45 to show MDC/MCII and expected functional outcome. 8 weeks Patient Education: Verbal HEP with patient verbalized understanding. Post-Treatment Pain Scale: 4 Assessment: Patient had an expected response to treatment. Skilled Intervention demonstrated by modifications of treatment per exercise log including assessment of patient's response and safety interventions per exercise log. Progress towards goals as expected. Plan for Next Visit: Treatment Visit with focus on progressing as tolerated Jelena Bedolla PTA STATE LICENSE, [id number] documented in this encounter [facility] 06-06-2022 History of Present illness Narrative [facility] DAILY TREATMENT NOTE Today's Date 06/06/2022 Patient Name: Esau Hunter Date of : 1935 Current Visit #: 6 Authorized Visits: 13 Case Name: R reverse TSA History: Pre-Treatment Pain Scale: 1 Symptoms: stabilized Functional Diagnosis: 1. Status post reverse total shoulder replacement, unspecified laterality Clinical Information: Subjective: Pt reports no pain in his shoulder but he was in the hospital for his leg and the flu Objective Added mult ex's for AROM and AAROM with min sx change Treatments: Physical Therapy Exercise Log - 06/06/22 1522 OTHER Precautions/Contraindications R reverse TSA on 04/23/2022, sling for 6 weeks in public, start with AAROM and progress to active motion after 4 weeks Notes [employer]IM insurance Vitals [id number] Therapeutic Exercise (70951) Intervention table slides 3''x20 Parameters elbow flexion 2 x10 L2 Intervention cane ER steated 5 x10, cane flexion and scaption 10 Parameters filippo 3 mins 5 at end range Intervention pendulum x 20 Parameters isometric against wall 5 x10 (submax resistance) Intervention Leaning against wall flexion, abd, 1lb medball [place] press 2x10 Parameters Supine Chest press, flexion 2x10 Manual Therapy (51929) Intervention passive motion of shouder flexion, scaption, ER in scapular plane 10 NT PT Treatment Times Therex Total Time 38 Direct Treatment Time 38 Total Treatment Time 39 Goals: Physical Therapy Ortho Goals: Patient will demonstrate good adherence to HEP recommendations and current restrictions. 6 weeks Patient will demonstrate improved PROM shoulder flexion to at least 150 to prevent stiffness of shoulder and gain mobility. 8 weeks. Patient will demonstrate improved AROM shoulder flexion to at least 130 to reach, self care, dress with ease. 8 weeks. Patient will demonstrate improved shoulder strength 3+/5 (RC and delt strength) for ease of ADLs. 8 weeks Patient will improve FOTO score to at least 63 (predicted) from 45 to show MDC/MCII and expected functional outcome. 8 weeks Patient Education: Verbal HEP with patient verbalized understanding. Post-Treatment Pain Scale: 1 Assessment: Patient had an expected response to treatment. Skilled Intervention demonstrated by modifications of treatment per exercise log including assessment of patient's response and safety interventions per exercise log. Progress towards goals as expected. Plan for Next Visit: Treatment Visit with focus on progressing as tolerated Jelena Bedolla PTA STATE LICENSE, [id number] documented in this encounter [facility] 05-30-2022 History of Present illness Narrative Images from the original note were not included. [facility] DAILY TREATMENT NOTE Today's Date 05/30/2022 Patient Name: Esau Hunter Date of : 1935 Current Visit #: 5 Authorized Visits: 13 Case Name: R reverse TSA History: Pre-Treatment Pain Scale: 0 stiffness Symptoms: gradually improved Functional Diagnosis: 1. Status post reverse total replacement of right shoulder Clinical Information: Subjective: patient reports stiffness at shoulder but no pain. He is complaint with Hep. Objective Modified exercises as per the log to progress and provided with HEP. Treatments: Physical Therapy Exercise Log - 05/30/22 1519 OTHER Precautions/Contraindications R reverse TSA on 04/23/2022, sling for 6 weeks in public, start with AAROM and progress to active motion after 4 weeks Notes [employer] insurance Vitals 3:19 3:48 Therapeutic Exercise (84114) Intervention table slides 3''x20 Parameters elbow flexion 2 x10 RTB Intervention cane ER steated 5 x10, cane flexion and scaption 10 Parameters filippo 3 mins 5 at end range Intervention pendulum 10 Parameters isometric against wall 5 x10 (submax resistance) Intervention -- Manual Therapy (66230) Intervention passive motion of shouder flexion, scaption, ER in scapular plane 10 NT PT Treatment Times Therex Total Time 29 Direct Treatment Time 29 Total Treatment Time 34 Goals: Physical Therapy Ortho Goals: Patient will demonstrate good adherence to HEP recommendations and current restrictions. 6 weeks Patient will demonstrate improved PROM shoulder flexion to at least 150 to prevent stiffness of shoulder and gain mobility. 8 weeks. Patient will demonstrate improved AROM shoulder flexion to at least 130 to reach, self care, dress with ease. 8 weeks. Patient will demonstrate improved shoulder strength 3+/5 (RC and delt strength) for ease of ADLs. 8 weeks Patient will improve FOTO score to at least 63 (predicted) from 45 to show MDC/MCII and expected functional outcome. 8 weeks Patient Education: Quality of movement, Written HEP, and Diagnosis and recovery specific education with patient verbalized understanding. Post-Treatment Pain Scale: 0 Assessment: Patient had an expected response to treatment. Skilled Intervention demonstrated by modifications of treatment per exercise log including increased load, increased rate, increased mobility, and assessment of patient's response and safety interventions per exercise log. Progress towards goals as expected. Plan for Next Visit: Treatment Visit with focus on continue to follow protocol Nia Orr PT STATE LICENSE, [id number] documented in this encounter [facility] 05-23-2022 History of Present illness Narrative [facility] DAILY TREATMENT NOTE Today's Date 05/23/2022 Patient Name: Esau Hunter Date of : 1935 Current Visit #: 4 Authorized Visits: 13 Case Name: R reverse TSA History: Pre-Treatment Pain Scale: 3 Symptoms: stabilized Functional Diagnosis: 1. Status post reverse total replacement of right shoulder Clinical Information: Subjective: His shoulder is sore today. He's got the flu and hasn't been sleeping well. Objective mild pain increase with passive ER Treatments: Physical Therapy Exercise Log - 05/23/22 3953 OTHER Precautions/Contraindications R reverse TSA on 04/23/2022, sling for 6 weeks in public, start with AAROM and progress to active motion after 4 weeks Notes [employer] insurance Vitals [id number] visit 3 Therapeutic Exercise (17050) Intervention neck rotation 3''x20 Parameters elbow flexion active supine x10 Intervention supination, pronation and wrist motion active 3''x20 Parameters scapular retraction 3 x12 Intervention Ball Squeeze 3''x20 Parameters rock the baby pendular motion Intervention table slides 3''x20 Manual Therapy (49052) Intervention passive motion of shouder flexion, scaption, ER in scapular plane 10 PT Treatment Times Therex Total Time 20 Manual Therapy Total Time 10 Direct Treatment Time 30 Total Treatment Time 30 Goals: Physical Therapy Ortho Goals: Patient will demonstrate good adherence to HEP recommendations and current restrictions. 6 weeks Patient will demonstrate improved PROM shoulder flexion to at least 150 to prevent stiffness of shoulder and gain mobility. 8 weeks. Patient will demonstrate improved AROM shoulder flexion to at least 130 to reach, self care, dress with ease. 8 weeks. Patient will demonstrate improved shoulder strength 3+/5 (RC and delt strength) for ease of ADLs. 8 weeks Patient will improve FOTO score to at least 63 (predicted) from 45 to show MDC/MCII and expected functional outcome. 8 weeks Patient Education: Quality of movement with patient demonstrated understanding. Post-Treatment Pain Scale: 2 Assessment: Patient had an expected response to treatment. Skilled Intervention demonstrated by modifications of treatment per exercise log including increased load and safety interventions per exercise log. Progress towards goals as expected. Plan for Next Visit: Treatment Visit with focus on stretches Elisa Macias PTA STATE LICENSE, [id number] documented in this encounter [facility] 05-21-2022 History of Present illness Narrative [facility] DAILY TREATMENT NOTE Today's Date 05/21/2022 Patient Name: Esau Hunter Date of : 1935 Current Visit #: 3 Authorized Visits: 13 Case Name: R reverse TSA History: Pre-Treatment Pain Scale: 2 Symptoms: stabilized Functional Diagnosis: 1. Status post reverse total replacement of right shoulder Clinical Information: Subjective: His shoulder has been achy today but improving Objective good tolerance to cane stretches with ER and bicep curls Treatments: Physical Therapy Exercise Log - 05/21/22 6436 OTHER Precautions/Contraindications R reverse TSA on 04/23/2022, sling for 6 weeks in public, start with AAROM and progress to active motion after 4 weeks Notes [employer] insurance Vitals [phone] visit 2 Therapeutic Exercise (08657) Intervention neck rotation 3''x20 Parameters elbow flexion active supine x10 Intervention supination, pronation and wrist motion active 3''x20 Parameters scapular retraction 3 x12 Intervention Ball Squeeze 3''x20 Parameters rock the baby pendular motion Intervention table slides 3''x20 Manual Therapy (43845) Intervention passive motion of shouder flexion, scaption, ER in scapular plane 10 PT Treatment Times Therex Total Time 20 Manual Therapy Total Time 10 Direct Treatment Time 30 Total Treatment Time 30 Goals: Physical Therapy Ortho Goals: Patient will demonstrate good adherence to HEP recommendations and current restrictions. 6 weeks Patient will demonstrate improved PROM shoulder flexion to at least 150 to prevent stiffness of shoulder and gain mobility. 8 weeks. Patient will demonstrate improved AROM shoulder flexion to at least 130 to reach, self care, dress with ease. 8 weeks. Patient will demonstrate improved shoulder strength 3+/5 (RC and delt strength) for ease of ADLs. 8 weeks Patient will improve FOTO score to at least 63 (predicted) from 45 to show MDC/MCII and expected functional outcome. 8 weeks Patient Education: Quality of movement with patient demonstrated understanding. Post-Treatment Pain Scale: 1 Assessment: Patient had an expected response to treatment. Skilled Intervention demonstrated by modifications of treatment per exercise log including increased load and safety interventions per exercise log. Progress towards goals as expected. Plan for Next Visit: Treatment Visit with focus on stretches. Elisa Macias PTA STATE LICENSE, [id number] documented in this encounter [facility] 05-14-2022 History of Present illness Narrative [facility] DAILY TREATMENT NOTE Today's Date 05/14/2022 Patient Name: Esau Hunter Date of : 1935 Current Visit #: 2 Authorized Visits: 13 Case Name: R reverse TSA History: Pre-Treatment Pain Scale: 1 Symptoms: stabilized Functional Diagnosis: 1. Status post reverse total replacement of right shoulder Clinical Information: Subjective: Pt reports no pain at rest today, he has a catch every now and then Objective No sling coming in today Treatments: Physical Therapy Exercise Log - 05/14/22 1512 OTHER Precautions/Contraindications R reverse TSA on 04/23/2022, sling for 6 weeks in public, start with AAROM and progress to active motion after 4 weeks Notes [employer] insurance Vitals [id number] Therapeutic Exercise (38484) Intervention neck rotation 3''x20 Parameters elbow flexion active supine Intervention supination, pronation and wrist motion active 3''x20 Parameters scapular retraction 3 x12 Intervention Ball Squeeze 3''x20 Parameters rock the baby pendular motion Intervention table slides 3''x20 Manual Therapy (99144) Intervention passive motion of shouder flexion, scaption, ER in scapular plane 10 PT Treatment Times Therex Total Time 20 Manual Therapy Total Time 10 Direct Treatment Time 30 Total Treatment Time 30 Goals: Physical Therapy Ortho Goals: Patient will demonstrate good adherence to HEP recommendations and current restrictions. 6 weeks Patient will demonstrate improved PROM shoulder flexion to at least 150 to prevent stiffness of shoulder and gain mobility. 8 weeks. Patient will demonstrate improved AROM shoulder flexion to at least 130 to reach, self care, dress with ease. 8 weeks. Patient will demonstrate improved shoulder strength 3+/5 (RC and delt strength) for ease of ADLs. 8 weeks Patient will improve FOTO score to at least 63 (predicted) from 45 to show MDC/MCII and expected functional outcome. 8 weeks Patient Education: Verbal HEP with patient verbalized understanding. Post-Treatment Pain Scale: 1 Assessment: Patient had an expected response to treatment. Skilled Intervention demonstrated by modifications of treatment per exercise log including assessment of patient's response and safety interventions per exercise log. Progress towards goals as expected. Plan for Next Visit: Treatment Visit with focus on progressing as tolerated per protocol Jelena Bedolla PTA STATE LICENSE, [id number] documented in this encounter [facility] 05-08-2022 History of Present illness Narrative [facility] Evaluation Today's Date 05/08/2022 Patient Name: Esau Hunter Date of : 1935 Case Name: R reverse TSA Functional Diagnosis: 1. Presence of right artificial shoulder joint 2. Aftercare following joint replacement surgery, unspecified joint 3. Arthritis of right shoulder region 4. Status post reverse total replacement of right shoulder Clinical Information: Subjective Referring Diagnosis: R reverse TSA History of Present Illness Subjective History: Patient presents to physical therapy S/P R reverse TSA on 04/23/2022. Patient reports doing good after surgery and not much pain in shoulder but some pain in arm. He has been in sling with abductor pillow since surgery. He is allowed to take the sling off when he is at home but still has to continue sling in public for 6 weeks. He has been doing some exercises or wrist and forearm. He is aware of post surgical precautions. He was staking tylenol but not now due to no pain. Ice application PRN. Pain Scale Pain location: shoulder Average Pain: 0/10 Personal Goals: Wants to get back to function Social Support: Patient lives with others. Additional Social Support: daughter helps her Buddhist, social, or cultural considerations to be made aware of before starting treatment: No Sleep Assessment Average Sleep: no pain but has sleep issue even before surgery. Sleep disturbance: Sleep Disturbance Fall risk screening Fallen 2 or more times in the last 12 months: No Injured as a result of a fall in the last 12 months: No Buddhist, social, or cultural considerations to be made aware of before starting treatment: No Cervical Spine: Muscle Strength Muscle Strength Rt WFL: did not check due to acuity of condition. Additional Cervical Findings:Neck range of motion pain free but limited. spinal decompression surgery last year. Incision : healing, no sign of infection, slight tender Slight redness at olecranon process (could be due to rubbing in sling) Shoulder Right Shoulder Range of Motion: Flexion: Passive: 85 Abduction: Passive: 80 (scaption) ER 90 deg.: Passive: 20 (@ 45 abd) Treatments: Physical Therapy Exercise Log - 05/08/22 1605 OTHER Precautions/Contraindications R reverse TSA on 04/23/2022, sling for 6 weeks in public, start with AAROM and progress to active motion after 4 weeks Notes [employer] insurance Therapeutic Exercise (29343) Intervention neck rotation 5 Parameters elbow flexion active supine Intervention supination, pronation and wrist motion active 5 Parameters scapular retraction 3 x5 Intervention putty for gripping at home Parameters rock the baby pendular motion Intervention table slides NV Manual Therapy (50332) Intervention passive motion of shouder flexion, scaption, ER in scapular plane 10 Treatment Plan: Frequency of Visits: twice per week Duration: 8 weeks Interventions: Therapeutic Exercise (19807) and Manual Therapy (68743) Rehab Potential: good Goals: Physical Therapy Ortho Goals: Patient will demonstrate good adherence to HEP recommendations and current restrictions. 6 weeks Patient will demonstrate improved PROM shoulder flexion to at least 150 to prevent stiffness of shoulder and gain mobility. 8 weeks. Patient will demonstrate improved AROM shoulder flexion to at least 130 to reach, self care, dress with ease. 8 weeks. Patient will demonstrate improved shoulder strength 3+/5 (RC and delt strength) for ease of ADLs. 8 weeks Patient will improve FOTO score to at least 63 (predicted) from 45 to show MDC/MCII and expected functional outcome. 8 weeks Patient Education provided: Patient was educated about the condition, precautions, and physical therapy plan of care. Clinical Impression: Pt is a 86 y.o. male who presents to the clinic s/p reverse TSA R on 04/21/2022 . Pt is currently 2 weeks post-op. Upon examination pt demonstrates impairments of pain, range of motion, strength and endurance restrictions resulting in functional limitations of self care, dressing, using arm, lifting, carrying, reaching, pushing, pulling, ADLs, recreational activities, functional mobility, quality of life. Pt to benefit from individualized treatment plan in order to improve overall mobility and function. Nia Orr PT STATE LICENSE, [id number] documented in this encounter [facility] 04-22-2022 History of Present illness Narrative Images from the original note were not included. Karen Arroyo DPM Patient Name: Esau Hunter. . Date of : 1935, 86 y.o.. Gender: male. Subjective: Patient is a pleasant 86-year-old male who presents to clinic complaining of a painful callus to his right foot. He is also complaining of elongated and thickened toenails that he has difficulty cutting on his own. No other pedal complaints at this time. Denies fevers, chills, nausea, vomiting, chest pain, shortness of breath, or any other constitutional symptoms. Physical Examination: There were no vitals taken for this visit. General Appearance: Alert, cooperative, no distress, appears stated age. Podiatric Exam Vascular: DP and PT pulses are nonpalpable 0/4. Capillary refill time is less than 3 seconds to distal digits. Skin temperature is warm to cool from proximal tibial tuberosity to distal digit. Neurological: Gross sensation is intact. Protective sensation is intact. Dermatologic: Nails 1 through 10 are elongated, thickened, dystrophic and mycotic with subungual debris. 1 hyperkeratotic lesion noted subright foot. Upon debridement of lesion, nucleated core is noted. No underlying ulceration. Interdigital spaces are clean dry and intact. Musculoskeletal: Pain on palpation to all toenails, and especially the hyperkeratotic lesion. Ankle joint range of motion is intact. Muscle strength is 5/5 to dorsiflexors, plantar flexors, inverters and everters. Compartments soft and compressible. No calf pain Assessment: 1. Onychomycosis 2. Corns and callus 3. Pain due to onychomycosis of toenail of left foot 4. Pain due to onychomycosis of toenail of right foot 5. PAD (peripheral artery disease) ([facility]) Imaging: None obtained at this visit. Plan: Patient was seen and evaluated. Discussed all clinical findings. Patient has onychomycosis of nails x 10 which require mechanical debridement. Consent was obtained prior to debridement of all toenails on the right and left foot using podiatric nail nippers down to appropriate thickness and length. Patient expressed pain relief following the procedure. Patient has calluses to right foot plantarly that require mechanical debridement. Consent was obtained prior to debridement of calluses x 1 using a 4 mm ring curette down to appropriate epithelial layer. Patient expressed pain relief on the procedure. Patient qualifies for nail and callus care due to at risk foot criteria based on Q8 Modifier secondary to peripheral arterial disease. All questions were answered to patient satisfaction. Patient understands to call with any questions or concerns. Follow-up in 3 months for at risk foot care. Karen Arroyo DPM, MS Podiatric Physician & Surgeon documented in this encounter [facility] 04-08-2022 Note HNO ID: [id number] Author: Santiago Massey MD Service: ? Author Type: Physician Type: Progress Notes Filed: 04/08/2022 2:20 PM Note Text: ASSESSMENT/PLAN: 1. Central retinal artery occlusion, right eye - ICD9: 362.31, ICD10: H34.11 (primary diagnosis) - FUNDUS PHOTOS OU (BOTH EYES) - Continue to monitor with Dr. Mclain, next appointment is 07/10/22 2. Primary open angle glaucoma (POAG) of right eye, mild stage - ICD9: 365.11, 365.71, ICD10: H40.1111 - Status Post Canaloplasty / Trabeculectomy using the OMNI Surgical System - Right eye (11/14/2021) - Intraocular pressure continues to be stable without eye drops - Monitor 3. Optic cupping of both eyes - ICD9: 377.14, ICD10: H47.233 - Stable / Monitor 4. Pseudophakia of both eyes - ICD9: V43.1, ICD10: Z96.1 - Intraocular lens in good position both eyes 5. Essential hypertension - ICD9: 401.9, ICD10: I10 - Continue to monitor with PCP I have confirmed and edited as necessary the relevant ophthalmic history, review of systems, surgical history, and ophthalmological examination findings as obtained by the ophthalmic technical staff. I have seen and examined Esau Hunter. I have discussed the examination findings, diagnosis, and treatment options with Esau Hunter and/or his family. I have also reviewed and agree with the assessment and plan as stated above and agree with all its relevant components. I gave the patient the opportunity to ask questions about the findings, diagnosis, and treatment options. Santiago Massey MD [facility] 02-27-2022 Note HNO ID: [id number] Author: Nicki Mclain MD, PhD Service: ? Author Type: Physician Type: Progress Notes Filed: 02/27/2022 4:16 PM Note Text: Referred by Dr. Massey for Central retinal vein occlusion right eye 1. 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 Secondary glaucoma (neovascular glaucoma) Status Post Canaloplasty / Trabeculectomy using the OMNI Surgical System - Right eye (11/14/2021 [place]) -postop per Dr. Massey -says using only systane (intraocular pressure slightly elevated today but acceptable) Plan: No injection today, observe S/p avastin 5 mo ago right eye with trace neovascularization of the iris at the margin Return in 4-5 mo ofor full exam I have confirmed and edited as necessary the relevant ophthalmic history, ROS, and the neuro exam findings as obtained by others. I have seen and examined this patient. I have discussed the case and the management of this patient's care with the Resident/Fellow, if applicable. I also have reviewed and agree with the assessment and plan as stated above and agree with all of its relevant components. Nicki Mclain MD [facility] 02-27-2022 History of Present illness Narrative Referred by Dr. Massey for Central retinal vein occlusion right eye 1. 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 Secondary glaucoma (neovascular glaucoma) Status Post Canaloplasty / Trabeculectomy using the OMNI Surgical System - Right eye (11/14/2021 [place]) -postop per Dr. Massey -says using only systane (intraocular pressure slightly elevated today but acceptable) Plan: No injection today, observe S/p avastin 5 mo ago right eye with trace neovascularization of the iris at the margin Return in 4-5 mo ofor full exam I have confirmed and edited as necessary the relevant ophthalmic history, ROS, and the neuro exam findings as obtained by others. I have seen and examined this patient. I have discussed the case and the management of this patient's care with the Resident/Fellow, if applicable. I also have reviewed and agree with the assessment and plan as stated above and agree with all of its relevant components. Nicki Mclain MD documented in this encounter [facility] 02-18-2022 Note HNO ID: [id number] Author: Ferny Maria DO Service: ? Author Type: Physician Type: Progress Notes Filed: 02/18/2022 3:13 PM Note Text: Ferny Maria DO [facility] General Orthopedics - Orthopedic Spine Surgeon [address] [facility] [address] [address] [place] [address] Phone: [phone] ([phone] FAX: [phone] SPINE SURGERY OUTPATIENT CONSULT SERVICE DATE: 02/12/2022 Last Office Visit: 08/20/2021 REFERRING PROVIDER: Ferny Maria [address] [facility] [id number] CHIEF COMPLAINT: None HISTORY OF PRESENT ILLNESS Esau Hunter is a 86 year old male presenting with daughter. He is 1 year status post C3-C5 laminectomy, C3-C6 fusion on 02/11/2021. At his last office visit he stated that he was doing well. He noted at times cervical stiffness. He noted shoulder pain, but was noted to have a rotator cuff surgery in the future. Overall, he was very pleased with his surgery. Recommendation was to follow-up in 6 months with xray imaging. Today, he states that he is doing great. States that he does not have any pain. Denies any new myelopathic symptoms. He is here for image review, evaluation and plan of care. PREVIOUS CONSERVATIVE TREATMENTS: None PREVIOUS SURGERY: SURGERY #1: C3-C5 laminectomy, C3-C6 fusion on 02/11/[address] Maria. Smoker: Former quit 2006 Diabetic: No Anticoagulants / Antiplatelets: ASA 81mg Occupation: retired PAST MEDICAL HISTORY Diagnosis Date Abdominal aortic aneurysm repaired Acute myocardial infarction of lateral wall ([facility]) 2007 unsure of location of infarct Arthritis Balance problem mild Central retinal artery occlusion, right eye Central retinal vein occlusion, right eye 12/11/2019 Cervical myelopathy (HCC) Constipation COPD (chronic obstructive pulmonary disease) ([facility]) Coronary artery disease Essential hypertension GERD (gastroesophageal reflux disease) Hyperlipemia Paroxysmal atrial fibrillation ([facility]) PAST SURGICAL HISTORY Procedure Laterality Date CABG (1) VEIN GRAFT AND ARTERIAL GRAFT 2007 double CANALOPLASTY W/O STENT Right 11/14/2021 360Canaloplasty /180 Trabeculotomy using the OMNI Surgical System ENDOVASC AAA STENT REPAIR unsure of date NECK SURGERY HX 02/11/2021 C3-6 Laminectomy and Fusion PAST SURGICAL HISTORY OF 02/11/2017 infection - right thigh PICC LINE INSERTION (PICC TEAM) ([place]) 02/10/2017 POST-CATARACT LASER SURGERY Right 05/2013 Yag Capsulotomy XCAPSL CTRC RMVL INSJ IO LENS PROSTH W/O ECP Bilateral Cataract Extraction with PC IOL FAMILY HISTORY Problem Relation Age of Onset No Ocular Disease Mother other (cancer from stroke) Mother No Ocular Disease Father Social History Tobacco Use Smoking status: Former Packs/day: 1.00 Years: 50.00 Pack years: 50.00 Types: Cigarettes Quit date: 02/09/2006 Years since quittin.0 Smokeless tobacco: Never Vaping Use Vaping Use: Never used Substance Use Topics Alcohol use: No Drug use: No ALLERGIES Allergen Reactions Apixaban GI Upset Rivaroxaban GI Upset MEDICATIONS: ELIQUIS 5 mg tab(s) Take 5 mg by mouth twice daily. furosemide (LASIX) 40 mg tablet Take by mouth. potassium chloride 20 mEq TbER Take 1 tablet by mouth once daily. atorvastatin (LIPITOR) 40 mg tablet dextromethorphan-guaiFENesin (MUCINEX DM) 30-600 mg per tablet Take by mouth. MUCUS DM 30-600 mg per tablet Take 1 tablet by mouth twice daily. predniSONE (DELTASONE) 10 mg tablet Take 10 mg by mouth once daily. aspirin 81 mg chewable tablet Take 1 tablet by mouth once daily. Resume on 02/18/2021 acetaminophen (TYLENOL) 325 mg tablet Take 2 tablets by mouth every 6 hours as needed for pain. Do Not take while taking percocet. Percocet contains acetaminophen. Do not exceed more than 3000 mg of acetaminophen in 24 hours meclizine (ANTIVERT) 25 mg tab Take 25 mg by mouth once daily as needed (dizziness). TRULANCE 3 mg tablet Take 3 mg by mouth once daily as needed (IBS symptoms). hydroCHLOROthiazide (HYDRODIURIL, ESIDRIX) 12.5 mg tablet Take 12.5 mg by mouth once daily. CONSTULOSE 10 gram/15 mL solution Take 10 g by mouth as needed (constipation). bisacodyl EC (DULCOLAX) 5 mg EC tablet Take 5 mg by mouth twice daily as needed for constipation. metoprolol tartrate, short acting, (LOPRESSOR) 25 mg tablet Take 12.5 mg by mouth twice daily. Omeprazole 40 mg capsule Take 40 mg by mouth once daily. REVIEW OF SYSTEMS Review of Systems OBJECTIVE: There were no vitals taken for this visit. PHYSICAL EXAM GENERAL APPEARANCE: Well nourished, well developed, and no apparent distress. NEURO PSYCH: Patient oriented to person, place, and time. Mood pleasant. Benign affect. CARDIOVASCULAR: Palpable pulses. No edema noted. No varicosities. SKIN: Head, neck, trunk, and extremities dry, intact and without lesions. LYMPHATICS: No palpable nodes in cervical or axi (more content not included)... [facility] 02-18-2022 History of Present illness Narrative Images from the original note were not included. Ferny Maria DO [facility] - Orthopedic Spine Surgeon [address] [facility] [id number] [place] [address] Phone: [phone] FAX: [phone] SPINE SURGERY OUTPATIENT CONSULT SERVICE DATE: 02/12/2022 Last Office Visit: 08/20/2021 REFERRING PROVIDER: Ferny Maria [address] [facility] [id number] CHIEF COMPLAINT: None HISTORY OF PRESENT ILLNESS Esau Hunter is a 86 year old male presenting with daughter. He is 1 year status post C3-C5 laminectomy, C3-C6 fusion on 02/11/2021. At his last office visit he stated that he was doing well. He noted at times cervical stiffness. He noted shoulder pain, but was noted to have a rotator cuff surgery in the future. Overall, he was very pleased with his surgery. Recommendation was to follow-up in 6 months with xray imaging. Today, he states that he is doing great. States that he does not have any pain. Denies any new myelopathic symptoms. He is here for image review, evaluation and plan of care. PREVIOUS CONSERVATIVE TREATMENTS: None PREVIOUS SURGERY: SURGERY #1: C3-C5 laminectomy, C3-C6 fusion on 02/11/[address] Maria. Smoker: Former quit 2006 Diabetic: No Anticoagulants / Antiplatelets: ASA 81mg Occupation: retired PAST MEDICAL HISTORY Diagnosis Date Abdominal aortic aneurysm repaired Acute myocardial infarction of lateral wall ([facility]) 2006 unsure of location of infarct Arthritis Balance problem mild Central retinal artery occlusion, right eye Central retinal vein occlusion, right eye 12/11/2019 Cervical myelopathy (HCC) Constipation COPD (chronic obstructive pulmonary disease) (HCC) Coronary artery disease Essential hypertension GERD (gastroesophageal reflux disease) Hyperlipemia Paroxysmal atrial fibrillation ([facility]) PAST SURGICAL HISTORY Procedure Laterality Date CABG (1) VEIN GRAFT & ARTERIAL GRAFT 2006 double CANALOPLASTY W/O STENT Right 11/14/2021 360Canaloplasty /180 Trabeculotomy using the OMNI Surgical System ENDOVASC AAA STENT REPAIR unsure of date NECK SURGERY HX 02/11/2021 C3-6 Laminectomy and Fusion PAST SURGICAL HISTORY OF 02/11/2017 infection - right thigh PICC LINE INSERTION (PICC TEAM) ([place]) 02/10/2017 POST-CATARACT LASER SURGERY Right 05/2013 Yag Capsulotomy XCAPSL CTRC RMVL INSJ IO LENS PROSTH W/O ECP Bilateral Cataract Extraction with PC IOL FAMILY HISTORY Problem Relation Age of Onset No Ocular Disease Mother other (cancer from stroke) Mother No Ocular Disease Father Social History Tobacco Use Smoking status: Former Packs/day: 1.00 Years: 50.00 Pack years: 50.00 Types: Cigarettes Quit date: 02/09/2006 Years since quittin.0 Smokeless tobacco: Never Vaping Use Vaping Use: Never used Substance Use Topics Alcohol use: No Drug use: No ALLERGIES Allergen Reactions Apixaban GI Upset Rivaroxaban GI Upset MEDICATIONS: ELIQUIS 5 mg tab(s) Take 5 mg by mouth twice daily. furosemide (LASIX) 40 mg tablet Take by mouth. potassium chloride 20 mEq TbER Take 1 tablet by mouth once daily. atorvastatin (LIPITOR) 40 mg tablet dextromethorphan-guaiFENesin (MUCINEX DM) 30-600 mg per tablet Take by mouth. MUCUS DM 30-600 mg per tablet Take 1 tablet by mouth twice daily. predniSONE (DELTASONE) 10 mg tablet Take 10 mg by mouth once daily. aspirin 81 mg chewable tablet Take 1 tablet by mouth once daily. Resume on 02/18/2021 acetaminophen (TYLENOL) 325 mg tablet Take 2 tablets by mouth every 6 hours as needed for pain. Do Not take while taking percocet. Percocet contains acetaminophen. Do not exceed more than 3000 mg of acetaminophen in 24 hours meclizine (ANTIVERT) 25 mg tab Take 25 mg by mouth once daily as needed (dizziness). TRULANCE 3 mg tablet Take 3 mg by mouth once daily as needed (IBS symptoms). hydroCHLOROthiazide (HYDRODIURIL, ESIDRIX) 12.5 mg tablet Take 12.5 mg by mouth once daily. CONSTULOSE 10 gram/15 mL solution Take 10 g by mouth as needed (constipation). bisacodyl EC (DULCOLAX) 5 mg EC tablet Take 5 mg by mouth twice daily as needed for constipation. metoprolol tartrate, short acting, (LOPRESSOR) 25 mg tablet Take 12.5 mg by mouth twice daily. Omeprazole 40 mg capsule Take 40 mg by mouth once daily. REVIEW OF SYSTEMS Review of Systems OBJECTIVE: There were no vitals taken for this visit. PHYSICAL EXAM GENERAL APPEARANCE: Well nourished, well developed, and no apparent distress. NEURO PSYCH: Patient oriented to person, place, and time. Mood pleasant. Benign affect. CARDIOVASCULAR: Palpable pulses. No edema noted. No varicosities. SKIN: Head, neck, trunk, and extremities dry, intact and without lesions. LYMPHATICS: No palpable nodes in cervical or axillae areas. Groin exam deferred MUSCULOSKELETAL PALPATION: SPINOUS PROCESS: No pain. PARASPINALS: No pain. MUSCLE TONE and BULK: Symmetrical in the upper & lower extremities. MOTOR: Upper Extremity Left Right Deltoids 5/5 5/5 Biceps 5/5 5/5 Triceps 5/5 5/5 District Manager [employer] 5/5 5/5 Interossei 5/5 5/5 Lower Extremity Hip Flexors 5/5 5/5 Quadriceps 5/5 5/5 Dorsiflexion 5/5 5/5 EHL/EDC 5/5 5/5 Plantar Flexion 5/5 5/5 SENSORY: Sensation intact to light touch C5-T1, L1-S1 GAIT: Able to perform toe and heel walk. Able to perform tandem gait. LONG TRACT SIGNS: No clonus. No Hoffmanns. REFLEXES: symmetric non-brisk DATA REVIEW Cervical x-ray AP lateral: C3-6 posterior spinal fusion with hardware in stable position. ASSESSMENT/PLAN Esau Hunter is an 86-year-old male who is status post C3-5 laminectomy C3-6 fusion 1 year ago. -He is doing great since his surgery. His myelopathic symptoms have greatly improved. He is very happy. He is about to have his right shoulder operated on. I will see the patient back as needed. The following portions of the patient's history were reviewed, confirmed, and updated as necessary: allergies, current medications, past family history, past medical history, past social history, past surgical history, problem list, HPI, and ROS obtained by others. Some elements may be copied from a previous office note and have been reviewed/updated where appropriate. All portions reflect current medical decision making from today. The clinical and radiographic findings as well as the risks, benefits and alternatives of treatment have been reviewed in detail with the patient. Advised to call the office if symptoms worsen or new symptoms develop. Patient expressed understanding and is in agreement with plan. Ferny Maria DO documented in this encounter [facility] 01-28-2022 History of Present illness Narrative Images from the original note were not included. Karen Arroyo DPM Patient Name: Esau Hunter. . Date of : 1935, 86 y.o.. Gender: male. Subjective: Patient is a pleasant 86-year-old male who presents to clinic complaining of a painful callus to his right foot. He is also complaining of elongated and thickened toenails that he has difficulty cutting on his own. No other pedal complaints at this time. Denies fevers, chills, nausea, vomiting, chest pain, shortness of breath, or any other constitutional symptoms. Physical Examination: BP 122/76 (BP Location: Left arm, Patient Position: Sitting, BP Cuff Size: Adult) Pulse 73 Temp 98.2 F (36.8 C) (Infrared) General Appearance: Alert, cooperative, no distress, appears stated age. Podiatric Exam Vascular: DP and PT pulses are nonpalpable 0/4. Capillary refill time is less than 3 seconds to distal digits. Skin temperature is warm to cool from proximal tibial tuberosity to distal digit. Neurological: Gross sensation is intact. Protective sensation is intact. Dermatologic: Nails 1 through 10 are elongated, thickened, dystrophic and mycotic with subungual debris. 1 hyperkeratotic lesion noted subright foot. Upon debridement of lesion, nucleated core is noted. No underlying ulceration. Interdigital spaces are clean dry and intact. Musculoskeletal: Pain on palpation to all toenails, and especially the hyperkeratotic lesion. Ankle joint range of motion is intact. Muscle strength is 5/5 to dorsiflexors, plantar flexors, inverters and everters. Compartments soft and compressible. No calf pain Assessment: 1. Onychomycosis 2. Corns and callus 3. Pain due to onychomycosis of toenail of left foot 4. Pain due to onychomycosis of toenail of right foot 5. PAD (peripheral artery disease) ([facility]) Imaging: None obtained at this visit. Plan: Patient was seen and evaluated. Discussed all clinical findings. Patient has onychomycosis of nails x 10 which require mechanical debridement. Consent was obtained prior to debridement of all toenails on the right and left foot using podiatric nail nippers down to appropriate thickness and length. Patient expressed pain relief following the procedure. Patient has calluses to right foot plantarly that require mechanical debridement. Consent was obtained prior to debridement of calluses x 1 using a 4 mm ring curette down to appropriate epithelial layer. Patient expressed pain relief on the procedure. Patient qualifies for nail and callus care due to at risk foot criteria based on Q8 Modifier secondary to peripheral arterial disease. All questions were answered to patient satisfaction. Patient understands to call with any questions or concerns. Follow-up in 3 months for at risk foot care. Karen Arroyo DPM, MS Podiatric Physician & Surgeon documented in this encounter [facility] 12-12-2021 History of Present illness Narrative Referred by Dr. Massey for Central retinal vein occlusion right eye 1. 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 Secondary glaucoma (neovascular glaucoma) Status Post Canaloplasty / Trabeculectomy using the OMNI Surgical System - Right eye (11/14/2021 Breanne) -postop per Dr. Massey -says using only systane (intraocular pressure slightly elevated today but acceptable) Plan: Per Dr. Massey, no neovascularization of the iris last visit (but it may have regressed with avastin) S/p avastin 11 weeks ago right eye with no neovascularization of the iris present on exam today Return in 10 weeks for full exam and poss avastin I have confirmed and edited as necessary the relevant ophthalmic history, ROS, and the neuro exam findings as obtained by others. I have seen and examined this patient. I have discussed the case and the management of this patient's care with the Resident/Fellow, if applicable. I also have reviewed and agree with the assessment and plan as stated above and agree with all of its relevant components. Nicki Mclain MD documented in this encounter [facility] 11-15-2021 Instructions Santiago Massey MD - 11/15/2021 10:56 AM EDT Current Ophthalmic Meds dorzolamide-timolol (COSOPT) 22.3-6.8 mg/mL ophthalmic solution Use 1 Drop in the right eye twice daily. brimonidine (ALPHAGAN P) 0.1 % drop Use 1 Drop in the right eye three times daily. prednisoLONE acetate (PRED FORTE) 1 % ophthalmic suspension Use 1 Drop in the right eye four times daily for 28 days. keTORolac (ACULAR) 0.5 % ophthalmic solution Use 1 Drop in the right eye four times daily for 28 days. If you have any questions please contact our office at [phone]. After office hours or on the weekend, please call Dr. Massey on his cell phone at [phone]. documented in this encounter [facility] 11-15-2021 History of Present illness Narrative ASSESSMENT/PLAN: 1. S/P eye surgery - ICD9: V45.69, ICD10: Z98.890 (primary diagnosis) 2. Primary open angle glaucoma (POAG) of right eye, mild stage - ICD9: 365.11, 365.71, ICD10: H40.1111 The nature of glaucoma was discussed, with emphasis on the non-reversible damage to the optic nerve. Treatment options and the importance of regular examinations and testing were covered in detail, as well as the consequences of non-compliance. The patient was given the opportunity to ask questions. Status Post Canaloplasty / Trabeculectomy using the OMNI Surgical System - Right eye (11/14/2021) Continue: Current Ophthalmic Meds prednisoLONE acetate (PRED FORTE) 1 % ophthalmic suspension Use 1 Drop in the right eye four times daily for 28 days. keTORolac (ACULAR) 0.5 % ophthalmic solution Use 1 Drop in the right eye four times daily for 28 days. 3. Stable central retinal vein occlusion of right eye - ICD9: 362.35, ICD10: H34.[address] Nicki Mclain MD, PhD, Retina I have confirmed and edited as necessary the relevant ophthalmic history, review of systems, surgical history, and ophthalmological examination findings as obtained by the ophthalmic technical staff. I have seen and examined Esau Hunter. I have discussed the examination findings, diagnosis, and treatment options with Esau Hunter and/or his family. I have also reviewed and agree with the assessment and plan as stated above and agree with all its relevant components. I gave the patient the opportunity to ask questions about the findings, diagnosis, and treatment options. Santiago Massey MD documented in this encounter [facility] 11-14-2021 Note Post Operative Note: Post-Procedure Diagnosis: 1. Primary Open Angle Glaucoma Right Eye, Mild Stage Procedure: 1. Canaloplasty using the OMNI Surgical System Right Eye with Trabeculotomy Right Eye Surgeon: Santiago Massey MD Resident/Fellow/Other Tailoring Teacher: None Estimated Blood Loss (mL): none Specimen: no Findings: 1. Primary Open Angle Glaucoma Right Eye, Mild Stage Operative Report Dictated: Dictation: not applicable - note contains Operative Report Operative Report: The patient was correctly identified and the patient's operative eye was marked with a marking pen and verified with the patient in the pre-operative area. The patient was then taken to the operating room where timeout was performed before starting the procedure. Combined anesthesia with intravenous sedation and topical tetracaine eyedrops were instilled into the right eye. A peribulbar block was given using 1% Lidocaine with Epinephrine. The operative eye was prepped and draped in the standard sterile ophthalmic fashion in preparation for ophthalmic surgery. A Ana wire speculum was then inserted between the eyelids of the right eye and the operating microscope was placed over the right eye. Miochol was injected intracameral. The patient's head was turned to the left side and the microscope was tilted to the right. The anterior chamber was entered on the temporal side with a 1.8mm blade and Discovisc was injected into the anterior chamber. Gonioprism was used to visualize the angle. The Epigamii Surgical System was used to perform Canaloplasty 360 degrees and Trabeculotomy 180 degrees in the nasal quadrant. The bleeding was irrigated out and discovisc was irrigated out. Vigamox was injected intracameral into the operative eye. At the end of the procedure the edges of the incision were hydrated by using balanced salt solution. The anterior chamber was inflated with the help of BSS to moderate tension. The surgical incisions were then inspected and found to be water-tight. The wire speculum and drapes were then removed. Pred Forte eyedrops, Acular eyedrops and Betadine 5% sterile ophthalmic solution were instilled in the conjunctival sac. The eye was patched and a shield was applied. The patient tolerated the procedure well and was taken to recovery room in stable condition. Attestation: Note Completion: Attending AttestationI performed the procedure without a resident Electronic Signatures: Santiago Massey) (Signed 14-Nov-2021 14:45) Authored: Post Operative Note, Note Completion Last Updated: 14-Nov-2021 14:45 by Santiago Massey) [facility] 11-14-2021 Note History & Physical R eviewed: I have reviewed the History and Physical dated: 05-Nov-2021 History and Physical reviewed and relevant findings noted. Patient examined to review pertinent physical findings.: No significant changes Home Medications Reviewed: no changes noted Allergies Reviewed: no changes noted ERAS (Enhanced Recovery After Surgery): ERAS Patient: no Consent: COVID-19 Consent: COVID-19 Risk ConsentSurgeon has reviewed riddle risks related to the risk of gloria COVID-19 and if they contract COVID-19 what the risks are. Electronic Signatures: Santiago Massey) (Signed 14-Nov-2021 12:16) Authored: History & Physical Reviewed, ERAS, Consent, Note Completion Last Updated: 14-Nov-2021 12:16 by Santiago Massey) [facility] 11-05-2021 History of Present illness Narrative ASSESSMENT/PLAN: 1. Primary open angle glaucoma (POAG) of right eye, mild stage - ICD9: 365.11, 365.71, ICD10: H40.1111 (primary diagnosis) PHYSICAL EXAM: Vital Signs: Blood pressure 113/72, pulse 73. Respiratory: Normal breath sounds, no wheezing. CARD: Normal heart sounds 1 & 2, normal sinus rhythm. POAG secondary to retinal vein occlusion and Intravitreal injections Gonioscopy performed on both eyes today- Grade 4 angle, 2-3+ pigmentation right eye No neovascularization or iris, no neovascularization of the angle Continue glaucoma medications as directed Cosopt 1 drop twice daily in the right eye Alphagan 1 drop three times daily right eye Target Intraocular pressure: Due to the following reason/s: Intraocular pressure not at desired target pressure An inability to comply with medication requirements due to physical or cognitive function Patient reported that the side effects of the medication/s are negatively impacting the patient's quality of life Patient does not desire an additional medication to be added to their existing regimen Patient is having difficulty with their co-payment obligations Patient has difficulty putting the glaucoma medications in due to vision and shoulder pain Discussed Canaloplasty/Traceculotomy with the omni surgical system Patient is scheduled for 11/14/2021 2. Optic cupping of both eyes - ICD9: 377.14, ICD10: H47.233 Monitor 3. Stable central retinal vein occlusion of right eye - ICD9: 362.35, ICD10: H34.8112 Under the care of Dr. Chemo Juarez 09/26/2021 right eye 4. Pseudophakia of both eyes - ICD9: V43.1, ICD10: Z96.1 Lens position well centered Santiago Massey MD I have confirmed and edited as necessary the relevant ophthalmic history, review of systems, surgical history, and ophthalmological examination findings as obtained by the ophthalmic technical staff. I have seen and examined Esau Hunter. I have discussed the examination findings, diagnosis, and treatment options with Esau Hunter and/or his family. I have also reviewed and agree with the assessment and plan as stated above and agree with all its relevant components. I gave the patient the opportunity to ask questions about the findings, diagnosis, and treatment options. documented in this encounter [facility] 10-22-2021 History of Present illness Narrative Images from the original note were not included. Karen Arroyo DPM Patient Name: Esau Hunter. . Date of : 1935, 86 y.o.. Gender: male. Subjective: Patient is a pleasant 86-year-old male who presents to clinic complaining of painful calluses to his right heel. He is also complaining of elongated and thickened toenails that he has difficulty cutting on his own. States that he has given up on them although they give him pain and discomfort with ambulation. No other pedal complaints at this time. Denies fevers, chills, nausea, vomiting, chest pain, shortness of breath, or any other constitutional symptoms. Physical Examination: BP 128/66 (BP Location: Right arm, Patient Position: Sitting, BP Cuff Size: Adult) Pulse 60 Temp 98.7 F (37.1 C) (Infrared) General Appearance: Alert, cooperative, no distress, appears stated age. Podiatric Exam Vascular: DP and PT pulses are nonpalpable 0/4. Capillary refill time is less than 3 seconds to distal digits. Skin temperature is warm to cool from proximal tibial tuberosity to distal digit. Neurological: Gross sensation is intact. Protective sensation is intact. Dermatologic: Nails 1 through 10 are elongated, thickened, dystrophic and mycotic with subungual debris. No underlying ulceration. Interdigital spaces are clean dry and intact. Musculoskeletal: Pain on palpation to all toenails. Ankle joint range of motion is intact. Muscle strength is 5/5 to dorsiflexors, plantar flexors, inverters and everters. Compartments soft and compressible. No calf pain Assessment: 1. Onychomycosis 2. Pain due to onychomycosis of toenail of left foot 3. Pain due to onychomycosis of toenail of right foot 4. PAD (peripheral artery disease) ([facility]) Imaging: None obtained at this visit. Plan: Patient was seen and evaluated. Discussed all clinical findings. Patient has onychomycosis of nails x 10 which require mechanical debridement. Consent was obtained prior to debridement of all toenails on the right and left foot using podiatric nail nippers down to appropriate thickness and length. Patient expressed pain relief following the procedure. Patient qualifies for nail and callus care due to at risk foot criteria based on Q8 Modifier secondary to peripheral arterial disease. All questions were answered to patient satisfaction. Patient understands to call with any questions or concerns. Follow-up in 3 months for at risk foot care. Karen Arroyo DPM, MS Podiatric Physician & Surgeon documented in this encounter [facility] 09-26-2021 Instructions Nicki Mclain MD, PhD - 09/26/2021 1:52 PM EDT Post-Injection Patient Information You had an injection into the eye today. Tearing and some redness are common after an eye injection. If the eye feels irritated, try to keep it closed; some patients find that a mild pain medicine such as acetaminophen helps. If tearing or pain persists the next day, please call. The redness may take some days to a week to resolve. If you notice increasing pain, redness or blurred vision, please call the office. Loss of central or peripheral vision should prompt a call to us. Please call if you have any questions or concerns. For Questions or an Appointment, please call: [phone] Visit us online at [email or web address]. documented in this encounter [facility] 09-26-2021 History of Present illness Narrative Referred by Dr. Massey for Central retinal vein occlusion right eye 1. Central retinal vein occlusion right eye with macular edema -+neovascularization of the iris at margin - regressed after avastin -likely early NVG -considerable atrophy on OCT -s/p Panretinal laser photocoagulation (PRP) 12/27/20 and 10/11/20 -poor vision 2. 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 Watch for neovascular glaucoma right eye -intraocular pressure elevated despite Panretinal laser photocoagulation (PRP) GTTS: -cosopt twice a day right eye -alphagan three times a day right eye Plan: Rec repeat avastin today right eye Extend to 10 weeks for dilation, possible PRP May need more Panretinal laser photocoagulation (PRP) despite dense 360 laser I have confirmed and edited as necessary the relevant ophthalmic history, ROS, and the neuro exam findings as obtained by others. I have seen and examined this patient. I have discussed the case and the management of this patient's care with the Resident/Fellow, if applicable. I also have reviewed and agree with the assessment and plan as stated above and agree with all of its relevant components. Nicki Mclain MD Referred by Dr. Massey for Central retinal vein occlusion right eye 1. 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 Watch for neovascular glaucoma right eye -intraocular pressure elevated despite Panretinal laser photocoagulation (PRP) -cosopt twice a day -alphagan three times a day -saw Dr. Massey Plan: intraocular pressure 31 today right eye New neovascularization of the iris on exam today Rec avastin today right eye Return in 7 weeks for dilated fundus exam and justin right eye May need more Panretinal laser photocoagulation (PRP) despite dense 360 laser I have confirmed and edited as necessary the relevant ophthalmic history, ROS, and the neuro exam findings as obtained by others. I have seen and examined this patient. I have discussed the case and the management of this patient's care with the Resident/Fellow, if applicable. I also have reviewed and agree with the assessment and plan as stated above and agree with all of its relevant components. Nicki Mclain MD documented in this encounter [facility] 08-28-2021 History of Present illness Narrative ASSESSMENT/PLAN: 1. Primary open angle glaucoma (POAG) of right eye, mild stage - ICD9: 365.11, 365.71, ICD10: H40.1111 (primary diagnosis) POAG secondary to retinal vein occlusion and Intravitreal injections Gonioscopy performed on both eyes today No neovascularization or iris, no neovascularization of the angle Continue glaucoma medications as directed Cosopt 1 drop twice daily in the right eye Alphagan 1 drop three times daily right eye 2. Optic cupping of both eyes - ICD9: 377.14, ICD10: H47.233 Monitor 3. Stable central retinal vein occlusion of right eye - ICD9: 362.35, ICD10: H34.8112 Under the care of Dr. Mclain S/p Avastin 08/08/2021 4. Pseudophakia of both eyes - ICD9: V43.1, ICD10: Z96.1 Lens position well centered Santiago Massey MD I have confirmed and edited as necessary the relevant ophthalmic history, review of systems, surgical history, and ophthalmological examination findings as obtained by the ophthalmic technical staff. I have seen and examined Esau Hunter. I have discussed the examination findings, diagnosis, and treatment options with Esau Hunter and/or his family. I have also reviewed and agree with the assessment and plan as stated above and agree with all its relevant components. I gave the patient the opportunity to ask questions about the findings, diagnosis, and treatment options. documented in this encounter [facility] 08-20-2021 Note HNO ID: [id number] Author: Ferny Maria, DO Service: ? Author Type: Physician Type: Progress Notes Filed: 08/20/2021 3:45 PM Note Text: Ferny Maria DO [facility] General Orthopedics - Orthopedic Spine Surgeon [address] [facility] [address] [address] [place] [address] Phone: [phone] ([phone] FAX: [phone] SPINE SURGERY OUTPATIENT CONSULT SERVICE DATE: 08/20/2021 Last Office Visit: 05/21/2021 REFERRING PROVIDER: Luci Boone [address] [facility] [id number] CHIEF COMPLAINT: Cervical myelopathy HISTORY OF PRESENT ILLNESS Esau Hunter is a 86 year old male presenting with daughter. He is status post C3-C5 laminectomy, C3-C6 fusion on 02/11/2021. At his last visit with Luci Eisenberg APRN., CNP he stated that he was doing very well and was pleased with his surgical outcome. He had no specific complaints or concerns. Recommendation was to follow-up in 3 months with xray imaging. Today, he states he is doing well. He notes at times cervical stiffness. He denies any weakness, numbness or tingling. He notes shoulder pain, but is noted to have a rotator cuff surgery in the future. Overall, he is very pleased with his surgery. He is here for image review, evaluation and plan of care. SYMPTOMS: neck stiffness at times. PREVIOUS CONSERVATIVE TREATMENTS: None PREVIOUS SURGERY: SURGERY #1: C3-C5 laminectomy, C3-C6 fusion on 02/11/[address] Maria. Smoker: Former quit 2006 Diabetic: No Anticoagulants / Antiplatelets: ASA 81mg Occupation: retired PAST MEDICAL HISTORY Diagnosis Date - Abdominal aortic aneurysm (HCC) repaired - Acute myocardial infarction of lateral wall ([facility]) 2007 unsure of location of infarct - Arthritis - Balance problem mild - Central retinal artery occlusion, right eye - Central retinal vein occlusion, right eye 12/11/2019 - Cervical myelopathy (HCC) - Constipation - COPD (chronic obstructive pulmonary disease) ([facility]) - Coronary artery disease - Essential hypertension - GERD (gastroesophageal reflux disease) - Hyperlipemia - Paroxysmal atrial fibrillation ([facility]) PAST SURGICAL HISTORY Procedure Laterality Date - CABG (1) VEIN GRAFT AND ARTERIAL GRAFT 2006 double - ENDOVASC AAA STENT REPAIR unsure of date - NECK SURGERY HX 02/11/2021 C3-6 Laminectomy and Fusion - PAST SURGICAL HISTORY OF 02/11/2017 infection - right thigh - PICC LINE INSERTION (PICC TEAM) ([place]) 02/10/2017 - POST-CATARACT LASER SURGERY Right 05/2013 Yag Capsulotomy - XCAPSL CTRC RMVL INSJ IO LENS PROSTH W/O ECP Bilateral Cataract Extraction with PC IOL FAMILY HISTORY Problem Relation Age of Onset - No Ocular Disease Mother - other (cancer from stroke) Mother - No Ocular Disease Father Social History Tobacco Use - Smoking status: Former Smoker Packs/day: 1.00 Years: 50.00 Pack years: 50.00 Types: Cigarettes Quit date: 02/09/2006 Years since quittin.5 - Smokeless tobacco: Never Used Vaping Use - Vaping Use: Never used Substance Use Topics - Alcohol use: No - Drug use: No ALLERGIES Allergen Reactions - Apixaban GI Upset - Rivaroxaban GI Upset MEDICATIONS: albuterol HFA (PROVENTIL HFA, VENTOLIN HFA) 90 mcg/actuation inhaler INHALE 2 (TWO) PUFFS 6 (SIX) TIMES PER DAY FOR 30 DAYS NEEDED FOR WHEEZING baclofen (LIORESAL) 10 mg tablet TAKE 1 TABLET BY MOUTH ONCE DAILY AT BEDTIME FOR 7 DAYS MUCUS DM 30-600 mg per tablet Take 1 tablet by mouth twice daily. predniSONE (DELTASONE) 10 mg tablet Take 10 mg by mouth once daily. dorzolamide-timolol (COSOPT) 22.3-6.8 mg/mL ophthalmic solution Use 1 Drop in the right eye twice daily. brimonidine (ALPHAGAN P) 0.1 % drop Use 1 Drop in the right eye three times daily. aspirin 81 mg chewable tablet Take 1 tablet by mouth once daily. Resume on 02/18/2021 acetaminophen (TYLENOL) 325 mg tablet Take 2 tablets by mouth every 6 hours as needed for pain. Do Not take while taking percocet. Percocet contains acetaminophen. Do not exceed more than 3000 mg of acetaminophen in 24 hours meclizine (ANTIVERT) 25 mg tab Take 25 mg by mouth once daily as needed (dizziness). TRULANCE 3 mg tablet Take 3 mg by mouth once daily as needed (IBS symptoms). hydroCHLOROthiazide (HYDRODIURIL, ESIDRIX) 12.5 mg tablet Take 12.5 mg by mouth once daily. CONSTULOSE 10 gram/15 mL solution Take 10 g by mouth as needed (constipation). bisacodyl EC (DULCOLAX) 5 mg EC tablet Take 5 mg by mouth twice daily as needed for constipation. metoprolol tartrate, short acting, (LOPRESSOR) 25 mg tablet Take 12.5 mg by mouth twice daily. Omeprazole 40 mg capsule Take 40 mg by mouth once daily. dextromethorphan-guaiFENesin (MUCINEX DM) 30-600 mg per tablet Take by mouth. REVIEW OF SYSTEMS Review of Systems Constitutional: Negative for diaphoresis, fatigue and fever. HENT: Negative for congestion, sinus pressure and s (more content not included)... [facility] 08-20-2021 History of Present illness Narrative Images from the original note were not included. Ferny Maria DO [facility] Orthopedics - Orthopedic Spine Surgeon [address], [facility] [address] [place] [address] Phone: [phone] ([phone]) FAX: [phone] SPINE SURGERY OUTPATIENT CONSULT SERVICE DATE: 08/20/2021 Last Office Visit: 05/21/2021 REFERRING PROVIDER: Luci Eisenberg [address] [facility] [id number] CHIEF COMPLAINT: Cervical myelopathy HISTORY OF PRESENT ILLNESS Esau Hunter is a 86 year old male presenting with daughter. He is status post C3-C5 laminectomy, C3-C6 fusion on 02/11/2021. At his last visit with Luci Eisenberg APRN., CNP he stated that he was doing very well and was pleased with his surgical outcome. He had no specific complaints or concerns. Recommendation was to follow-up in 3 months with xray imaging. Today, he states he is doing well. He notes at times cervical stiffness. He denies any weakness, numbness or tingling. He notes shoulder pain, but is noted to have a rotator cuff surgery in the future. Overall, he is very pleased with his surgery. He is here for image review, evaluation and plan of care. SYMPTOMS: neck stiffness at times. PREVIOUS CONSERVATIVE TREATMENTS: None PREVIOUS SURGERY: SURGERY #1: C3-C5 laminectomy, C3-C6 fusion on 02/11/[address] Maria. Smoker: Former quit 2006 Diabetic: No Anticoagulants / Antiplatelets: ASA 81mg Occupation: retired PAST MEDICAL HISTORY Diagnosis Date Abdominal aortic aneurysm (HCC) repaired Acute myocardial infarction of lateral wall ([facility]) 2006 unsure of location of infarct Arthritis Balance problem mild Central retinal artery occlusion, right eye Central retinal vein occlusion, right eye 12/11/2019 Cervical myelopathy (HCC) Constipation COPD (chronic obstructive pulmonary disease) ([facility]) Coronary artery disease Essential hypertension GERD (gastroesophageal reflux disease) Hyperlipemia Paroxysmal atrial fibrillation ([facility]) PAST SURGICAL HISTORY Procedure Laterality Date CABG (1) VEIN GRAFT & ARTERIAL GRAFT 2006 double ENDOVASC AAA STENT REPAIR unsure of date NECK SURGERY HX 02/11/2021 C3-6 Laminectomy and Fusion PAST SURGICAL HISTORY OF 02/11/2017 infection - right thigh PICC LINE INSERTION (PICC TEAM) ([place]) 02/10/2017 POST-CATARACT LASER SURGERY Right 05/2013 Yag Capsulotomy XCAPSL CTRC RMVL INSJ IO LENS PROSTH W/O ECP Bilateral Cataract Extraction with PC IOL FAMILY HISTORY Problem Relation Age of Onset No Ocular Disease Mother other (cancer from stroke) Mother No Ocular Disease Father Social History Tobacco Use Smoking status: Former Smoker Packs/day: 1.00 Years: 50.00 Pack years: 50.00 Types: Cigarettes Quit date: 02/09/2006 Years since quittin.5 Smokeless tobacco: Never Used Vaping Use Vaping Use: Never used Substance Use Topics Alcohol use: No Drug use: No ALLERGIES Allergen Reactions Apixaban GI Upset Rivaroxaban GI Upset MEDICATIONS: albuterol HFA (PROVENTIL HFA, VENTOLIN HFA) 90 mcg/actuation inhaler INHALE 2 (TWO) PUFFS 6 (SIX) TIMES PER DAY FOR 30 DAYS NEEDED FOR WHEEZING baclofen (LIORESAL) 10 mg tablet TAKE 1 TABLET BY MOUTH ONCE DAILY AT BEDTIME FOR 7 DAYS MUCUS DM 30-600 mg per tablet Take 1 tablet by mouth twice daily. predniSONE (DELTASONE) 10 mg tablet Take 10 mg by mouth once daily. dorzolamide-timolol (COSOPT) 22.3-6.8 mg/mL ophthalmic solution Use 1 Drop in the right eye twice daily. brimonidine (ALPHAGAN P) 0.1 % drop Use 1 Drop in the right eye three times daily. aspirin 81 mg chewable tablet Take 1 tablet by mouth once daily. Resume on 02/18/2021 acetaminophen (TYLENOL) 325 mg tablet Take 2 tablets by mouth every 6 hours as needed for pain. Do Not take while taking percocet. Percocet contains acetaminophen. Do not exceed more than 3000 mg of acetaminophen in 24 hours meclizine (ANTIVERT) 25 mg tab Take 25 mg by mouth once daily as needed (dizziness). TRULANCE 3 mg tablet Take 3 mg by mouth once daily as needed (IBS symptoms). hydroCHLOROthiazide (HYDRODIURIL, ESIDRIX) 12.5 mg tablet Take 12.5 mg by mouth once daily. CONSTULOSE 10 gram/15 mL solution Take 10 g by mouth as needed (constipation). bisacodyl EC (DULCOLAX) 5 mg EC tablet Take 5 mg by mouth twice daily as needed for constipation. metoprolol tartrate, short acting, (LOPRESSOR) 25 mg tablet Take 12.5 mg by mouth twice daily. Omeprazole 40 mg capsule Take 40 mg by mouth once daily. dextromethorphan-guaiFENesin (MUCINEX DM) 30-600 mg per tablet Take by mouth. REVIEW OF SYSTEMS Review of Systems Constitutional: Negative for diaphoresis, fatigue and fever. HENT: Negative for congestion, sinus pressure and sore throat. Eyes: Negative for discharge and itching. Respiratory: Negative for cough, chest tightness and shortness of breath. Cardiovascular: Negative for chest pain, palpitations and leg swelling. Gastrointestinal: Negative for constipation, diarrhea, nausea and vomiting. Endocrine: Negative for cold intolerance and heat intolerance. Genitourinary: Negative for difficulty urinating, frequency and urgency. Musculoskeletal: Positive for neck stiffness. Negative for back pain, gait problem and neck pain. Skin: Negative for rash and wound. Allergic/Immunologic: Negative for environmental allergies and food allergies. Neurological: Positive for dizziness. Negative for weakness, light-headedness, numbness and headaches. Hematological: Does not bruise/bleed easily. Psychiatric/Behavioral: Negative for agitation. The patient is not nervous/anxious. OBJECTIVE: BP 121/70 (BP Site: Left Arm, BP Position: Sitting, BP Cuff Size: Regular Adult) Pulse 62 Temp 36.3 C (97.3 F) Ht 5' 9 (1.753 m) Wt 138 lb 7.2 oz (62.8 kg) SpO2 100% BMI 20.45 kg/m PHYSICAL EXAM GENERAL APPEARANCE: Well nourished, well developed, and no apparent distress. NEURO PSYCH: Patient oriented to person, place, and time. Mood pleasant. Benign affect. CARDIOVASCULAR: Palpable pulses. No edema noted. No varicosities. SKIN: Head, neck, trunk, and extremities dry, intact and without lesions. LYMPHATICS: No palpable nodes in cervical or axillae areas. Groin exam deferred MUSCULOSKELETAL PALPATION: SPINOUS PROCESS: No pain. PARASPINALS: No pain. MUSCLE TONE and BULK: Symmetrical in the upper & lower extremities. MOTOR: Upper Extremity Left Right Deltoids 5/5 3/5 Biceps 5/5 5/5 Triceps 5/5 5/5 District [employer] 5/5 5/5 Interossei 5/5 5/5 Lower Extremity Hip Flexors 5/5 5/5 Quadriceps 5/5 5/5 Dorsiflexion 5/5 5/5 EHL/EDC 5/5 5/5 Plantar Flexion 5/5 5/5 SENSORY: Sensation intact to light touch C5-T1, L1-S1 GAIT: Able to perform toe and heel walk. Able to perform tandem gait. LONG TRACT SIGNS: No clonus. No Hoffmanns. REFLEXES: symmetric non-brisk DATA REVIEW XR cervical 2V AP/LAT AP lateral view the cervical spine displays a C3-6 fusion with hardware in stable position. ASSESSMENT/PLAN Esau Hunter is an 86-year-old male who is 6 months status post C3-5 laminectomy C3-6 fusion. -He is doing great since surgery. He has almost complete resolutions of his myelopathic symptoms. States that he is very happy. His right rotator cuff is completely torn which is causing weakness. He wants to know if he is cleared for surgery. I am okay with him proceeding with surgery as long as the use cervical precautions during intubation. He will follow-up with me in 6 months for his 1 year appointment. The following portions of the patient's history were reviewed, confirmed, and updated as necessary: allergies, current medications, past family history, past medical history, past social history, past surgical history, problem list, HPI, and ROS obtained by others. Some elements may be copied from a previous office note and have been reviewed/updated where appropriate. All portions reflect current medical decision making from today. The clinical and radiographic findings as well as the risks, benefits and alternatives of treatment have been reviewed in detail with the patient. Advised to call the office if symptoms worsen or new symptoms develop. Patient expressed understanding and is in agreement with plan. Ferny Maria DO documented in this encounter [facility] 07-16-2021 History of Present illness Narrative Images from the original note were not included. Karen Arroyo DPM Patient Name: Esau Hunter. . Date of : 1935, 86 y.o.. Gender: male. Subjective: Patient is a pleasant 85-year-old male who presents to clinic complaining of painful calluses to his right heel. He is also complaining of elongated and thickened toenails that he has difficulty cutting on his own. States that he has given up on them although they give him pain and discomfort with ambulation. No other pedal complaints at this time. Denies fevers, chills, nausea, vomiting, chest pain, shortness of breath, or any other constitutional symptoms. Physical Examination: BP 125/65 (BP Location: Right arm, Patient Position: Sitting, BP Cuff Size: Adult) Pulse (!) 56 Temp 97.8 F (36.6 C) (Oral) General Appearance: Alert, cooperative, no distress, appears stated age. Podiatric Exam Vascular: DP and PT pulses are nonpalpable 0/4. Capillary refill time is less than 3 seconds to distal digits. Skin temperature is warm to cool from proximal tibial tuberosity to distal digit. Neurological: Gross sensation is intact. Protective sensation is intact. Dermatologic: Nails 1 through 10 are elongated, thickened, dystrophic and mycotic with subungual debris. 2 hyperkeratotic lesion noted subright foot. Upon debridement of lesion, nucleated core are noted. No underlying ulceration. Interdigital spaces are clean dry and intact. Musculoskeletal: Pain on palpation to all toenails, and especially the hyperkeratotic lesions. Ankle joint range of motion is intact. Muscle strength is 5/5 to dorsiflexors, plantar flexors, inverters and everters. Compartments soft and compressible. No calf pain Assessment: 1. Corns and callus 2. Onychomycosis 3. Pain due to onychomycosis of toenail of left foot 4. Pain due to onychomycosis of toenail of right foot 5. PAD (peripheral artery disease) ([facility]) Imaging: None obtained at this visit. Plan: Patient was seen and evaluated. Discussed all clinical findings. Patient has onychomycosis of nails x 10 which require mechanical debridement. Consent was obtained prior to debridement of all toenails on the right and left foot using podiatric nail nippers down to appropriate thickness and length. Patient expressed pain relief following the procedure. Patient has calluses to right foot plantarly that require mechanical debridement. Consent was obtained prior to debridement of calluses x 2 using #10 blade down to appropriate epithelial layer. Patient expressed pain relief on the procedure. Patient qualifies for nail and callus care due to at risk foot criteria based on Q8 Modifier secondary to peripheral arterial disease. All questions were answered to patient satisfaction. Patient understands to call with any questions or concerns. Follow-up in 3 months for at risk foot care. Karen Arroyo DPM, MS Podiatric Physician & Surgeon documented in this encounter [facility] 05-22-2021 Instructions Santiago Massey MD - 05/22/2021 2:43 PM EDT If you have any questions please contact our office at [phone]. After office hours or on the weekend, please call Dr. Massey on his cell phone at [phone]. documented in this encounter [facility] 05-22-2021 History of Present illness Narrative ASSESSMENT/PLAN:' 1. Central retinal artery occlusion, right eye - ICD9: 362.31, ICD10: H34.11 (primary diagnosis) -stable/ monitor. Continue care with Nicki Mclain as scheduled. - VISUAL FIELD 24-2 OU (BOTH EYES) - FUNDUS PHOTOS OU (BOTH EYES) 2. Optic atrophy of right eye - ICD9: 377.10, ICD10: H47.20 -stable/ monitor. 3. Essential hypertension - ICD9: 401.9, ICD10: I10 Continue care with primary care physician. 4. Pseudophakia of both eyes - ICD9: V43.1, ICD10: Z96.1 Intraocular lens well-centered both eyes/ monitor aSntiago Massey MD I have confirmed and edited as necessary the relevant ophthalmic history, review of systems, surgical history, and ophthalmological examination findings as obtained by the ophthalmic technical staff. I have seen and examined Esau Hunter. I have discussed the examination findings, diagnosis, and treatment options with Esau Hunter and/or his family. I have also reviewed and agree with the assessment and plan as stated above and agree with all its relevant components. I gave the patient the opportunity to ask questions about the findings, diagnosis, and treatment options. documented in this encounter [facility] 05-21-2021 Note HNO ID: [id number] Author: Luci Eisenberg APRN.LISA Service: ? Author Type: Nurse Practitioner Type: Progress Notes Filed: 05/21/2021 3:40 PM Note Text: Luci Eisenberg APRN-[employer] Ferny Maria DO [facility] General Orthopedics - Orthopedic Spine Surgeon [address], [facility] [address] [address] [place] [address] Phone: [phone] FAX: [phone] SPINE SURGERY POST-OP FOLLOW UP SERVICE DATE: May 21, 2021 SURGERY DATE: February 11, 2021 ? LAST OFFICE VISIT: April 02, 2021 SURGERY:?C3-C5 laminectomy, C3-C6 fusion on 02/11/[address] Maria. ? PREOPERATIVE SYMPTOMS: Left arm pain, gait imbalance, loss of dexterity The patient presents with his daughter for a postop visit with imaging (XR C-spine) for evaluation. He has a longstanding history of neck pain with radiation to the upper extremity. He had participated in multiple modalities of conservative type therapy without relief including oral medications, epidural steroid injections, oral steroids, home exercises and physical therapy. 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 He was last seen in the office in March 2021 and was overall doing well. He reported that his left upper extremity symptoms had improved as well as his balance and gait. He did report that he was having pain in the right shoulder for which his PCP gave him an injection. For this he was referred to orthopedic surgery. His incision was healing well without signs of infection. He was intact on exam without focal deficit. Recommendation was to follow-up at the 3-month macy with plain films prompting his visit today. Since last visit he states that he is doing very well and is pleased with his surgical outcome. He has no specific complaints or concerns. He presents for image review, evaluation and plan of care. INCISION: Healed, well approximated PREVIOUS SURGERY: None Review of Systems Constitutional: Negative for chills, diaphoresis (Negative for night sweats.) and fever. HENT: Negative for ear discharge and rhinorrhea. Eyes: Negative for discharge. Respiratory: Negative for cough, shortness of breath and wheezing. Cardiovascular: Negative for chest pain, palpitations and leg swelling. Gastrointestinal: Negative for constipation, diarrhea, nausea and vomiting. Endocrine: Negative for cold intolerance and heat intolerance. Genitourinary: Negative for frequency. Negative for urinary incontinence and urinary retention. Musculoskeletal: Positive for neck stiffness. Negative for back pain, joint swelling, myalgias and neck pain. Skin: Negative for rash (Negative for hives and skin lesions.). Allergic/Immunologic: Negative for environmental allergies and food allergies. Negative for contact allergy, seasonal allergies. Neurological: Negative for dizziness, seizures, syncope, weakness, light-headedness, numbness (Negative for numbness in extremities.) and headaches. Hematological: Does not bruise/bleed easily. Psychiatric/Behavioral: The patient is not nervous/anxious. Negative for depression. ALLERGIES Allergen Reactions - Apixaban GI Upset - Rivaroxaban GI Upset Current Outpatient Medications Medication Sig Dispense Refill - aspirin 81 mg chewable tablet Take 1 tablet by mouth once daily. Resume on 02/18/2021 - acetaminophen (TYLENOL) 325 mg tablet Take 2 tablets by mouth every 6 hours as needed for pain. Do Not take while taking percocet. Percocet contains acetaminophen. Do not exceed more than 3000 mg of acetaminophen in 24 hours - meclizine (ANTIVERT) 25 mg tab Take 25 mg by mouth once daily as needed (dizziness). - TRULANCE 3 mg tablet Take 3 mg by mouth once daily as needed (IBS symptoms). - hydroCHLOROthiazide (HYDRODIURIL, ESIDRIX) 12.5 mg tablet Take 12.5 mg by mouth once daily. - CONSTULOSE 10 gram/15 mL solution Take 10 g by mouth as needed (constipation). - bisacodyl EC (DULCOLAX) 5 mg EC tablet Take 5 mg by mouth twice daily as needed for constipation. - metoprolol tartrate, short acting, (LOPRESSOR) 25 mg tablet Take 12.5 mg by mouth twice daily. - Omeprazole 40 mg capsule Take 40 mg by mouth once daily. No current facility-administered medications for this visit. OBJECTIVE: BP 122/76 (BP Site: Left Arm, BP Position: Sitting, BP Cuff Size: Regular Adult) Pulse 71 Ht 5' 9 (1.753 m) Wt 145 lb (65.8 kg) SpO2 96% BMI 21.41 kg/m? PHYSICAL EXAM: Sensory: Normal Sensation in upper and lower extremities and trunk to touch and noxious stimuli. Motor: Normal muscle tone and bulk. No tremor or uncontrollable movements. No spasticity or tremor. Strength: Upper Extremities : R L Deltoid 5/5 5/5 Biceps 5/5 5/5 Triceps 5/5 5/5 Wrist Ext 5/5 5/5 Wris (more content not included)... [facility] 05-21-2021 History of Present illness Narrative Images from the original note were not included. Luci Eisenberg, ADDY-LISA Maria, [facility] Orthopedics - Orthopedic Spine Surgeon [address], [facility] [address] [address] [place] [address] Phone: [phone] FAX: [phone] SPINE SURGERY POST-OP FOLLOW UP SERVICE DATE: May 21, 2021 SURGERY DATE: February 11, 2021 LAST OFFICE VISIT: April 02, 2021 SURGERY: C3-C5 laminectomy, C3-C6 fusion on 02/11/[address] Maria. PREOPERATIVE SYMPTOMS: Left arm pain, gait imbalance, loss of dexterity The patient presents with his daughter for a postop visit with imaging (XR C-spine) for evaluation. He has a longstanding history of neck pain with radiation to the upper extremity. He had participated in multiple modalities of conservative type therapy without relief including oral medications, epidural steroid injections, oral steroids, home exercises and physical therapy. 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 He was last seen in the office in March 2021 and was overall doing well. He reported that his left upper extremity symptoms had improved as well as his balance and gait. He did report that he was having pain in the right shoulder for which his PCP gave him an injection. For this he was referred to orthopedic surgery. His incision was healing well without signs of infection. He was intact on exam without focal deficit. Recommendation was to follow-up at the 3-month macy with plain films prompting his visit today. Since last visit he states that he is doing very well and is pleased with his surgical outcome. He has no specific complaints or concerns. He presents for image review, evaluation and plan of care. INCISION: Healed, well approximated PREVIOUS SURGERY: None Review of Systems Constitutional: Negative for chills, diaphoresis (Negative for night sweats.) and fever. HENT: Negative for ear discharge and rhinorrhea. Eyes: Negative for discharge. Respiratory: Negative for cough, shortness of breath and wheezing. Cardiovascular: Negative for chest pain, palpitations and leg swelling. Gastrointestinal: Negative for constipation, diarrhea, nausea and vomiting. Endocrine: Negative for cold intolerance and heat intolerance. Genitourinary: Negative for frequency. Negative for urinary incontinence and urinary retention. Musculoskeletal: Positive for neck stiffness. Negative for back pain, joint swelling, myalgias and neck pain. Skin: Negative for rash (Negative for hives and skin lesions.). Allergic/Immunologic: Negative for environmental allergies and food allergies. Negative for contact allergy, seasonal allergies. Neurological: Negative for dizziness, seizures, syncope, weakness, light-headedness, numbness (Negative for numbness in extremities.) and headaches. Hematological: Does not bruise/bleed easily. Psychiatric/Behavioral: The patient is not nervous/anxious. Negative for depression. ALLERGIES Allergen Reactions Apixaban GI Upset Rivaroxaban GI Upset Current Outpatient Medications Medication Sig Dispense Refill aspirin 81 mg chewable tablet Take 1 tablet by mouth once daily. Resume on 02/18/2021 acetaminophen (TYLENOL) 325 mg tablet Take 2 tablets by mouth every 6 hours as needed for pain. Do Not take while taking percocet. Percocet contains acetaminophen. Do not exceed more than 3000 mg of acetaminophen in 24 hours meclizine (ANTIVERT) 25 mg tab Take 25 mg by mouth once daily as needed (dizziness). TRULANCE 3 mg tablet Take 3 mg by mouth once daily as needed (IBS symptoms). hydroCHLOROthiazide (HYDRODIURIL, ESIDRIX) 12.5 mg tablet Take 12.5 mg by mouth once daily. CONSTULOSE 10 gram/15 mL solution Take 10 g by mouth as needed (constipation). bisacodyl EC (DULCOLAX) 5 mg EC tablet Take 5 mg by mouth twice daily as needed for constipation. metoprolol tartrate, short acting, (LOPRESSOR) 25 mg tablet Take 12.5 mg by mouth twice daily. Omeprazole 40 mg capsule Take 40 mg by mouth once daily. No current facility-administered medications for this visit. OBJECTIVE: BP 122/76 (BP Site: Left Arm, BP Position: Sitting, BP Cuff Size: Regular Adult) Pulse 71 Ht 5' 9 (1.753 m) Wt 145 lb (65.8 kg) SpO2 96% BMI 21.41 kg/m PHYSICAL EXAM: Sensory: Normal Sensation in upper and lower extremities and trunk to touch and noxious stimuli. Motor: Normal muscle tone and bulk. No tremor or uncontrollable movements. No spasticity or tremor. Strength: Upper Extremities : R L Deltoid 5/5 5/5 Biceps 5/5 5/5 Triceps 5/5 5/5 Wrist Ext 5/5 5/5 Wrist Flx 5/5 5/5 Hand Int 5/5 5/5 Lower Extremities : Hip Flexors 5/5 5/5 Hip Extensors 5/5 5/5 Hip Abductors 5/5 5/5 Straight leg Neg Neg Ankle dorsiflex 5/5 5/5 Ankle Plantar 5/5 5/5 Heel Walking intact intact Toe Walking intact intact Reflexes : Biceps 2+ 2+ Triceps 2+ 2+ Wrist 2+ 2+ Patellar 2+ 2+ Achilles 2+ 2+ Dominguez's Neg Neg Tinel's Neg Neg Phalen's Neg Neg Cerebellar Function : Normal finger to nose. Normal rapid alternating movements. No ataxia. Negative Romberg. Gait and Station: Normal gait. No assistive device usage. Pulmonary: Lungs without cough, audible wheeze. Respirations unlabored. Cardiac: Regular rate and rhythm. No murmer, gallop or rub. WOUND ASSESSMENT: Incision healing, Well approximated incision, Non-reddened DATA REVIEW X-ray of the cervical spine performed today 05/21/2021 demonstrates: Stable hardware and alignment without complication. ASSESSMENT/PLAN (M47.12) Cervical spondylosis with myelopathy (primary encounter diagnosis) Comment: The patient returns for a follow-up. He is status post a cervical laminectomy and fusion from C3-C6 per Dr. Maria. He reports that he is overall doing well and is pleased with his surgical outcome. He is intact on exam without focal deficit. His incision is completely healed. He has no specific complaints or concerns. I reviewed his x-rays which appear satisfactory. I told him he should return in 3 months for a follow-up with plain films of the cervical spine. All of his questions and concerns were addressed in detail. Plan: XR CERV GENERAL 2V AP/LAT Luci Eisenberg APRN.[employer] documented in this encounter [facility] 04-12-2021 History of Present illness Narrative Abstracted from previous visit with Dr Hennessy 05/22/2015. documented in this encounter [facility] 04-08-2021 Note HNO ID: [id number] Author: Jalyn Maria, DO Service: ? Author Type: Physician Type: Progress Notes Filed: 04/08/2021 3:37 PM Note Text: Patient presents with: Right Shoulder - Quincy Hunter is a 85 year old male who presents for evaluation of right shoulder pain. The patient states that his right shoulder has been hurting for several months. He describes the majority of the pain in his right trapezius. He does also have some pain to the lateral deltoid. The patient states that 3 to 4 weeks ago he received a corticosteroid injection by his primary care physician which lasted 5 or 6 days and then wore off. He denies any history of shoulder surgery. He is right-hand dominant. 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 He has a recent history of posterior spinal fusion. He is doing very well following surgery. Reviewed nursing note and current pain scale. PAST MEDICAL HISTORY Diagnosis Date - Abdominal aortic aneurysm (HCC) repaired - Acute myocardial infarction of lateral wall ([facility]) 2006 unsure of location of infarct - Arthritis - Balance problem mild - Central retinal artery occlusion, right eye - Central retinal vein occlusion, right eye 12/11/2019 - Cervical myelopathy ([facility]) - Constipation - COPD (chronic obstructive pulmonary disease) ([facility]) - Coronary artery disease - Essential hypertension - GERD (gastroesophageal reflux disease) - Hyperlipemia - Paroxysmal atrial fibrillation ([facility]) PAST SURGICAL HISTORY Procedure Laterality Date - CABG (1) VEIN GRAFT AND ARTERIAL GRAFT 2006 double - ENDOVASC AAA STENT REPAIR unsure of date - NECK SURGERY HX 02/11/2021 C3-6 Laminectomy and Fusion - PAST SURGICAL HISTORY OF 02/11/2017 infection - right thigh - PICC LINE INSERT[place] 02/10/2017 - POST-CATARACT LASER SURGERY Right 05/2013 Yag Capsulotomy - XCAPSL CTRC RMVL INSJ IO LENS PROSTH W/O ECP Bilateral Cataract Extraction with PC IOL FAMILY HISTORY Problem Relation Age of Onset - No Ocular Disease Mother - other (cancer from stroke) Mother - No Ocular Disease Father Social History Tobacco Use - Smoking status: Former Smoker Packs/day: 1.00 Years: 50.00 Pack years: 50.00 Types: Cigarettes Quit date: 02/09/2006 Years since quittin.1 - Smokeless tobacco: Never Used Vaping Use - Vaping Use: Never used Substance Use Topics - Alcohol use: No - Drug use: No Medications: Current Outpatient Medications Medication Sig - aspirin 81 mg chewable tablet Take 1 tablet by mouth once daily. Resume on 02/18/2021 - acetaminophen (TYLENOL) 325 mg tablet Take 2 tablets by mouth every 6 hours as needed for pain. Do Not take while taking percocet. Percocet contains acetaminophen. Do not exceed more than 3000 mg of acetaminophen in 24 hours - meclizine (ANTIVERT) 25 mg tab Take 25 mg by mouth once daily as needed (dizziness). - TRULANCE 3 mg tablet Take 3 mg by mouth once daily as needed (IBS symptoms). - hydroCHLOROthiazide (HYDRODIURIL, ESIDRIX) 12.5 mg tablet Take 12.5 mg by mouth once daily. - CONSTULOSE 10 gram/15 mL solution Take 10 g by mouth as needed (constipation). - bisacodyl EC (DULCOLAX) 5 mg EC tablet Take 5 mg by mouth twice daily as needed for constipation. - metoprolol tartrate, short acting, (LOPRESSOR) 25 mg tablet Take 12.5 mg by mouth twice daily. - Omeprazole 40 mg capsule Take 40 mg by mouth once daily. No current facility-administered medications for this visit. Allergies: ALLERGIES Allergen Reactions - Apixaban GI Upset - Rivaroxaban GI Upset ROS: Review of systems: General: No fever or chills, no weight loss, no weakness, no fatigue Skin: No rashes, no dryness HEENT: No vision changes, no nasal congestion, no sore throat, no sinus pressure Neck: No lymphadenopathy, no pain or stiffness Respiratory: No cough, no SOB, no wheeze Cardiovascular: no chest, no palpitations, no edema GI: No abdominal pain, no nausea, no vomiting, no diarrhea, no constipation : No increased frequency, no dysuria, no hematuria M/S: See HPI Endocrine: No polyuria, no polydipsia, no cold or heat intolerance Neuro: No numbness, no tingling, no weakness, no dizziness Psych: No change in mood Physical Examination: Resp 14 Ht 5' 9 (1.75m) Wt 145 lb (65.8kg) BMI 21.40 kg/(m2). Right Shoulder Inspection: No malalignment, atrophy, erythema, swelling, warmth, or scapular winging. AC prominence normal Bony Palpation: No tenderness of the sternoclavicular joint,, the clavicle, the acromioclavicular joint, the greater tuberosity, No tenderness to palpation of the bicipital groove Soft tissue palpation: No Tenderness to palpation of the lateral rotator cuff insertion, No tenderness to palpation of the subdeltoid bursa, Tenderness to palpation over the trapezius muscle Active ROM Right Shoulder: Forward Flexion: 100 degrees Abduction: (more content not included)... [facility] 04-08-2021 Note HNO ID: [id number] Author: Maribell Shepard LPN Service: ? Author Type: LICENSED NURSE Type: Progress Notes Filed: 04/08/2021 3:37 PM Note Text: REVIEW OF SYSTEMS: GENERAL: Well developed, well nourished. No acute distress PAIN: Pain right shoulder CARDIOVASCULAR: Negative for chest pain, leg swelling and palpations. HTN MSK: Negative for joint swelling SKIN: Negative for lesions, rash, itching, metal sensitivity NEURO: Negative for seizure, trauma, numbness/tingling of extremities. ENDOCRINE: Negative for diabetic associated symptoms HEMATOLOGY: Negative for excessive bleeding, clots, bleeding disorders. [facility] 04-02-2021 Note HNO ID: [id number] Author: Ferny Maria DO Service: ? Author Type: Physician Type: Progress Notes Filed: 04/02/2021 3:49 PM Note Text: Ferny Maria, [facility] Orthopedics - Orthopedic Spine Surgeon [address], [facility] [address] [place] [address] Phone: [phone] FAX: [phone] SPINE SURGERY POST-OP FOLLOW UP SERVICE DATE: 04/02/2021 SURGERY DATE: 02/11/2021 ? SURGERY: Cervical laminectomy C5 3-5, cervical fusion C3-6 on 02/11/2021 ? PREOPERATIVE SYMPTOMS: Left arm pain, gait imbalance, loss of dexterity Esau Hunter is seen for 7 week post operative follow up. He was last seen on 02/27/2021 and noted that he was doing well since his operation. He described some occasional pain into the right shoulder. He denied new onset of numbness, tingling, or weakness in the upper or lower extremities. He was asked to return with repeat imaging at the 6 week macy, prompting his visit today. Today he states overall he continues to do well with improvement of his preoperative symptoms. He denies symptoms into the left upper extremity. He notes that his balance and gait are also improving. He describes some pain in the right shoulder and states his PCP gave him an injection for this. States that after he had the injection in his right shoulder he had relief of all of his right shoulder pain for a week. He presents for evaluation and plan of care. INCISION: well healed without swelling, warmth, or drainage PREVIOUS SURGERY: None ALLERGIES Allergen Reactions - Apixaban GI Upset - Rivaroxaban GI Upset Current Outpatient Medications Medication Sig Dispense Refill - aspirin 81 mg chewable tablet Take 1 tablet by mouth once daily. Resume on 02/18/2021 - acetaminophen (TYLENOL) 325 mg tablet Take 2 tablets by mouth every 6 hours as needed for pain. Do Not take while taking percocet. Percocet contains acetaminophen. Do not exceed more than 3000 mg of acetaminophen in 24 hours - meclizine (ANTIVERT) 25 mg tab Take 25 mg by mouth once daily as needed (dizziness). - TRULANCE 3 mg tablet Take 3 mg by mouth once daily as needed (IBS symptoms). - hydroCHLOROthiazide (HYDRODIURIL, ESIDRIX) 12.5 mg tablet Take 12.5 mg by mouth once daily. - CONSTULOSE 10 gram/15 mL solution Take 10 g by mouth as needed (constipation). - bisacodyl EC (DULCOLAX) 5 mg EC tablet Take 5 mg by mouth twice daily as needed for constipation. - metoprolol tartrate, short acting, (LOPRESSOR) 25 mg tablet Take 12.5 mg by mouth twice daily. - Omeprazole 40 mg capsule Take 40 mg by mouth once daily. No current facility-administered medications for this visit. OBJECTIVE: There were no vitals taken for this visit. PHYSICAL EXAM GENERAL APPEARANCE: Well nourished, well developed, and no apparent distress. NEURO PSYCH: Patient oriented to person, place, and time. Mood pleasant. Benign affect. CARDIOVASCULAR: Palpable pulses. No edema noted. No varicosities. SKIN: Head, neck, trunk, and extremities dry, intact and without lesions. LYMPHATICS: No palpable nodes in cervical or axillae areas. Groin exam deferred MUSCULOSKELETAL PALPATION: SPINOUS PROCESS: No pain. PARASPINALS: No pain. MUSCLE TONE and BULK: Symmetrical in the upper AND lower extremities. MOTOR: Upper Extremity Left Right Deltoids 5/5 5/5 Biceps 5/5 5/5 Triceps 5/5 5/5 [employer] 5/5 5/5 Interossei 5/5 5/5 Lower Extremity Hip Flexors 5/5 5/5 Quadriceps 5/5 5/5 Dorsiflexion 5/5 5/5 EHL 5/5 5/5 Plantar Flexion 5/5 5/5 SENSORY: Sensation intact to light touch C5-T1, L1 S1 GAIT: Able to perform toe and heel walk. Able to perform tandem gait. LONG TRACT SIGNS: No clonus. No Hoffmanns. REFLEXES: symmetric non-brisk WOUND ASSESSMENT: Well approximated incision DATA REVIEW X-rays of the cervical spine on 04/02/2021 AP lateral views of the cervical spine display a C3-6 fusion with hardware in excellent position no signs of loosening. ASSESSMENT/PLAN Esau Hunter is a 85-year-old male with cervical myelopathy who is 6 weeks status post C3-5 laminectomy C3-6 fusion. -He is doing great since surgery. His myelopathic symptoms are steadily improving. He has no complaints with his neck at this time. His incision is well-healed. He does have some right shoulder pain which I believe is related to arthritis. All of his shoulder pain went away with an injection and then came back. Recommend follow-up with general orthopedics. I will see him back in 6 weeks for his 3-month follow-up. Advised to call the office if he develops any new or worsening symptoms. The following portions of the patient's history were reviewed, confirmed, and updated as necessary: allergies, current medications, past family history, past medical history, past social history, past surgical history, problem list, HPI, and ROS obtained by others. Some eleme (more content not included)... [facility] 02-27-2021 Note HNO ID: [id number] Author: Ashley Peacock LPN Service: ? Author Type: ? Type: Progress Notes Filed: 02/27/2021 3:21 PM Note Text: REVIEW OF SYSTEMS: GENERAL: Well developed, well nourished. No acute distress PAIN: Pain is 3/10 in the Rt posterior shoulderblade while raising arm up CARDIOVASCULAR: Hx of MA, CAD, HTN MSK: Cervical spine SKIN: Negative for lesions, rash, itching, metal sensitivity NEURO: Negative for seizure, trauma, numbness/tingling of extremities. ENDOCRINE: Negative for diabetic associated symptoms HEMATOLOGY: Negative for excessive bleeding, clots, bleeding disorders. [facility] 02-27-2021 Note HNO ID: [id number] Author: Ferny Maria, Service: ? Author Type: Physician Type: Progress Notes Filed: 02/27/2021 3:21 PM Note Text: Ferny Maria, [facility] Orthopedics - Orthopedic Spine Surgeon [address], [facility] [address] [address] [facility] [address], [facility] [address] Phone: [phone] FAX: [phone] SPINE SURGERY POST-OP FOLLOW UP SERVICE DATE: 02/27/2021 SURGERY DATE: 02/11/2021 SURGERY: Cervical laminectomy C5 3-5, cervical fusion C3-6 on 02/11/2021 PREOPERATIVE SYMPTOMS: Left arm pain, gait imbalance, loss of dexterity Esau Hunter is seen for 1st post operative follow up. He states that he is doing great since surgery. He is no longer taking any pain medication. He occasionally has pain into the right shoulders, but it is not all the time. Denies any new onset of numbness tingling or weakness in his bilateral upper or lower extremities. Denies any bowel or bladder incontinence. Denies any recent fevers. Denies any drainage from his incision. States that overall he is doing great from the surgery.. He presents today for evaluation and plan of care. INCISION: Well-healing PREVIOUS SURGERY: None ALLERGIES Allergen Reactions - Apixaban GI Upset - Rivaroxaban GI Upset Current Outpatient Medications Medication Sig Dispense Refill - aspirin 81 mg chewable tablet Take 1 tablet by mouth once daily. Resume on 02/18/2021 - acetaminophen (TYLENOL) 325 mg tablet Take 2 tablets by mouth every 6 hours as needed for pain. Do Not take while taking percocet. Percocet contains acetaminophen. Do not exceed more than 3000 mg of acetaminophen in 24 hours - meclizine (ANTIVERT) 25 mg tab Take 25 mg by mouth once daily as needed (dizziness). - TRULANCE 3 mg tablet Take 3 mg by mouth once daily as needed (IBS symptoms). - hydroCHLOROthiazide (HYDRODIURIL, ESIDRIX) 12.5 mg tablet Take 12.5 mg by mouth once daily. - CONSTULOSE 10 gram/15 mL solution Take 10 g by mouth as needed (constipation). - bisacodyl EC (DULCOLAX) 5 mg EC tablet Take 5 mg by mouth twice daily as needed for constipation. - metoprolol tartrate, short acting, (LOPRESSOR) 25 mg tablet Take 12.5 mg by mouth twice daily. - Omeprazole 40 mg capsule Take 40 mg by mouth once daily. No current facility-administered medications for this visit. OBJECTIVE: There were no vitals taken for this visit. PHYSICAL EXAM GENERAL APPEARANCE: Well nourished, well developed, and no apparent distress. NEURO PSYCH: Patient oriented to person, place, and time. Mood pleasant. Benign affect. CARDIOVASCULAR: Palpable pulses. No edema noted. No varicosities. SKIN: Head, neck, trunk, and extremities dry, intact and without lesions. LYMPHATICS: No palpable nodes in cervical or axillae areas. Groin exam deferred MUSCULOSKELETAL PALPATION: SPINOUS PROCESS: No pain. PARASPINALS: No pain. MUSCLE TONE and BULK: Symmetrical in the upper AND lower extremities. MOTOR: Upper Extremity Left Right Deltoids 5/5 5/5 Biceps 5/5 5/5 Triceps 5/5 5/5 District Manager Primary Care Sales 5/5 5/5 Interossei 5/5 5/5 Lower Extremity Hip Flexors 5/5 5/5 Quadriceps 5/5 5/5 Dorsiflexion 5/5 5/5 EHL 5/5 5/5 Plantar Flexion 5/5 5/5 SENSORY: Sensation intact to light touch C5-T1, L1-S1 GAIT: Able to perform toe and heel walk. Able to perform tandem gait. LONG TRACT SIGNS: No clonus. No Hoffmanns. REFLEXES: symmetric non-brisk WOUND ASSESSMENT: Incision healing DATA REVIEW X-rays of the cervical spine on 02/27/2021 AP lateral x-rays of the cervical spine display a C3-6 fusion with hardware in excellent position ASSESSMENT/PLAN No diagnosis found. Esau Hunter is a 85-year-old male who is 2 weeks status post C3-5 laminectomy, C3-6 fusion. -Esau is doing great since surgery. He has no longer taking any pain medication. His preoperative symptoms have greatly improved. Today's x-rays show hardware in great position. Recommend seeing him back at the 6-week macy for reevaluation. We will get x-rays at that time. Advised to call the office if he develops any new symptoms. The following portions of the patient's history were reviewed, confirmed, and updated as necessary: allergies, current medications, past family history, past medical history, past social history, past surgical history, problem list, HPI, and ROS obtained by others. Some elements may be copied from a previous office note and have been reviewed/updated where appropriate. All portions reflect current medical decision making from today. The clinical and radiographic findings as well as the risks, benefits and alternatives of treatment have been reviewed in detail with the patient. Advised to call the office if symptoms worsen or new symptoms develop. Patient expressed understanding and is in agreement with plan. Ferny Maria, [facility] documented as of this encounter (statuses as of 05/21/2021) [facility]01-[facility]22 History of Past illness Narrative* Problem Noted Date Resolved Date Cervical spondylosis with myelopathy 02/11/2021 02/13/2021 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 015 12/06/2015 documented as of this encounter (statuses as of 05/22/2021) [address]03-2022 History of Past illness Narrative* Problem Noted Date Resolved Date Cervical spondylosis with myelopathy 02/11/2021 02/13/2021 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 2 015 12/06/2015 documented as of this encounter (statuses as of 08/20/2021) [facility]22 History of Past illness Narrative* Problem Noted Date Resolved Date Cervical spondylosis with myelopathy 02/11/2021 02/13/2021 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 2 015 12/06/2015 documented as of this encounter (statuses as of 08/21/2021) [address]-2022 History of Past illness Narrative* Problem Noted Date Resolved Date Cervical spondylosis with myelopathy 02/11/2021 02/13/2021 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 11/06/2 015 12/06/2015 documented as of this encounter (statuses as of 08/28/2021) [address]2022 History of Past illness Narrative* Problem Noted Date Resolved Date Cervical spondylosis with myelopathy 02/11/2021 02/13/2021 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 2 015 12/06/2015 documented as of this encounter (statuses as of 09/26/2021) [address]2022 History of Past illness Narrative* Problem Noted Date Resolved Date Cervical spondylosis with myelopathy 02/11/2021 02/13/2021 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 28/2 015 12/06/2015 documented as of this encounter (statuses as of 11/05/2021) [address]-2022 History of Past illness Narrative* Problem Noted Date Resolved Date Cervical spondylosis with myelopathy 02/11/2021 02/13/2021 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 2 015 12/06/2015 documented as of this encounter (statuses as of 11/15/2021) [facility] History of Past illness Narrative* Problem Noted Date Resolved Date Cervical spondylosis with myelopathy 02/11/2021 02/13/2021 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 2 015 12/06/2015 documented as of this encounter (statuses as of 12/12/2021) [facility] History of Past illness Narrative* Problem Noted Date Resolved Date Cervical spondylosis with myelopathy 02/11/2021 02/13/2021 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 11/06/2 015 12/06/2015 documented as of this encounter (statuses as of 02/18/2022) [facility]22 History of Past illness Narrative* Problem Noted Date Resolved Date Cervical spondylosis with myelopathy 02/11/2021 02/13/2021 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 28/2 015 12/06/2015 documented as of this encounter (statuses as of 02/19/2022) [facility] History of Past illness Narrative* Problem Noted Date Resolved Date Cervical spondylosis with myelopathy 02/11/2021 02/13/2021 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 28/2 015 12/06/2015 documented as of this encounter (statuses as of 02/27/2022) [facility] History of Past illness Narrative* Problem Noted Date Resolved Date Cervical spondylosis with myelopathy 02/11/2021 02/13/2021 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 015 12/06/2015 documented as of this encounter (statuses as of 07/11/2022) [facility] History of Past illness Narrative* Problem Noted Date Resolved Date Cervical spondylosis with myelopathy 02/11/2021 02/13/2021 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 015 12/06/2015 documented as of this encounter (statuses as of 07/14/2022) [facility] History of Past illness Narrative* Problem Noted Date Resolved Date Cervical spondylosis with myelopathy 02/11/2021 02/13/2021 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 015 12/06/2015 documented as of this encounter (statuses as of 07/15/2022) [facility]* Diagnosis Cervical spondylosis with myelopathy- Primary documented in this encounter [facility]* Diagnosis Central retinal artery occlusion, right eye- Primary Central artery occlusion of retina Optic atrophy of right eye Optic atrophy, unspecified Essential hypertension Unspecified essential hypertension Pseudophakia of both eyes Lens replaced by other means documented in this encounter [facility]* Diagnosis Corns and callus Onychomycosis Dermatophytosis of nail Pain due to onychomycosis of toenail of left foot Pain due to onychomycosis of toenail of right foot PAD (peripheral artery disease) (HCC) Unspecified peripheral vascular disease documented in this encounter [facility] note* Diagnosis Cervical spondylosis with myelopathy- Primary documented in this encounter [facility]* Diagnosis Cervical spondylosis with myelopathy documented in this encounter [facility]* Diagnosis Primary open angle glaucoma (POAG) of right eye, mild stage- Primary Optic cupping of both eyes Stable central retinal vein occlusion of right eye Pseudophakia of both eyes Lens replaced by other means documented in this encounter [facility]* Diagnosis Central retinal artery occlusion, right eye Central artery occlusion of retina [facility] this encounter [facility] Diagnosis Onychomycosis- Primary Dermatophytosis of nail Pain due to onychomycosis of toenail of left foot Pain due to onychomycosis of toenail of right foot PAD (peripheral artery disease) ([facility]) Unspecified peripheral vascular disease documented in this encounter [facility] note* Diagnosis Primary open angle glaucoma (POAG) of right eye, mild stage- Primary Optic cupping of both eyes Stable central retinal vein occlusion of right eye Pseudophakia of both eyes Lens replaced by other means Essential hypertension Unspecified essential hypertension Primary open angle glaucoma of right eye, mild stage documented in this encounter [facility] note* Diagnosis S/P eye surgery- Primary Other states following surgery of eye and adnexa Primary open angle glaucoma (POAG) of right eye, mild stage Stable central retinal vein occlusion of right eye documented in this encounter [facility]* Diagnosis Central retinal artery occlusion, right eye Central artery occlusion of retina documented in this encounter [facility] note* Diagnosis Onychomycosis- Primary Dermatophytosis of nail Corns and callus Pain due to onychomycosis of toenail of left foot Pain due to onychomycosis of toenail of right foot PAD (peripheral artery disease) ([facility]) Unspecified peripheral vascular disease documented in this encounter [facility] note* Diagnosis Cervical spondylosis with myelopathy- Primary documented [facility] this encounter [facility]* Diagnosis Cervical spondylosis with myelopathy documented in this encounter [facility] note* Diagnosis Central retinal artery occlusion, right eye Central artery occlusion of retina documented [facility] this encounter [facility]* Diagnosis Aftercare following joint replacement surgery, unspecified joint Arthritis of right shoulder region documented in this encounter [facility] note* Diagnosis Aftercare following joint replacement surgery, unspecified joint 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 documented in this encounter [facility] note* Diagnosis Status post reverse total replacement of right shoulder- Primary documented in this encounter [facility] note* Diagnosis Status post reverse total replacement of right shoulder- Primary documented in this encounter [facility] note* Diagnosis Status post reverse total replacement of right shoulder- Primary documented in this encounter [facility] note* Diagnosis Status post reverse total replacement of right shoulder- Primary [facility] Diagnosis Status post reverse total shoulder replacement, unspecified laterality- Primary documented in this encounter [facility] note* Diagnosis Status post reverse total replacement of right shoulder- Primary documented in this encounter [facility] note* Diagnosis Status post reverse total replacement of right shoulder- Primary documented in this encounter [facility] note* Diagnosis Status post reverse total replacement of right shoulder- Primary documented in this encounter [facility] note* Diagnosis Status post reverse total replacement of right shoulder- Primary documented in this encounter [facility] note* Diagnosis Primary open angle glaucoma (POAG) of right eye, mild stage- Primary Central retinal artery occlusion, right eye Central artery occlusion of retina documented in this encounter [facility] note* Diagnosis Cerebral ventriculomegaly Other conditions of brain 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) documented in this encounter [facility] note* Diagnosis Central retinal artery occlusion, right eye- Primary Central artery occlusion of retina Primary open angle glaucoma (POAG) of right eye, mild stage Normal pressure hydrocephalus (HCC) Idiopathic normal pressure hydrocephalus (INPH) Essential hypertension Unspecified essential hypertension documented in this encounter [facility] note* Diagnosis Onychomycosis- Primary Dermatophytosis of nail Peripheral vascular disease, unspecified (HCC) Peripheral vascular disease, unspecified Corns Corns and callosities documented in this encounter [facility] note* Diagnosis Mass of soft tissue of lower leg- Primary Onychomycosis Dermatophytosis of nail Corns Corns and callosities Peripheral vascular disease, unspecified (HCC) Peripheral vascular disease, unspecified documented in this encounter [facility] for referral (narrative)* Diagnostic Procedure Only (Routine) - Pending Review Specialty Diagnoses / Procedures Referred By Ian t Referred To Contact XR IMAGING Diagnoses Cervical spondylosis with myelopathy Procedures XR CERV GENERAL 2V AP/LAT RADEX SPINE CERVICAL 2 OR 3 VIEWS Luci Eisenberg, [employer] [address] [place] [address] Xr Imaging Referral ID Status Reason Start Date Expiration Date Visits Requested Visits Authorized [id number] Pending Review Auto-Generat ed Referral 05/21/2021 06/20/2022 1 1 [facility] for referral (narrative)* Diagnostic Procedure Only (Routine) - Closed Specialty Diagnoses / Procedures Referred By Contac t Referred To Contact XR IMAGING Diagnoses Cervical spondylosis with myelopathy Procedures XR CERV GENERAL 2V AP/LAT RADEX SPINE CERVICAL 2 OR 3 VIEWS Luci Eisenberg APRN.[employer] [address] [place] [address] Xr Imaging Referral ID Status Reason Start Date Expiration Date V isits Requested Visits Authorized [id number] Closed Auto-Generate d Referral 05/21/2021 06/20/2022 1 1 [facility] for referral (narrative)* Diagnostic Procedure Only (Routine) - Closed Specialty Diagnoses / Procedures Referred By Contac t Referred To Contact XR IMAGING Diagnoses Cervical spondylosis with myelopathy Procedures XR CERV GENERAL 2V AP/LAT RADEX SPINE CERVICAL 2 OR 3 VIEWS Ferny Maria, DO [address] [place] [address] Xr Imaging Referral ID Status Reason Start Date Expiration Date V isits Requested Visits Authorized [id number] Closed Auto-Generate d Referral 02/12/2022 03/14/2023 1 1 [facility] for referral (narrative)* Diagnostic Procedure Only (Routine) - Closed Specialty Diagnoses / Procedures Referred By Contac t Referred To Contact XR IMAGING Diagnoses Cervical spondylosis with myelopathy Procedures XR CERV GENERAL 2V AP/LAT RADEX SPINE CERVICAL 2 OR 3 VIEWS Ferny Maria, DO [address] [place] [address] Xr Imaging Referral ID Status Reason Start Date Expiration Date V isits Requested Visits Authorized [id number] Closed Auto-Generate d Referral 02/12/2022 03/14/2023 1 1 [facility] for visit Narrative* Diagnostic Procedure Only (Routine) - Closed Specialty Diagnoses / Procedures Referred By Contac t Referred To Contact XR IMAGING Diagnoses Cervical spondylosis with myelopathy Procedures XR CERV GENERAL 2V AP/LAT RADEX SPINE CERVICAL 2 OR 3 VIEWS Luci Eisenberg APRN.[employer] [address] [place] [address] Xr Imaging Referral ID Status Reason Start Date Expiration Date V isits Requested Visits Authorized [id number] Closed Auto-Generate d Referral 05/21/2021 06/20/2022 1 1 [facility] for visit Narrative* Diagnostic Procedure Only (Routine) - Closed Specialty Diagnoses / Procedures Referred By Contac t Referred To Contact XR IMAGING Diagnoses Cervical spondylosis with myelopathy Procedures XR CERV GENERAL 2V AP/LAT RADEX SPINE CERVICAL 2 OR 3 VIEWS Ferny Maria, [address] [place] [address] Xr Imaging Referral ID Status Reason Start Date Expiration Date V isits Requested Visits Authorized [id number] Closed Auto-Generate d Referral 02/12/2022 03/14/[address] [facility] Summary Purpose Family History No Family History Records Found Mother Name Dates Details Family history of coronary a rtery disease(V17.3, Z82.49) Status:Active Family history of essential hypertension(V17.49, Z82.49) Status:Active Father Name Dates Details Family history of coronary a rtery disease(V17.3, Z82.49) Status:Active Family history of essential hypertension(V17.49, Z82.49) Status:Active Unknown Family Member Name Dates Details Family history of coronary a rtery disease: Mother, Father(V17.3, Z82.49) Status:Active Family history of essential hypertension: Mother, Father(V17.49, Z82.49) Status:Active Unknown Family Member Name Dates Details Family history of essential hypertension: Mother, Father(V17.49, Z82.49) Status:Active Family history of coronary a rtery disease: Mother, Father(V17.3, Z82.49) Status:Active Unknown Family Member Name Dates Details Family history of coronary a rtery disease: Mother, Father(V17.3, Z82.49) Status:Active Family history of essential hypertension: Mother, Father(V17.49, Z82.49) Status:Active Advance Directives No Advanced Directives Records FoundDocuments on File Type Date Recorded Patient Sales Operations Analyst Expl anation Advance Directives and Living Will Documents on File Type Date Recorded Patient Sales Operations Analyst Expl anation Advance Directive(s) 02/11/2021 9:17 AM Advance Directive(s) 02/27/2017 1:15 PM Advance Directive(s) 02/04/2017 10:31 AM Documents on File Type Date Recorded Patient Sales Operations Analyst Expl anation Advance Directive(s) 02/11/2021 9:17 AM Advance Directive(s) 02/27/2017 1:15 PM Advance Directive(s) 02/04/2017 10:31 AM Reason for Referral Status Reason Specialty Diagnoses / Procedures Referred By Contact Referred To Contact New Request Orthopaedic Surgery Diagnoses Cervical stenosis of spine Aguila Mojica MD [address] [place] [phone] Specialty Diagnoses / Procedures Referred By Contfariha t Referred To Contact Rehabilitation Diagnoses Presence of right artificial shoulder joint Aftercare following joint replacement surgery, unspecified joint Arthritis of right shoulder region Karel Messer PA-C [address] [facility] [address] [place] [address] [address] Referral ID Status Reason Start Date Expiration Date V isits Requested Visits Authorized [id number] Authorized 04/08/2022 04/08/2023 1 1 Assessments Diagnosis Cervical stenosis of spine- Primary Spinal stenosis in cervical region Chief Complaint FUV in office today for chronic constipation, abdominal pain and bloating. Patient is taking constulose, dulcolax, stool softener Medications Administered Section Active Administered Medications - up to 3 most recent administrations Medication Order MAR Action Action Date Dose Rate Site fluorescein-benoxinate 0.25-0.4 % 1 Drop (FLURESS) 1 Drop, BOTH EYES, DIRECTED, Starting on 05/22/21 at 1330, Until Li 05/23/21 at 0129, Administer for applanation tonometry. In the event of a Fluress shortage, administer [place]-Fluor 1 drop into both eyes as directed for applanation tonometry Given 05/22/2021 1:30 PM EDT 1 Drop proparacaine 0.5 % 1 Drop (ALCAINE) 1 Drop, BOTH EYES, DIRECTED, Starting on Thu05/22/21 at 1330, Until Thu05/23/21 at 0129, Administer for pneumo tonometry, tonopen tonometry, or pachymetry. In the event of a proparacaine shortage, administer tetracaine 0.5% ophthalmic drops 1 drop in the left eye as directed for pneumo tonometry, tonopen tonometry, or pachymetry Given 05/22/2021 1:30 PM EDT 1 Drop tropicamide 1 % 1 Drop (MYDRIACYL) 1 Drop, BOTH EYES, DIRECTED, Starting on Thu05/22/21 at 1330, Until Thu05/23/21 at 0129, Administer for dilation Given 05/22/2021 1:30 PM EDT 1 Drop Active Administered Medications - up to 3 most recent administrations Medication Order MAR Action Action Date Dose Rate Site proparacaine 0.5 % 1 Drop (ALCAINE) 1 Drop, BOTH EYES, DIRECTED, Starting on Thu09/26/21 at 1330, Until Thu09/27/21 at 0129, Administer for pneumo tonometry, tonopen tonometry, or pachymetry. In the event of a proparacaine shortage, administer tetracaine 0.5% ophthalmic drops 1 drop in the left eye as directed for pneumo tonometry, tonopen tonometry, or pachymetry Given 09/26/2021 1:30 PM EDT 1 Drop tropicamide 1 % 1 Drop (MYDRIACYL) 1 Drop, BOTH EYES, DIRECTED, Starting on Thu09/26/21 at 1330, Until Thu09/27/21 at 0129, Administer for dilation Given 09/26/2021 1:30 PM EDT 1 Drop Inactive Administered Medications - up to 3 most recent administrations Medication Order MAR Action Action Date Dose Rate Site bevacizumab intravitreal syringe 2.5 mg/0.1 mL 1.25 mg, ONE TIME INJECTION, 1 dose, Starting on Thu09/26/21 at 1352, Until Thu09/26/21 at 1352 Given 09/26/2021 1:52 PM EDT 1.25 mg Right Active Administered Medications - up to 3 most recent administrations Medication Order MAR Action Action Date Dose Rate Site fluorescein-benoxinate 0.25-0.4 % 1 Drop (FLURESS) 1 Drop, BOTH EYES, DIRECTED, Starting on Tu11/05/21 at 1600, Until Thu11/06/21 at 0359, Administer for applanation tonometry. In the event of a Fluress shortage, administer [place]-Fluor 1 drop into both eyes as directed for applanation tonometry Given 11/05/2021 4:00 PM EDT 1 Drop Active Administered Medications - up to 3 most recent administrations Medication Order MAR Action Action Date Dose Rate Site PHENYLephrine 2.5 % 1 Drop (AK-DILATE, DANTE-SYNEPHRINE) 1 Drop, BOTH EYES, DIRECTED, Starting on Li 12/12/21 at 1330, Until Thu12/13/21 at 0129, Administer for dilation PROTECT FROM LIGHT, OPHT CLINIC MED ORDERS Given 12/12/2021 1:30 PM EDT 1 Drop proparacaine 0.5 % 1 Drop (ALCAINE) 1 Drop, BOTH EYES, DIRECTED, Starting on Li 12/12/21 at 1330, Until Thu12/13/21 at 0129, Administer for pneumo tonometry, tonopen tonometry, or pachymetry. In the event of a proparacaine shortage, administer 1 drop of tetracaine 0.5% ophthalmic drops into both eyes as directed for pneumo tonometry, tonopen tonometry, or pachymetry, OPHT CLINIC MED ORDERS Given 12/12/2021 1:30 PM EDT 1 Drop tropicamide 1 % 1 Drop (MYDRIACYL) 1 Drop, BOTH EYES, DIRECTED, Starting on Li 12/12/21 at 1330, Until Thu12/13/21 at 0129, Administer for dilation, OPHT CLINIC MED ORDERS Given 12/12/2021 1:30 PM EDT 1 Drop Additional Source Comments (unrecognized sect ion and content) No Status Records FoundNo Status Records FoundNo Status Records FoundNo Status Records FoundNo Status Records FoundNo Status Records FoundNo Status Records FoundNo Status Records FoundNo Status Records FoundNo Status Records FoundNo Status Records FoundNo Status Records Found INFORMATION SOURCE (unrecogn ized section and content) DATE CREATED AUTHOR AUTHOR'S ORGANIZ ATION 07/30/2017 [facility] DATE CREATED AUTHOR AUTHOR'S ORGANIZ ATION 07/31/2017 [facility] DATE CREATED AUTHOR AUTHOR'S ORGANIZ ATION 07/31/2017 [facility] DATE CREATED AUTHOR AUTHOR'S ORGANIZ ATION 07/31/2017 [facility] DATE CREATED AUTHOR AUTHOR'S ORGANIZ ATION 08/04/2017 [facility] DATE CREATED AUTHOR AUTHOR'S ORGANIZ ATION 08/18/2020 [employer] DATE CREATED AUTHOR AUTHOR'S ORGANIZ ATION 02/20/2022 [facility] DATE CREATED AUTHOR AUTHOR'S ORGANIZ ATION 05/13/2022 [facility] DATE CREATED AUTHOR AUTHOR'S ORGANIZ ATION 06/26/2022 [facility] DATE CREATED AUTHOR AUTHOR'S ORGANIZ ATION 12/13/2022 [facility] DATE CREATED AUTHOR AUTHOR'S ORGANIZ ATION 01/28/2023 [facility] Care Teams (unrecognized sec tion and content) Stringed Instrument Assembler Relationship Specialty Start Date End Date Kiko Mojica Chi PCP - General Gerontology 12/06/15 Stringed Instrument Assembler Relationship Specialty Start Date End Date Kiko Mojica Chi PCP - General Gerontology 12/06/15 Stringed Instrument Assembler Relationship Specialty Start Date End Date Kiko Mojica Chi, MD [address] [address] PCP - General Geriatric Medicine 04/16/21 Stringed Instrument Assembler Relationship Specialty Start Date End Date Kiko Mojica Chi PCP - General Gerontology 12/06/15 Stringed Instrument Assembler Relationship Specialty Start Date End Date Kiko Mojica Chi PCP - General Gerontology 12/06/15 Stringed Instrument Assembler Relationship Specialty Start Date End Date Kiko Mojica Chi PCP - General Gerontology 12/06/15 Stringed Instrument Assembler Relationship Specialty Start Date End Date Yunior Kiko Chi PCP - General Gerontology 12/06/15 Stringed Instrument Assembler Relationship Specialty Start Date End Date Kiko Mojica Chi, MD [address] [facility] [address] [place] [address] PCP - General Geriatric Medicine 04/16/21 Stringed Instrument Assembler Relationship Specialty Start Date End Date Yunior, Kiko Chi PCP - General Gerontology 12/06/15 Stringed Instrument Assembler Relationship Specialty Start Date End Date Yunior, Kiko Chi PCP - General Gerontology 12/06/15 Stringed Instrument Assembler Relationship Specialty Start Date End Date Yunior Kiko Chi PCP - General Gerontology 12/06/15 Stringed Instrument Assembler Relationship Specialty Start Date End Date Kiko Mojica Chi, MD [address] [facility] [address] [place] [address] PCP - General Geriatric Medicine 04/16/21 Stringed Instrument Assembler Relationship Specialty Start Date End Date Yunior, Kiko Chi PCP - General Gerontology 12/06/15 Stringed Instrument Assembler Relationship Specialty Start Date End Date Yunior, Kiko Chi PCP - General Gerontology 12/06/15 Stringed Instrument Assembler Relationship Specialty Start Date End Date Kiko Mojica Chi, MD [address] [facility] [address] [place] [address] PCP - General Geriatric Medicine 04/16/21 Stringed Instrument Assembler Relationship Specialty Start Date End Date Kiko Mojica Chi, MD [address] [place] [address] PCP - General Geriatric Medicine 04/16/21 Stringed Instrument Assembler Relationship Specialty Start Date End Date Kiko Mojica Chi, MD [address] [place] [address] PCP - General Geriatric Medicine 04/16/21 Stringed Instrument Assembler Relationship Specialty Start Date End Date Kiko Mojica Chi, MD [address] [place] [address] PCP - General Geriatric Medicine 04/16/21 Stringed Instrument Assembler Relationship Specialty Start Date End Date Kiko Mojica Chi, MD [address] [place] [address] PCP - General Geriatric Medicine 04/16/21 Stringed Instrument Assembler Relationship Specialty Start Date End Date Kiko Mojica Chi, MD [address] [place] [address] PCP - General Geriatric Medicine 04/16/21 Stringed Instrument Assembler Relationship Specialty Start Date End Date Kiko Mojica Chi, MD [address] [place] [address] PCP - General Geriatric Medicine 04/16/21 Stringed Instrument Assembler Relationship Specialty Start Date End Date Kiko Mojica Chi, MD [address] [place] [address] PCP - General Geriatric Medicine 04/16/21 Stringed Instrument Assembler Relationship Specialty Start Date End Date Kiko Mojica Chi, MD [address] [place] [address] PCP - General Geriatric Medicine 04/16/21 Stringed Instrument Assembler Relationship Specialty Start Date End Date Kiko Mojica Chi, MD [address] [facility] [address] [place] [address] PCP - General Geriatric Medicine 04/16/21 Stringed Instrument Assembler Relationship Specialty Start Date End Date Kiko Mojica Chi, MD [address] [facility] [address] [place], [place] [id number] PCP - General Geriatric Medicine 04/16/21 Stringed Instrument Assembler Relationship Specialty Start Date End Date YuniorKiko murcia Chi PCP - General Gerontology 12/06/15 Jelena Balderas [address] [place], [place] [address] [phone] Referring Ent - Otolaryngology 06/25/22 Stringed Instrument Assembler Relationship Specialty Start Date End Date Yunior Kiko Pierre PCP - General Gerontology 12/06/15 Jelena Balderas [address] [place] [address] Referring Ent - Otolaryngology 06/25/22 Source Comments (unrecognize d section and content) In the event this informatio n is protected by the Federal Confidentiality of Alcohol and Drug Abuse Patient Records regulations: The Federal rules restrict any use of the information to criminally investigate or prosecute any alcohol or drug abuse patient.[facility] Hospital[facility] the event this information is protected by the Federal Confidentiality of Alcohol and Drug Abuse Patient Records regulations: The Federal rules restrict any use of the information to criminally investigate or prosecute any alcohol or drug abuse patient.[facility] HospitalIn the event this information is protected by the Federal Confidentiality of Alcohol and Drug Abuse Patient Records regulations: The Federal rules restrict any use of the information to criminally investigate or prosecute any alcohol or drug abuse patient.[facility] Hospital[facility] the event this information is protected by the Federal Confidentiality of Alcohol and Drug Abuse Patient Records regulations: The Federal rules restrict any use of the information to criminally investigate or prosecute any alcohol or drug abuse patient.[facility] HospitalIn the event this information is protected by the Federal Confidentiality of Alcohol and Drug Abuse Patient Records regulations: The Federal rules restrict any use of the information to criminally investigate or prosecute any alcohol or drug abuse patient.[facility] HospitalIn the event this information is protected by the Federal Confidentiality of Alcohol and Drug Abuse Patient Records regulations: The Federal rules restrict any use of the information to criminally investigate or prosecute any alcohol or drug abuse patient.[facility] HospitalIn the event this information is protected by the Federal Confidentiality of Alcohol and Drug Abuse Patient Records regulations: The Federal rules restrict any use of the information to criminally investigate or prosecute any alcohol or drug abuse patient.[facility] HospitalIn the event this information is protected by the Federal Confidentiality of Alcohol and Drug Abuse Patient Records regulations: The Federal rules restrict any use of the information to criminally investigate or prosecute any alcohol or drug abuse patient.[facility] HospitalIn the event this information is protected by the Federal Confidentiality of Alcohol and Drug Abuse Patient Records regulations: The Federal rules restrict any use of the information to criminally investigate or prosecute any alcohol or drug abuse patient.[facility] HospitalIn the event this information is protected by the Federal Confidentiality of Alcohol and Drug Abuse Patient Records regulations: The Federal rules restrict any use of the information to criminally investigate or prosecute any alcohol or drug abuse patient.[facility] HospitalIn the event this information is protected by the Federal Confidentiality of Alcohol and Drug Abuse Patient Records regulations: The Federal rules restrict any use of the information to criminally investigate or prosecute any alcohol or drug abuse patient.[facility] HospitalIn the event this information is protected by the Federal Confidentiality of Alcohol and Drug Abuse Patient Records regulations: The Federal rules restrict any use of the information to criminally investigate or prosecute any alcohol or drug abuse patient.[facility] HospitalIn the event this information is protected by the Federal Confidentiality of Alcohol and Drug Abuse Patient Records regulations: The Federal rules restrict any use of the information to criminally investigate or prosecute any alcohol or drug abuse patient.[facility] HospitalIn the event this information is protected by the Federal Confidentiality of Alcohol and Drug Abuse Patient Records regulations: The Federal rules restrict any use of the information to criminally investigate or prosecute any alcohol or drug abuse patient.[facility] HospitalIn the event this information is protected by the Federal Confidentiality of Alcohol and Drug Abuse Patient Records regulations: The Federal rules restrict any use of the information to criminally investigate or prosecute any alcohol or drug abuse patient.[facility] Reason for Visit (unrecogniz ed section and content) Reason Comments 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 Right ball of foot and heel halluses are sore. 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 Elevated IOP right eye Reason Comments Central Retinal Vein Occlusion Follow Up Right eye Specialty Diagnoses / Procedures Referred By Ian t Referred To Contact Ophthalmology / OPHTHALMOLOGY Diagnoses Primary open-angle glaucoma, right eye, mild stage dilated fundus exam and justin right eye Procedures DC BEVACIZUMAB INJECTION INTRAVITREAL NJX PHARMACOLOGIC AGT SPX INJECTION Nicki Mclain MD, PhD [address] [place] [address] Nicki Mclian MD, PhD [address] [place] [address] Referral ID Status Reason Start Date Expiration Date V isits Requested Visits Authorized [id number] Authorized 09/26/2021 02/08/2022 99 99 Reason Comments Nail Care Nail care. Pt states not diabetic. Reason Comments POAG Reason Comments S/P Eye Surgery Status Post Canalopl asty / Trabeculotomy using the OMNI Surgical System - Right eye (11/14/2021) Reason Comments Central Retinal Vein Occlusion Follow Up Specialty Diagnoses / Procedures Referred By Contac t Referred To Contact Ophthalmology / OPHTHALMOLOGY Diagnoses Other specified postprocedural states Encounter for follow-up examination after completed treatment for conditions other than malignant neoplasm full exam and poss prp/justin Procedures TREATMENT EXTENSIVE RETINOPATHY PHOTOCOAGULATION OFFICE/OUTPATIENT ESTABLISHED HIGH MDM 40-54 MIN OPHTH MEDICAL XM&EVAL INTERMEDIATE ESTAB PT OPHTH MEDICAL XM&EVAL COMPRHNSV ESTAB PT / EST ADULT possible PRP laser Nicki Mclain MD, PhD [address] [place] [address] Nicki Mclain MD, PhD [address] [place] [address] Referral ID Status Reason Start Date Expiration Date Visits Re quested Visits Authorized [id number] Closed 11/17/2021 02/08/2022 1 1 Reason Comments Nail Care Patient is here for nail and callus care. Reason Comments Central Retinal Vein Occlusion Follow Up Right Eye Specialty Diagnoses / Procedures Referred By Contact Referred To Contact Ophthalmology / OPHTHALMOLOGY Diagnoses DFE/ OCT both eyes ? avastin Procedures EST ADULT Nicki Mclain MD, PhD [address] [place] [address] Nicki Mclain MD, PhD [address] [place] [address] Referral ID Status Reason Start Date Expiration Date V isits Requested Visits Authorized [id number] Authorized 02/27/2022 02/08/2023 99 99 Reason Comments Physical Therapy Specialty Diagnoses / Procedures Referred By Contac t Referred To Contact Rehabilitation Diagnoses Presence of right artificial shoulder joint Aftercare following joint replacement surgery, unspecified joint Arthritis of right shoulder region Karel Messer PA-C [address] [facility] [address] [place] [address] [facility] [address] [place] [address] Referral ID Status Reason Start Date Expiration Date V isits Requested Visits Authorized [id number] Authorized 04/08/2022 04/08/2023 16 16 Referral ID Status Reason Start Date Expiration Date V isits Requested Visits Authorized [id number] Authorized 04/08/2022 04/08/2023 13 13 Referral ID Status Reason Start Date Expiration Date V isits Requested Visits Authorized [id number] Pending Review 04/08/2022 04/08/2023 13 13 Specialty Diagnoses / Procedures Referred By Ian t Referred To Contact Neurosurgery Diagnoses Idiopathic normal pressure hydrocephalus (INPH) (HCC) Procedures CONSULT TO NEUROSURGERY OFFICE/OUTPATIENT NEW HIGH MDM 60-74 MINUTES Selvin Rueda MD [address] [place] [address] Referral ID Status Reason Start Date Expiration Date Visits Requested Visits Authorized [id number] Pending Review PCP Requested Referral 06/24/2022 06/24/2023 1 1 Reason Comments Primary Open Angle Glaucoma Follow Up Pa tient here as directed for intraocular pressure check Both Eyes. Reason Comments Nail Care Patient is here for nail care. Pt states right bottom of foot needs looked at. Reason Comments Nail Care R foot callus on bal l of the foot that is painful FOR RECORDS PERTAINING TO PATIENTS WHO ARE OR HAVE BEEN ENROLLED IN A CHEMICAL DEPENDENCY/SUBSTANCEABUSE PROGRAM, SOME INFORMATION MAY BE OMITTED. This clinical summary was aggregated from multiple sources. Caution should be exercised in using it in the provision of clinical care. This summary normalizes information from multiple sources, and as a consequence, information in this document may materially change the coding, format and clinical context of patient data. In addition, data may be omitted in some cases. CLINICAL DECISIONS SHOULD BE BASED ON THE PRIMARY CLINICAL RECORDS. [facility] [employer] software [facility]. provides no warranty or guarantee of the accuracy or completeness of information in this document.
== END | disposition home or self-care (01) ==
LOC: POLAB3 16:03
PROVIDERS: PCP Family Medicine Geriatric Medicine; Visit Provider Family Medicine Geriatric Medicine
DX: I10 Essential (primary) hypertension (principal); E55.9 Vitamin D deficiency, unspecified
CPT/HCPCS: 36415; 80053; 82306; 84443; 85025

== ENCOUNTER → 2023-04-27 | Outpatient (CLI) | payer MEDICARE, SELFPAY ==
[2023-04-27 17:05] LABS: Anion Gap 4 (5-15); BUN 16 mg/dL (7-18); BUN/Creat Ratio 13.4 RATIO (10-20); Calcium,Total 8.5 mg/dL (8.5-10.1); Chloride 104 mmol/L (98-107); Creatinine, Serum 1.19 mg/dL (0.70-1.30); EST Glomerular Filtration Rate 61 mL/min (>60); Est Glom Filt Rate - Afr Amer 74 mL/min (>60); Glucose 93 mg/dL (74-106); Potassium 4.6 mmol/L (3.5-5.1); Sodium Level 138 mmol/L (136-145)
== END | disposition home or self-care (01) ==
LOC: POLAB3 16:10
PROVIDERS: PCP Family Medicine Geriatric Medicine; Visit Provider Family Medicine Geriatric Medicine
DX: E78.5 Hyperlipidemia, unspecified (principal)
CPT/HCPCS: 36415; 80048

== ENCOUNTER → 2023-10-08 | Outpatient (CLI) | payer MEDICARE, SELFPAY ==
[2023-10-08 17:37] LABS: Anion Gap 6 (5-15); BUN 19 mg/dL (7-18); BUN/Creat Ratio 17.1 RATIO (10-20); Calcium,Total 8.7 mg/dL (8.5-10.1); Chloride 100 mmol/L (98-107); Creatinine, Serum 1.11 mg/dL (0.70-1.30); EST Glomerular Filtration Rate 66 mL/min (>60); Est Glom Filt Rate - Afr Amer 80 mL/min (>60); Glucose 104 mg/dL (74-106); Potassium 3.2 mmol/L (3.5-5.1); Sodium Level 137 mmol/L (136-145)
== END | disposition home or self-care (01) ==
LOC: LAB 16:08
PROVIDERS: PCP Family Medicine Geriatric Medicine; Referring Provider Nurse Practitioner Family; Visit Provider Nurse Practitioner Family
DX: Z95.1 Presence of aortocoronary bypass graft (principal); I48.0 Paroxysmal atrial fibrillation; I10 Essential (primary) hypertension; E78.5 Hyperlipidemia, unspecified; R06.09 Other forms of dyspnea
CPT/HCPCS: 36415; 80048

== ENCOUNTER → 2023-10-19 | Outpatient (CLI) | payer MEDICARE, SELFPAY ==
[2023-10-19 16:27] LABS: Absolute Lymphocyte Count 1.84 X10^3/uL (0.83-4.51); Basophil# 0.03 X10^3/uL; Basophil% 0.4 % (0-1); Eosinophil# 0.11 X10^3/uL; Eosinophils% 1.6 % (0-5); Hematocrit 43.1 % (40-54); Hemoglobin 14.4 g/dL (13.0-16.5); Lymphocyte # 1.84 X10^3/ul (0.83-4.51); Lymphocyte % 26.7 % (19-41); Mean Corp Hgb Conc 33.4 g/dL (32-36); Mean Corpuscular Hgb 31.7 pg (27.0-32.0); Mean Corpuscular Volume 94.9 fL (80-94); Mean Platelet Vol. 9.9 fl (6.2-12.0); Monocyte# 0.87 X10^3/uL; Monocyte% 12.6 % (0-10); NRBC Flagged by Analyzer 0 % (0-5); Neutrophil # 4.02 X10^3/uL (2.7-7.7); Neutrophil % 58.3 % (47-70); Platelet Count 231 K/mm3 (150-450); RBC Distribution Width CV 14.1 % (11.6-14.6); RBC Distribution Width SD 49.3 fl (35.1-43.9); Red Blood Count 4.54 M/mm3 (4.6-6.2); White Blood Count 6.9 K/mm3 (4.4-11.0)
[2023-10-19 17:12] LABS: ALB/GLOB Ratio 0.8 RATIO (0.9-2.4); AST(SGOT) 19 U/L (15-37); Alanine Aminotransfer ALT/SGPT 35 U/L (16-61); Albumin, Serum 3.1 g/dL (3.2-5.0); Alkaline Phosphatase 82 U/L (45-117); Anion Gap 5 (5-15); BUN 16 mg/dL (7-18); BUN/Creat Ratio 13.4 RATIO (10-20); Calcium,Total 9.1 mg/dL (8.5-10.1); Chloride 106 mmol/L (98-107); Creatinine, Serum 1.19 mg/dL (0.70-1.30); EST Glomerular Filtration Rate 61 mL/min (>60); Est Glom Filt Rate - Afr Amer 74 mL/min (>60); Globulin 3.8 g/dL (2.2-4.2); Glucose 97 mg/dL (74-106); Potassium 3.7 mmol/L (3.5-5.1); Protein, Total 6.9 g/dL (6.4-8.2); Sodium Level 141 mmol/L (136-145)
== END | disposition home or self-care (01) ==
LOC: POLAB3 16:04
PROVIDERS: PCP Family Medicine Geriatric Medicine; Visit Provider Family Medicine Geriatric Medicine
DX: I10 Essential (primary) hypertension (principal); E55.9 Vitamin D deficiency, unspecified
CPT/HCPCS: 36415; 80053; 82306; 84443; 85025

== ENCOUNTER → 2024-03-29 | Outpatient (CLI) | payer MEDICARE, SELFPAY ==
--- NOTE | 2024-03-29 17:20 | RAD_ITS ---
PROCEDURE: CHEST PA AND LATERAL REASON FOR EXAM: Shortness of breath TECHNIQUE: Frontal and lateral views of the chest. COMPARISON: 05/28/2022 FINDINGS: The heart size is normal. There are atherosclerotic calcifications of the thoracic aorta. Left lower lung zone linear opacities Degenerative changes are identified within the thoracic spine. Right total shoulder arthroplasty RAD/Chest PA and Lateral IMPRESSION: Left basilar atelectasis versus scarring. No acute cardiopulmonary disease. Reading Location: [facility]
[2024-03-29 17:44] LABS: Absolute Lymphocyte Count 0.84 X10^3/uL (0.83-4.51); Absolute Neutrophil Count 10.7 X10^3/uL (2.0-7.7); Basophil# 0.07 X10^3/uL; Basophil% 0.5 % (0-1); Eosinophil# 0.02 X10^3/uL; Eosinophils% 0.2 % (0-5); Hematocrit 38.9 % (40-54); Lymphocyte # 0.84 X10^3/ul (0.83-4.51); Lymphocyte % 6.5 % (19-41); Mean Corp Hgb Conc 33.4 g/dL (32-36); Mean Corpuscular Hgb 31.2 pg (27.0-32.0); Mean Corpuscular Volume 93.3 fL (80-94); Mean Platelet Vol. 9.2 fl (6.2-12.0); Monocyte# 1.17 X10^3/uL; NRBC Flagged by Analyzer 0 % (0-5); Neutrophil # 10.72 X10^3/uL (2.7-7.7); Neutrophil % 82.8 % (47-70); Platelet Count 250 K/mm3 (150-450); RBC Distribution Width CV 13.4 % (11.6-14.6); RBC Distribution Width SD 45.8 fl (35.1-43.9); Red Blood Count 4.17 M/mm3 (4.6-6.2)
[2024-03-29 18:23] LABS: D-Dimer Quantitative (DVT/PE) 1.25 FEU/ug/m (0.27-0.49)
[2024-03-29 18:52] LABS: Anion Gap 11 (5-15); BUN 22 mg/dL (7-18); BUN/Creat Ratio 19.3 RATIO (10-20); Calcium,Total 9.2 mg/dL (8.5-10.1); Chloride 100 mmol/L (98-107); Creatinine, Serum 1.14 mg/dL (0.70-1.30); EST Glomerular Filtration Rate 64 mL/min (>60); Est Glom Filt Rate - Afr Amer 78 mL/min (>60); Glucose 128 mg/dL (74-106); Potassium 4.1 mmol/L (3.5-5.1); Sodium Level 133 mmol/L (136-145)
== END | disposition home or self-care (01) ==
PROVIDERS: PCP Family Medicine Geriatric Medicine; Referring Provider Family Medicine Geriatric Medicine; Visit Provider Family Medicine Geriatric Medicine
DX: R06.02 Shortness of breath (principal); R06.2 Wheezing; I10 Essential (primary) hypertension
CPT/HCPCS: 36415; 71046; 80048; 85025; 85379

== ENCOUNTER → 2024-03-30 | Outpatient (CLI) | payer MEDICARE, SELFPAY ==
--- NOTE | 2024-03-30 16:56 | CT_ITS ---
PROCEDURE: CTA CHEST with CONTRAST REASON FOR EXAM: Pulmonary embolism. TECHNIQUE: CTA imaging of the chest with intravenous contrast. 3D reconstructions. Dose reduction techniques include automated exposure control and/or adjustment of mA and/or kv according to patient size and or use of iterative reconstructive technique CONTRAST: 100 mL Isovue 370. COMPARISON: None. FINDINGS: Hardware: Status post median sternotomy and CABG. Lymph nodes: No mediastinal hilar or axillary lymphadenopathy. Heart: Normal heart size. No pericardial effusion. RV/LV Diameter Ratio: N/A Thoracic Aorta: Diffusely atherosclerotic. Mildly ectatic at the descending portion measuring 3.1 x 3.2 cm. Pulmonary Vessels: No evidence of acute pulmonary emboli through the major subsegmental branches. Lungs and Airways: Chronic bronchiectasis at the lung bases with some mucous plugging or debris in the peripheral bronchi. Linear bibasilar atelectasis is also noted. Tree-in-bud opacities are located in the lower lobes and in the dependent portions of the lingula and upper lobes. Pleura: No pleural effusion. No pneumothorax. Upper Abdomen: Visualized portions of the upper abdominal viscera are unremarkable. Bones: Multilevel degenerative changes in the thoracic spine. A bone island is noted incidentally at T2. Small hiatal hernia CT/CTA Chest W/WO Contrast IMPRESSION: NEGATIVE FOR PULMONARY EMBOLISM. TREE-IN-BUD OPACITIES IN THE LUNGS, COUPLED WITH BRONCHIECTASIS AND BIBASILAR M UCOUS PLUGGING, ARE LIKELY DUE TO AN INFECTIOUS OR INFLAMMATORY PROCESS. Reading Location: [id number]
== END | disposition home or self-care (01) ==
PROVIDERS: PCP Family Medicine Geriatric Medicine; Referring Provider Family Medicine Geriatric Medicine; Visit Provider Family Medicine Geriatric Medicine
DX: I26.99 Other pulmonary embolism without acute cor pulmonale (principal)
CPT/HCPCS: 71275; Q9967

== ENCOUNTER → 2024-03-31 | Outpatient (CLI) | payer MEDICARE, SELFPAY | END | disposition home or self-care (01) | PROVIDERS: PCP Family Medicine Geriatric Medicine; Referring Provider Family Medicine Geriatric Medicine; Visit Provider Family Medicine Geriatric Medicine | DX: R68.83 Chills (without fever) (principal) | CPT/HCPCS: 87631 ==

== ENCOUNTER → 2024-04-18 | Outpatient (CLI) | payer MEDICARE, SELFPAY ==
[2024-04-18 16:46] LABS: Absolute Lymphocyte Count 1.21 X10^3/uL (0.83-4.51); Absolute Neutrophil Count 5.1 X10^3/uL (2.0-7.7); Basophil# 0.03 X10^3/uL; Basophil% 0.4 % (0-1); Eosinophil# 0.08 X10^3/uL; Eosinophils% 1.1 % (0-5); Hematocrit 42.7 % (40-54); Hemoglobin 14.1 g/dL (13.0-16.5); Lymphocyte # 1.21 X10^3/ul (0.83-4.51); Mean Corpuscular Hgb 31.4 pg (27.0-32.0); Mean Corpuscular Volume 95.1 fL (80-94); Mean Platelet Vol. 9.6 fl (6.2-12.0); Monocyte# 0.64 X10^3/uL; NRBC Flagged by Analyzer 0 % (0-5); Neutrophil # 5.08 X10^3/uL (2.7-7.7); Neutrophil % 71.5 % (47-70); Platelet Count 176 K/mm3 (150-450); RBC Distribution Width CV 14.6 % (11.6-14.6); RBC Distribution Width SD 49.9 fl (35.1-43.9); Red Blood Count 4.49 M/mm3 (4.6-6.2); White Blood Count 7.1 K/mm3 (4.4-11.0)
[2024-04-18 19:19] LABS: ALB/GLOB Ratio 1.2 RATIO (0.9-2.4); AST(SGOT) 24 U/L (<=37); Alanine Aminotransfer ALT/SGPT 31 U/L (<=46); Albumin, Serum 3.5 g/dL (3.4-4.8); Alkaline Phosphatase 106 U/L (40-129); Anion Gap 11 (5-15); BUN 19 mg/dL (4-19); BUN/Creat Ratio 17.8 RATIO (10-20); Calcium,Total 9.2 mg/dL (7.6-11.0); Carbon Dioxide 24.5 mmol/L (21.0-32.0); Chloride 101 mmol/L (98-108); Creatinine, Serum 1.07 mg/dL (0.70-1.20); EST Glomerular Filtration Rate 66 (>60); Globulin 2.9 g/dL (2.2-4.2); Glucose 103 mg/dL (70-99); Potassium 4.4 mmol/L (3.3-5.1); Protein, Total 6.4 g/dL (5.9-8.4); Sodium Level 137 mmol/L (133-145); Total Bilirubin 0.34 mg/dL (0.00-1.30)
== END | disposition home or self-care (01) ==
LOC: POLAB3 16:24
PROVIDERS: PCP Family Medicine Geriatric Medicine; Visit Provider Family Medicine Geriatric Medicine
DX: I10 Essential (primary) hypertension (principal); E55.9 Vitamin D deficiency, unspecified
CPT/HCPCS: 36415; 80053; 82306; 84443; 85025